=== PATIENT | female | born 1990 | race Caucasian/White ===

== ENCOUNTER → 2021-01-07 10:25 | Outpatient (CLI) | payer SELFPAY ==
[2021-01-07 09:26] VITALS: BMI 34.4
[2021-01-07 10:45] LABS: Absolute Lymphocyte Count 1.04 X10^3/uL (0.83-4.51); Absolute Neutrophil Count 3.6 X10^3/uL (2.0-7.7); Basophil# 0.02 X10^3/uL; Basophil% 0.4 % (0-1); Eosinophil# 0.02 X10^3/uL; Eosinophils% 0.4 % (0-5); Hematocrit 36.5 % (37-47); Hemoglobin 12.3 g/dL (12.0-15.0); Lymphocyte # 1.04 X10^3/ul (0.83-4.51); Lymphocyte % 20.9 % (19-41); Mean Corp Hgb Conc 33.7 g/dL (32-36); Mean Corpuscular Hgb 29.9 pg (27.0-32.0); Mean Corpuscular Volume 88.6 fL (81-99); Mean Platelet Vol. 10.7 fl (6.2-12.0); Monocyte# 0.31 X10^3/uL; Monocyte% 6.2 % (0-10); NRBC Flagged by Analyzer 0 % (0-5); Neutrophil # 3.57 X10^3/uL (2.7-7.7); Neutrophil % 71.9 % (47-70); Platelet Count 154 K/mm3 (150-450); RBC Distribution Width SD 38.6 fl (35.1-43.9); Red Blood Count 4.12 M/mm3 (4.2-5.4)
[2021-01-07 11:03] LABS: Glucose Challenge Gest 1H 50g 129 mg/dL (70-140)
[2021-01-07 11:24] LABS: Rubella IgG Reactive (Nonreactive)
[2021-01-09 09:29] LABS: V-Zoster IgG (Immunity) < 135 index (Immune >165)
== END ==
PROVIDERS: PCP Nurse Practitioner Family; Referring Provider Obstetrics & Gynecology; Visit Provider Obstetrics & Gynecology
DX: O99.210 Obesity complicating pregnancy, unspecified trimester (principal); E66.9 Obesity, unspecified; Z3A.00 Weeks of gestation of pregnancy not specified; Z78.9 Other specified health status
CPT/HCPCS: 36415; 82950; 85025; 86762; 86787; 86850; 86900; 86901; 87086; 87088

== ENCOUNTER → 2021-02-02 | Outpatient (CLI) | payer SELFPAY ==
[2021-02-02 10:41] VITALS: BMI 34.4
[2021-02-04 03:07] LABS: Chlamydia By Nucleic Acid AMP Negative (Negative)
[2021-02-04 12:11] LABS: Gonococcus By Nucleic Acid AMP Negative (Negative)
[2021-02-05 08:28] LABS: HPV Reflexed? NOT INDICATED
== END | disposition home or self-care (01) ==
PROVIDERS: PCP Nurse Practitioner Family; Referring Provider Obstetrics & Gynecology; Visit Provider Obstetrics & Gynecology
DX: Z12.4 Encounter for screening for malignant neoplasm of cervix (principal)
CPT/HCPCS: 87491; 87591; 88175; G0145

== ENCOUNTER → 2021-03-17 12:17 | Outpatient (CLI) | payer SELFPAY ==
[2021-02-02 10:41] VITALS: BMI 34.4
--- NOTE | 2021-03-17 12:18 | US_ITS ---
STUDY: SECOND AND THIRD TRIMESTER OBSTETRICAL ULTRASOUND REASON FOR EXAM: Female, 30 years old anatomy LMP: 11/02/2020. TECHNIQUE: Transabdominal and Transvaginal TECHNICAL QUALITY: Adequate. PRIOR ULTRASOUND: None. FINDINGS: There is a single intrauterine fetus. The fetus is in a cephalic presentation. There is demonstrated cardiac activity with a heart rate of 144 bpm. There is a normal amniotic fluid volume. The largest amniotic fluid pocket measures 4.5 cm x 4.2 cm. The amniotic fluid index (DEANDRE) is within normal limits. The placenta is anterior in location and is not low lying. There are Grade 0 placental changes. The cervix measures 4.4 cm in length. The bilateral adnexal regions are normal. BIOMETRY: BPD: 4.58 cm: 19 weeks, 6 days HC: 16.29 cm: 19 weeks, 0 days AC: 13.67 cm: 19 weeks, 0 days FL: 2.93 cm: 19 weeks, 0 days CI: 85% FL/BPD: 64% FL/HC: FL/AC: 21% HC/AC: 1.19 age by current US: 18 weeks, 6 days. MICHAELA by current US: 08/12/2021. Estimated weight: 270 grams, +/- 42 grams, 38 %. Age by LMP: 19 weeks, 2 days. MICHAELA by LMP: 08/09/2021. ANATOMY: Gender: Female Cranium: Normal lateral ventricles. Normal choroid plexus. Normal cerebellum. Normal cisterna magna. Normal face, nose and lips. Chest: Normal 4-chamber heart. Abdomen/Pelvis: Normal diaphragm. Normal stomach. Normal abdominal wall. Normal cord insertion. Normal 3 vessel cord. Normal kidneys. Normal bladder. Spine: Normal cervical spine. Normal thoracic spine. Normal lumbar spine. Normal sacrum. Extremities: Normal bilateral upper extremities. Normal bilateral lower extremities. IMPRESSION: Single life intrauterine gestation with a mean gestational age of 18 weeks and 6 days. Electronically Signed: Anirudh Amin MD at 9:22 EDT , Service support , STUDY: FIRST TRIMESTER OBSTETRICAL ULTRASOUND REASON FOR EXAM: Female, 30 years old . Cervical length measurement. LMP: 11/02/2020 TECHNIQUE: Transvaginal TECHNICAL QUALITY: Adequate. PRIOR ULTRASOUND: None. FINDINGS: The cervical length measures 4.4 cm. US/OB Anatomy Scan IMPRESSION: Cervical length measures 4.4 cm. Electronically Signed: Anirudh Amin MD at 9:22 EDT , Service support ,
--- NOTE | 2021-03-17 12:18 | US_ITS ---
STUDY: SECOND AND THIRD TRIMESTER OBSTETRICAL ULTRASOUND REASON FOR EXAM: Female, 30 years old anatomy LMP: 11/02/2020. TECHNIQUE: Transabdominal and Transvaginal TECHNICAL QUALITY: Adequate. PRIOR ULTRASOUND: None. FINDINGS: There is a single intrauterine fetus. The fetus is in a cephalic presentation. There is demonstrated cardiac activity with a heart rate of 144 bpm. There is a normal amniotic fluid volume. The largest amniotic fluid pocket measures 4.5 cm x 4.2 cm. The amniotic fluid index (DEANDRE) is within normal limits. The placenta is anterior in location and is not low lying. There are Grade 0 placental changes. The cervix measures 4.4 cm in length. The bilateral adnexal regions are normal. BIOMETRY: BPD: 4.58 cm: 19 weeks, 6 days HC: 16.29 cm: 19 weeks, 0 days AC: 13.67 cm: 19 weeks, 0 days FL: 2.93 cm: 19 weeks, 0 days CI: 85% FL/BPD: 64% FL/HC: FL/AC: 21% HC/AC: 1.19 age by current US: 18 weeks, 6 days. MICHAELA by current US: 08/12/2021. Estimated weight: 270 grams, +/- 42 grams, 38 %. Age by LMP: 19 weeks, 2 days. MICHAELA by LMP: 08/09/2021. ANATOMY: Gender: Female Cranium: Normal lateral ventricles. Normal choroid plexus. Normal cerebellum. Normal cisterna magna. Normal face, nose and lips. Chest: Normal 4-chamber heart. Abdomen/Pelvis: Normal diaphragm. Normal stomach. Normal abdominal wall. Normal cord insertion. Normal 3 vessel cord. Normal kidneys. Normal bladder. Spine: Normal cervical spine. Normal thoracic spine. Normal lumbar spine. Normal sacrum. Extremities: Normal bilateral upper extremities. Normal bilateral lower extremities. IMPRESSION: Single life intrauterine gestation with a mean gestational age of 18 weeks and 6 days. Electronically Signed: Anirudh Amin MD at 9:22 EDT , Service support , STUDY: FIRST TRIMESTER OBSTETRICAL ULTRASOUND REASON FOR EXAM: Female, 30 years old . Cervical length measurement. LMP: 11/02/2020 TECHNIQUE: Transvaginal TECHNICAL QUALITY: Adequate. PRIOR ULTRASOUND: None. FINDINGS: The cervical length measures 4.4 cm. US/Transvaginal w/Preg US IMPRESSION: Cervical length measures 4.4 cm. Electronically Signed: Anirudh Amin MD at 9:22 EDT , Service support ,
== END ==
PROVIDERS: PCP Nurse Practitioner Family; Referring Provider Obstetrics & Gynecology; Visit Provider Obstetrics & Gynecology
DX: Z34.01 Encounter for supervision of normal first pregnancy, first trimester (principal)
CPT/HCPCS: 76805; 76817

== ENCOUNTER → 2021-05-20 10:14 | Outpatient (CLI) | payer SELFPAY ==
[2021-05-20 10:42] LABS: Absolute Lymphocyte Count 1.01 X10^3/uL (0.83-4.51); Absolute Neutrophil Count 4.9 X10^3/uL (2.0-7.7); Basophil# 0.01 X10^3/uL; Basophil% 0.2 % (0-1); Eosinophil# 0.04 X10^3/uL; Eosinophils% 0.6 % (0-5); Hematocrit 34.1 % (37-47); Hemoglobin 11.3 g/dL (12.0-15.0); Lymphocyte # 1.01 X10^3/ul (0.83-4.51); Lymphocyte % 16.3 % (19-41); Mean Corp Hgb Conc 33.1 g/dL (32-36); Mean Corpuscular Hgb 30.1 pg (27.0-32.0); Mean Corpuscular Volume 90.7 fL (81-99); Monocyte# 0.25 X10^3/uL; NRBC Flagged by Analyzer 0 % (0-5); Neutrophil # 4.85 X10^3/uL (2.7-7.7); Neutrophil % 78.4 % (47-70); Platelet Count 136 K/mm3 (150-450); RBC Distribution Width CV 13.2 % (11.6-14.6); RBC Distribution Width SD 42.8 fl (35.1-43.9); Red Blood Count 3.76 M/mm3 (4.2-5.4); White Blood Count 6.2 K/mm3 (4.4-11.0)
[2021-05-20 11:12] LABS: Glucose Challenge Gest 1H 50g 128 mg/dL (70-140)
== END ==
PROVIDERS: PCP Nurse Practitioner Family; Referring Provider Obstetrics & Gynecology; Visit Provider Obstetrics & Gynecology
DX: Z34.92 Encounter for supervision of normal pregnancy, unspecified, second trimester (principal)
CPT/HCPCS: 36415; 82950; 85025

== ENCOUNTER → 2021-06-18 10:18 | Outpatient (CLI) | payer SELFPAY ==
[2021-06-18 10:35] LABS: Hematocrit 34.8 % (37-47); Hemoglobin 11.7 g/dL (12.0-15.0); Mean Corp Hgb Conc 33.6 g/dL (32-36); Mean Corpuscular Hgb 30.6 pg (27.0-32.0); Mean Corpuscular Volume 91.1 fL (81-99); Mean Platelet Vol. 10.6 fl (6.2-12.0); Platelet Count 143 K/mm3 (150-450); RBC Distribution Width SD 42.5 fl (35.1-43.9); Red Blood Count 3.82 M/mm3 (4.2-5.4); White Blood Count 7.2 K/mm3 (4.4-11.0)
== END ==
PROVIDERS: PCP Nurse Practitioner Family; Referring Provider Obstetrics & Gynecology; Visit Provider Obstetrics & Gynecology
DX: O99.119 Other diseases of the blood and blood-forming organs and certain disorders involving the immune mechanism complicating pregnancy, unspecified trimester (principal); D69.6 Thrombocytopenia, unspecified; Z3A.00 Weeks of gestation of pregnancy not specified
CPT/HCPCS: 36415; 85027

== ENCOUNTER 2021-07-17 10:44 | Outpatient (CLI) | payer SELFPAY ==
[2021-07-17 11:08] LABS: Absolute Lymphocyte Count 0.52 X10^3/uL (0.83-4.51); Absolute Neutrophil Count 3.5 X10^3/uL (2.0-7.7); Basophil# 0.02 X10^3/uL; Basophil% 0.5 % (0-1); Eosinophil# 0.01 X10^3/uL; Eosinophils% 0.2 % (0-5); Hematocrit 36.3 % (37-47); Hemoglobin 11.9 g/dL (12.0-15.0); Lymphocyte # 0.52 X10^3/ul (0.83-4.51); Lymphocyte % 11.8 % (19-41); Mean Corp Hgb Conc 32.8 g/dL (32-36); Mean Corpuscular Hgb 29.8 pg (27.0-32.0); Mean Platelet Vol. 11.3 fl (6.2-12.0); Monocyte# 0.33 X10^3/uL; Monocyte% 7.5 % (0-10); NRBC Flagged by Analyzer 0 % (0-5); Neutrophil % 79.8 % (47-70); POSITIVE DIFFERENTIAL YES; Platelet Count 124 K/mm3 (150-450); RBC Distribution Width SD 42.6 fl (35.1-43.9); Red Blood Count 3.99 M/mm3 (4.2-5.4); White Blood Count 4.4 K/mm3 (4.4-11.0)
[2021-07-17 11:12] LABS: Differential Indicated SCAN CRITERIA MET
[2021-07-17 11:46] LABS: Platelet Estimate SLT DEC (ADEQ); Red Cell Morphology NORM C+C NORMAL (NORM C&C)
[2021-07-20 14:00] LABS: Pathologist Review Reviewed
== END 2021-07-17 23:59 | disposition short-term general hospital (02) ==
PROVIDERS: PCP Nurse Practitioner Family; Referring Provider Nurse Practitioner Women's Health; Visit Provider Nurse Practitioner Women's Health
DX: O09.899 Supervision of other high risk pregnancies, unspecified trimester (principal); Z28.3 Underimmunization status; Z3A.00 Weeks of gestation of pregnancy not specified
CPT/HCPCS: 36415; 85025; 87081

== ENCOUNTER 2021-08-16 01:15 | Inpatient (IN) | payer SELFPAY ==
[2021-08-16] VITALS (77 sets, daily range): BP systolic 90–171; BP diastolic 54–132; PULSE 57–187; TEMP 35.8–37.1; O2SAT 88–100; BMI 36.9
[2021-08-16 01:13] LABS: ROM Internal Control Test YES-OK TO RESULT pt. (Internal QC)
[2021-08-16 01:14] LABS: ROM Patient Test POSITIVE (Negative)
[2021-08-16] MEDS: Lactated Ringers 1,000 ML 50 ML IV (01:30)
[2021-08-16 01:49] LABS: Absolute Neutrophil Count 7.3 X10^3/uL (2.0-7.7); Basophil# 0.02 X10^3/uL; Basophil% 0.2 % (0-1); Eosinophil# 0.06 X10^3/uL; Eosinophils% 0.6 % (0-5); Hematocrit 35.1 % (37-47); Hemoglobin 12.3 g/dL (12.0-15.0); Lymphocyte % 16.9 % (19-41); Mean Corpuscular Hgb 31.6 pg (27.0-32.0); Mean Corpuscular Volume 90.2 fL (81-99); Mean Platelet Vol. 12.4 fl (6.2-12.0); Monocyte# 0.47 X10^3/uL; NRBC Flagged by Analyzer 0 % (0-5); Neutrophil % 76.9 % (47-70); Platelet Count 131 K/mm3 (150-450); RBC Distribution Width CV 12.9 % (11.6-14.6); RBC Distribution Width SD 41.5 fl (35.1-43.9); Red Blood Count 3.89 M/mm3 (4.2-5.4); White Blood Count 9.5 K/mm3 (4.4-11.0)
[2021-08-16 02:56] LABS: HIV - WCH Non-Reactive (Nonreactive); Hepatitis C Antibody Non-Reactive (Nonreactive); Syphilis Antibodies Non-reactive
[2021-08-16] MEDS: Oxytocin 30 units/NS 500 ml 30 UNITS/500 ML IV.SOLN IV (06:30)
--- NOTE | 2021-08-16 07:09 | HP.PCM.OB_ITS ---
HPI - General General Date of Admission: 08/16/21 HPI Narrative SWATI SERRATO, is a 30 F who presentswith clear SROM midnight no regular ctx no vb good fm Maternal Data Information [facility] Calculator Estimated Delivery Date Method Current WG Current Estimate 08/09/21 LMP (Certain) 41w 0d PFSH PFSH Medical History Susceptible to varicella (non-immune), currently Home Medications prenat.vits,justino,ivy-[id number]-zarpl 1 tab PO DAILY 12/22/20 [History Last Taken 08/14/21 22:00] Allergy/AdvReac Type Severity Reaction Status Date / Time No Known Allergies Allergy Verified 08/16/21 00:37 Family History Mother Colon cancer, Onset Age: 56 Grandfather Cancer Grandmother CVA (cerebral vascular accident) Grandfather CVA (cerebral vascular accident) Social History adopted: No household members: spouse current occupational status: unemployed Smoking Status: Former smoker alcohol intake: never substance use type: does not use History 2 Elective abortions Hx Para 0 Spontaneous abortions 1 Hx # Term Pregnancies Ectopic pregnancies Hx # Pregnancies Multiple births # of living children 0 Past Pregnancies Del. Date Name GA/Weeks Outcome Route Bth Weight Gen Labor Lgth Anesthesia Del Locatn Provider FOB Unknown SAB 04/2020 spontaneous Visit Details Expected Delivery Route/Plan Labor Preferences- CB/BF classes: encouraged labor support person: Surinder labor intervention prefers: ok with pit intervention as needed pain management options preferred: epidural cut cord/dad catch: FOB terrified of labor process. will not want to cut the cord. : yes PP control planned: discussed discussed possible routes of delivery and associated risks: discussed today want a safe delivery special requests: [] Plans covid status: counseled regarding risk of covid in vs vaccination and declined vaccination flu vaccine: declined tdap vaccine: declines rhogam: na LARC form signed: yes Problem list reviewed and updated with the most current plan of care details and appropriate orders placed. Relevant counseling for the gestational age provided. Continue routine care and follow up unless otherwise noted in visit notes/problem list details OB Flowsheet Initial Weight: Not Recorded Date -?--?-?-?-?-?-?-?-?-?-?-?- EGA Weight BP Urine Prot -?-?-?-?-?-?-?-?-?-?-?-?- Glucose FHR FuHt Pres Dilation -?-?-?-?-?-?-?-?-?-?-?-?- Effaced St Visit Note 01/07/21 -?-?-?-?-?-?-?-?-?-?-?-?- 9w 3d 233 lb 8 oz 100/60 -?-?-?-?-?-?-?-?-?-?-?-?- 168 -?-?-?-?-?-?-?-?-?-?-?-?- GP - CRL 24mm co nsistent with LMP. NOB cut short - will do pap at next visit. 02/02/21 -?-?-?-?-?-?-?-?-?-?-?-?- 13w 1d 230 lb 100/70 Negative -?-?-?-?-?-?-?-?-?-?-?-?- Negative 157 -?-?-?-?-?-?-?-?-?-?-?-?- GP - no cramping or bleeding. Pap done today. Anatomy scan ordered. 03/04/21 -?-?-?-?-?-?-?-?-?-?-?-?- 17w 3d 228 lb 8 oz 118/82 Nega tive -?-?-?-?-?-?-?-?-?-?-?-?- Negative 155 -?-?-?-?-?-?-?-?-?-?-?-?- GP - no cramping or bleeding. Anatomy scheduled. Discussed changing to help with nausea. 04/01/21 -?-?-?-?-?-?-?-?-?-?-?-?- 21w 3d 232 lb 100/82 Negative -?-?-?-?-?-?-?-?-?-?-?-?- Negative 150 -?-?-?-?-?-?-?-?-?-?-?-?- SM- no vb lof go od fm no reuglar ctx 05/08/21 -?-?-?-?-?-?-?-?-?-?-?-?- 26w 5d 240 lb 102/74 Negative -?-?-?-?-?-?-?-?-?-?-?-?- Negative 150 26 -?-?-?-?-?-?-?-?-?-?-?-?- SM- no vb crampi ng doing well 05/20/21 -?-?-?-?-?-?-?-?-?-?-?-?- 28w 3d 241 lb 8 oz 104/62 Nega tive -?-?-?-?-?-?-?-?-?-?-?-?- Negative 146 28 -?-?-?-?-?-?-?-?--?-?-?-?- MH-No VB, LOF. G ood FM. CBC today:low platelets, rpt 4 week. No anemia. Glucose pending. Larc signed. Declines flu and tdap vaccine. 06/03/21 -?-?-?-?-?-?-?-?-?-?-?-?- 30w 3d 243 lb 4 oz 90/70 Nega tive -?-?-?-?-?-?-?-?-?-?-?-?- Negative 156 32 -?-?-?-?-?-?-?-?-?-?-?-?- JV- no lof, vagi nal bleeding or dec fm. rpt plts at 34 weeks. 06/18/21 -?-?-?-?-?-?-?-?-?-?-?-?- 32w 4d 244 lb 8 oz 100/76 Nega tive -?-?-?-?-?-?-?-?-?-?-?-?- Negative 142 32 -?-?-?-?-?-?-?-?-?-?-?-?- JV- no lof, vagi nal bleeding, or dec fm. cbc ordered , 07/02/21 -?-?-?-?-?-?-?-?-?-?-?-?- 34w 4d 246 lb 4 oz 100/62 Nega tive -?-?-?-?-?-?-?-?-?-?-?-?- Negative 154 34 -?-?-?-?-?-?-?-?-?-?-?-?- MH-No VB, LOF. G ood FM. No CTX 07/17/21 -?-?-?-?-?-?-?-?-?-?-?-?- 36w 5d 249 lb 110/86 Negative -?-?-?-?-?-?-?-?-?-?-?-?- Negative 135 37 Cephalic -?-?-?-?-?-?-?-?-?-?-?-?- SM- no vb lof go od fm no reuglar ctx platelets reviewed. 07/24/21 -?-?-?-?-?-?-?-?-?-?-?-?- 37w 5d 248 lb 100/60 Trace -?-?-?-?-?-?-?-?-?-?-?-?- Negative 137 36 Cephalic 0 -?-?-?-?-?-?-?-?-?-?-?-?- JV- consider DEANDRE next visit. fundal height slightly lower than last week. She thinks baby dropped. NO lof, vaginal bleeding, or dec fm. 07/31/21 -?-?-?-?-?-?-?-?-?-?-?-?- 38w 5d 250 lb 2 oz 100/76 Nega tive -?-?-?-?-?-?-?-?-?-?-?-?- Negative 158 37 Cephalic 0 -?-?-?-?-?-?-?-?-?-?-?-?- JV- no lof, vagi nal bleeding, or dec fm. HC 10 cm, deandre 12. 08/07/21 -?-?-?-?-?-?-?-?-?-?-?-?- 39w 5d 251 lb 100/78 Negative -?-?-?-?-?-?-?-?-?-?-?-?- Negative 145 38 Cephalic 0 -?-?-?-?-?-?-?-?-?-?-?-?- SM- no vb lof go od fm no regular ctx 08/14/21 -?-?-?-?-?-?-?-?-?-?-?-?- 40w 5d 248 lb 6 oz 106/78 -?-?-?-?-?-?-?-?-?-?-?-?- 140 37 Cephalic 0 -?-?-?-?-?-?-?-?-?-?-?-?- 50 -2 JV- no lof , vaginal bleeding, or dec fm. deandre was 8 cm today. IOL at 41 wee ks 08/16/21 -?-?-?-?-?-?-?-?-?-?-?-?- 41w 0d 250 lb 0.067 oz 121/ 77 112/82 120/80 102/56 100/58 100/63 -?-?-?-?-?-?-?-?-?-?-?-?- -?-?-?-?-?-?-?-?-?-?-?-?- NST FHR Rate Baby A Baseline: 140 Variability:: Moderate Accelerations:: 15 x 15 Decelerations:: None NST Reactive:: Yes FHR Category:: Category I ROS Constitutional Constitutional: Reports systems reviewed and no addt'l complaints, except as documented ENT HEENT: Reports systems reviewed and no addt'l complaints, except as documented Cardiovascular Cardiovascular: Reports systems reviewed and no addt'l complaints, except as documented Respiratory/Chest Respiratory/Chest: Reports systems reviewed and no addt'l complaints, except as documented Gastrointestinal Gastrointestinal: Reports systems reviewed and no addt'l complaints, except as documented and nausea; Denies abdominal pain Genitourinary Genitourinary: Reports systems reviewed and no addt'l complaints, except as documented, contractions Details: present and frequency (regular ) and movement Details: present Musculoskeletal Musculoskeletal: Reports systems reviewed and no addt'l complaints, except as documented Integumentary Integumentary: Reports as per HPI Neurologic Neurologic: Reports systems reviewed and no addt'l complaints, except as documented Endocrine Endocrinology: Reports systems reviewed and no addt'l complaints, except as documented Vital Signs Vital Signs Vital Signs: 08/16/21 00:43 08/16/21 00:44 08/16/21 00:45 Temperature 97.1 F L Temperature Source Temporal Pulse Rate 86 78 Blood Pressure 121/77 H BP Systolic 121 BP Diastolic 77 Pulse Ox 98 08/16/21 02:05 08/16/21 02:06 08/16/21 02:58 Temperature 97.0 F L 97.0 F L Temperature Source Temporal Temporal Pulse Rate 86 91 Blood Pressure 112/82 H BP Systolic 112 BP Diastolic 82 Pulse Ox 99 98 08/16/21 02:59 08/16/21 04:23 08/16/21 05:20 Temperature 97.9 F 98.0 F Temperature Source Temporal Temporal Pulse Rate 76 77 72 Blood Pressure 120/80 102/56 L 100/58 L BP Systolic 120 102 100 BP Diastolic 80 56 58 Pulse Ox 98 98 97 08/16/21 06:06 Temperature 97.7 F L Temperature Source Temporal Pulse Rate 69 Blood Pressure 100/63 BP Systolic 100 BP Diastolic 63 Pulse Ox 99 Weight Weight: 250 lb 0.067 oz Body Mass Index (BMI) 36.9 Physical Exam Const alert, oriented x3 and healthy appearing Constitutional Narrative: uncomfortable with contractions HEENT normocephalic and moist oral mucous membranes Head and Scalp: atraumatic Neck full ROM, no lymphadenopathy, supple and thyroid normal General: trachea midline Thyroid: thyroid normal Lymph Lymphatic: no lymphadenopathy noted Chest inspection of chest normal Resp normal respiratory effort Cardio regular rate GI normal to inspection, nondistended, normoactive bowel sounds, soft to palpation and non-tender Inspection: gravid external exam normal Bimanual Exam - Vag & Uterus: uterus non-tender Manual OB Exam: estimated gestational size appropriate, presentation cephalic, dilated, effaced and station Extremity normal to inspection General Extremity: Negative for edema Skin no rashes or lesions noted Neuro deep tendon reflexes 2+ bilaterally Motor Exam: strength 5/5 throughout and clonus absent Psych mental status grossly normal Labs Labs Labs: Blood Type A POSITIVE Antibody Screen NEGATIVE Hct 35.1 % (37-47) L Hgb 12.3 g/dL (12.0-15.0) Obstetrics US Syphilis Total Ab Non-reactive VZV IgG Antibody < 135 index (Immune >165) L Rubella IgG Antibody Reactive (Nonreactive) Hep Bs Antigen Pending Neisseria gonorrhoeae DNA (ANGEL) Negative (Negative) HIV 1&2 Antibody Non-Reactive (Nonreactive) Glucose 1 Hr 50 gm 128 mg/dL (70-140) Assessment & Plan (1) Thrombocytopenia affecting : COMMENT: rpt 4 weeks (2) Susceptible to varicella (non-immune), currently : (3) Obesity affecting : QUALIFIERS: Trimester: first trimester Qualified Code(s): O99.211 - Obesity complicating , first trimester COMMENT: BMI 34 at NOB - Early GCT nl (4) : QUALIFIERS: Weeks of gestation: 40 weeks Qualified Code(s): Z3A.40 - 40 weeks gestation of COMMENT: declined afp, genetic and carrier screen; NL anatomy. GBS neg (5) Supervision of normal first in first trimester: COMMENT: PRR MICHAELA 08/09/21 Spouse:Surinder - minimal labs 08/05 self pay (6) PROM (premature rupture of membranes): COMMENT: pit IOL, epi PRN
[2021-08-16] MEDS: Lactated Ringers 500 ML 999 ML IV ×2 (09:34→11:58)
[2021-08-16] MEDS: fentaNYL-bupivacaine (epidural) 100 ML BAG EPIDURAL ×2 (10:50→19:56)
[2021-08-16] MEDS: Lactated Ringers 1,000 ML 200 ML IV ×2 (14:27→19:56)
[2021-08-16 15:12] LABS: Hepatitis B Surface Antigen Non-Reactive (Nonreactive)
[2021-08-16] MEDS: Oxytocin 30 units/NS 500 ml 30 UNITS/500 ML IV.SOLN 334 UNITS IV (22:46)
--- NOTE | 2021-08-16 22:53 | EX.PCM.OBRPT ---
Assessment & Plan (1) PROM (premature rupture of membranes): COMMENT: pit IOL, epi PRN (2) Thrombocytopenia affecting : COMMENT: rpt 4 weeks (3) Susceptible to varicella (non-immune), currently : (4) Obesity affecting : QUALIFIERS: Trimester: first trimester Qualified Code(s): O99.211 - Obesity complicating , first trimester COMMENT: BMI 34 at NOB - Early GCT nl (5) Supervision of normal first in first trimester: COMMENT: PRR MICHAELA 08/09/21 Spouse:Surinder - minimal labs 2/2 self pay (6) : QUALIFIERS: Weeks of gestation: 40 weeks Qualified Code(s): Z3A.40 - 40 weeks gestation of COMMENT: declined afp, genetic and carrier screen; NL anatomy. GBS neg (7) Vaginal delivery: COMMENT: SM 41 PROM girl Carey Maternal Data Information MICHAELA Calculator Estimated Delivery Date Method Current WG Current Estimate 08/09/21 LMP (Certain) 41w 0d Vaginal Delivery Operative Information Pre-Operative Diagnosis: IAL Post-Operative Diagnosis: same Surgery / Procedure Performed: Spontaneous Vaginal Delivery Type of Anesthesia: Epidural Special Medications: none Estimated Blood Loss: 100 Fluids Replaced: crystalloid Findings Description of Procedure: Patient began pushing and delivered the head in the CLAY presentation. The head was delivered atraumatically . The anterior and posterior shoulders delivered without complication followed by the rest of the infant and the infant was placed on the maternal abdomen. Delayed cord clamping was employed for approximately 60 seconds. Cord was clamped and cut and gentle traction was applied to the cord and the placenta delivered spontaneously immediately following it was noted to be intact with three-vessel cord. The perineum and vagina were inspected and noted to have a second degree laceration repaired in the usual fashion with 3-0 vicryl rapide. EBL was 100. Patient and tolerated delivery well. Presentation: CLAY Amniotic Membrane Rupture Type: Artificial Amniotic Fluid Description: Clear Placental Delivery Description: Spontaneous Placenta Disposition: [facility] Cord Vessel Description: 3 Vessels Cord Entanglement: None Delayed Cord Clamping: Yes Post Vaginal Delivery Medications Given After Delivery: IV Pitocin Episiotomy Description: None Laceration: None Complication Complications: None Procedures Urinary/Genital [id number]: [id number] Vaginal Delivery [facility]
--- NOTE | 2021-08-16 22:55 | DCINST_ITS ---
Discharge Instructions Diet Discharge Diet: No restrictions Activity Discharge Activity: Return to Normal Activity, May Not Drive (while taking narcotic pain medications.) and May Shower May resume sexual activity in: 4-6 weeks Dressing / Incision Call your doctor if your incision/area has: Continuous Slow Oozing, Sudden Increased Bleeding, Increased Pain/ Swelling, Increased Redness and Foul Smelling Discharge Follow Up Care Please Follow Up With: Tita Sinclair MD When: Call [phone] to make an appointment with your doctor in 6 weeks. If you had elevated blood pressure or 4th degree laceration, you will need to be seen in 2 weeks. Test Results: Test results from this visit will be discussed in further detail at your follow-up appointment, if applicable. Discharge Plan Admission Admit Date/Time: 08/16/21 01:15 Attending Provider: Tita Sinclair Primary Care Provider: Padmnii Henderson NP Discharge Orders/Prescriptions Prescriptions: No Action prenat.vits,justino,[id number] Tablet 1 tab PO DAILY RF: 0 Referrals / Follow Up: Padmini Henderson NP, CARDIAC EXERCISE PHYSIOLOGIST-C [Primary Care Provider] - Disposition Disposition (needs filled in before D/C Order can be placed): Home, Self Care
[2021-08-17] VITALS (23 sets, daily range): BP systolic 89–117; BP diastolic 48–72; PULSE 78–117; RESP 14–18; TEMP 36.1–37.1; O2SAT 98–99
[2021-08-17] MEDS: 0.9% Saline Lock 10 ML Syringe IV (01:26)
[2021-08-17] MEDS: Naproxen 500 MG Tablet PO ×2 (06:00→19:47)
[2021-08-17] MEDS: Benzocaine/Lanolin/Aloe Vera 1 SPRAY EACH TOPICAL (06:00)
--- NOTE | 2021-08-17 07:23 | PCM.PN.OB ---
Subjective Subjective Patient doing well without complaints. Tolerating PO. Ambulating and voiding without difficulty. feeding well. Denies chest pain, shortness of breath, calf pain/swelling, fevers, chills, lightheadedness. Objective Data Objective Data Vital Signs: Vital Signs Temp Pulse Resp BP Pulse Ox 97.3 F L 83 16 117/72 98 08/17/21 04:13 08/17/21 04:15 08/17/21 04:13 08/17/21 04:15 08/17/21 00:55 Oxygen Delivery Method Room Air Weight: 250 lb 0.067 oz Body Mass Index (BMI) 36.9 Intake & Output: Intake and Output for Last 24 Hours 08/15/21 08/16/21 08/17/21 23:59 23:59 23:59 Intake Total 4339.44 / 4339.44 333 / 333 Output Total 2200 / 2200 1200 / 1200 Balance 2139.44 / 2139.44 -867 / -867 Lab / Micro Data Result Diagrams: 08/16/21 01:30 Labs: Laboratory Results - last 24 hr 08/16/21 01:30: Hep Bs Antigen Non-Reactive Micro: Microbiology 08/16/21 01:37 Nasal Secretion SARS-CoV-2 Antigen (Rapid) - Final ROS Constitutional Constitutional: Reports systems reviewed and no addt'l complaints, except as documented Cardiovascular Cardiovascular: Reports systems reviewed and no addt'l complaints, except as documented Respiratory/Chest Respiratory/Chest: Reports systems reviewed and no addt'l complaints, except as documented Gastrointestinal Gastrointestinal: Reports systems reviewed and no addt'l complaints, except as documented Physical Exam Const alert, oriented x3 and no apparent distress HEENT Head and Scalp: atraumatic Resp normal respiratory effort GI soft to palpation and non-tender Bimanual Exam - Vag & Uterus: uterus non-tender Uterus Palpation: uterus fundus firm (below Umbilicus) Assessment & Plan (1) Vaginal delivery: COMMENT: SM 41 PROM girl Carey (2) Susceptible to varicella (non-immune), currently : PLAN: s/p PPD # 1 1. routine post delivery care 2. breast feeding- support given 3. rh positive 4. rubella immune
[2021-08-18 02:00] VITALS: BP 105/63; PULSE 74; RESP 18; TEMP 36.4
[2021-08-18] MEDS: Naproxen 500 MG Tablet PO (07:38)
--- NOTE | 2021-08-18 07:48 | PCM.PN.OB ---
Subjective Subjective Patient doing well without complaints. Tolerating PO. Ambulating and voiding without difficulty. Feeding well. Denies chest pain, shortness of breath, calf pain/swelling, fevers, chills, lightheadedness. Objective Data Objective Data Vital Signs: Vital Signs Temp Pulse Resp BP Pulse Ox 97.5 F L 74 18 105/63 98 08/18/21 02:00 08/18/21 02:00 08/18/21 02:00 08/18/21 02:00 08/17/21 00:55 Oxygen Delivery Method Room Air Weight: 250 lb 0.067 oz Body Mass Index (BMI) 36.9 Intake & Output: Intake and Output for Last 24 Hours 08/16/21 08/17/21 08/18/21 23:59 23:59 23:59 Intake Total 4339.44 / 4339.44 333 / 333 Output Total 2200 / 2200 1200 / 1200 Balance 2139.44 / 2139.44 -867 / -867 Lab / Micro Data Result Diagrams: 08/16/21 01:30 Micro: Microbiology 08/16/21 01:37 Nasal Secretion SARS-CoV-2 Antigen (Rapid) - Final Physical Exam Const alert and oriented x3 HEENT normocephalic Eyes PERRL Neck full ROM Resp normal respiratory effort GI soft to palpation GI Narrative: FF below U Assessment & Plan (1) Vaginal delivery: COMMENT: MARIELLA 41 PROM girl Carey PLAN: s/p PPD # 2 1. routine post delivery care 2. breast feeding- support given 3. rh positive 4. rubella non immune 5. home today
[2021-08-18 08:00] VITALS: BP 106/65; PULSE 69; RESP 16; TEMP 36.4
[2021-08-18 12:15] VITALS: BP 102/60; PULSE 100; RESP 16; TEMP 36.7
--- NOTE | 2021-08-18 15:33 | NURSING ---
LE: 08/18/21 @ 0800: Offered pt MMR vac. Pt declines. Reviewed with pt reasons for MMR, denies questions or concerns.
== END 2021-08-18 12:02 | disposition home or self-care (01) | DRG 806 ==
LOC: WPOUT 01:17 → WP 01:17
PROVIDERS: Admitting Provider Obstetrics & Gynecology; PCP Nurse Practitioner Family; Visit Provider Obstetrics & Gynecology
DX: O42.92 Full-term premature rupture of membranes, unspecified as to length of time between rupture and onset of labor (principal); Z37.0 Single live birth; O99.12 Other diseases of the blood and blood-forming organs and certain disorders involving the immune mechanism complicating childbirth; D69.6 Thrombocytopenia, unspecified; E66.9 Obesity, unspecified; O70.1 Second degree perineal laceration during delivery; Z87.891 Personal history of nicotine dependence; Z3A.41 41 weeks gestation of pregnancy; O99.214 Obesity complicating childbirth
CPT/HCPCS: 59025; 59050; 84112; 85025; 86703; 86780; 86803; 86850; 86900; 86901; 87340; 87426; 99218; J7120; A4216; G0378

== ENCOUNTER → 2024-07-09 | Outpatient (CLI) | payer SELFPAY ==
[2024-07-11 00:07] LABS: Chlamydia By Nucleic Acid AMP Negative (Negative); Gonococcus By Nucleic Acid AMP Negative (Negative)
[2024-07-11 17:07] LABS: HPV APTIMA, High Risk Negative (Negative)
== END | disposition home or self-care (01) ==
LOC: LABSPEC 12:05
PROVIDERS: PCP Nurse Practitioner Family; Referring Provider Obstetrics & Gynecology; Visit Provider Obstetrics & Gynecology
DX: Z34.90 Encounter for supervision of normal pregnancy, unspecified, unspecified trimester (principal)
CPT/HCPCS: 87086; 87491; 87591; 87624; 88175; G0145

== ENCOUNTER → 2024-08-07 | Outpatient (CLI) | payer SELFPAY ==
[2024-08-07 11:10] LABS: Absolute Lymphocyte Count 1.15 X10^3/uL (0.83-4.51); Absolute Neutrophil Count 3.5 X10^3/uL (2.0-7.7); Basophil# 0.01 X10^3/uL; Basophil% 0.2 % (0-1); Eosinophil# 0.04 X10^3/uL; Eosinophils% 0.8 % (0-5); Hematocrit 36.8 % (37-47); Hemoglobin 12.1 g/dL (12.0-15.0); Lymphocyte # 1.15 X10^3/ul (0.83-4.51); Lymphocyte % 23.2 % (19-41); Mean Corp Hgb Conc 32.9 g/dL (32-36); Mean Corpuscular Hgb 29.2 pg (27.0-32.0); Mean Corpuscular Volume 88.7 fL (81-99); Mean Platelet Vol. 11.9 fl (6.2-12.0); Monocyte# 0.26 X10^3/uL; Monocyte% 5.3 % (0-10); NRBC Flagged by Analyzer 0 % (0-5); Neutrophil # 3.47 X10^3/uL (2.7-7.7); Neutrophil % 70.1 % (47-70); Platelet Count 140 K/mm3 (150-450); RBC Distribution Width CV 12.9 % (11.6-14.6); RBC Distribution Width SD 42.1 fl (35.1-43.9); Red Blood Count 4.15 M/mm3 (4.2-5.4)
[2024-08-07 12:05] LABS: Hemoglobin A1c 4.7 % (3.8-5.6)
[2024-08-07 12:12] LABS: HIV - WCH Non-Reactive (Nonreactive); Hepatitis B Surface Antigen Non-Reactive (Nonreactive); Hepatitis C Antibody Non-Reactive (Nonreactive); Rubella IgG Reactive (Nonreactive); Syphilis Antibodies Non-reactive
== END | disposition home or self-care (01) ==
LOC: BWCLAB 10:26
PROVIDERS: PCP Nurse Practitioner Family; Referring Provider Obstetrics & Gynecology; Visit Provider Obstetrics & Gynecology
DX: Z34.90 Encounter for supervision of normal pregnancy, unspecified, unspecified trimester (principal)
CPT/HCPCS: 36415; 83036; 85025; 86703; 86762; 86780; 86803; 86850; 86900; 86901; 87340

== ENCOUNTER → 2024-09-19 | Outpatient (CLI) | payer SELFPAY ==
--- NOTE | 2024-09-19 15:30 | US_ITS ---
PROCEDURE: ultrasound transabdominal and transvaginal. 09/19/2024 REASON FOR EXAM: Anatomy, cervical length. TECHNIQUE: Transabdominal and transvaginal ultrasound images were obtained. COMPARISON: None available FINDINGS Single live intrauterine gestation in cephalic presentation. heart rate 155 beats per minute. Maximum vertical pocket 3.7 cm. The placenta is posterior, without retroplacental fluid collection. No evidence of placenta previa. No gross anomalies are demonstrated. Visualized intracranial/intra-abdominal structures, spine, and extremities show no specific abnormality. cord insertion unremarkable. There appears to be a three-vessel cord and a four-chamber heart. The maternal ovaries are not demonstrated. Biparietal diameter 4.7 cm, at the 61st percentile. Head circumference 18.7 cm, at the 85th percentile. Abdominal circumference 14.7 cm, at the 45th percentile. Femur length 3.3 cm, at the 60th percentile. Estimated weight 340 g +/-51 g. Estimated weight at the 58th percentile. Facial features appear intact. Cervical length 4.6 cm, closed. US/OB Anatomy w/ Transvaginal IMPRESSION: Single live intrauterine gestation with estimated gestational age 20 weeks, 3 d ays. Estimated date of confinement 02/03/2025. No gross anomalies are demonstrated. Amniotic fluid level subjectively normal. Posterior placenta. No gross evidence of placenta previa. Cervical length 4.6 cm, closed. Reading Location: [facility]
== END | disposition home or self-care (01) ==
PROVIDERS: PCP Nurse Practitioner Family; Referring Provider Obstetrics & Gynecology; Visit Provider Obstetrics & Gynecology
DX: O09.90 Supervision of high risk pregnancy, unspecified, unspecified trimester (principal); Z3A.00 Weeks of gestation of pregnancy not specified
CPT/HCPCS: 76805; 76817

== ENCOUNTER → 2024-11-06 | Outpatient (CLI) | payer SELFPAY ==
[2024-11-06 15:34] LABS: Absolute Lymphocyte Count 1.25 X10^3/uL (0.83-4.51); Absolute Neutrophil Count 5.7 X10^3/uL (2.0-7.7); Basophil# 0.03 X10^3/uL; Basophil% 0.4 % (0-1); Eosinophil# 0.06 X10^3/uL; Eosinophils% 0.8 % (0-5); Hematocrit 33.1 % (37-47); Lymphocyte # 1.25 X10^3/ul (0.83-4.51); Lymphocyte % 16.8 % (19-41); Mean Corp Hgb Conc 33.2 g/dL (32-36); Mean Corpuscular Hgb 30.3 pg (27.0-32.0); Mean Corpuscular Volume 91.2 fL (81-99); Mean Platelet Vol. 11.4 fl (6.2-12.0); Monocyte# 0.38 X10^3/uL; Monocyte% 5.1 % (0-10); NRBC Flagged by Analyzer 0 % (0-5); Neutrophil % 76.6 % (47-70); Platelet Count 157 K/mm3 (150-450); RBC Distribution Width CV 13.4 % (11.6-14.6); RBC Distribution Width SD 44.6 fl (35.1-43.9); Red Blood Count 3.63 M/mm3 (4.2-5.4); White Blood Count 7.4 K/mm3 (4.4-11.0)
[2024-11-06 16:23] LABS: Glucose Challenge Gest 1H 50g 101 mg/dL (70-140); HIV Nonreactive (Nonreactive); Syphilis Antibodies Nonreactive (Nonreactive)
== END | disposition home or self-care (01) ==
LOC: BWCLAB 13:27
PROVIDERS: Obstetrics & Gynecology; PCP Nurse Practitioner Family; Referring Provider Nurse Practitioner Women's Health; Visit Provider Nurse Practitioner Women's Health
DX: O09.90 Supervision of high risk pregnancy, unspecified, unspecified trimester (principal); Z3A.00 Weeks of gestation of pregnancy not specified; Z13.1 Encounter for screening for diabetes mellitus
CPT/HCPCS: 36415; 82950; 85025; 86703; 86780

== ENCOUNTER → 2025-01-10 | Outpatient (CLI) | payer SELFPAY | END | disposition home or self-care (01) | LOC: LABSPEC 15:52 | PROVIDERS: PCP Nurse Practitioner Family; Visit Provider Advanced Practice Midwife | DX: O09.93 Supervision of high risk pregnancy, unspecified, third trimester (principal); Z3A.35 35 weeks gestation of pregnancy | CPT/HCPCS: 87081 ==

== ENCOUNTER 2025-02-12 16:48 | Inpatient (IN) | payer SELFPAY ==
[2025-02-12] VITALS (27 sets, daily range): BP systolic 99–141; BP diastolic 54–81; PULSE 56–84; RESP 15–20; TEMP 36.2–36.6; O2SAT 91–100; BMI 37.0
--- NOTE | 2025-02-12 15:49 | US_ITS ---
PROCEDURE: OB LIMITED WITH BIOMETRICS 02/12/2025 REASON FOR EXAM: 41 WEEK GROWTH US TECHNIQUE: OB LIMITED WITH BIOMETRICS COMPARISON: Prior study dated September 20, 2024. FINDINGS Number: 1 Position: Vertex Placental Position: Posterior and not low-lying. Placental Abnormalities: No evidence of previa. DIMENSIONS: Biparietal Diameter: 9.4 cm: 38 weeks and 2 days:/ Head Circumference: 34 cm: 39 weeks and 1 day:/ Abdominal Circumference: 34.5 cm: 38 weeks and 3 days/ Femur Length: 7.7 cm: 39 weeks and 3 days/ ESTIMATED WEIGHT: 3600 g plus/-540 g ESTIMATED WEIGHT PERCENTILE (24+ weeks): Not available ESTIMATED GESTATIONAL AGE: Baseline: 40 weeks and 6 days By Ultrasound: 38 weeks and 6 days ESTIMATED DATE OF DELIVERY: Baseline: February 06, 2025 By Ultrasound: February 20, 2025 BIOPHYSICAL ASSESSMENT: Amniotic Fluid Volume: 1.9 cm Amniotic Fluid Index: 5.5 cm (8-24 cm normal range) Cardiac Motion: 144 beats per minute (average) Trunk and Limb Motion: Present. MATERNAL ANATOMY: Adnexa: Neither maternal ovary is successfully identified. US/OB Limited With Biometrics IMPRESSION: Intrauterine gestation with a mean gestational age of 38 weeks and 6 days. Decreased amniotic fluid. The referring physician was notified. Reading Location: [id number]
--- NOTE | 2025-02-12 16:53 | HP.PCM.OB_ITS ---
HPI - General General Date of Admission: 02/12/25 Date of Service: 02/12/25 HPI Narrative SWATI SERRATO, is a 34 F at 40.6 weeks who presents to unit after growth US. Nina is 5.5. cervical exam in the office was 60/-[address] Sinclair. Maternal Data Information MICHAELA Calculator Estimated Delivery Date Method Current WG Current Estimate 02/06/25 LMP (Certain) 40w 6d Final MICHAELA: 02/06/25 Final MICHAELA Source: US >20 weeks Gestational age: 40.6 weeks PFSH PFS Medical History Vaginal delivery Susceptible to varicella (non-immune), currently Home Medications ?Medication ?Instructions ?Recorded ?Last Taken ?Type prenat.vits,justino,jhv-ipex-hvddx 1 tab PO DAILY pregnanc y 12/22/20 08/14/21 22:00 History Allergy/AdvReac Type Severity Reaction Status Date / Time No Known Allergies Allergy Verified 02/12/25 14:39 Family History Mother Colon cancer, Onset Age: 56 Grandfather Cancer Grandmother CVA (cerebral vascular accident) Grandfather CVA (cerebral vascular accident) Social History adopted: No household members: spouse and children number of children: 1 current occupational status: employed 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 current occupational 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: No pets and animals: Yes pets and animals: dog(s) history of recent travel: Yes ([place] - Mar 2024) out of state: Yes out of country: No sexually active: Yes Smoking Status: Former smoker alcohol intake: current alcohol intake frequency: holidays/special occasions only details: Not while substance use type: does not use well-balanced diet: daily or most days caffeine: No eating out: 1-3 times/week during the past year weight has: increased > 10 lbs what type of physical activity do you participate in: walking frequency: 1-2 times per week duration: < 15 minutes/day vipin/christianity: Rastafarian seatbelt use: always do you feel safe at home: Yes 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 Date Name GA/Weeks Outcome Route Bth Weight Gen Labor Lgth Anesthesia Del Locatn Provider FOB Unknown SAB 04/2020 spontaneous 08/16/21 Carey 41 live - full term 6lbs 10oz Female 18 epidural [facility] Yahir Cadena Delivery Date: 08/16/21 Last Updated by: Linette Rodriguez 41 SROM Visit Details Expected Delivery Route/Plan Labor Preferences- CB/BF classes: no labor support person: Surinder labor intervention preferences: [] pain management options preferred: epidural if requested cut cord/dad catch: no : yes PP control planned: discussed discussed possible routes of delivery and associated risks: [] special requests: [] Plans Covid status: [] Patient chooses not to vaccinate. Flu vaccine: [] Tdap vaccine: declines Rhogam: na LARC form signed: yes Problem list reviewed and updated with the most current plan of care details and appropriate orders placed. Relevant counseling for the gestational age provided. Continue routine care and follow up unless otherwise noted in visit notes/problem list details OB Flowsheet Initial Weight: 235 lb Date -?-?-?-?-?-?-?-?-?-?-?-?- EGA Weight BP Urine Prot -?-?-?-?-?-?-?-?-?-?-?-?- Glucose FHR FuHt Pres Dilation -?-?-?-?-?-?-?-?-?-?-?-?- Effaced St Visit Note 07/09/24 -?-?-?-?-?-?-?-?-?-?-?-?- 9w 5d 235 lb 6 oz (+6 oz) 108/68 -?-?-?-?-?-?-?-?-?-?-?-?- 168 -?-?-?-?-?-?-?-?-?-?-?-?- JV- CRL consiste nt with LMP. desires nipt and will return next week for this. 08/07/24 -?-?-?-?-?-?-?-?-?-?-?-?- 13w 6d 231 lb 6 oz (-3 lb 10 oz) 103/49 Negative -?-?-?-?-?-?-?-?-?-?-?-?- Negative 160 -?-?-?-?-?-?-?-?-?-?-?-?- JV- no complaint s today. CFL consistent with established michaela. did blood work today. declined nipt. 09/10/24 -?-?-?-?-?-?-?-?-?-?-?-?- 18w 5d 239 lb 8 oz (+4 lb 8 oz) 103/66 Negative -?-?-?-?-?-?-?-?-?-?-?-?- Negative 150 -?-?-?-?-?-?-?-?-?-?-?-?- KW- no vb/cratona ng. no flutters yet. US scheduled for next week. 10/10/24 -?-?-?-?-?-?-?-?-?-?-?-?- 23w 0d 240 lb 8 oz (+5 lb 8 oz) 104/61 Negative -?-?-?-?-?-?-?-?-?-?-?-?- Negative 150 -?-?-?-?-?-?-?-?-?-?-?-?- SM_ no vb lof go od fm no regular ctx 11/06/24 -?-?-?-?-?-?-?-?-?-?-?-?- 26w 6d 246 lb (+11 lb) 104/60 Negative -?-?-?-?-?-?-?-?-?-?-?-?- Negative 143 27 -?-?-?-?-?-?-?-?-?-?-?-?- MH-No Vb, LOF. G ood FM. 28 wk labs pending. Larc 11/21/24 -?-?-?-?-?-?-?-?-?-?-?-?- 29w 0d 247 lb 2 oz (+12 lb 2 oz) Trace -?-?-?-?-?-?-?-?-?-?-?-?- Negative 140 30 -?-?-?-?-?-?-?-?-?-?-?-?- JV- no lof, vagi nal bleeding, or dec fm. declines tdap. normal 28 week labs. 12/05/24 -?-?-?-?-?-?-?-?-?-?-?-?- 31w 0d 252 lb 2 oz (+17 lb 2 oz) 106/72 Negative -?-?-?-?-?-?-?-?-?-?-?-?- Negative 144 32 -?-?-?-?-?-?-?-?-?-?-?-?- MH-No VB, LOF. G ood FM. Denies concerns 12/19/24 -?-?-?-?-?-?-?-?-?-?-?-?- 33w 0d 248 lb 4 oz (+13 lb 4 oz) 98/66 Negative -?-?-?-?-?--?-?-?-?-?-?-?- Negative 140 34 -?-?-?-?-?-?-?-?-?-?-?-?- SM- no vb lof go od fm no regular ctx 01/02/25 -?-?-?-?-?-?-?-?-?-?-?-?- 35w 0d 254 lb (+19 lb) 115/77 Negative -?-?-?-?-?-?-?-?-?-?-?-?- Negative 145 36 -?-?-?-?-?-?-?-?-?-?-?-?- JV- no lof, vagi nal bleeding, or dec fm. 01/10/25 -?-?-?-?-?-?-?-?-?-?-?-?- 36w 1d 259 lb 8 oz (+24 lb 8 oz) 112/75 Negative -?-?-?-?-?-?-?-?-?-?-?-?- Negative 135 37 -?-?-?-?-?-?-?-?-?-?-?-?- kw- no vb/lof/ct x. good fm GBS today declines vaginal exam today. 01/17/25 -?-?-?-?-?-?-?-?-?-?-?-?- 37w 1d 255 lb 4 oz (+20 lb 4 oz) 113/79 Negative -?-?-?-?-?-?-?-?-?-?-?-?- Negative 140 37 Cephalic -?-?-?-?-?-?-?-?-?-?-?-?- JV- no lof, vagi nal bleeding, or dec fm. gbs neg. 01/24/25 -?-?-?-?-?-?-?-?-?-?-?-?- 38w 1d 258 lb (+23 lb) 101/69 Negative -?-?-?-?-?-?-?-?-?-?-?--?- Negative 140 38 Cephalic 0 .5 -?-?-?-?-?-?-?-?-?-?-?-?- SM- no vb lof go od fm no regular ctx 01/30/25 -?-?-?-?-?-?-?-?-?-?-?-?- 39w 0d 255 lb 8 oz (+20 lb 8 oz) 113/81 Negative -?-?-?-?-?-?-?-?-?-?-?-?- Negative 144 39 Cephalic 1 -?-?-?-?-?-?-?-?-?-?-?-?- 50 -3 JV- no lof , vaginal bleeding, or dec fm. 02/06/25 -?-?-?-?-?-?-?-?-?-?-?-?- 40w 0d 256 lb 7 oz (+21 lb 7 oz) 113/75 Negative -?-?-?-?-?-?-?-?-?-?-?-?- Negative 135 39 Cephalic 3 -?-?-?-?-?-?-?-?-?-?-?-?- 60 -2 KW- no vb/ lof/regular ctx. good fm. Discussed IOL at 41 weeks and would like to wait to set up IOL. will order growth us for 41 weeks 02/12/25 -?-?-?-?-?-?-?-?-?-?-?-?- 40w 6d 257 lb 5 oz (+22 lb 5 oz) 120/78 Negative -?-?-?-?-?-?-?-?-?-?-?-?- Negative 135 40 Cephalic 3 -?-?-?-?-?-?-?-?-?-?-?-?- SM- no vb of goo d fm no reuglar ctx discussed IOL by 41-42 weeks ROS Constitutional Constitutional: Denies change in weight, fatigue, fever(s), headache(s), poor appetite or weakness Eyes Eyes: Denies blurry vision, change in vision, floaters, seeing flashes or spots in vision ENT HEENT: Denies dizziness, headache(s), loss taste/smell or sore throat Cardiovascular Cardiovascular: Denies chest pain, dizziness, dyspnea, irregular heart rhythm, lightheadedness, palpitations or rapid heart rate Respiratory/Chest Respiratory/Chest: Denies change in mental status, chest tightness, cough, dysp mary anne or breast pain Gastrointestinal Gastrointestinal: Denies anorexia, chewing difficulty, constipation, diarrhea or weight changes Genitourinary Genitourinary: Denies difficulty urinating, dysuria, flank pain, genital pain, urinary frequency or urinary urgency Musculoskeletal Musculoskeletal: Denies back pain, difficulty walking, extremity pain, joint pain, muscle cramps or muscle weakness Integumentary Integumentary: Denies lesions or unusual bruising Neurologic Neurologic: Denies abnormal movements, abnormal speech, dizziness, numbness, seizure-like activity, syncope or weakness Psychiatric Psychiatric: Denies behavioral changes, change in appetite, confusion, depression, homicidal ideation, suicidal ideation or suicidal thoughts Endocrine Endocrinology: Denies excessive sweating, polydipsia or polyuria Hematologic/Lymphatic Hematologic/Lymphatic: Denies anemia Allergic/Immunologic Allergic/Immunologic: Denies itchy eyes, lip swelling, throat swelling, tongue swelling or wheezing Vital Signs Vital Signs Vital Signs: Weight Weight: 257 lb 15.053 oz Body Mass Index (BMI) 37.0 Physical Exam Const alert, oriented x3 and no apparent distress General Appearance: cooperative Orientation / Consciousness: awake HEENT normocephalic Neck full ROM Lymph Lymphatic: no lymphadenopathy noted Chest inspection of chest normal Resp normal respiratory effort and normal air movement Effort and Inspection: able to speak in complete sentences and symmetric chest movement GI soft to palpation and non-tender Inspection: gravid Palpation: soft; Negative for tender external exam normal Back/Spine normal to inspection Extremity normal to inspection and full ROM Skin no rashes or lesions noted Psych mental status grossly normal Appearance: grossly normal Speech: normal speech Labs Labs Labs: Blood Type A POSITIVE Antibody Screen NEGATIVE Hct 33.1 % (37-47) L Hgb 11.0 g/dL (12.0-15.0) L Obstetrics Ultrasound Syphilis Total Ab Nonreactive (Nonreactive) VZV IgG Antibody < 135 index (Immune >165) L Rubella IgG Antibody Reactive (Nonreactive) Hep Bs Antigen Non-Reactive (Nonreactive) Hepatitis C Antibody Non-Reactive (Nonreactive) Chlamydia DNA (ANGEL) Negative (Negative) N.gonorrhoeae DNA (ANGEL) Negative (Negative) HIV 1&2 Antibody Nonreactive (Nonreactive) Glucose 1 Hr 50 gm 101 mg/dL (70-140) Rhogam given: No Assessment & Plan (1) Oligohydramnios: COMMENT: nina 5.5 at 40.6. IOL-pitocin (2) Obesity affecting : QUALIFIERS: Trimester: second trimester Obesity type affecting : unspecified obesity Qualified Code(s): O99.212 - Obesity complicating , second trimester COMMENT: BMI 33.4 - HgBA1C ordered (3) Supervision of high-risk : QUALIFIERS: Trimester: third trimester Qualified Code(s): O09.93 - Supervision of high risk , unspecified, third trimester COMMENT: PRR, , MICHAELA 02/06/25, boy PC: Carey, : Surinder (4) : QUALIFIERS: Weeks of gestation: 40 weeks Qualified Code(s): Z3A.40 - 40 weeks gestation of COMMENT: Neg GBS. Discussed genetic/carrier testing - undecided (did not do either with last ), nl anatomy (5) Susceptible to varicella (non-immune), currently : COMMENT: enc vaccination (6) Encounter for induction of labor: PLAN: Patient presents IOL, plan management for with pitocin/AROM. Pain management: plans epidural. GBS negative. Management of any complications: none I have reviewed the [facility] and made any clinically relevant updates. Dr Sinclair aware of assessment, plan and admission. agrees with above Charges/Coding Multi Select Codes Urinary/Genital Urinary/Genital CPT Codes: No Charge
[2025-02-12] MEDS: Lactated Ringers 1,000 ML 50 ML IV (18:00)
[2025-02-12 18:23] LABS: Hematocrit 34.0 % (37-47); Hemoglobin 11.5 g/dL (12.0-15.0); Immature Granulocytes Count 0.030 X10^3/uL (0.0-0.0); Mean Corp Hgb Conc 33.8 g/dL (32-36); Mean Corpuscular Volume 89.7 fL (81-99); Mean Platelet Vol. 12.2 fl (6.2-12.0); NRBC Flagged by Analyzer 0 % (0-5); Platelet Count 142 K/mm3 (150-450); RBC Distribution Width CV 13.3 % (11.6-14.6); RBC Distribution Width SD 43.5 fl (35.1-43.9); Red Blood Count 3.79 M/mm3 (4.2-5.4); White Blood Count 7.8 K/mm3 (4.4-11.0)
[2025-02-12] MEDS: Oxytocin 15 Units/NS 250ml 15 UNITS/250 ML IV.SOLN 2 UNITS IV (18:45)
[2025-02-12 19:17] LABS: Syphilis Antibodies Nonreactive (Nonreactive)
--- OUTSIDE RECORDS SUMMARY | 2025-02-12 21:19 | XMS RPT_ITS | CCD ---
Author Organization [facility] Care Team Providers Care Regional Controller Name Role Phone PADMINI CASTELLON Unavailable Unavailable Santiago EMBROIDERY FINISHER-C, Padmini Primary Care Provider [phone] Santiago EMBROIDERY FINISHER-CPadmini Referring Provider [phone] Hayes Baer Attending Provider Amrit WALTER, Dr. Hall Attending Provider [phone] Pita Lizama RN Attending Provider [facility] Joanna Bhat DO Attending Provider Dr. Joanna Bhat DO Referring Provider Kelly Ruffin CNM Attending Provider [phone] Santiago EMBROIDERY FINISHER-CPadmini Primary Care Provider [phone] Padmini Serrano Referring Provider [phone] Dr. Joanna Bhat DO Attending Provider Dr. Joanna Bhat DO Referring Provider Yahir WALTER, Dr. Rivers Attending Provider Crystal EMBROIDERY FINISHER-CLizbeth Attending Provider [phone] Crystal EMBROIDERY FINISHER-CLizbeth Referring Provider [phone] Santiago EMBROIDERY FINISHER-CPadmini Primary Care Provider [phone] Santiago VERGARA-CPadmini Referring Provider [phone] Dr. Joanna Bhat DO Attending Provider Dr. Joanna Bhat DO Referring Provider Santiago EMBROIDERY FINISHER-CPadmini Primary Care Provider [phone] [place] EMBROIDERY FINISHER-C, Padmini Referring Provider [phone] Kelly Ruffin CNM Attending Provider Lorchelsi VERGARA-C, [place] Primary Care Provider Dr. Joanna Bhat DO Attending Provider Joanna Bhat Attending Unavailabl e [place], [place] Primary Care Unavailable [place], [place] Referring Unavailable Joanna Bhat Attending Unavailabl e [place], [place] Primary Care Unavailable [place], [place] Referring Un[facility] Unavailable Kelly Ruffin Attending Unavailable Kelly Ruffin Referring Unavailable Pita Lizama Attending Unavailable [facility] Unavailable Hayes Baer Attending Unavailable [facility] Unavailable [place], [place] Referring Unavailable [place], [place] Primary Care Unavailable [place], [place] Referring Unavailable Rafael Marcus Attending Unavailable Joanna Bhat Attending Unavailabl e [place], [place] Referring Unavailable [facility] Unavailable Joanna Bhat Referring Unavailabl e Vande VelJoanna lópez Attending Unavailabl e [place], [place] Primary Care Unavailable Joanna Bhat Attending Unavailabl e [place], [place] Primary Care Unavailable [place], [place] Referring Unavailable Joanna Bhat Attending Unavailabl e Vande VeldeJoanna Referring Unavailabl e [place], [place] Primary Care Unavailable Joanna Bhat Attending Unavailabl e Vande VeldeJoanna Referring Unavailabl e [place], [place] Primary Care [facility] Unavailable Crystal EMBROIDERY FINISHERLizbeth Referring Unavailable Crystal EMBROIDERY FINISHERLizbeth Attending Unavailable [place], [place] Primary Care Unavailable Kelly Ruffin Attending Unavailable [place], [place] Primary Care Unavailable [place], Padmini Referring Unavailable Kelly Ruffin Attending Unavailable [place], [place] Primary Care Unavailable [place], Padmini Referring Unavailable Tita Sinclair Attending Unavailable Joanna Bhat Attending Unavailabl e [place], [place] Referring Unavailable [place], [place] Primary Care Unavailable [place], [place] Primary Care Unavailable [place], Padmini Referring Unavailable Tita Sinclair Attending Unavailable Crystal EMBROIDERY FINISHERLizbeth Attending Unavailable [facility] Unavailable [place], Padmini Referring Unavailable Padmini Castellon Referring Unavailable Kelly Ruffin Attending Unavailable Santiago Padmini Primary Care Unavailable Joanna Bhat Attending Unavailabl e Santiago Padmini Referring Unavailable [place] Padmini Primary Care Unavailable [place], Padmini Referring Unavailable Tita Sinclair Attending Unavailable Padmini Castellon Primary Care Unavailable LorsonXochitlPadmini Referring Unavailable [place] Padmini Primary Care Unavailable Lizbeth Rojas NP Attending Unavailable [place] Padmini Referring Unavailable [place] Padmini Primary Care Unavailable Kelly Ruffin Attending Unavailable Santiago EMBROIDERY FINISHER-C, Padmini Primary Care Provider [phone] Santiago EMBROIDERY FINISHER-CPadmini Referring Provider [phone] Yahir WALTER, Dr. Rivers Attending Provider Medications Current Medications Medication Drug Class(es) Dates Sig (Normalized) Sig (Original) Prenat.Vits,Justino,Min- Iron-Folic tablet (13 sources) Start: 12-22-2020 Prenat.Vits,Justino,Min -Iron-Folic tablet Active 1 {tbl} PO DAILY December 22, 2020 12:00am Start: 12-22-2020 Prenat.Vits,Ca l,Cut-Qywf-Bzpjj tablet Active 1 {tbl} PO DAILY December 22, 2020 12:00am Completed/Discontinued Medications Medication Drug Class(es) Dates Sig (Normalized) Sig (Original) azithromycin 250 mg oral tablet (13 sources) Macrolide Antimicrobial Start: 06-18-2024 End: 07-09-2024 take 2-5 tablets by mouth once daily Azithromycin (Zithromax Z-Sacha) 250 mg tablet Discontinued 0 PO .COMPLEX 6 0 June 18, 2024 1:00am July 09, 2024 11:44am take 500 mg today (day 1), then 250 mg for 4 days (days 2-5) PO cefdinir 300 mg oral capsule (13 sources) Cephalosporin Antibacterial Start: 06-18-2024 End: 07-09-2024 take 1 capsule by mouth twice daily Cefdinir 300 mg capsule Discontinued 300 mg PO TWICE A DAY 10 0 June 18, 2024 1:00am July 09, 2024 11:44am norethindrone 0.35 mg oral tablet (20 sources) Start: 10-08-2021 End: 06-18-2024 take 1 tablet by mouth once daily Norethindrone (Contraceptive) (Ortho Micronor) 0.35 mg tablet Discontinued 0.35 mg PO DAILY 84 October 26, 2021 11:11am June 18, 2024 1:22pm Problems Active Problems Problem Classification Problem Date Documented Date Episodic/Chronic Other complications of (20 sources) Maternal obesity complicating , childbirth and the puerperium, antepartum; Translations: [Obesity complicating , unspecified trimester] 07-03-2024 Chronic Comment on above: BMI 33.4 - HgBA1C or dered BMI 34 at NOB - Jah y GCT nl Other complications of (1 source) Obesity complicating , second trimester; Translations: [Obesity complicating , second trimester] Onset: 02-06-2025 Chronic Other complications of (1 source) Obesity complicating , unspecified trimester; Translations: [Obesity complicating , unspecified trimester] Onset: 10-10-2024 Chronic Other complications of (20 sources) H/O: miscarriage; Translations: [Supervision of with other poor reproductive or obstetric history, unspecified trimester] 07-03-2024 Episodic Comment on above: 2019 Other complications of (20 sources) High risk ; Translations: [Supervision of high risk , unspecified, unspecified trimester] 08-07-2024 Episodic Comment on above: PRR, , NELIA 02/06, PC: Carey, : Surinder PRR, , NELIA 02/06, boy PC: Carey, : Surinder Other complications of (20 sources) Varicella non-immune; Translations: [Supervision of other high risk pregnancies, unspecified trimester] 02-28-2023 Episodic Comment on above: enc vaccination Other complications of (13 sources) Thrombocytopenic disorder; Translations: [Other diseases of the blood and blood-forming organs and certain disorders involving the immune mechanism complicating , unspecified trimester] 08-16-2021 Episodic Comment on above: rpt 4 weeks Other complications of (2 sources) Supervision of high risk , unspecified, third trimester; Translations: [Supervision of high risk , unspecified, third trimester] Onset: 02-06-2025 Episodic Other complications of (1 source) Supervision of other high risk pregnancies, unspecified trimester; Translations: [Supervision of other high risk pregnancies, unspecified trimester] Onset: 02-06-2025 Episodic Other complications of (1 source) Supervision of high risk , unspecified, unspecified trimester; Translations: [Supervision of high risk , unspecified, unspecified trimester] Onset: 01-03-2025 Episodic Other female genital disorders (20 sources) Premenstrual tension syndrome; Translations: [Premenstrual tension syndrome] 02-28-2023 Chronic Comment on above: try chaste tree or 5 HTP. Declines OCP, SSRI Other female genital disorders (1 source) Premenstrual tension syndrome; Translations: [Premenstrual tension syndrome] Onset: 07-09-2024 Chronic Other lower respiratory disease (20 sources) Cough; Translations: [Cough] 06-18-2024 Episodic Other and delivery including normal (20 sources) Vaginal delivery; Translations: [Encounter for full-term uncomplicated delivery] Onset: 09-24-2024 02-28-2023 Episodic Comment on above: SM 43 PROM girl Carey shirt PRR NELIA 08/09/21 Spouse:Surinder - minimal labs 08/05 self pay Discussed genetic/ca rrier testing - undecided (did not do either with last ), nl anatomy declined afp, geneti c and carrier screen; NL anatomy. GBS neg Neg GBS. Discussed g enetic/carrier testing - undecided (did not do either with last ), nl anatomy Pneumonia (except that caused by tuberculosis or sexually transmitted disease) (20 sources) Community acquired pneumonia; Translations: [Pneumonia, unspecified organism] Onset: 07-09-2024 06-18-2024 Episodic Polyhydramnios and other problems of amniotic cavity (13 sources) Premature rupture of membranes; Translations: [Premature rupture of membranes, unspecified as to length of time between rupture and onset of labor, unspecified weeks of gestation] 08-16-2021 Episodic Comment on above: pit IOL, epi PRN Residual codes; unclassified (1 source) Underimmunization status; Translations: [Underimmunization status] Onset: 02-06-2025 Episodic Residual codes; unclassified (1 source) 40 weeks gestation of ; Translations: [40 weeks gestation of ] Onset: 02-06-2025 Episodic Residual codes; unclassified (1 source) 39 weeks gestation of ; Translations: [39 weeks gestation of ] Onset: 01-30-2025 Episodic Residual codes; unclassified (1 source) 38 weeks gestation of ; Translations: [38 weeks gestation of ] Onset: 01-24-2025 Episodic Residual codes; unclassified (1 source) 35 weeks gestation of ; Translations: [35 weeks gestation of ] Onset: 01-10-2025 Episodic Residual codes; unclassified (1 source) 36 weeks gestation of ; Translations: [36 weeks gestation of ] Onset: 01-10-2025 Episodic Residual codes; unclassified (1 source) 33 weeks gestation of ; Translations: [33 weeks gestation of ] Onset: 12-19-2024 Episodic Unclassified (1 source) Cough, unspecified; Translations: [Cough, unspecified] Onset: 07-09-2024 Past or Other Problems Problem Classification Problem Date Documented Da te Episodic/Chronic Other complications of (1 source) Supervision of with other poor reproductive or obstetric history, unspecified trimester; Translations: [Supervision of with other poor reproductive or obstetric history, unspecified trimester] Onset: 10-10-2024 Episodic Residual codes; unclassified (1 source) 23 weeks gestation of ; Translations: [23 weeks gestation of ] Onset: 10-10-2024 Episodic Unclassified (2 sources) Encounter for screening for malignant neoplasm of cervix; Translations: [Encounter for screening for malignant neoplasm of cervix] Onset: 07-19-2017 Episodic Results Test Name Value Interpretation Reference Range Facility Laboratory - Chemistry and C hemistry - challengeOrdered By: Kelly Ruffin on 02-06-2025 Glucose Ql (U) Negative [facility] - UrinalysisOrder ed By: Kelly Ruffin on 02-06-2025 Protein Ql (U) Negative [facility] Senior Software Development Engineer Office Visit Reporton 02-06-2025 Senior Software Development Engineer Office Visit Report [facility] [address], [address] [place] [address] OFFICE VISIT Date of Service: 02/06/25 MR#: [id number] Acct: [id number] Name: SWATI SERRATO Rep #: [id number] : 1990 Provider: TERESE Gomez ams Age/Sex: 34/F Location: [facility] [place] Status: Signed Intake Vital Signs 12/05/24 12:56 01/30/25 10:23 02/06/25 10:00 Height 5 ft 10 in 5 ft 10 in 5 ft 10 in Weight: 256 lb 7 oz BMI 36.8 BP 113/75 Intake Visit Reasons: 40 wk ob *happy due date* Sales Consulting Director Required: No Is patient in pain?: No Allergies No Known Allergies Allergy (Verified 02/06/25 10:04) Medications ???Medication ???Instructions ???Recorded ???Confirmed ???Type prenat.vits,justino,min-iron- folic 1 tab PO DAILY 12/22/20 02/06/25 History Last Menstrual Period: 05/02/24 Zika: Zika virus screening: Negative : No PFSH PFSH Medical History Vaginal delivery Susceptible to varicella (non-immune), currently Family History Mother Colon cancer, Onset Age: 56 Grandfather Cancer Grandmother CVA (cerebral vascular accident) Grandfather CVA (cerebral vascular accident) Social History adopted: No household members: spouse and children number of children: 1 current occupational status: employed 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 current occupational 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: No pets and animals: Yes pets and animals: dog(s) history of recent travel: Yes ([place] - Mar 2024) out of state: Yes out of country: No sexually active: Yes Smoking Status: Former smoker alcohol intake: current alcohol intake frequency: holidays/special occasions only details: Not while substance use type: does not use well-balanced diet: daily or most days caffeine: No eating out: 1-3 times/week during the past year weight has: increased > 10 lbs what type of physical activity do you participate in: walking frequency: 1-2 times per week duration: < 15 minutes/day ivpin/adventist: Spiritism seatbelt use: always do you feel safe at home: Yes 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 Date Name GA/Weeks Outcome Route Bth Weight [facility] Unknown SAB 04/2020 spontaneous 08/16/21 Carey 41 live - full term 6lbs 10oz Female 16 epidural [facility] Yahir Cadena Delivery Date: 08/16/21 Last Updated by: Linette Rodriguez 41 SROM HPI 40 wk ob *happy due date* Details: SWATI SERRATO is a 34 year old who presents for routine OB visit. OB Visit NELIA Calculator Estimated Delivery Date Method Current WG Current Estimate 02/06/25 LMP (Certain) 40w 0d Expected Delivery Route/Plan Labor Preferences- CB/BF classes: no labor support person: Surinder labor intervention preferences: [] pain management options preferred: epidural if requested cut cord/dad catch: no : yes PP control planned: discussed discussed possible routes of delivery and associated risks: [] special requests: [] Specific Issue/Plans Covid status: [] Patient chooses not to vaccinate. Flu vaccine: [] Tdap vaccine: declines Rhogam: na LARC form signed: yes Problem list reviewed and updated with the most current plan of care details and appropriate orders placed. Relevant counseling for the gestational age provided. Continue routine care and follow up unless otherwise noted in visit notes/problem list details Initial Weight: 235 lb Date -???-???-???-???-???-???- ???-???-???-???-???-???- EGA Weight BP Urine Prot -???-???-???-???-???-???- ???-???-???-???-???-???- Glucose FHR FuHt Pres Dilation -???-???-???-???-???-???- ???-???-???-???-???-???- Effaced St Visit Note 07/09/24 -???-???-???-???-???-???- ???-???-???-???-???-???- 9w 5d 235 lb 6 oz (+6 oz) 108/68 -???-???-???-???-???-???- ???-???-???-???-???-???- 168 -???-???-???-???-???-???- ???-???-???-???-???-???- JV- CRL cons istent with LMP. desires nipt and will return next week for this. 08/07/24 -???-???-???-???-???-???- ???-???-???-???-???-???- 13w 6d 231 lb 6 oz (-3 lb 10 oz) 103/49 Negative -???-???-???-???-???-???- ???-???-???-???-???-???- Negative 160 -???-???-???-???-???-???- ???-???-???-???-???-???- JV- no compl aints today. CFL consistent with established nelia. did blood work today. (more content not included)... Normal [facility] - Chemistry and C hemistry - challengeOrdered By: Joanna Antonio on 01-30-2025 Glucose Ql (U) Negative [facility] - UrinalysisOrder ed By: Joanna Antonio on 01-30-2025 Protein Ql (U) Negative [facility] Senior Software Development Engineer Office Visit Reporton 01-30-2025 Senior Software Development Engineer Office Visit Report [facility] [address], [address] [place] [address] OFFICE VISIT Date of Service: 01/30/25 MR#: [id number] Acct: [id number] Name: SWATI SERRATO Rep #: [id number] : 1990 Provider: Dr. Joanna Anaya DO Age/Sex: 34/F Location: [facility] [place] Status: Signed Intake Vital Signs 12/05/24 12:56 01/24/25 09:53 01/30/25 10:22 01/30/25 10:23 Height 5 ft 10 in 5 ft 10 in 5 ft 10 in 5 ft 10 in Weight: 255 lb 8 oz BMI 36.6 BP 113/81 H Intake Visit Reasons: 39 wk ob Sales Consulting Director Required: No Is patient in pain?: No Allergies No Known Allergies Allergy (Verified 01/30/25 10:22) Medications ???Medication ???Instructions ???Recorded ???Confirmed ???Type prenat.vits,justino,min-iron- folic 1 tab PO DAILY 12/22/20 01/30/25 History Last Menstrual Period: 05/02/24 Zika: Zika virus screening: Negative : No PFSH PFSH Medical History Vaginal delivery Susceptible to varicella (non-immune), currently Family History Mother Colon cancer, Onset Age: 56 Grandfather Cancer Grandmother CVA (cerebral vascular accident) Grandfather CVA (cerebral vascular accident) Social History adopted: No household members: spouse and children number of children: 1 current occupational status: employed 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 occupational 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: No pets and animals: Yes pets and animals: dog(s) history of recent travel: Yes ([place] - Mar 2024) out of state: Yes out of country: No sexually active: Yes Smoking Status: Former smoker alcohol intake: current alcohol intake frequency: holidays/special occasions only details: Not while substance use type: does not use well-balanced diet: daily or most days caffeine: No eating out: 1-3 times/week during the past year weight has: increased > 10 lbs what type of physical activity do you participate in: walking frequency: 1-2 times per week duration: < 15 minutes/day vipin/adventist: Spiritism seatbelt use: always do you feel safe at home: Yes 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 Date Name GA/Weeks Outcome Route Bth Weight Gen Labor Lgth Anesthesia Del Locatn Provider FOB Unknown SAB 04/2020 spontaneous 08/16/21 Carey 41 live - full term 6lbs 10oz Female 16 epidural [facility] Yahir Cadena Delivery Date: 08/16/21 Last Updated by: Linette Rodriguez 41 SROM HPI 39 wk ob Details: SWATI SERRATO is a 34 year old who presents for routine OB visit. OB Visit NELIA Calculator Estimated Delivery Date Method Current WG Current Estimate 02/06/25 LMP (Certain) 39w 0d Expected Delivery Route/Plan Labor Preferences- CB/BF classes: no labor support person: Surinder labor intervention preferences: [] pain management options preferred: epidural if requested cut cord/dad catch: no : yes PP control planned: discussed discussed possible routes of delivery and associated risks: [] special requests: [] Specific Issue/Plans Covid status: [] Patient chooses not to vaccinate. Flu vaccine: [] Tdap vaccine: declines Rhogam: na LARC form signed: yes Problem list reviewed and updated with the most current plan of care details and appropriate orders placed. Relevant counseling for the gestational age provided. Continue routine care and follow up unless otherwise noted in visit notes/problem list details Initial Weight: 235 lb Date -???-???-???-???-???-???- ???-???-???-???-???-???- EGA Weight BP Urine Prot -???-???-???-???-???-???- ???-???-???-???-???-???- Glucose FHR FuHt Pres Dilation -???-???-???-???-???-???- ???-???-???-???-???-???- Effaced St Visit Note 07/09/24 -???-???-???-???-???-???- ???-???-???-???-???-???- 9w 5d 235 lb 6 oz (+6 oz) 108/68 -???-???-???-???-???-???- ???-???-???-???-???-???- 168 -???-???-???-???-???-???- ???-???-???-???-???-???- JV- CRL cons istent with LMP. desires nipt and will return next week for this. 08/07/24 -???-???-???-???-???-???- ???-???-???-???-???-???- 13w 6d 231 lb 6 oz (-3 lb 10 oz) 103/49 Negative -???-???-???-???-???-???- ???-???-???-???-???-???- Negative 160 -???-???-???-???-???-???- ???-???-???-???-???-???- JV- no compl aints today. CFL consistent with established nelia. did blood (more content not included)... Normal [facility] - Chemistry and C hemistry - challengeOrdered By: Tita Sinclair on 01-24-2025 Glucose Ql (U) Negative [facility] - UrinalysisOrder ed By: Tita Sinclair on 01-24-2025 Protein Ql (U) Negative [facility] Senior Software Development Engineer Office Visit Reporton 01-24-2025 Senior Software Development Engineer Office Visit Report [facility] [address], [address] [place] [address] OFFICE VISIT Date of Service: 01/24/25 MR#: [id number] Acct: [id number] Name: SWATI SERRATO Rep #: [id number] : 1990 Provider: Dr. Tita blackman MD Age/Sex: 34/F Location: [facility] [place] Status: Signed Intake Vital Signs 12/05/24 12:56 01/17/25 13:30 01/24/25 09:53 Height 5 ft 10 in 5 ft 10 in 5 ft 10 in Weight: 258 lb BMI 37.0 BP 101/69 Intake Visit Reasons: 38 wk ob Sales Consulting Director Required: No Is patient in pain?: No Allergies No Known Allergies Allergy (Verified 01/24/25 09:55) Medications ???Medication ???Instructions ???Recorded ???Confirmed ???Type prenat.vits,justino,min-iron- folic 1 tab PO DAILY 12/22/20 01/24/25 History Last Menstrual Period: 05/02/24 Zika: Zika virus screening: Negative : No PFSH PFSH Medical History Vaginal delivery Susceptible to varicella (non-immune), currently Family History Mother Colon cancer, Onset Age: 56 Grandfather Cancer Grandmother CVA (cerebral vascular accident) Grandfather CVA (cerebral vascular accident) Social History adopted: No household members: spouse and children number of children: 1 current occupational status: employed 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 occupational 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: No pets and animals: Yes pets and animals: dog(s) history of recent travel: Yes ([place] - Mar 2024) out of state: Yes out of country: No sexually active: Yes Smoking Status: Former smoker alcohol intake: current alcohol intake frequency: holidays/special occasions only details: Not while substance use type: does not use well-balanced diet: daily or most days caffeine: No eating out: 1-3 times/week during the past year weight has: increased > 10 lbs what type of physical activity do you participate in: walking frequency: 1-2 times per week duration: < 15 minutes/day vipin/adventist: Spiritism seatbelt use: always do you feel safe at home: Yes 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 Date Name GA/Weeks Outcome Route Bth Weight Gen Labor Lgth Anesthesia Del Locatn Provider FOB Unknown SAB 04/2020 spontaneous 08/16/21 Carey 41 live - full term 6lbs 10oz Female 16 epidural [facility] Yahir Surinder Delivery Date: 08/16/21 Last Updated by: Linette Rodriguez 41 SROM HPI 38 wk ob Details: SWATI SERRATO is a 34 year old who presents for routine OB visit. OB Visit NELIA Calculator Estimated Delivery Date Method Current WG Current Estimate 02/06/25 LMP (Certain) 38w 1d Expected Delivery Route/Plan Labor Preferences- CB/BF classes: no labor support person: Surinder labor intervention preferences: [] pain management options preferred: epidural if requested cut cord/dad catch: no : yes PP control planned: discussed discussed possible routes of delivery and associated risks: [] special requests: [] Specific Issue/Plans Covid status: [] Patient chooses not to vaccinate. Flu vaccine: [] Tdap vaccine: declines Rhogam: na LARC form signed: yes Problem list reviewed and updated with the most current plan of care details and appropriate orders placed. Relevant counseling for the gestational age provided. Continue routine care and follow up unless otherwise noted in visit notes/problem list details Initial Weight: 235 lb Date -???-???-???-???-???-???- ???-???-???-???-???-???- EGA Weight BP Urine Prot -???-???-???-???-???-???- ???-???-???-???-???-???- Glucose FHR FuHt Pres Dilation -???-???-???-???-???-???- ???-???-???-???-???-???- Effaced St Visit Note 07/09/24 -???-???-???-???-???-???- ???-???-???-???-???-???- 9w 5d 235 lb 6 oz (+6 oz) 108/68 -???-???-???-???-???-???- ???-???-???-???-???-???- 168 -???-???-???-???-???-???- ???-???-???-???-???-???- JV- CRL cons istent with LMP. desires nipt and will return next week for this. 08/07/24 -???-???-???-???-???-???- ???-???-???-???-???-???- 13w 6d 231 lb 6 oz (-3 lb 10 oz) 103/49 Negative -???-???-???-???-???-???- ???-???-???-???-???-???- Negative 160 -???-???-???-???-???-???- ???-???-???-???-???-???- JV- no compl aints today. CFL consistent with established nelia. did blood work today. declined nipt. 09/10/24 (more content not included)... Normal [facility] Laboratory - Chemistry and C hemistry - challengeOrdered By: Joanna Antonio on 01-17-2025 Glucose Ql (U) Negative [facility] Laboratory - UrinalysisOrder ed By: Joanna Antonio on 01-17-2025 Protein Ql (U) Negative [facility] Senior Software Development Engineer Office Visit Reporton 01-17-2025 Senior Software Development Engineer Office Visit Report [facility] [address], [address] [place] [address] OFFICE VISIT Date of Service: 01/17/25 MR#: [id number] Acct: [id number] Name: SWATI SERRATO Rep #: [id number] : 1990 Provider: Dr. Joanna Anaya DO Age/Sex: 34/F Location: [facility] [place] Status: Signed Intake Vital Signs 12/05/24 12:56 01/10/25 14:05 01/17/25 13:30 Height 5 ft 10 in 5 ft 10 in 5 ft 10 in Weight: 255 lb 4 oz BMI 36.6 BP 113/79 Intake Visit Reasons: 37 wk ob Chief Complaint: 37wk OB Sales Consulting Director Required: No Is patient in pain?: No Allergies No Known Allergies Allergy (Verified 01/17/25 13:28) Medications ???Medication ???Instructions ???Recorded ???Confirmed ???Type prenat.vits,justino,min-iron- folic 1 tab PO DAILY 12/22/20 01/17/25 History Last Menstrual Period: 05/02/24 : No PFSH PFSH Medical History Vaginal delivery Susceptible to varicella (non-immune), currently Family History Mother Colon cancer, Onset Age: 56 Grandfather Cancer Grandmother CVA (cerebral vascular accident) Grandfather CVA (cerebral vascular accident) Social History adopted: No household members: spouse and children number of children: 1 current occupational status: employed 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 occupational 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: No pets and animals: Yes pets and animals: dog(s) history of recent travel: Yes ([place] - Mar 2024) out of state: Yes out of country: No sexually active: Yes Smoking Status: Former smoker alcohol intake: current alcohol intake frequency: holidays/special occasions only details: Not while substance use type: does not use well-balanced diet: daily or most days caffeine: No eating out: 1-3 times/week during the past year weight has: increased > 10 lbs what type of physical activity do you participate in: walking frequency: 1-2 times per week duration: < 15 minutes/day vipin/adventist: Spiritism seatbelt use: always do you feel safe at home: Yes 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 Date Name GA/Weeks Outcome Route Bth Weight Infant Gen Labor Lgth Anesthesia Del Locatn Provider FOB Unknown SAB 04/2020 spontaneous 08/16/21 Carey 41 live - full term 6lbs 10oz Female 16 epidural [facility] Yahir Cadena Delivery Date: 08/16/21 Last Updated by: Linette Rodriguez 41 SROM HPI 37 wk ob Details: SWATI SERRATO is a 34 year old who presents for routine OB visit. OB Visit NELIA Calculator Estimated Delivery Date Method Current Current Estimate 02/06/25 LMP (Certain) 37w 1d Expected Delivery Route/Plan Labor Preferences- CB/BF classes: no labor support person: Surinder labor intervention preferences: [] pain management options preferred: epidural if requested cut cord/dad catch: no : yes PP control planned: discussed discussed possible routes of delivery and associated risks: [] special requests: [] Specific Issue/Plans Covid status: [] Patient chooses not to vaccinate. Flu vaccine: [] Tdap vaccine: declines Rhogam: na LARC form signed: yes Problem list reviewed and updated with the most current plan of care details and appropriate orders placed. Relevant counseling for the gestational age provided. Continue routine care and follow up unless otherwise noted in visit notes/problem list details Initial Weight: 235 lb Date -???-???-???-???-???-???- ???-???-???-???-???-???- EGA Weight BP Urine Prot -???-???-???-???-???-???- ???-???-???-???-???-???- Glucose FHR FuHt Pres Dilation -???-???-???-???-???-???- ???-???-???-???-???-???- Effaced St Visit Note 07/09/24 -???-???-???-???-???-???- ???-???-???-???-???-???- 9w 5d 235 lb 6 oz (+6 oz) 108/68 -???-???-???-???-???-???- ???-???-???-???-???-???- 168 -???-???-???-???-???-???- ???-???-???-???-???-???- JV- CRL cons istent with LMP. desires nipt and will return next week for this. 08/07/24 -???-???-???-???-???-???- ???-???-???-???-???-???- 13w 6d 231 lb 6 oz (-3 lb 10 oz) 103/49 Negative -???-???-???-???-???-???- ???-???-???-???-???-???- Negative 160 -???-???-???-???-???-???- ???-???-???-???-???-???- JV- no compl aints today. CFL consistent with established nelia. did blood work today. declined nipt. 09/10/24 -???-???-??? (more content not included)... Normal [facility] Rule out Beta Strep (Grp. B) on 01-14-2025 SHELDON Group B Beta Streptococcus is not isolated. Normal [facility] Comment on above: Performed By: #### M [id number] ####[facility] [id number] [place], [address] Laboratory - Chemistry and C hemistry - challengeOrdered By: Kelly Ruffin on 01-10-2025 Glucose Ql (U) Negative [facility] Laboratory - UrinalysisOrder ed By: Kelly Ruffin on 01-10-2025 Protein Ql (U) Negative [facility] Senior Software Development Engineer Office Visit Reporton 01-10-2025 Senior Software Development Engineer Office Visit Report [facility] [address], [address] [place] [address] OFFICE VISIT Date of Service: 01/10/25 MR#: [id number] Acct: [id number] Name: SWATI SERRATO Rep #: [id number] : 1990 Provider: TERESE Gomez ams Age/Sex: 34/F Location: [facility] [place] Status: Signed Intake Vital Signs 12/05/24 12:56 01/02/25 11:31 01/10/25 14:05 Height 5 ft 10 in 5 ft 10 in 5 ft 10 in Weight: 259 lb 8 oz BMI 37.2 BP 112/75 Intake Visit Reasons: 36 wk wk ob Chief Complaint: 36wk OB Sales Consulting Director Required: No Is patient in pain?: No Allergies No Known Allergies Allergy (Verified 01/10/25 14:04) Medications ???Medication ???Instructions ???Recorded ???Confirmed ???Type prenat.vits,justino,min-iron- folic 1 tab PO DAILY 12/22/20 01/10/25 History Last Menstrual Period: 05/02/24 : No PFSH PFSH Medical History Vaginal delivery Susceptible to varicella (non-immune), currently Family History Mother Colon cancer, Onset Age: 56 Grandfather Cancer Grandmother CVA (cerebral vascular accident) Grandfather CVA (cerebral vascular accident) Social History adopted: No household members: spouse and children number of children: 1 current occupational status: employed 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 occupational 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: No pets and animals: Yes pets and animals: dog(s) history of recent travel: Yes ([place] - Mar 2024) out of state: Yes out of country: No sexually active: Yes Smoking Status: Former smoker alcohol intake: current alcohol intake frequency: holidays/special occasions only details: Not while substance use type: does not use well-balanced diet: daily or most days caffeine: No eating out: 1-3 times/week during the past year weight has: increased > 10 lbs what type of physical activity do you participate in: walking frequency: 1-2 times per week duration: < 15 minutes/day vipin/adventist: Spiritism seatbelt use: always do you feel safe at home: Yes 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 Date Name GA/Weeks Outcome Route Bth Weight Gen Labor Lgth Anesthesia Del Locatn Provider FOB Unknown SAB 04/2020 spontaneous 08/16/21 Carey 41 live - full term 6lbs 10oz Female 16 epidural [facility] Yahir Cadena Delivery Date: 08/16/21 Last Updated by: Linette Rodriguez 41 SROM HPI 36 wk wk ob Details: SWATI SERRATO is a 34 year old who presents for routine OB visit. OB Visit NELIA Calculator Estimated Delivery Date Method Current WG Current Estimate 02/06/25 LMP (Certain) 36w 1d Expected Delivery Route/Plan Labor Preferences- CB/BF classes: no labor support person: Surinder labor intervention preferences: [] pain management options preferred: epidural if requested cut cord/dad catch: no : yes PP control planned: discussed discussed possible routes of delivery and associated risks: [] special requests: [] Specific Issue/Plans Covid status: [] Patient chooses not to vaccinate. Flu vaccine: [] Tdap vaccine: declines Rhogam: na LARC form signed: yes Problem list reviewed and updated with the most current plan of care details and appropriate orders placed. Relevant counseling for the gestational age provided. Continue routine care and follow up unless otherwise noted in visit notes/problem list details Initial Weight: 235 lb Date -???-???-???-???-???-???- ???-???-???-???-???-???- EGA Weight BP Urine Prot -???-???-???-???-???-???- ???-???-???-???-???-???- Glucose FHR FuHt Pres Dilation -???-???-???-???-???-???- ???-???-???-???-???-???- Effaced St Visit Note 07/09/24 -???-???-???-???-???-???- ???-???-???-???-???-???- 9w 5d 235 lb 6 oz (+6 oz) 108/68 -???-???-???-???-???-???- ???-???-???-???-???-???- 168 -???-???-???-???-???-???- ???-???-???-???-???-???- JV- CRL cons istent with LMP. desires nipt and will return next week for this. 08/07/24 -???-???-???-???-???-???- ???-???-???-???-???-???- 13w 6d 231 lb 6 oz (-3 lb 10 oz) 103/49 Negative -???-???-???-???-???-???- ???-???-???-???-???-???- Negative 160 -???-???-???-???-???-???- ???-???-???-???-???-???- JV- no compl aints today. CFL consistent with established nelia. did blood work today. declined nipt. 09/10/24 -???-???-???-??? (more content not included)... Normal [facility] Screening beta-hemolytic Str eptococcus cultureOrdered By: Kelly Ruffin on 01-10-2025 Beta-hemolytic Streptococcus culture Group B Beta Streptococcus is not isolated. [facility] Laboratory - Chemistry and C hemistry - challengeOrdered By: Joanna Antonio on 01-02-2025 Glucose Ql (U) Negative [facility] Laboratory - UrinalysisOrder ed By: Joanna Antonio on 01-02-2025 Protein Ql (U) Negative [facility] Senior Software Development Engineer Office Visit Reporton 01-02-2025 Senior Software Development Engineer Office Visit Report [facility] [address], [address] [place] [address] OFFICE VISIT Date of Service: 01/02/25 MR#: [id number] Acct: [id number] Name: SERRATOSWATI D Rep #: [id number] : 1990 Provider: Dr. Joanna Anaya DO Age/Sex: 34/F Location: [facility] [place] Status: Signed Intake Vital Signs 07/09/24 10:17 10/10/24 11:12 12/19/24 10:56 01/02/25 11:31 Height 5 ft 10 in 5 ft 10 in 5 ft 10 in 5 ft 10 in Weight: 254 lb BMI 36.4 BP 115/77 Intake Visit Reasons: 35 wk ob Sales Consulting Director Required: No Is patient in pain?: No Allergies No Known Allergies Allergy (Verified 01/02/25 11:36) Medications ???Medication ???Instructions ???Recorded ???Confirmed ???Type prenat.vits,justino,min-iron- folic 1 tab PO DAILY 12/22/20 01/02/25 History Last Menstrual Period: 05/02/24 Zika: Zika virus screening: Negative : No PFSH PFSH Medical History Vaginal delivery Susceptible to varicella (non-immune), currently Family History Mother Colon cancer, Onset Age: 56 Grandfather Cancer Grandmother CVA (cerebral vascular accident) Grandfather CVA (cerebral vascular accident) Social History adopted: No household members: spouse and children number of children: 1 current occupational status: employed 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 occupational 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: No pets and animals: Yes pets and animals: dog(s) history of recent travel: Yes ([place] - Mar 2024) out of state: Yes out of country: No sexually active: Yes Smoking Status: Former smoker alcohol intake: current alcohol intake frequency: holidays/special occasions only details: Not while substance use type: does not use well-balanced diet: daily or most days caffeine: No eating out: 1-3 times/week during the past year weight has: increased > 10 lbs what type of physical activity do you participate in: walking frequency: 1-2 times per week duration: < 15 minutes/day vipin/adventist: Spiritism seatbelt use: always do you feel safe at home: Yes 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 Date Name GA/Weeks Outcome Route Bth Weight Gen Labor Lgth Anesthesia Del Locatn Provider FOB Unknown SAB 04/2020 spontaneous 08/16/21 Carey 41 live - full term 6lbs 10oz Female 16 epidural [facility] Yahir Cadena Delivery Date: 08/16/21 Last Updated by: Linette Rodriguez 41 SROM HPI 35 wk ob Details: SWATI SERRATO is a 34 year old who presents for routine OB visit. OB Visit NELIA Calculator Estimated Delivery Date Method Current WG Current Estimate 02/06/25 LMP (Certain) 35w 0d Expected Delivery Route/Plan Labor Preferences- CB/BF classes: no labor support person: Surinder labor intervention preferences: [] pain management options preferred: epidural if requested cut cord/dad catch: no : yes PP control planned: discussed discussed possible routes of delivery and associated risks: [] special requests: [] Specific Issue/Plans Covid status: [] Patient chooses not to vaccinate. Flu vaccine: [] Tdap vaccine: declines Rhogam: na LARC form signed: yes Problem list reviewed and updated with the most current plan of care details and appropriate orders placed. Relevant counseling for the gestational age provided. Continue routine care and follow up unless otherwise noted in visit notes/problem list details Initial Weight: 235 lb Date -???-???-???-???-???-???- ???-???-???-???-???-???- EGA Weight BP Urine Prot -???-???-???-???-???-???- ???-???-???-???-???-???- Glucose FHR FuHt Pres Dilation -???-???-???-???-???-???- ???-???-???-???-???-???- Effaced St Visit Note 07/09/24 -???-???-???-???-???-???- ???-???-???-???-???-???- 9w 5d 235 lb 6 oz (+6 oz) 108/68 -???-???-???-???-???-???- ???-???-???-???-???-???- 168 -???-???-???-???-???-???- ???-???-???-???-???-???- JV- CRL cons istent with LMP. desires nipt and will return next week for this. 08/07/24 -???-???-???-???-???-???- ???-???-???-???-???-???- 13w 6d 231 lb 6 oz (-3 lb 10 oz) 103/49 Negative -???-???-???-???-???-???- ???-???-???-???-???-???- Negative 160 -???-???-???-???-???-???- ???-???-???-???-???-???- JV- no compl aints today. CFL consistent with established nelia. did blood work t (more content not included)... Normal [facility] Laboratory - Chemistry and C hemistry - challengeOrdered By: Tita Sinclair on 12-19-2024 Glucose Ql (U) Negative [facility] Laboratory - UrinalysisOrder ed By: Tita Sinclair on 12-19-2024 Protein Ql (U) Negative [facility] Senior Software Development Engineer Office Visit Reporton 12-19-2024 Senior Software Development Engineer Office Visit Report [facility] [address], [address] [place] [address] OFFICE VISIT Date of Service: 12/19/24 MR#: [id number] Acct: [id number] Name: SWATI SERRATO Rep #: [id number] : 1990 Provider: Dr. Tita blackman MD Age/Sex: 34/F Location: [facility] [place] Status: Signed Intake Vital Signs 07/09/24 10:17 10/10/24 11:12 12/05/24 12:56 12/19/24 10:56 Height 5 ft 10 in 5 ft 10 in 5 ft 10 in 5 ft 10 in Weight: 248 lb 4 oz BMI 35.6 BP 98/66 Intake Visit Reasons: 33 wk ob Sales Consulting Director Required: No Is patient in pain?: No Allergies No Known Allergies Allergy (Verified 12/19/24 10:56) Medications ???Medication ???Instructions ???Recorded ???Confirmed ???Type prenat.vits,justino,min-iron- folic 1 tab PO DAILY 12/22/20 12/19/24 History Last Menstrual Period: 05/02/24 Zika: Zika virus screening: Negative : No PFSH PFSH Medical History Vaginal delivery Susceptible to varicella (non-immune), currently Family History Mother Colon cancer, Onset Age: 56 Grandfather Cancer Grandmother CVA (cerebral vascular accident) Grandfather CVA (cerebral vascular accident) Social History adopted: No household members: spouse and children number of children: 1 current occupational status: employed 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 occupational 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: No pets and animals: Yes pets and animals: dog(s) history of recent travel: Yes ([place] - Mar 2024) out of state: Yes out of country: No sexually active: Yes Smoking Status: Former smoker alcohol intake: current alcohol intake frequency: holidays/special occasions only details: Not while substance use type: does not use well-balanced diet: daily or most days caffeine: No eating out: 1-3 times/week during the past year weight has: increased > 10 lbs what type of physical activity do you participate in: walking frequency: 1-2 times per week duration: < 15 minutes/day vipin/adventist: Spiritism seatbelt use: always do you feel safe at home: Yes 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 Date Name GA/Weeks Outcome Route Bth Weight Infant Gen Labor Lgth Anesthesia Del Locatn Provider FOB Unknown SAB 04/2020 spontaneous 08/16/21 Carey 41 live - full term 6lbs 10oz Female 16 epidural [facility] Yahir Cadena Delivery Date: 08/16/21 Last Updated by: Linette Rodriguez 41 SROM HPI 33 wk ob Details: SWATI SERRATO is a 34 year old who presents for routine OB visit. OB Visit NELIA Calculator Estimated Delivery Date Method Current WG Current Estimate 02/06/25 LMP (Certain) 33w 0d Expected Delivery Route/Plan Labor Preferences- CB/BF classes: no labor support person: Surinder labor intervention preferences: [] pain management options preferred: epidural if requested cut cord/dad catch: no : yes PP control planned: discussed discussed possible routes of delivery and associated risks: [] special requests: [] Specific Issue/Plans Covid status: [] Patient chooses not to vaccinate. Flu vaccine: [] Tdap vaccine: declines Rhogam: na LARC form signed: yes Problem list reviewed and updated with the most current plan of care details and appropriate orders placed. Relevant counseling for the gestational age provided. Continue routine care and follow up unless otherwise noted in visit notes/problem list details Initial Weight: 235 lb Date -???-???-???-???-???-???- ???-???-???-???-???-???- EGA Weight BP Urine Prot -???-???-???-???-???-???- ???-???-???-???-???-???- Glucose FHR FuHt Pres Dilation -???-???-???-???-???-???- ???-???-???-???-???-???- Effaced St Visit Note 07/09/24 -???-???-???-???-???-???- ???-???-???-???-???-???- 9w 5d 235 lb 6 oz (+6 oz) 108/68 -???-???-???-???-???-???- ???-???-???-???-???-???- 168 -???-???-???-???-???-???- ???-???-???-???-???-???- JV- CRL cons istent with LMP. desires nipt and will return next week for this. 08/07/24 -???-???-???-???-???-???- ???-???-???-???-???-???- 13w 6d 231 lb 6 oz (-3 lb 10 oz) 103/49 Negative -???-???-???-???-???-???- ???-???-???-???-???-???- Negative 160 -???-???-???-???-???-???- ???-???-???-???-???-???- JV- no compl aints today. CFL consistent with established nelia. did blood work today (more content not included)... Normal [facility] Laboratory - Chemistry and C hemistry - challengeOrdered By: Lizbeth Rojas on 12-05-2024 Glucose Ql (U) Negative [facility] Laboratory - UrinalysisOrder ed By: Lizbeth Rojas on 12-05-2024 Protein Ql (U) Negative [facility] Senior Software Development Engineer Office Visit Reporton 12-05-2024 Senior Software Development Engineer Office Visit Report [facility] [address] [place] [address], [address] [place] [address] OFFICE VISIT Date of Service: 12/05/24 MR#: [id number] Acct: [id number] Name: SWATI SERRATO Rep #: [id number] : 1990 Provider: KAY lambert Age/Sex: 33/F Location: [facility] [place] Status: Signed Intake Vital Signs 07/09/24 10:17 10/10/24 11:12 11/21/24 11:33 12/05/24 12:56 Height 5 ft 10 in 5 ft 10 in 5 ft 10 in 5 ft 10 in Weight: 252 lb 2 oz BMI 36.1 BP 106/72 Intake Visit Reasons: 31 wk ob Chief Complaint: 31 Week OB Sales Consulting Director Required: No Is patient in pain?: No Allergies No Known Allergies Allergy (Verified 12/05/24 12:58) Medications ???Medication ???Instructions ???Recorded ???Confirmed ???Type prenat.vits,justino,min-iron- folic 1 tab PO DAILY 12/22/20 12/05/24 History Last Menstrual Period: 05/02/24 Zika: Zika virus screening: Negative : No PFSH PFSH Medical History Vaginal delivery Susceptible to varicella (non-immune), currently Family History Mother Colon cancer, Onset Age: 56 Grandfather Cancer Grandmother CVA (cerebral vascular accident) Grandfather CVA (cerebral vascular accident) Social History adopted: No household members: spouse and children number of children: 1 current occupational status: employed 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 occupational 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: No pets and animals: Yes pets and animals: dog(s) history of recent travel: Yes ([place] - Mar 2024) out of state: Yes out of country: No sexually active: Yes Smoking Status: Former smoker alcohol intake: current alcohol intake frequency: holidays/special occasions only details: Not while substance use type: does not use well-balanced diet: daily or most days caffeine: No eating out: 1-3 times/week during the past year weight has: increased > 10 lbs what type of physical activity do you participate in: walking frequency: 1-2 times per week duration: < 15 minutes/day vipin/adventist: Spiritism seatbelt use: always do you feel safe at home: Yes 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 Date Name GA/Weeks Outcome Route Bth Weight Infant Gen Labor Lgth Anesthesia Del Locatn Provider FOB Unknown SAB 04/2020 spontaneous 08/16/21 Carey 41 live - full term 6lbs 10oz Female 16 epidural [facility] Yahir Cadena Delivery Date: 08/16/21 Last Updated by: Linette Rodriguez 41 SROM HPI 31 wk ob Details: SWATI SERRATO is a 33 year old who presents for routine OB visit. OB Visit NELIA Calculator Estimated Delivery Date Method Current WG Current Estimate 02/06/25 LMP (Certain) 31w 0d Expected Delivery Route/Plan Labor Preferences- CB/BF classes: no labor support person: Surinder labor intervention preferences: [] pain management options preferred: epidural if requested cut cord/dad catch: no : yes PP control planned: discussed discussed possible routes of delivery and associated risks: [] special requests: [] Specific Issue/Plans Covid status: [] Patient chooses not to vaccinate. Flu vaccine: [] Tdap vaccine: declines Rhogam: na LARC form signed: yes Problem list reviewed and updated with the most current plan of care details and appropriate orders placed. Relevant counseling for the gestational age provided. Continue routine care and follow up unless otherwise noted in visit notes/problem list details Initial Weight: 235 lb Date -???-???-???-???-???-???- ???-???-???-???-???-???- EGA Weight BP Urine Prot -???-???-???-???-???-???- ???-???-???-???-???-???- Glucose FHR FuHt Pres Dilation -???-???-???-???-???-???- ???-???-???-???-???-???- Effaced St Visit Note 07/09/24 -???-???-???-???-???-???- ???-???-???-???-???-???- 9w 5d 235 lb 6 oz (+6 oz) 108/68 -???-???-???-???-???-???- ???-???-???-???-???-???- 168 -???-???-???-???-???-???- ???-???-???-???-???-???- JV- CRL cons istent with LMP. desires nipt and will return next week for this. 08/07/24 -???-???-???-???-???-???- ???-???-???-???-???-???- 13w 6d 231 lb 6 oz (-3 lb 10 oz) 103/49 Negative -???-???-???-???-???-???- ???-???-???-???-???-???- Negative 160 -???-???-???-???-???-???- ???-???-???-???-???-???- JV- no compl aints today. CFL consistent with establishe (more content not included)... Normal [facility] - Chemistry and C hemistry - challengeOrdered By: Joanna Antonio on 11-21-2024 Glucose Ql (U) Negative [facility] - UrinalysisOrder ed By: Joanan Antonio on 11-21-2024 Protein Ql (U) Trace [facility] Senior Software Development Engineer Office Visit Reporton 11-21-2024 Senior Software Development Engineer Office Visit Report [facility] [address] [place] [address], [address] [place] [address] OFFICE VISIT Date of Service: 11/21/24 MR#: [id number] Acct: [id number] Name: SWATI SERRATO Rep #: [id number] : 1990 Provider: Dr. Joanna Anaya, Age/Sex: 33/F Location: [facility] [place] Status: Signed Intake Vital Signs 07/09/24 10:17 09/10/24 13:44 10/10/24 11:12 11/06/24 13:27 11/21/24 11:33 11/21/24 11:33 Height 5 ft 10 in 5 ft 10 in 5 ft 10 in 5 ft 10 in 5 ft 10 in 5 ft 10 in Weight: 247 lb 2 oz BMI 35.4 Intake Visit Reasons: 29 wk ob Sales Consulting Director Required: No Is patient in pain?: No Allergies No Known Allergies Allergy (Verified 11/21/24 11:33) Medications ???Medication ???Instructions ???Recorded ???Confirmed ???Type prenat.vits,justino,min-iron- folic 1 tab PO DAILY 12/22/20 11/21/24 History Last Menstrual Period: 05/02/24 Zika: Zika virus screening: Negative : No PFSH PFSH Medical History Vaginal delivery Susceptible to varicella (non-immune), currently Family History Mother Colon cancer, Onset Age: 56 Grandfather Cancer Grandmother CVA (cerebral vascular accident) Grandfather CVA (cerebral vascular accident) Social History adopted: No household members: spouse and children number of children: 1 current occupational status: employed 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 occupational 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: No pets and animals: Yes pets and animals: dog(s) history of recent travel: Yes ([place] - Mar 2024) out of state: Yes out of country: No sexually active: Yes Smoking Status: Former smoker alcohol intake: current alcohol intake frequency: holidays/special occasions only details: Not while substance use type: does not use well-balanced diet: daily or most days caffeine: No eating out: 1-3 times/week during the past year weight has: increased > 10 lbs what type of physical activity do you participate in: walking frequency: 1-2 times per week duration: < 15 minutes/day vipin/adventist: Spiritism seatbelt use: always do you feel safe at home: Yes 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 Date Name GA/Weeks Outcome Route Bth Weight Gen Labor Lgth Anesthesia Del Locatn Provider FOB Unknown SAB 04/2020 spontaneous 08/16/21 Carey 41 live - full term 6lbs 10oz Female 16 epidural [facility] Yahir [place] Delivery Date: 08/16/21 Last Updated by: Linette Rodriguez 43 SROM HPI 29 wk ob Details: SWATI SERRATO is a 33 year old who presents for routine OB visit. OB Visit NELIA Calculator Estimated Delivery Date Method Current WG Current Estimate 02/06/25 LMP (Certain) 29w 0d Expected Delivery Route/Plan Labor Preferences- CB/BF classes: no labor support person: Surinder labor intervention preferences: [] pain management options preferred: epidural if requested cut cord/dad catch: no : yes PP control planned: discussed discussed possible routes of delivery and associated risks: [] special requests: [] Specific Issue/Plans Covid status: [] Patient chooses not to vaccinate. Flu vaccine: [] Tdap vaccine: [] Rhogam: na LARC form signed: yes Problem list reviewed and updated with the most current plan of care details and appropriate orders placed. Relevant counseling for the gestational age provided. Continue routine care and follow up unless otherwise noted in visit notes/problem list details Initial Weight: 235 lb Date -???-???-???-???-???-???- ???-???-???-???-???-???- EGA Weight BP Urine Prot -???-???-???-???-???-???- ???-???-???-???-???-???- Glucose FHR FuHt Pres Dilation -???-???-???-???-???-???- ???-???-???-???-???-???- Effaced St Visit Note 07/09/24 -???-???-???-???-???-???- ???-???-???-???-???-???- 9w 5d 235 lb 6 oz (+6 oz) 108/68 -???-???-???-???-???-???- ???-???-???-???-???-???- 168 -???-???-???-???-???-???- ???-???-???-???-???-???- JV- CRL cons istent with LMP. desires nipt and will return next week for this. 08/07/24 -???-???-???-???-???-???- ???-???-???-???-???-???- 13w 6d 231 lb 6 oz (-3 lb 10 oz) 103/49 Negative -???-???-???-???-???-???- ???-???-???-???-???-???- Negative 160 -???-???-???-???-???-???- ???-???-???-???-???-???- JV- no compl aints today. CFL consistent wit (more content not included)... Normal [facility] Absolute lymphocyte countOrd ered By: Tita Sinclair on 11-06-2024 Lymphocytes Auto (Unsp spec) [#/Vol] 1.25 10*3/uL 0.83-4.51 [facility] Absolute neutrophil countOrd ered By: Tita Sinclair on 11-06-2024 Neutrophils (Bld) [#/Vol] 5.7 10*3/uL 2.0-7.7 [facility] Automated lymphocyte count a s percentage of total leukocytesOrdered By: Tita Sinclair on 11-06-2024 Lymphocytes/100 WBC Auto (Unsp spec) 16.8 % Low 19-41 [facility] Basophil percentageOrdered B y: Tita Sinclair on 11-06-2024 Basophils/100 WBC (Bld) 0.4 % 0-1 [facility] CBC W/Diff, Automatedon Absolute Lymph 1.25 X10 3/uL Normal 0.83-4.51 [facility] Comment on above: Performed By: #### L 501.0250, L3890.6006, L509.8002, L100.0100 ####[facility] [address] [place], [address] Absolute Neut 5.7 X10 3/uL Normal 2.0-7.7 [facility] Comment on above: Performed By: #### L 501.0250, L3890.6006, L509.8002, L100.0100 ####[facility] [address] [place], [address] Basophils/100 WBC (Bld) 0.4 % Normal 0-1 [facility] Comment on above: Performed By: #### L 501.0250, L3890.6006, L509.8002, L100.0100 ####[facility] [address] [place], [address] Eosinophils/100 WBC (Bld) 0.8 % Normal 0-5 [facility] Comment on above: Performed By: #### L 501.0250, L3890.6006, L509.8002, L100.0100 ####[facility] [address] [place], [address] Erythrocyte distribution width (RBC) [Ratio] 13.4 % Normal 11.6-14.6 [facility] Comment on above: Performed By: #### L 501.0250, L3890.6006, L509.8002, L100.0100 ####[facility] [address] [place], [address] Hematocrit (Bld) [Volume fraction] 33.1 % Low 37-47 [facility] Comment on above: Performed By: #### L 501.0250, L3890.6006, L509.8002, L100.0100 ####[facility] [address] [place], [address] Hemoglobin (Bld) [Mass/Vol] 11.0 g/dL Low 12.0-15.0 [facility] Comment on above: Performed By: #### L 501.0250, L3890.6006, L509.8002, L100.0100 ####[facility] [address] [place], [address] IG% 0.300 Normal 0.0-0.9 [facility] Comment on above: Result Comment: IG% - Immature Granulocytes (promyelocytes, myelocytes and metamyelocytes) > 1% indicates that a LEFT SHIFT is Present. Performed By: #### L 501.0250, L3890.6006, L509.8002, L100.0100 ####[facility] [address] [place], [address] Lymphocytes/100 WBC (Bld) 16.8 % Low 19-41 [facility] Comment on above: Performed By: #### L 501.0250, L3890.6006, L509.8002, L100.0100 ####[facility] [address] [place], [address] MCH (RBC) [Entitic mass] 30.3 pg Normal 27.0-32.0 [facility] Comment on above: Performed By: #### L 501.0250, L3890.6006, L509.8002, L100.0100 ####[facility] [address] [place], [address] MCHC (RBC) [Mass/Vol] 33.2 g/dL Normal 32-36 [facility] Comment on above: Performed By: #### L 501.0250, L3890.6006, L509.8002, L100.0100 ####[facility] [address] [place], [address] MCV (RBC) [Entitic vol] 91.2 fL Normal 81-99 [facility] Comment on above: Performed By: #### L 501.0250, L3890.6006, L509.8002, L100.0100 ####[facility] [address] [place], [address] Monocytes/100 WBC (Bld) 5.1 % Normal 0-10 [facility] Comment on above: Performed By: #### L 501.0250, L3890.6006, L509.8002, L100.0100 ####[facility] [address] [place], [address] Neutrophils/100 WBC (Bld) 76.6 % High 47-70 [facility] Comment on above: Performed By: #### L 501.0250, L3890.6006, L509.8002, L100.0100 ####[facility] [address] [place], [address] Nucleated RBC (Bld) [#/Vol] 0 10*3/uL Normal 0-5 [facility] Comment on above: Performed By: #### L 501.0250, L3890.6006, L509.8002, L100.0100 ####[facility] [address] [place], [address] Platelet mean volume (Bld) [Entitic vol] 11.4 fL Normal 6.2-12.0 [facility] Comment on above: Performed By: #### L 501.0250, L3890.6006, L509.8002, L100.0100 ####[facility] [address] [place], [address] Platelets (Bld) [#/Vol] 157 10*3/uL Normal 150-450 [facility] Comment on above: Performed By: #### L 501.0250, L3890.6006, L509.8002, L100.0100 ####[facility] [address] [place], [address] RBC (Bld) [#/Vol] 3.63 10*6/uL Low 4.2-5.4 [facility] Comment on above: Performed By: #### L 501.0250, L3890.6006, L509.8002, L100.0100 ####[facility] [address] [place], [address] RDW SD 44.6 fl High 35.1-43.9 [facility] Comment on above: Performed By: #### L 501.0250, L3890.6006, L509.8002, L100.0100 ####[facility] [address] [place], [address] WBC (Bld) [#/Vol] 7.4 10*3/uL Normal 4.4-11.0 [facility] Comment on above: Performed By: #### L 501.0250, L3890.6006, L509.8002, L100.0100 ####[facility] [address] [place], [place], [address] Eosinophil percentageOrdered By: Tita Sinclair on 11-06-2024 Eosinophils/100 WBC (Bld) 0.8 % 0-5 [facility] Erythrocyte distribution wid th ratioOrdered By: Tita Sinclair on 11-06-2024 Erythrocyte distribution width (RBC) [Ratio] 13.4 % 11.6-14.6 [facility] Erythrocyte distribution wid th standard deviationOrdered By: Tita Sinclair on 11-06-2024 Erythrocyte distribution width (RBC) [Ratio] 44.6 fl High 35.1-43.9 [facility] Glucose Challenge Gest 1H 50 joseph 11-06-2024 GLU GEST 50g 1H 101 mg/dL Normal 70-140 [facility] Comment on above: Performed By: #### L 501.0250, L3890.6006, L509.8002, L100.0100 ####[facility] [address] [place], [place], [id number] Glucose measurement at 2 sultana rs post-dose gestational glucose tolerance testOrdered By: Tita Sinclair on 11-06-2024 Glucose [Mass/Vol] 101 mg/dL 70-140 [facility] HIVon 11-06-2024 HIV Non-Reactive Normal Nonreactive [facility] Comment on above: Result Comment: Non- Reactive Reactive Repeatedly reactive samples must be confirmed according to CDC recommended confirmatory algorithms. The subresults for either HIVAG or AHIV can be used as an aid in the selection of the confirmation algorithm for reactive samples. Send out specimens with Reactive results to [facility] for confirmation. Order the HIV antibody detection and differentiation: lc#[id number] Performed By: #### L 501.0250, L3890.6006, L509.8002, L100.0100 ####[facility] [address] [place], [address] Hematocrit Auto (Bld) [Volum e fraction]Ordered By: Tita Sinclair on 11-06-2024 Hematocrit (Bld) [Volume fraction] 33.1 % Low 37-47 [facility] Hemoglobin measurementOrdere d By: Tita Sinclair on 11-06-2024 Hemoglobin (Bld) [Mass/Vol] 11.0 g/dL Low 12.0-15.0 [facility] Immature granulocytes/100 WB C Auto (Bld)Ordered By: Tita Sinclair on 11-06-2024 Immature granulocytes/100 WBC (Bld) 0.300 % 0.0-0.9 [facility] Comment on above: IG% - Immature Granu locytes (promyelocytes, myelocytes and metamyelocytes) > 1% indicates that a LEFT SHIFT is Present. Laboratory - Chemistry and C hemistry - challengeOrdered By: Lizbeth Rojas on 11-06-2024 Glucose Ql (U) Negative [facility] - UrinalysisOrder ed By: Lizbeth Rojas on 11-06-2024 Protein Ql (U) Negative [facility] MCV (mean corpuscular volume ) determinationOrdered By: Tita Sinclair on 11-06-2024 MCV (RBC) [Entitic vol] 91.2 fL 81-99 [facility] Mean corpuscular hemoglobin (MCH) determinationOrdered By: Tita Sinclair on 11-06-2024 MCH (RBC) [Entitic mass] 30.3 pg 27.0-32.0 [facility] Mean corpuscular hemoglobin concentration (MCHC) determinationOrdered By: Tita Sinclair on 11-06-2024 MCHC (RBC) [Mass/Vol] 33.2 g/dL 32-36 [facility] Mean platelet volume determi nationOrdered By: Tita Sinclair on 11-06-2024 Platelet mean volume (Bld) [Entitic vol] 11.4 fL 6.2-12.0 [facility] Monocyte percentageOrdered B y: Tita Sinclair on 11-06-2024 Monocytes/100 WBC (Bld) 5.1 % 0-10 [facility] Neutrophil percentageOrdered By: Tita Sinclair on 11-06-2024 Neutrophils/100 WBC (Bld) 76.6 % High 47-70 [facility] No Panel InformationOrdered By: Tita Sinclair on 11-06-2024 HIV (1&2) Antibody Non-Reactive Nonreactive [facility] Comment on above: Non-ReactiveReactive Repeatedly reactive samples must be confirmed according to CDC recommended confirmatory algorithms. The subresults for either HIVAG or AHIV can be used as an aid in the selection of the confirmation algorithm for reactive samples.Send out specimens with Reactive results to [facility] for confirmation.Order the HIV antibody detection and differentiation: #[id number] Nucleated red blood cell per centageOrdered By: Tita Sinclair on 11-06-2024 Nucleated RBC/100 WBC (Bld) [Ratio] 0 % 0-5 [facility] Senior Software Development Engineer Office Visit Reporton 11-06-2024 Senior Software Development Engineer Office Visit Report [facility] [address], [address] [place] [address] OFFICE VISIT Date of Service: 11/06/24 MR#: [id number] Acct: [id number] Name: SWATI SERRATO Agustín Rep #: [id number] : 1990 Provider: KAY lambert Age/Sex: 33/F Location[place] [facility] [place] Status: Signed Intake Vital Signs 07/09/24 10:17 08/07/24 10:15 09/10/24 13:44 10/10/24 11:12 11/06/24 13:27 Height 5 ft 10 in 5 ft 10 in 5 ft 10 in 5 ft 10 in 5 ft 10 in Weight: 246 lb BMI 35.3 BP 104/60 Intake Visit Reasons: 27 wk ob/glucose Chief Complaint: 27 Week OB Sales Consulting Director Required: No Is patient in pain?: No Allergies No Known Allergies Allergy (Verified 11/06/24 13:30) Medications ???Medication ???Instructions ???Recorded ???Confirmed ???Type prenat.vits,justino,min-iron- folic 1 tab PO DAILY 12/22/20 11/06/24 History Last Menstrual Period: 05/02/24 Zika: Zika virus screening: Negative : Yes PFSH PFSH Medical History Vaginal delivery Susceptible to varicella (non-immune), currently Family History Mother Colon cancer, Onset Age: 56 Grandfather Cancer Grandmother CVA (cerebral vascular accident) Grandfather CVA (cerebral vascular accident) Social History adopted: No household members: spouse and children number of children: 1 current occupational status: employed 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 occupational 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: No pets and animals: Yes pets and animals: dog(s) history of recent travel: Yes ([place] - Mar 2024) out of state: Yes out of country: No sexually active: Yes Smoking Status: Former smoker alcohol intake: current alcohol intake frequency: holidays/special occasions only details: Not while substance use type: does not use well-balanced diet: daily or most days caffeine: No eating out: 1-3 times/week during the past year weight has: increased > 10 lbs what type of physical activity do you participate in: walking frequency: 1-2 times per week duration: < 15 minutes/day vipin/adventist: Spiritism seatbelt use: always do you feel safe at home: Yes 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 Date Name GA/Weeks Outcome Route Bth Weight Infant Gen Labor Lgth Anesthesia Del Locatn Provider FOB Unknown 04/2020 spontaneous 08/16/21 Carey 41 live - full term 6lbs 10oz Female 16 epidural [facility] Yahir [place] Delivery Date: 08/16/21 Last Updated by: Linette Rodriguez 41 SROM HPI 27 wk ob/glucose Details: SWATI SRERATO is a 33 year old who presents for routine OB visit. OB Visit NELIA Calculator Estimated Delivery Date Method Current WG Current Estimate 02/06/25 LMP (Certain) 26w 6d Expected Delivery Route/Plan Labor Preferences- CB/BF classes: no labor support person: Surinder labor intervention preferences: [] pain management options preferred: epidural if requested cut cord/dad catch: no : yes PP control planned: discussed discussed possible routes of delivery and associated risks: [] special requests: [] Specific Issue/Plans Covid status: [] Patient chooses not to vaccinate. Flu vaccine: [] Tdap vaccine: [] Rhogam: na LARC form signed: yes Problem list reviewed and updated with the most current plan of care details and appropriate orders placed. Relevant counseling for the gestational age provided. Continue routine care and follow up unless otherwise noted in visit notes/problem list details Initial Weight: Not Recorded Date -???-???-???-???-???-???- ???-???-???-???-???-???- EGA Weight BP Urine Prot -???-???-???-???-???-???- ???-???-???-???-???-???- Glucose FHR FuHt Pres Dilation -???-???-???-???-???-???- ???-???-???-???-???-???- Effaced St Visit Note 07/09/24 -???-???-???-???-???-???- ???-???-???-???-???-???- 9w 5d 235 lb 6 oz 108/68 -???-???-???-???-???-???- ???-???-???-???-???-???- 168 -???-???-???-???-???-???- ???-???-???-???-???-???- JV- CRL cons istent with LMP. desires nipt and will return next week for this. 08/07/24 -???-???-???-???-???-???- ???-???-???-???-???-???- 13w 6d 231 lb 6 oz 103/49 Negative -???-???-???-???-???-???- ???-???-???-???-???-???- Negative 160 -???-???-???-???-???-???- ???-???-???-???-???-???- JV- no compl aints today. CFL consistent (more content not included)... Normal [facility] Platelet countOrdered By: Stephany Sinclair on 11-06-2024 Platelets (Bld) [#/Vol] 157 10*3/uL 150-450 [facility] RBC Auto (Bld) [#/Vol]Ordere d By: Tita Sinclair on 11-06-2024 RBC (Bld) [#/Vol] 3.63 10*6/uL Low 4.2-5.4 [facility] Syphilis Antibodieson 2024 Syphilis Abs Non-Reactive Normal Nonreactive [facility] Comment on above: Performed By: #### L 501.0250, L3890.6006, L509.8002, L100.0100 ####[facility] [address] [place], [address] White blood cell (WBC) count Ordered By: Tita Sinclair on 11-06-2024 WBC (Bld) [#/Vol] 7.4 10*3/uL 4.4-11.0 [facility] Laboratory - Chemistry and C hemistry - challengeOrdered By: Tita Sinclair on 10-10-2024 Glucose Ql (U) Negative [facility] Laboratory - UrinalysisOrder ed By: Tita Sinclair on 10-10-2024 Protein Ql (U) Negative [facility] Senior Software Development Engineer Office Visit Reporton 10-10-2024 Senior Software Development Engineer Office Visit Report [address], [address] [place] [address] OFFICE VISIT Date of Service: 10/10/24 MR#: [id number] Acct: [id number] Name: SWATI SERRATO Rep #: [id number] : 1990 Provider: Dr. Tita blackman MD Age/Sex: 33/F Location: [facility] [place] Status: Signed Intake Vital Signs 07/09/24 10:17 08/07/24 10:15 09/10/24 13:44 10/10/24 11:12 Height 5 ft 10 in 5 ft 10 in 5 ft 10 in 5 ft 10 in Weight: 240 lb 8 oz BMI 34.4 BP 104/61 Intake Visit Reasons: 23 wk ob Sales Consulting Director Required: No Is patient in pain?: No Allergies No Known Allergies Allergy (Verified 10/10/24 11:13) Medications ???Medication ???Instructions ???Recorded ???Confirmed ???Type prenat.vits,justino,min-iron- folic 1 tab PO DAILY 12/22/20 10/10/24 History Last Menstrual Period: 05/02/24 Zika: Zika virus screening: Negative : No PFSH PFSH Medical History Vaginal delivery Susceptible to varicella (non-immune), currently Family History Mother Colon cancer, Onset Age: 56 Grandfather Cancer Grandmother CVA (cerebral vascular accident) Grandfather CVA (cerebral vascular accident) Social History adopted: No household members: spouse and children number of children: 1 current occupational status: employed 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 occupational 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: No pets and animals: Yes pets and animals: dog(s) history of recent travel: Yes ([place] - Mar 2024) out of state: Yes out of country: No sexually active: Yes Smoking Status: Former smoker alcohol intake: current alcohol intake frequency: holidays/special occasions only details: Not while substance use type: does not use well-balanced diet: daily or most days caffeine: No eating out: 1-3 times/week during the past year weight has: increased > 10 lbs what type of physical activity do you participate in: walking frequency: 1-2 times per week duration: < 15 minutes/day vipin/adventist: Spiritism seatbelt use: always do you feel safe at home: Yes 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 Date Name GA/Weeks Outcome Route Bth Weight Gen Labor Lgth Anesthesia Del Locatn Provider FOB Unknown SAB 04/2020 spontaneous 08/16/21 Carey 41 live - full term 6lbs 10oz Female 16 epidural [facility] Yahir [place] Delivery Date: 08/16/21 Last Updated by: Linette Rodriguez 41 SROM HPI 23 wk ob Details: SWATI SERRATO is a 33 year old who presents for routine OB visit. OB Visit NELIA Calculator Estimated Delivery Date Method Current WG Current Estimate 02/06/25 LMP (Certain) 23w 0d Expected Delivery Route/Plan Labor Preferences- CB/BF classes: [] labor support person: [] labor intervention preferences: [] pain management options preferred: [] cut cord/dad catch: [] : [] PP control planned: [] discussed possible routes of delivery and associated risks: [] special requests: [] Specific Issue/Plans Covid status: [] Patient chooses not to vaccinate. Flu vaccine: [] Tdap vaccine: [] Rhogam: [] LARC form signed: [] Problem list reviewed and updated with the most current plan of care details and appropriate orders placed. Relevant counseling for the gestational age provided. Continue routine care and follow up unless otherwise noted in visit notes/problem list details Initial Weight: Not Recorded Date -???-???-???-???-???-???- ???-???-???-???-???-???- EGA Weight BP Urine Prot -???-???-???-???-???-???- ???-???-???-???-???-???- Glucose FHR FuHt Pres Dilation -???-???-???-???-???-???- ???-???-???-???-???-???- Effaced St Visit Note 07/09/24 -???-???-???-???-???-???- ???-???-???-???-???-???- 9w 5d 235 lb 6 oz 108/68 -???-???-???-???-???-???- ???-???-???-???-???-???- 168 -???-???-???-???-???-???- ???-???-???-???-???-???- JV- CRL cons istent with LMP. desires nipt and will return next week for this. 08/07/24 -???-???-???-???-???-???- ???-???-???-???-???-???- 13w 6d 231 lb 6 oz 103/49 Negative -???-???-???-???-???-???- ???-???-???-???-???-???- Negative 160 -???-???-???-???-???-???- ???-???-???-???-???-???- JV- no compl aints today. CFL consistent with established nelia. did blood work today. declined nipt. 09/10/24 -???-???-???-???-???-???- ? (more content not included)... Normal [facility] OB Anatomy w/ Transvaginalon 09-19-2024 OB Anatomy w/ Transvaginal [facility] [address] [place] [address] OB Anatomy w/ Transvaginal MR#: [id number] Acct: [id number] Name: SWATI SERRATO Rep #: [id number] : 1990 F 33 From: Darnell Frank i, DO PCP: KAY Raman Status: REG CLI Study: OB Anatomy w/ Transvaginal Date of Exam: 09/19 Exam# [id number] Ordering Dr: Joanna Bhat DO PROCEDURE: ultrasound transabdominal and transvaginal. 09/19/2024 REASON FOR EXAM: Anatomy, cervical length. TECHNIQUE: Transabdominal and transvaginal ultrasound images were obtained. COMPARISON: None available FINDINGS Single live intrauterine gestation in cephalic presentation. heart rate 155 beats per minute. Maximum vertical pocket 3.7 cm. The placenta is posterior, without retroplacental fluid collection. No evidence of placenta previa. No gross anomalies are demonstrated. Visualized intracranial/intra-abdomi nal structures, spine, and extremities show no specific abnormality. cord insertion unremarkable. There appears to be a three-vessel cord and a four-chamber heart. The maternal ovaries are not demonstrated. Biparietal diameter 4.7 cm, at the 61st percentile. Head circumference 18.7 cm, at the 85th percentile. Abdominal circumference 14.7 cm, at the 45th percentile. Femur length 3.3 cm, at the 60th percentile. Estimated weight 340 g +/-51 g. Estimated weight at the 58th percentile. Facial features appear intact. Cervical length 4.6 cm, closed. US/OB Anatomy w/ Transvaginal IMPRESSION: Single live intrauterine gestation with estimated gestational age 20 weeks, 3 days. Estimated date of confinement 02/03/2025. No gross anomalies are demonstrated. Amniotic fluid level subjectively normal. Posterior placenta. No gross evidence of placenta previa. Cervical length 4.6 cm, closed. Reading Location: [facility] CC: KAY Castellon; Dr. Joanna Bhat DO Parts Processor: Signed Normal [facility] Laboratory - Chemistry and C hemistry - challengeOrdered By: Kelly Ruffin on 09-10-2024 Glucose Ql (U) Negative [facility] Laboratory - UrinalysisOrder ed By: Kelly Ruffin on 09-10-2024 Protein Ql (U) Negative [facility] Senior Software Development Engineer Office Visit Reporton 09-10-2024 Senior Software Development Engineer Office Visit Report [facility] [address], [address] [place] [address] OFFICE VISIT Date of Service: 09/10/24 MR#: [id number] Acct: [id number] Name: SWATI SERRATO Rep #: [id number] : 1990 Provider: TERESE Gomez ams Age/Sex: 33/F Location: [facility] [place] Status: Signed Intake Vital Signs 07/09/24 10:17 08/07/24 10:15 09/10/24 13:44 Height 5 ft 10 in 5 ft 10 in 5 ft 10 in Weight: 239 lb 8 oz BMI 34.3 BP 103/66 Intake Visit Reasons: 19 wk ob Chief Complaint: 19wk ob Is patient in pain?: No Allergies No Known Allergies Allergy (Verified 09/10/24 13:42) Medications ???Medication ???Instructions ???Recorded ???Confirmed ???Type prenat.vits,justino,min-iron- folic 1 tab PO DAILY 12/22/20 09/10/24 History Last Menstrual Period: 05/02/24 : No PFSH PFSH Medical History Vaginal delivery Susceptible to varicella (non-immune), currently Family History Mother Colon cancer, Onset Age: 56 Grandfather Cancer Grandmother CVA (cerebral vascular accident) Grandfather CVA (cerebral vascular accident) Social History adopted: No household members: spouse and children number of children: 1 current occupational status: employed 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 occupational 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: No pets and animals: Yes pets and animals: dog(s) history of recent travel: Yes ([place] - Mar 2024) out of state: Yes out of country: No sexually active: Yes Smoking Status: Former smoker alcohol intake: current alcohol intake frequency: holidays/special occasions only details: Not while substance use type: does not use well-balanced diet: daily or most days caffeine: No eating out: 1-3 times/week during the past year weight has: increased > 10 lbs what type of physical activity do you participate in: walking frequency: 1-2 times per week duration: < 15 minutes/day vipin/adventist: Spiritism seatbelt use: always do you feel safe at home: Yes 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 Date Name GA/Weeks Outcome Route Bth Weight Infant Gen Labor Lgth Anesthesia Del Locatn Provider FOB Unknown SAB 04/2020 spontaneous 08/16/21 Carey 41 live - full term 6lbs 10oz Female 16 epidural [facility] Yahir Cadena Delivery Date: 08/16/21 Last Updated by: Linette Rodriguez 43 SROM HPI 19 wk ob Details: SWATI SERRATO is a 33 year old who presents for routine OB visit. OB Visit NELIA Calculator Estimated Delivery Date Method Current WG Current Estimate 02/06/25 LMP (Certain) 18w 5d Expected Delivery Route/Plan Labor Preferences- CB/BF classes: [] labor support person: [] labor intervention preferences: [] pain management options preferred: [] cut cord/dad catch: [] : [] PP control planned: [] discussed possible routes of delivery and associated risks: [] special requests: [] Specific Issue/Plans Covid status: [] Patient chooses not to vaccinate. Flu vaccine: [] Tdap vaccine: [] Rhogam: [] LARC form signed: [] Problem list reviewed and updated with the most current plan of care details and appropriate orders placed. Relevant counseling for the gestational age provided. Continue routine care and follow up unless otherwise noted in visit notes/problem list details Initial Weight: Not Recorded Date -???-???-???-???-???-???- ???-???-???-???-???-???- EGA Weight BP Urine Prot -???-???-???-???-???-???- ???-???-???-???-???-???- Glucose FHR FuHt Pres Dilation -???-???-???-???-???-???- ???-???-???-???-???-???- Effaced St Visit Note 07/09/24 -???-???-???-???-???-???- ???-???-???-???-???-???- 9w 5d 235 lb 6 oz 108/68 -???-???-???-???-???-???- ???-???-???-???-???-???- 168 -???-???-???-???-???-???- ???-???-???-???-???-???- JV- CRL cons istent with LMP. desires nipt and will return next week for this. 08/07/24 -???-???-???-???-???-???- ???-???-???-???-???-???- 13w 6d 231 lb 6 oz 103/49 Negative -???-???-???-???-???-???- ???-???-???-???-???-???- Negative 160 -???-???-???-???-???-???- ???-???-???-???-???-???- JV- no compl aints today. CFL consistent with established nelia. did blood work today. declined nipt. 09/10/24 -???-???-???-???-???-???- ???-???-???-???-???-???- 18w 5d 239 lb 8 oz 103/66 Negative -???-???-???-???-?? (more content not included)... Normal [facility] Absolute lymphocyte countOrd ered By: Joanna Marisela on 08-07-2024 Lymphocytes Auto (Unsp spec) [#/Vol] 1.15 10*3/uL 0.83-4.51 [facility] Absolute neutrophil countOrd ered By: Joanna Antonio on 08-07-2024 Neutrophils (Bld) [#/Vol] 3.5 10*3/uL 2.0-7.7 [facility] Automated lymphocyte count a s percentage of total leukocytesOrdered By: Joanna Antonio on 08-07-2024 Lymphocytes/100 WBC Auto (Unsp spec) 23.2 % 19-41 [facility] Basophil percentageOrdered B y: Joanna Marisela on 08-07-2024 Basophils/100 WBC (Bld) 0.2 % 0-1 [facility] CBC W/Diff, Automatedon 02- Absolute Lymph 1.15 X10 3/uL Normal 0.83-4.51 [facility] Comment on above: Performed By: #### L 501.9985, L100.0100, L3890.6005, L509.8000, L509.4005, L3890.6300, BTS, L3890.6100 ####[facility] [address] [place], [place], [id number] Absolute Neut 3.5 X10 3/uL Normal 2.0-7.7 [facility] Comment on above: Performed By: #### L 501.9985, L100.0100, L3890.6005, L509.8000, L509.4005, L3890.6300, BTS, L3890.6100 ####[facility] [address] [place], [address] Basophils/100 WBC (Bld) 0.2 % Normal 0-1 [facility] Comment on above: Performed By: #### L 501.9985, L100.0100, L3890.6005, L509.8000, L509.4005, L3890.6300, BTS, L3890.6100 ####[facility] [address] [place], [address] Eosinophils/100 WBC (Bld) 0.8 % Normal 0-5 [facility] Comment on above: Performed By: #### L 501.9985, L100.0100, L3890.6005, L509.8000, L509.4005, L3890.6300, BTS, L3890.6100 ####[facility] [address] [place], [address] Erythrocyte distribution width (RBC) [Ratio] 12.9 % Normal 11.6-14.6 [facility] Comment on above: Performed By: #### L 501.9985, L100.0100, L3890.6005, L509.8000, L509.4005, L3890.6300, BTS, L3890.6100 ####[facility] [address] [place], [address] Hematocrit (Bld) [Volume fraction] 36.8 % Low 37-47 [facility] Comment on above: Performed By: #### L 501.9985, L100.0100, L3890.6005, L509.8000, L509.4005, L3890.6300, BTS, L3890.6100 ####[facility] [address] [place], [address] Hemoglobin (Bld) [Mass/Vol] 12.1 g/dL Normal 12.0-15.0 [facility] Comment on above: Performed By: #### L 501.9985, L100.0100, L3890.6005, L509.8000, L509.4005, L3890.6300, BTS, L3890.6100 ####[facility] [address] [place], [address] IG% 0.400 Normal 0.0-0.9 [facility] Comment on above: Result Comment: IG% - Immature Granulocytes (promyelocytes, myelocytes and metamyelocytes) > 1% indicates that a LEFT SHIFT is Present. Performed By: #### L 501.9985, L100.0100, L3890.6005, L509.8000, L509.4005, L3890.6300, BTS, L3890.6100 ####[facility] [address] [place], [address] Lymphocytes/100 WBC (Bld) 23.2 % Normal 19-41 [facility] Comment on above: Performed By: #### L 501.9985, L100.0100, L3890.6005, L509.8000, L509.4005, L3890.6300, BTS, L3890.6100 ####[facility] [address] [place], [address] MCH (RBC) [Entitic mass] 29.2 pg Normal 27.0-32.0 [facility] Comment on above: Performed By: #### L 501.9985, L100.0100, L3890.6005, L509.8000, L509.4005, L3890.6300, BTS, L3890.6100 ####[facility] [address] [place], [address] MCHC (RBC) [Mass/Vol] 32.9 g/dL Normal 32-36 [facility] Comment on above: Performed By: #### L 501.9985, L100.0100, L3890.6005, L509.8000, L509.4005, L3890.6300, BTS, L3890.6100 ####[facility] [address] [place], [address] MCV (RBC) [Entitic vol] 88.7 fL Normal 81-99 [facility] Comment on above: Performed By: #### L 501.9985, L100.0100, L3890.6005, L509.8000, L509.4005, L3890.6300, BTS, L3890.6100 ####[facility] [address] [place], [address] Monocytes/100 WBC (Bld) 5.3 % Normal 0-10 [facility] Comment on above: Performed By: #### L 501.9985, L100.0100, L3890.6005, L509.8000, L509.4005, L3890.6300, BTS, L3890.6100 ####[facility] [address] [place], [address] Neutrophils/100 WBC (Bld) 70.1 % High 47-70 [facility] Comment on above: Performed By: #### L 501.9985, L100.0100, L3890.6005, L509.8000, L509.4005, L3890.6300, BTS, L3890.6100 ####[facility] [address] [place], [address] Nucleated RBC (Bld) [#/Vol] 0 10*3/uL Normal 0-5 [facility] Comment on above: Performed By: #### L 501.9985, L100.0100, L3890.6005, L509.8000, L509.4005, L3890.6300, BTS, L3890.6100 ####[facility] [address] [place], [address] Platelet mean volume (Bld) [Entitic vol] 11.9 fL Normal 6.2-12.0 [facility] Comment on above: Performed By: #### L 501.9985, L100.0100, L3890.6005, L509.8000, L509.4005, L3890.6300, BTS, L3890.6100 ####[facility] [address] [place], [address] Platelets (Bld) [#/Vol] 140 10*3/uL Low 150-450 [facility] Comment on above: Performed By: #### L 501.9985, L100.0100, L3890.6005, L509.8000, L509.4005, L3890.6300, BTS, L3890.6100 ####[facility] [address] [place], [address] RBC (Bld) [#/Vol] 4.15 10*6/uL Low 4.2-5.4 [facility] Comment on above: Performed By: #### L 501.9985, L100.0100, L3890.6005, L509.8000, L509.4005, L3890.6300, BTS, L3890.6100 ####[facility] [address] [place], [address] RDW SD 42.1 fl Normal 35.1-43.9 [facility] Comment on above: Performed By: #### L 501.9985, L100.0100, L3890.6005, L509.8000, L509.4005, L3890.6300, BTS, L3890.6100 ####[facility] [address] [place], [address] WBC (Bld) [#/Vol] 5.0 10*3/uL Normal 4.4-11.0 [facility] Comment on above: Performed By: #### L 501.9985, L100.0100, L3890.6005, L509.8000, L509.4005, L3890.6300, BTS, L3890.6100 ####[facility] [address] [place], [place], [id number] Eosinophil percentageOrdered By: Joanna Antonio on 08-07-2024 Eosinophils/100 WBC (Bld) 0.8 % 0-5 [facility] Erythrocyte distribution wid th ratioOrdered By: Joanna Antonio on 08-07-2024 Erythrocyte distribution width (RBC) [Ratio] 12.9 % 11.6-14.6 [facility] Erythrocyte distribution wid th standard deviationOrdered By: Joanna Antonio on 08-07-2024 Erythrocyte distribution width (RBC) [Entitic vol] 42.1 fL 35.1-43.9 [facility] Erythrocyte distribution width (RBC) [Ratio] 42.1 fl 35.1-43.9 [facility] HIV - WCHon 08-07-2024 HIV Non-Reactive Normal Nonreactive [facility] Comment on above: Order Comment: Reaso n for Exam: Performed By: #### L 501.9985, L100.0100, L3890.6005, L509.8000, L509.4005, L3890.6300, BTS, L3890.6100 ####[facility] [address] [place], [place], [id number] HIV 1 and HIV-2 antibody ass ay with HIV-1 p24 antigen detectionOrdered By: Joanna Antonio on 08-07-2024 HIV 1+2 Ab+HIV1 p24 Ag IA Ql Non-Reactive Nonreactive [facility] HIV 1+2 Ab+HIV1 p24 Ag IA Ql Ordered By: Joanna Antonio on 08-07-2024 HIV (1&2) Antibody Non-Reactive Nonreactive [facility] Hematocrit Auto (Bld) [Volum e fraction]Ordered By: Joanna Antonio on 08-07-2024 Hematocrit (Bld) [Volume fraction] 36.8 % Low 37-47 [facility] Hemoglobin A1con 08-07-2024 HbA1c (Bld) [Mass fraction] 4.7 % Normal 3.8-5.6 [facility] Comment on above: Result Comment: Norm al < 5.7 % Prediabetic 5.7 - 6.4 % Diabetic >or= 6.5 % Please note range changes. Performed By: #### L 501.9985, L100.0100, L3890.6005, L509.8000, L509.4005, L3890.6300, BTS, L3890.6100 ####[facility] [address] [place], [place], [id number] Hemoglobin A1c percentageOrd ered By: Joanna Antonio on 08-07-2024 HbA1c (Bld) [Mass fraction] 4.7 % 3.8-5.6 [facility] Comment on above: Normal < 5.7 % Predi abetic 5.7 - 6.4 % Diabetic >or= 6.5 % Please note range changes. Hemoglobin measurementOrdere d By: Joanna Antonio on 08-07-2024 Hemoglobin (Bld) [Mass/Vol] 12.1 g/dL 12.0-15.0 [facility] Hepatitis B Surface Antigeno n 08-07-2024 HEP B Surf Ag Non-Reactive Normal Nonreactive [facility] Comment on above: Order Comment: Reaso n for Exam: Performed By: #### L 501.9985, L100.0100, L3890.6005, L509.8000, L509.4005, L3890.6300, BTS, L3890.6100 ####[facility] [address] [place], [place], [id number] Hepatitis B surface antigen detectionOrdered By: Joanna Antonio on 08-07-2024 Hepatitis B Surface Antigen Non-Reactive Nonreactive [facility] Hepatitis C Antibodyon 08-07 Hepatitis C AB Non-Reactive Normal Nonreactive [facility] Comment on above: Order Comment: Reaso n for Exam: Result Comment: Non Reactive: < 0.8 Equivocal: >/= 0.8 to < 1.0 Reactive: >/= 1.0 The CDC requires that a reactive/equivocal HCV antibody result be sent out for confirmation. HCV Quant by PCR testing. Performed By: #### L 501.9985, L100.0100, L3890.6005, L509.8000, L509.4005, L3890.6300, BTS, L3890.6100 ####[facility] [address] [place], [place], [id number] Hepatitis C virus antibody a ssayOrdered By: Joanna Antonio on 08-07-2024 Hepatitis C Antibody Non-Reactive Nonreactive [facility] Comment on above: Non Reactive: < 0.8 Equivocal: >/= 0.8 to < 1.0 Reactive: >/= 1.0The CDC requires that a reactive/equivocal HCV antibody result be sent out for confirmation. HCV Quant by PCR testing. Immature granulocytes/100 WB C Auto (Bld)Ordered By: Joanna Antonio on 08-07-2024 Immature granulocytes/100 WBC (Bld) 0.400 % 0.0-0.9 [facility] Comment on above: IG% - Immature Granu locytes (promyelocytes, myelocytes and metamyelocytes) > 1% indicates that a LEFT SHIFT is Present. L509.8000on 08-07-2024 Syphilis Abs Non-Reactive Normal [facility] Comment on above: Order Comment: Reaso n for Exam: Performed By: #### L 501.9985, L100.0100, L3890.6005, L509.8000, L509.4005, L3890.6300, BTS, L3890.6100 ####[facility] [address] [place], [place], [id number] Laboratory - Chemistry and C hemistry - challengeOrdered By: Joanna Antonio on 08-07-2024 Glucose Ql (U) Negative [facility] Laboratory - UrinalysisOrder ed By: Joanna Antonio on 08-07-2024 Protein Ql (U) Negative [facility] Lymphocytes Auto (Unsp spec) [#/Vol]Ordered By: Joanna Antonio on 08-07-2024 Lymphocytes (Bld) [#/Vol] 1.15 10*3/uL 0.83-4.51 [facility] Lymphocytes/100 WBC Auto (Un sp spec)Ordered By: Joanna Antonio on 08-07-2024 Lymphocytes/100 WBC (Bld) 23.2 % 19-41 [facility] MCV (mean corpuscular volume ) determinationOrdered By: Joanna Antonio on 08-07-2024 MCV (RBC) [Entitic vol] 88.7 fL 81-99 [facility] Mean corpuscular hemoglobin (MCH) determinationOrdered By: Joanna Antonio on 08-07-2024 MCH (RBC) [Entitic mass] 29.2 pg 27.0-32.0 [facility] Mean corpuscular hemoglobin concentration (MCHC) determinationOrdered By: Joanna Antonio on 08-07-2024 MCHC (RBC) [Mass/Vol] 32.9 g/dL 32-36 [facility] Mean platelet volume determi nationOrdered By: Joanna Antonio on 08-07-2024 Platelet mean volume (Bld) [Entitic vol] 11.9 fL 6.2-12.0 [facility] Monocyte percentageOrdered B y: Joanna Antonio on 08-07-2024 Monocytes/100 WBC (Bld) 5.3 % 0-10 [facility] Neutrophil percentageOrdered By: Joanna Antonio on 08-07-2024 Neutrophils/100 WBC (Bld) 70.1 % High 47-70 [facility] Nucleated red blood cell per centageOrdered By: Joanna Antonio on 08-07-2024 Nucleated RBC/100 WBC (Bld) [Ratio] 0 % 0-5 [facility] Senior Software Development Engineer Office Visit Reporton 08-07-2024 Senior Software Development Engineer Office Visit Report [facility] [address], [address] [place] [address] OFFICE VISIT Date of Service: 08/07/24 MR#: [id number] Acct: [id number] Name: SERRATOBILL IRENEBETTY Randolph Rep #: [id number] : 1990 Provider: Dr. Joanna Anaya DO Age/Sex: 33/F Location[place] [facility] [place] Status: Signed Intake Vital Signs 06/18/24 12:21 07/09/24 10:17 08/07/24 10:13 08/07/24 10:15 Height 5 ft 10 in 5 ft 10 in 5 ft 10 in 5 ft 10 in Weight: 231 lb 6 oz BMI 33.2 BP 103/49 L Intake Visit Reasons: 14 wk ob Sales Consulting Director Required: No Is patient in pain?: No Allergies No Known Allergies Allergy (Verified 08/07/24 10:13) Medications ???Medication ???Instructions ???Recorded ???Confirmed ???Type prenat.vits,justino,min-iron- folic 1 tab PO DAILY 12/22/20 08/07/24 History Last Menstrual Period: 05/02/24 Zika: Zika virus screening: Negative : No PFSH PFSH Medical History Vaginal delivery Susceptible to varicella (non-immune), currently Family History Mother Colon cancer, Onset Age: 56 Grandfather Cancer Grandmother CVA (cerebral vascular accident) Grandfather CVA (cerebral vascular accident) Social History adopted: No household members: spouse and children number of children: 1 current occupational status: employed 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 occupational 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: No pets and animals: Yes pets and animals: dog(s) history of recent travel: Yes ([place] - Mar 2024) out of state: Yes out of country: No sexually active: Yes Smoking Status: Former smoker alcohol intake: current alcohol intake frequency: holidays/special occasions only details: Not while substance use type: does not use well-balanced diet: daily or most days caffeine: No eating out: 1-3 times/week during the past year weight has: increased > 10 lbs what type of physical activity do you participate in: walking frequency: 1-2 times per week duration: < 15 minutes/day vipin/adventist: Spiritism seatbelt use: always do you feel safe at home: Yes 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 Date Name GA/Weeks Outcome Route Bth Weight Gen Labor Lgth Anesthesia Del Anthonyatn Provider FOB Unknown SAB 04/2020 spontaneous 08/16/21 Carye 41 live - full term 6lbs 10oz Female 16 epidural [facility] Yahir Cadena Delivery Date: 08/16/21 Last Updated by: Linette Rodriguez 41 SROM HPI 14 wk ob Details: SWATI SERRATO is a 33 year old who presents for routine OB visit. OB Visit NELIA Calculator Estimated Delivery Date Method Current WG Current Estimate 02/06/25 LMP (Certain) 13w 6d Expected Delivery Route/Plan Labor Preferences- CB/BF classes: [] labor support person: [] labor intervention preferences: [] pain management options preferred: [] cut cord/dad catch: [] : [] PP control planned: [] discussed possible routes of delivery and associated risks: [] special requests: [] Specific Issue/Plans Covid status: [] Patient chooses not to vaccinate. Flu vaccine: [] Tdap vaccine: [] Rhogam: [] LARC form signed: [] Problem list reviewed and updated with the most current plan of care details and appropriate orders placed. Relevant counseling for the gestational age provided. Continue routine care and follow up unless otherwise noted in visit notes/problem list details Initial Weight: Not Recorded Date -???-???-???-???-???-???- ???-???-???-???-???-???- EGA Weight BP Urine Prot -???-???-???-???-???-???- ???-???-???-???-???-???- Glucose FHR FuHt Pres Dilation -???-???-???-???-???-???- ???-???-???-???-???-???- Effaced St Visit Note 07/09/24 -???-???-???-???-???-???- ???-???-???-???-???-???- 9w 5d 235 lb 6 oz 108/68 -???-???-???-???-???-???- ???-???-???-???-???-???- 168 -???-???-???-???-???-???- ???-???-???-???-???-???- JV- CRL cons istent with LMP. desires nipt and will return next week for this. 08/07/24 -???-???-???-???-???-???- ???-???-???-???-???-???- 13w 6d 231 lb 6 oz 103/49 Negative -???-???-???-???-???-???- ???-???-???-???-???-???- Negative 160 -???-???-???-???-???-???- ???-???-???-???-???-???- JV- no compl aints today. CFL consistent with established nelia. did blood work today. declined nipt. ACOG First Trimester (more content not included)... Normal [facility] Platelet countOrdered By: Sabino Antonio on 08-07-2024 Platelets (Bld) [#/Vol] 140 10*3/uL Low 150-450 [facility] RBC Auto (Bld) [#/Vol]Ordere d By: Joanna Antonio on 08-07-2024 RBC (Bld) [#/Vol] 4.15 10*6/uL Low 4.2-5.4 [facility] Rubella IgGon 08-07-2024 Rubella IgG Reactive Normal Nonreactive [facility] Comment on above: Order Comment: Reaso n for Exam: Result Comment: Anti body Results Interpretation of Immune Status Non Reactive Presumed Non-Immune Equivocal Equivocal Reactive Presumed Immune Performed By: #### L 501.9985, L100.0100, L3890.6005, L509.8000, L509.4005, L3890.6300, BTS, L3890.6100 ####[facility] [address] [place], [place], [id number] Rubella immune status IgGOrd ered By: Joanna Antonio on 08-07-2024 Rubella IgG Antibody Reactive Nonreactive [facility] Comment on above: Antibody Results Int erpretation of Immune Status Non Reactive Presumed Non-Immune Equivocal Equivocal Reactive Presumed Immune Serum Treponema species anti body detectionOrdered By: Joanna Antonio on 08-07-2024 Treponema sp Ab Ql (S) Non-Reactive [facility] Treponema sp Ab Ql (S)Ordere d By: Joanna Antonio on 08-07-2024 Syphilis Total Antibody Non-Reactive [facility] Type AND Screenon 08-07-2024 ABO and Rh group Nom (Bld) Blood group A Rh(D) positive Normal [facility] Comment on above: Order Comment: PN Performed By: #### L 501.9985, L100.0100, L3890.6005, L509.8000, L509.4005, L3890.6300, BTS, L3890.6100 ####[facility] [address] [place], [place], [id number] White blood cell (WBC) count Ordered By: Joanna Antonio on 08-07-2024 WBC (Bld) [#/Vol] 5.0 10*3/uL 4.4-11.0 [facility] Chlamydia/GC ANGEL aptimaon CHLAMY,NUC ACID Negative Normal Negative [facility] Comment on above: Performed By: #### L 7400.0280, M100.2200, L7000.1800 #### [facility] [address] [place], [place], [address] GC BY NUC ACID Negative Normal Negative [facility] Comment on above: Result Comment: Perf ormed at: =G - [facility] [address] [place] [id number] Welder Plastic: Indiana Porras MD, Phone: [phone] Performed By: #### L 7400.0280, M100.2200, L7000.1800 #### [facility] [address] [place], [address] PAP IG HPV APTIMA 16/18,45on 07-11-2024 ADEQ Comment Normal . [facility] Comment on above: Order Comment: Speci men Comment: [id number] Comment: Source.............CervixSpecimen Comment: LMP / Prev Treat...[id number] Comment: Other..............Specimen Comment: No. of containers..01 ThinPrep Vial Result Comment: Sati sfactory for evaluation. No endocervical component is identified. Performed By: #### L 7400.0280, M100.2200, L7000.1800 ####[facility] [address] [place], [address] COMM . Normal . [facility] Comment on above: Order Comment: Speci men Comment: [id number] Comment: Source.............CervixSpecimen Comment: LMP / Prev Treat...[id number] Comment: Other..............Specimen Comment: No. of containers..01 ThinPrep Vial Performed By: #### L 7400.0280, M100.2200, L7000.1800 ####[facility] [address] [place], [address] COMMENT Comment Normal . [facility] Comment on above: Order Comment: Speci men Comment: [id number] Comment: Source.............CervixSpecimen Comment: LMP / Prev Treat...[id number] Comment: Other..............Specimen Comment: No. of containers..01 ThinPrep Vial Result Comment: This liquid based ThinPrep(R) pap test was screened with the use of an image guided system. Performed By: #### L 7400.0280, M100.2200, L7000.1800 ####[facility] [address] [place], [place], [id number] DIAG Comment Normal . [facility] Comment on above: Order Comment: Speci men Comment: [id number] Comment: Source.............CervixSpecimen Comment: LMP / Prev Treat...[id number] Comment: Other..............Specimen Comment: No. of containers..01 ThinPrep Vial Result Comment: NEGA TIVE FOR INTRAEPITHELIAL LESION OR MALIGNANCY. Performed By: #### L 7400.0280, M100.2200, L7000.1800 ####[facility] [address] [place], [place], [address] HPV APTIMA, HR Negative Normal Negative [facility] Comment on above: Order Comment: Speci men Comment: [id number] Comment: Source.............CervixSpecimen Comment: LMP / Prev Treat...[id number] Comment: Other..............Specimen Comment: No. of containers..01 ThinPrep Vial Result Comment: This nucleic acid amplification test detects fourteen high- risk HPV types (16,18,31,33,35,39,45,51,52,56,58,59,66,68) without differentiation. Performed By: #### L 7400.0280, M100.2200, L7000.1800 ####[facility] [address] [place], [place], [address] HPV Angelica Rfx Comment Normal . [facility] Comment on above: Order Comment: Speci men Comment: [id number] Comment: Source.............CervixSpecimen Comment: LMP / Prev Treat...[id number] Comment: Other..............Specimen Comment: No. of containers..01 ThinPrep Vial Result Comment: Crit eria not met, HPV Genotype not performed. Performed at: [facility] - [facility] [address] [address] [place], [place] [id number] Welder Plastic: Jose L Camargo MD, Phone: [phone] Performed at: - [address] [id number] Wel[employer] Plastic: Indiana Porras MD, Phone: [phone] Performed at: = - [address] [id number] Wel[employer] Plastic: Indiana Porras MD, Phone: [phone] Performed By: #### L 7400.0280, M100.2200, L7000.1800 ####[facility] [address] [place], [place], [address] PAPSMR Comment Normal . [facility] Comment on above: Order Comment: Speci men Comment: [id number] Comment: Source.............CervixSpecimen Comment: LMP / Prev Treat...[id number] Comment: Other..............Specimen Comment: No. of containers..01 ThinPrep Vial Result Comment: The Pap smear is a screening test designed to aid in the detection of premalignant and malignant conditions of the uterine cervix. It is not a diagnostic procedure and should not be used as the sole means of detecting cervical cancer. Both false-positive and false-negative reports do occur. Performed By: #### L 7400.0280, M100.2200, L7000.1800 ####[facility] [address] [place], [address] PERFORM Comment Normal . [facility] Comment on above: Order Comment: Speci men Comment: [id number] Comment: Source.............CervixSpecimen Comment: LMP / Prev Treat...[id number] Comment: Other..............Specimen Comment: No. of containers..01 ThinPrep Vial Result Comment: Fausto Ruffin Special Warfare Boat Operator (ASCP) Performed By: #### L 7400.0280, M100.2200, L7000.1800 ####[facility] [address] [place], [address] Urine Cultureon 07-10-2024 URC Culture exhibits no growth. Normal [facility] Comment on above: Performed By: #### L 7400.0280, M100.2200, L7000.1800 #### [facility] [address] [place], [address] C. trachomatis rRNA ANGEL+prob e Ql (Unsp spec)Ordered By: Joanna Antonio on 07-09-2024 Chlamydia DNA (ANGEL) Negative Negative [facility] Kick Plate Installer Cyto stain Nom (C vx/Vag) [ID]Ordered By: Joanna Antonio on 07-09-2024 Pap Smear Performed By Comment . [facility] Comment on above: Masood Olson totechnologist (ASCP) Cytology report Cyto stain D oc (Cvx/Vag)Ordered By: Joanna Antonio on 07-09-2024 Thin Prep Pap Smear Comment . [facility] Comment on above: The Pap smear is a s creening test designed to aid in thedetection of premalignant and malignant conditions of theuterine cervix. It is not a diagnostic procedure andshould not be used as the sole means of detecting cervicalcancer. Both false-positive and false-negative reports dooccur. Cytology report Cyto stain.t hin prep Doc (Cvx/Vag)Ordered By: Joanna Antonio on 07-09-2024 HPV Genotype Special Info Comment . [facility] Comment on above: Criteria not met, HP V Genotype not performed.Performed at: [facility] - [facility] [address] [place], [place] [id number] Director: Jose L Camargo MD, Phone: [phone] at: [address] [id number] Director: Indiana Porras MD, Phone: [phone] at: [facility] [address] [id number] Director: Indiana Porras MD, Phone: [phone] HPV 16+18+31+33+35+39+45+51+ 52+56+58+59+66+68 DNA Probe+sig amp Ql (Cvx)Ordered By: Joanna Antonio on 07-09-2024 Human Papillomavirus High Risk Negative Negative [facility] Comment on above: This nucleic acid am plification test detects fourteen high- risk HPV types (16,18,31,33,35,39,45,51,52,56,58,59,66,68)without differentiation. Image-guided ThinPrep PapOrd ered By: Joanna Antonio on 07-09-2024 Pap Smear Note Comment . [facility] Comment on above: This liquid based Th inPrep(R) pap test was screened withthe use of an image guided system. Image-guided liquid-based Pa pOrdered By: Joanna Antonio on 07-09-2024 Pap Smear Diagnosis Comment . [facility] Comment on above: NEGATIVE FOR INTRAEP ITHELIAL LESION OR MALIGNANCY. Neisseria gonorrhoeae nuclei c acid detection by amplified probe techniqueOrdered By: Joanna Antonio on 07-09-2024 N. gonorrhoeae DNA ANGEL+probe Ql (Unsp spec) Negative Negative [facility] Comment on above: Performed at: =[facility] [address] [place] [id number] Director: Indiana Porras MD, Phone: [phone] Senior Software Development Engineer Office Visit Reporton 07-09-2024 Senior Software Development Engineer Office Visit Report [facility] [address] [place] [address], [address] [place] [address] OFFICE VISIT Date of Service: 07/09/24 MR#: [id number] Acct: [id number] Name: SWATI SERRATO Rep #: [id number] : 1990 Provider: Dr. Joanna Anaya DO Age/Sex: 33/F Location: [facility] [place] Status: Signed Intake Vital Signs 02/28/23 09:43 06/18/24 12:21 07/09/24 10:17 07/09/24 10:17 Height 5 ft 10 in 5 ft 10 in 5 ft 10 in 5 ft 10 in Weight: 235 lb 6 oz BMI 33.7 BP 108/68 Intake Visit Reasons: New OB, LMP 05/02, NELIA 02/06 Sales Consulting Director Required: No Is patient in pain?: No Allergies No Known Allergies Allergy (Verified 07/09/24 10:15) Medications ???Medication ???Instructions ???Recorded ???Confirmed ???Type prenat.vits,justino,min-iron- folic 1 tab PO DAILY 12/22/20 07/09/24 History Last Menstrual Period: 05/02/24 Zika: Zika virus screening: Negative : No PFSH PFSH Medical History Vaginal delivery Susceptible to varicella (non-immune), currently Family History Mother Colon cancer, Onset Age: 56 Grandfather Cancer Grandmother CVA (cerebral vascular accident) Grandfather CVA (cerebral vascular accident) Social History adopted: No household members: spouse and children number of children: 1 current occupational status: employed 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 occupational 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: No pets and animals: Yes pets and animals: dog(s) history of recent travel: Yes ([place] - Mar 2024) out of state: Yes out of country: No sexually active: Yes Smoking Status: Former smoker alcohol intake: current alcohol intake frequency: holidays/special occasions only details: Not while substance use type: does not use well-balanced diet: daily or most days caffeine: No eating out: 1-3 times/week during the past year weight has: increased > 10 lbs what type of physical activity do you participate in: walking frequency: 1-2 times per week duration: < 15 minutes/day vipin/adventist: Spiritism seatbelt use: always do you feel safe at home: Yes 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 Date Name GA/Weeks Outcome Route Bth Weight Infant Gen Labor Lgth Anesthesia Del Locatn Provider FOB Unknown SAB 04/2020 spontaneous 08/16/21 Carey 41 live - full term 6lbs 10oz Female 16 epidural [facility] Yahir Cdaena Delivery Date: 08/16/21 Last Updated by: Linette Rodriguez 41 SROM HPI New OB, LMP 05/02, NELIA 02/06 Details: SWATI SERRATO is a 33 year old who presents for New OB visit. OB Visit NELIA Calculator Estimated Delivery Date Method Current WG Current Estimate 02/06/25 LMP (Certain) 9w 5d Comments: HIV: Urine Culture: Sequential Screen: NIPT Screen: Estimated Due Date: 02/06/25 Expected Delivery Route/Plan Labor Preferences- CB/BF classes: [] labor support person: [] labor intervention preferences: [] pain management options preferred: [] cut cord/dad catch: [] : [] PP control planned: [] discussed possible routes of delivery and associated risks: [] special requests: [] Specific Issue/Plans Covid status: [] Patient chooses not to vaccinate. Flu vaccine: [] Tdap vaccine: [] Rhogam: [] LARC form signed: [] Problem list reviewed and updated with the most current plan of care details and appropriate orders placed. Relevant counseling for the gestational age provided. Continue routine care and follow up unless otherwise noted in visit notes/problem list details Initial Weight: Not Recorded Date -???-???-???-???-???-???- ???-???-???-???-???-???- EGA Weight BP Urine Prot -???-???-???-???-???-???- ???-???-???-???-???-???- Glucose FHR FuHt Pres Dilation -???-???-???-???-???-???- ???-???-???-???-???-???- Effaced St Visit Note 07/09/24 -???-???-???-???-???-???- ???-???-???-???-???-???- 9w 5d 235 lb 6 oz 108/68 -???-???-???-???-???-???- ???-???-???-???-???-???- 168 -???-???-???-???-???-???- ???-???-???-???-???-???- JV- CRL cons istent with LMP. desires nipt and will return next week for this. Menstrual History Last Menstrual Period: 05/02/24 Reported LMP: definite Normal amount/duration: Yes Frequency in days: 28 On hormonal BC at conception: No hCG+: 05/30/24 Antepartum Record Genetic Screening (more content not included)... Normal [facility] Service comment (Unsp spec) [Interp]Ordered By: Joanna Antonio on 07-09-2024 Pap Smear Comment (3) . . [facility] Urine cultureOrdered By: Jennifer Antonio on 01-06-2025 Bacteria identified Cx Nom (U) Culture exhibits no growth. [facility] Chest 1 Viewon 06-18-2024 Chest 1 View [facility] [address] [place] [address] Chest 1 View MR#: [id number] Acct: [id number] Name: SWATI SERRATO Rep #: [id number] : 1990 F 33 From: Anirudh joshi MD PCP: KAY Raman Status: REG AMB Study: Chest 1 View Date of Exam: 06/18/24 Exam# [id number] Ordering Dr: Hayes Salazar [id number] STUDY: X-RAY CHEST REASON FOR EXAM: Female, 33 years old. cough. LLL rales TECHNIQUE: Single AP portable view of the chest. COMPARISON: None. FINDINGS: Left upper lobe infiltrate. There is no demonstrated pleural abnormality. Normal size heart. Normal mediastinum and toyr. Normal visualized pulmonary arteries. Normal visualized aortic arch and descending thoracic aorta. Normal visualized thoracic spine. Normal visualized ribs, clavicles, and shoulders. There is no demonstrated abnormality of the visualized soft tissue structures of the upper abdomen. RAD/Chest 1 View IMPRESSION: Left upper lobe infiltrate. Electronically Signed: Anirudh Amin MD at 12:32 EST , CC: KAY Castellon; CODY Luevano Parts Processor: Signed Normal [facility] - Microbiology an d Antimicrobial susceptibilityon 06-18-2024 SARS-CoV-2 (COVID-19) RNA ANGEL+probe Ql (Unsp spec) Not detected [facility] No Panel Informationon 06-18 Influenza Types A,B Rapid (Clinic) Negative [facility] Office Visit Reporton 2023 Office Visit Report [facility] [address] [place] [address] OFFICE VISIT Date of Service: 06/18/24 MR#: [id number] Acct: [id number] Patient: SWATI SERRATO Rep #: [id number] : 1990 Provider: CODY Luevano Age/Sex: 33/F Location: [facility] Status: Signed Intake Vital Signs 02/28/23 09:43 06/18/24 12:21 Height 1.78 m 1.78 m Weight: 107.048 kg BMI 33.8 BP 113/78 Blood Pressure Location Lt brachial Position Sitting Pulse 95 Pulse Source Monitor Temp 98.5 F Temp Source Temporal Pulse Oximetry (%) 96 Intake Visit Reasons: Cough Chief Complaint: cough Allergies No Known Allergies Allergy (Verified 06/18/24 12:22) Medications ???Medication ???Instructions ???Recorded ???Confirmed ???Type prenat.vits,justino,min-iron- folic 1 tab PO DAILY 12/22/20 02/28/23 History azithromycin 250 mg tablet See Rx Instructions PO .COMPLEX #6 06/18/24 06/18/24 Rx (Zithromax Z-Sacha) tabs cefdinir 300 mg capsule 300 mg PO BID #10 caps 06/18/24 06/18/24 Rx PFSH Medical History Susceptible to varicella (non-immune), currently Vaginal delivery Family History Mother Colon cancer, Onset Age: 56 Grandfather Cancer Grandmother CVA (cerebral vascular accident) Grandfather CVA (cerebral vascular accident) Social History adopted: No household members: spouse current occupational status: unemployed Smoking Status: Former smoker alcohol intake: never substance use type: does not use Female Reproductive History Menstrual Ab induced: 0 Ab spontaneous: 1 Ectopics: 0 HPI HPI Chief Complaint: cough Details: SWATI SERRATO, is a 33 F, 6 weeks , who presents to the office today for cough. Patient has been sick for 6 days. She has non productive cough, sob with exertion. Some hot and cold flashes. She also has a headache. No sore throat, sinus congestion, or earache. Some nausea but she is not sure if that is due to . ROS Const Constitutional: Positive for other (hot/cold flashes) ENT ENT: No ear or mastoid pain, nasal congestion or sore throat Resp Respiratory: Positive for cough, chest congestion and shortness of breath; No wheezing Gastro GI: Positive for nausea/dyspepsia; No diarrhea or vomiting Aller/Imm Allergy/Immunologic: No wheezing Exam Const General: cooperative, healthy appearing, comfortable, no acute distress, well developed and well groomed Nutritional Appearance: average body habitus and well nourished Orientation: alert, awake and oriented x3 HENMT Head: normocephalic and atraumatic Ears: hearing grossly normal bilaterally, external ears normal and TM's normal bilaterally Throat: posterior oropharynx normal, tonsils normal and uvula midline Resp Effort Inspection: normal respiratory effort, able to speak in complete sentences, symmetric chest movement and cough Auscultation: Bilateral: Rales (L middle and lower love) Cardio Rate: regular rate Rhythm: regular rhythm Heart Sounds: no murmurs Results POC GISELLA CoV-2 PCR POC GISELLA CoV-2 PCR Not Detected Last Edit by Татьяна Downs on 06/18/24 12:30 POC FLU A B Office Flu A B Negative FLU A B Last Edit by Татьяна Downs on 06/18/24 12:30 Coding Level of Care Code Off vis,new,level 3 Diagnoses Community acquired pneumonia J18.9 Assessment and Plan Assessment and Plan (1) Community acquired pneumonia: Status: Acute Plan: CXR obtained - interpreted by radiology - CINDA infiltrate infiltrate. Complicated by 6 week . Start Cefdinir and Azithromycin. If worsening go to the ER. If no improvement follow up with PCP. Follow up with OBGYN for any related concerns. Orders: Orders Chest 1 View Today R05.9 - Cough, unspecified POC FLU A B Today R05.9 - Cough, unspecified POC Rapid GISELLA Cov-2 PCR Today R05.9 - Cough, unspecified Medications: New cefdinir 300 mg PO BID 10 caps 0RF azithromycin (Zithromax Z-Sacha) take 500 mg today (day 1), then 250 mg for 4 days (days 2-5) PO 6 tabs 0RF 06/18/24 1243 Date Hayes Marie ROSS Cosigner Signature: Date (if applicable) CC: Normal [facility] Cloth Shearing Supervisor Cytology Reporton 2017 Cloth Shearing Supervisor Cytology Report . Pathology ReportsAccession: Collected Date/Time: Received Date/Time: Pathologist:[id number] 07/19/2017 11:56 EST 07/20/2017 18:00 EST Cloth Shearing Supervisor Cytology ReportSPECIMEN:Specimen Description: Liquid Prep Reflex ASCUSSpecimen: CervicalScreening or Diagnostic: ScreeningRELEVANT HISTORY:LMP: Not [id number] ADEQUACY:SATISFACTORY FOR EVALUATIONENDOCERVICAL/TR ANSFORMATIONAL ZONE COMPONENT PRESENTINTERPRETATION/RES ULTS:NEGATIVE FOR INTRAEPITHELIAL LESION OR MALIGNANCYElectronically Signed byPathology report verified by [facility] Hospitalcreened by: EVEElectronically signed by Yvonne GAY ([facility])Sign-Out Date: 07/27/2017 12:54Performing Lab: [address]DisclaimerThe Pap test is a screening test for cervical cancer. As evidenced by published data, it is subject to both inherent false negative and false positive results. Your patient's results should be interpreted in context with pertinent clinical history including gynecological examination. Normal [facility] ([place]) Comment on above: Performed By: #### G YCR ####[place] [address] Vital Signs Date Time Vital Sign Value Performing Clinician Gordon glass 02-12-2025 14:42-0400 Body height 177.8 cm Padmini VILLANUEVA Work Phone: [facility] 02-12-2025 14:42-0400 Body mass index (BMI) [Ratio] 36.9 kg/m2 Padmini Castellon EMBROIDERY FINISHER-C Work Phone: [facility] 02-12-2025 14:42-0400 Body weight 116.71 kg Padmini Castellon EMBROIDERY FINISHER-C Work Phone: [facility] 02-12-2025 14:42-0400 Diastolic blood pressure 78 mm[Hg] Padmini Castellon EMBROIDERY FINISHER-C Work Phone: [facility] 02-12-2025 14:42-0400 Systolic blood pressure 120 mm[Hg] Padmini Castellon EMBROIDERY FINISHER-C Work Phone: [facility] 02-06-2025 10:00-0400 Body height 177.8 cm Padmini Castellon EMBROIDERY FINISHER-C Work Phone: [facility] 02-06-2025 10:00-0400 Body mass index (BMI) [Ratio] 36.8 kg/m2 Padmini Castellon EMBROIDERY FINISHER-C Work Phone: [facility] 02-06-2025 10:00-0400 Body weight 116.31 kg Padmini Castellon EMBROIDERY FINISHER-C Work Phone: [facility] 02-06-2025 10:00-0400 Diastolic blood pressure 75 mm[Hg] Padmini Castellon EMBROIDERY FINISHER-C Work Phone: [facility] 02-06-2025 10:00-0400 Systolic blood pressure 113 mm[Hg] Padmini Castellon EMBROIDERY FINISHER-C Work Phone: [facility] 01-30-2025 10:23-0400 Body height 177.8 cm Padmini Castellon EMBROIDERY FINISHER-C Work Phone: [facility] 01-30-2025 10:22-0400 Body mass index (BMI) [Ratio] 36.6 kg/m2 Padmini Castellon EMBROIDERY FINISHER-C Work Phone: [facility] 01-30-2025 10:22-0400 Body weight 115.89 kg Padmini Castellon EMBROIDERY FINISHER-C Work Phone: [facility] 01-30-2025 10:22-0400 Diastolic blood pressure 81 mm[Hg] Padmini Castellon EMBROIDERY FINISHER-C Work Phone: [facility] 01-30-2025 10:22-0400 Systolic blood pressure 113 mm[Hg] Padmini Castellon EMBROIDERY FINISHER-C Work Phone: [facility] 01-24-2025 09:53-0400 Body height 177.8 cm Padmini Castellon EMBROIDERY FINISHER-C Work Phone: [facility] 01-24-2025 09:53-0400 Body mass index (BMI) [Ratio] 37 kg/m2 Padmini Castellon EMBROIDERY FINISHER-C Work Phone: [facility] 01-24-2025 09:53-0400 Body weight 117.02 kg Padmini Castellon EMBROIDERY FINISHER-C Work Phone: [facility] 01-24-2025 09:53-0400 Diastolic blood pressure 69 mm[Hg] Padmini Castellon EMBROIDERY FINISHER-C Work Phone: [facility] 01-24-2025 09:53-0400 Systolic blood pressure 101 mm[Hg] Padmini Castellon EMBROIDERY FINISHER-C Work Phone: [facility] 01-17-2025 13:30-0400 Body height 177.8 cm Padmini Castellon EMBROIDERY FINISHER-C Work Phone: [facility] 01-17-2025 13:30-0400 Body mass index (BMI) [Ratio] 36.6 kg/m2 Padmini Castellon EMBROIDERY FINISHER-C Work Phone: [facility] 01-17-2025 13:30-0400 Body weight 115.77 kg Padmini Castellon EMBROIDERY FINISHER-C Work Phone: [facility] 01-17-2025 13:30-0400 Diastolic blood pressure 79 mm[Hg] Padmini Castellon EMBROIDERY FINISHER-C Work Phone: [facility] 01-17-2025 13:30-0400 Systolic blood pressure 113 mm[Hg] Padmini Castellon EMBROIDERY FINISHER-C Work Phone: [facility] 01-10-2025 14:05-0400 Body height 177.8 cm Padmini Castellon EMBROIDERY FINISHER-C Work Phone: [facility] 01-10-2025 14:05-0400 Body mass index (BMI) [Ratio] 37.2 kg/m2 Padmini Castellon EMBROIDERY FINISHER-C Work Phone: [facility] 01-10-2025 14:05-0400 Body weight 117.7 kg Padmini Castellon EMBROIDERY FINISHER-C Work Phone: [facility] 01-10-2025 14:05-0400 Diastolic blood pressure 75 mm[Hg] Padmini Castellon EMBROIDERY FINISHER-C Work Phone: [facility] 01-10-2025 14:05-0400 Systolic blood pressure 112 mm[Hg] Padmini Alfordson EMBROIDERY FINISHER-C Work Phone: [facility] 01-02-2025 11:31-0400 Body height 177.8 cm Padminimary Castellon EMBROIDERY FINISHER-C Work Phone: [facility] 01-02-2025 11:31-0400 Body mass index (BMI) [Ratio] 36.4 kg/m2 Padmini Castellon EMBROIDERY FINISHER-C Work Phone: [facility] 01-02-2025 11:31-0400 Body weight 115.21 kg Padmini Castellon EMBROIDERY FINISHER-C Work Phone: [facility] 01-02-2025 11:31-0400 Diastolic blood pressure 77 mm[Hg] Padmini Lorchelsi EMBROIDERY FINISHER-C Work Phone: [facility] 01-02-2025 11:31-0400 Systolic blood pressure 115 mm[Hg] Padmini Lorson EMBROIDERY FINISHER-C Work Phone: [facility] 12-19-2024 10:56-0400 Body height 177.8 cm Padminimary Castellon EMBROIDERY FINISHER-C Work Phone: [facility] 12-19-2024 10:56-0400 Body mass index (BMI) [Ratio] 35.6 kg/m2 Padmini Castellon EMBROIDERY FINISHER-C Work Phone: [facility] 12-19-2024 10:56-0400 Body weight 112.6 kg Padmini Castellon EMBROIDERY FINISHER-C Work Phone: [facility] 12-19-2024 10:56-0400 Diastolic blood pressure 66 mm[Hg] Padmini Castellon EMBROIDERY FINISHER-C Work Phone: [facility] 12-19-2024 10:56-0400 Systolic blood pressure 98 mm[Hg] Padmini Castellon EMBROIDERY FINISHER-C Work Phone: [facility] 12-05-2024 12:56-0400 Body height 177.8 cm Padmini Castellon EMBROIDERY FINISHER-C Work Phone: [facility] 12-05-2024 12:56-0400 Body mass index (BMI) [Ratio] 36.1 kg/m2 Padmini Castellon EMBROIDERY FINISHER-C Work Phone: [facility] 12-05-2024 12:56-0400 Body weight 114.36 kg Padmini Castellon EMBROIDERY FINISHER-C Work Phone: [facility] 12-05-2024 12:56-0400 Diastolic blood pressure 72 mm[Hg] Padmini Castellon EMBROIDERY FINISHER-C Work Phone: [facility] 12-05-2024 12:56-0400 Systolic blood pressure 106 mm[Hg] Padmini Castellon EMBROIDERY FINISHER-C Work Phone: [facility] 11-21-2024 11:33-0400 Body height 177.8 cm Padmini Castellon EMBROIDERY FINISHER-C Work Phone: [facility] 11-21-2024 11:33-0400 Body mass index (BMI) [Ratio] 35.4 kg/m2 Padmini Castellon EMBROIDERY FINISHER-C Work Phone: [facility] 11-21-2024 11:33-0400 Body weight 112.09 kg Padmini Castellon EMBROIDERY FINISHER-C Work Phone: [facility] 11-06-2024 13:27-0400 Body height 177.8 cm Padminimary Castellon EMBROIDERY FINISHER-C Work Phone: [facility] 11-06-2024 13:27-0400 Body mass index (BMI) [Ratio] 35.3 kg/m2 Padminimary Castellon EMBROIDERY FINISHER-C Work Phone: [facility] 11-06-2024 13:27-0400 Body weight 111.58 kg Padminimary Castellon EMBROIDERY FINISHER-C Work Phone: [facility] 11-06-2024 13:27-0400 Diastolic blood pressure 60 mm[Hg] Padmini Lorson EMBROIDERY FINISHER-C Work Phone: [facility] 11-06-2024 13:27-0400 Systolic blood pressure 104 mm[Hg] Padmini Lorson EMBROIDERY FINISHER-C Work Phone: [facility] 10-10-2024 11:12-0400 Body mass index (BMI) [Ratio] 34.4 kg/m2 Padminimary Castellon EMBROIDERY FINISHER-C Work Phone: [facility] 10-10-2024 11:12-0400 Body weight 109.08 kg Padminimary Castellon EMBROIDERY FINISHER-C Work Phone: [facility] 10-10-2024 11:12-0400 Diastolic blood pressure 61 mm[Hg] Padminimary Castellon EMBROIDERY FINISHER-C Work Phone: [facility] 10-10-2024 11:12-0400 Systolic blood pressure 104 mm[Hg] Padmini Castellon EMBROIDERY FINISHER-C Work Phone: [facility] 09-10-2024 13:44-0400 Body height 177.8 cm Padmini Castellon EMBROIDERY FINISHER-C Work Phone: [facility] 09-10-2024 13:44-0400 Body mass index (BMI) [Ratio] 34.3 kg/m2 Padmini Castellon EMBROIDERY FINISHER-C Work Phone: [facility] 09-10-2024 13:44-0400 Body weight 108.63 kg Padmini Castellon EMBROIDERY FINISHER-C Work Phone: [facility] 09-10-2024 13:44-0400 Diastolic blood pressure 66 mm[Hg] Padmini Castellon EMBROIDERY FINISHER-C Work Phone: [facility] 09-10-2024 13:44-0400 Systolic blood pressure 103 mm[Hg] Padminimary Castellon EMBROIDERY FINISHER-C Work Phone: [facility] 08-07-2024 10:13-0500 Body mass index (BMI) [Ratio] 33.2 kg/m2 Padmini Castellon EMBROIDERY FINISHER-C Work Phone: [facility] 08-07-2024 10:13-0500 Body weight 104.94 kg Padmini Castellon EMBROIDERY FINISHER-C Work Phone: [facility] 08-07-2024 10:13-0500 Diastolic blood pressure 49 mm[Hg] Padmini Castellon EMBROIDERY FINISHER-C Work Phone: [facility] 08-07-2024 10:13-0500 Systolic blood pressure 103 mm[Hg] Padmini Castellon EMBROIDERY FINISHER-C Work Phone: [facility] 07-09-2024 10:17-0500 Body mass index (BMI) [Ratio] 33.7 kg/m2 Padmini Castellon EMBROIDERY FINISHER-C Work Phone: [facility] 07-09-2024 10:17-0500 Body weight 106.76 kg Padmini Castellon EMBROIDERY FINISHER-C Work Phone: [facility] 07-09-2024 10:17-0500 Diastolic blood pressure 68 mm[Hg] Padmini Castellon EMBROIDERY FINISHER-C Work Phone: [facility] 07-09-2024 10:17-0500 Systolic blood pressure 108 mm[Hg] Padmini Castellon EMBROIDERY FINISHER-C Work Phone: [facility] 06-18-2024 12:21-0500 Body mass index (BMI) [Ratio] 33.8 kg/m2 Padmini Castellon EMBROIDERY FINISHER-C Work Phone: [facility] 06-18-2024 12:21-0500 Body temperature 98.5 [degF] Padmini Santiago EMBROIDERY FINISHER-C Work Phone: [facility] 06-18-2024 12:21-0500 Body weight 107.04 kg Padmini Castellon EMBROIDERY FINISHER-C Work Phone: [facility] 06-18-2024 12:21-0500 Diastolic blood pressure 78 mm[Hg] Padmini Castellon EMBROIDERY FINISHER-C Work Phone: [facility] 06-18-2024 12:21-0500 Heart rate 95 /min Padmini Santiago EMBROIDERY FINISHER-C Work Phone: [facility] 06-18-2024 12:21-0500 SaO2% (BldA) [Mass fraction] 96 % Padmini Santiago EMBROIDERY FINISHER-C Work Phone: [facility] 06-18-2024 12:21-0500 Systolic blood pressure 113 mm[Hg] Padmini Santiago EMBROIDERY FINISHER-C Work Phone: [facility] Encounters Encounter Date Encounter Type Care Provider Facility Start: 02-12-2025 ambulatory Padmini Castellon Facility :[facility] Start: 02-12-2025 End: 02-12-2025 ambulatory Padmini Castellon EMBROIDERY FINISHER-C Work Phone: -[facility] Start: 02-12-2025 End: 02-12-[address] Tita Sinclair MD -[facility] Work Phone: Start: 02-06-2025 End: 02-06-2025 Patient encounter procedure Kelly Ruffin CNM -[facility] Work Phone: Start: 02-06-2025 End: 02-06-2025 ambulatory Padmini Castellon EMBROIDERY FINISHER-C Work Phone: -[facility] Start: 01-30-2025 End: 01-30-[address] Joanna Bhat DO -[facility] Work Phone: Start: 01-30-2025 End: 01-30-2025 ambulatory Padmini Castellon EMBROIDERY FINISHER-C Work Phone: -[facility] Start: 01-24-2025 End: 01-24-[address] Tita Sinclair MD -[facility] Work Phone: Start: 01-24-2025 End: 01-24-2025 ambulatory Padmini Castellon EMBROIDERY FINISHER-C Work Phone: -[facility] Start: 01-17-2025 End: 01-17-[address] Joanna Bhat DO -[facility] Work Phone: Start: 01-17-2025 End: 01-17-2025 ambulatory Padmini Castellon EMBROIDERY FINISHER-C Work Phone: [facility] Start: 01-10-2025 End: 01-10-2025 ambulatory Padmini Castellon EMBROIDERY FINISHER-C Work Phone: -[facility] Start: 01-10-2025 End: 01-10-2025 Patient encounter procedure Kelly POSADA -[facility] Work Phone: Start: 01-10-2025 End: 01-10-2025 Patient encounter procedure Kelly POSADA -[facility] Work Phone: Start: 01-10-2025 End: 01-10-2025 ambulatory Padmini Castellon EMBROIDERY FINISHER-C Work Phone: -[facility] Start: 01-10-2025 End: 01-10-2025 ambulatory Padmini Castellon Facility:[facility] Start: 01-02-2025 End: 01-02-[address] Joanna Bhat DO -[facility] Work Phone: Start: 01-02-2025 End: 01-02-2025 ambulatory Padmini Castellon EMBROIDERY FINISHER-C Work Phone: -[facility] Start: 12-19-2024 End: 12-19-[address] Tita Sinclair MD -[facility] Work Phone: Start: 12-19-2024 End: 12-19-2024 ambulatory Padmini Castellon EMBROIDERY FINISHER-C Work Phone: [facility] Work Phone: Start: 12-05-2024 End: 12-05-2024 Patient encounter procedure Lizbeth Crystal EMBROIDERY FINISHER-C -[facility] Work Phone: Start: 12-05-2024 End: 12-05-2024 ambulatory Padmini Castellon EMBROIDERY FINISHER-C Work Phone: [facility] Work Phone: Start: 11-21-2024 End: 11-21-[address] Joanna Bhat DO -[facility] Work Phone: Start: 11-21-2024 End: 11-21-2024 ambulatory Padmini Castellon EMBROIDERY FINISHER-C Work Phone: [facility] Work Phone: Start: 11-06-2024 End: 11-06-2024 Patient encounter procedure Lizbeth Crystal EMBROIDERY FINISHER-C -[facility] Work Phone: Start: 11-06-2024 End: 11-06-2024 ambulatory Padmini Castellon EMBROIDERY FINISHER-C Work Phone: [facility] Work Phone: Start: 11-06-2024 End: 11-06-2024 ambulatory Padmini Castellon Facility:[facility] Start: 10-10-2024 End: 10-10-[address] Tita Sinclair MD -[facility] Work Phone: Start: 10-10-2024 End: 10-10-2024 ambulatory Padmini Castellon Facility:[facility] Start: 09-19-2024 End: 09-19-2024 ambulatory Padmini Castellon EMBROIDERY FINISHER-C Work Phone: [facility] Work Phone: Start: 09-19-2024 End: 09-19-[address] Joanna Bhat DO -[facility] Work Phone: Start: 09-19-2024 End: 09-19-2024 ambulatory Joanna Bhat Facility:[facility] Start: 09-10-2024 End: 09-10-2024 Patient encounter procedure Kelly Ruffin CNM -[facility] Work Phone: Start: 09-10-2024 End: 09-10-2024 ambulatory Padmini Castellon Facility:[facility] Start: 08-07-2024 End: 08-07-[address] Joanna Bhat DO -[facility] Work Phone: Start: 08-07-2024 End: 08-07-2024 ambulatory Joanna Bhat Facility:[facility] Start: 08-07-2024 End: 08-07-2024 ambulatory Joanna Bhat Facility:[facility] Start: 07-09-2024 End: 07-09-[address] Joanna Bhat DO -Laboratory, Specimen Work Phone: Start: 07-09-2024 End: 07-09-[address] Joanna Bhat DO -[facility] Work Phone: Start: 07-09-2024 End: 07-09-2024 ambulatory Joanna Bhat Facility:[facility] Start: 07-09-2024 End: 07-09-2024 ambulatory Joanna Bhat Facility:[facility] Start: 07-03-2024 Non-patient / Non-visit Pita Lizama RN -[facility] Work Phone: Start: 07-03-2024 ambulatory Pita Lizama Facility :[facility] Start: 06-18-2024 End: 06-18-[address] Rafael Marcus MD -[facility] Work Phone: Start: 06-18-2024 End: 06-18-2024 ambulatory Padmini Castellon Facility:[facility] Start: 07-19-2017 End: 07-24-2017 Ambulatory PADMINI CASTELLON Facility:[facility] Procedures Date Procedure Procedure Detail Performing Clinician Start: 01-10-2025 Beta-hemolytic Strep tococcus culture Padmini Castellon EMBROIDERY FINISHER-C Work Phone: Start: 11-06-2024 Serologic test for syphilis Padmini Castellon EMBROIDERY FINISHER-C Work Phone: Start: 09-19-2024 Ultrasonography in f irst trimester Pdamini Castellon EMBROIDERY FINISHER-C Work Phone: Start: 08-07-2024 Hepatitis B surface antigen measurement Padmini Castellon EMBROIDERY FINISHER-C Work Phone: Start: 08-07-2024 Hepatitis C antibody measurement Padmini Castellon EMBROIDERY FINISHER-C Work Phone: Comment on above: Non Reactive: < 0.8 Equivocal: >/= 0.8 to < 1.0 Reactive: >/= 1.0The CDC requires that a reactive/equivocal HCV antibody result be sent out for confirmation. HCV Quant by PCR testing. Start: 08-07-2024 Rubella IgG measurement Padmini Castellon EMBROIDERY FINISHER-C Work Phone: Comment on above: Antibody Results Int erpretation of Immune Status Non Reactive Presumed Non-Immune Equivocal Equivocal Reactive Presumed Immune Start: 07-09-2024 Urine culture Padmini Nathaniel reddy EMBROIDERY FINISHER-C Work Phone: Start: 06-18-2024 Plain chest X-ray Lisette Castellon EMBROIDERY FINISHER-C Work Phone: Plan of Treatment Date Care Activity Detail Author Streptococcus agalac tiae [Presence] in Unspecified specimen by Organism specific culture [facility] Ultrasound scan for [place] [facility] Payers Date Payer Category Payer Self-pay [id number] [id number] Self-pay 2017 Unknown [id number] Unknown [id number] Unknown [id number] 2.16.8 [id number] Unknown [id number] 2.16.8 [id number] Unknown [id number] 2.16.8 [id number] Unknown [id number] 2.16.8 40.1.171649.3.579.2.462 Unknown [id number] 2.16.8 40.1.576148.3.579.2.462 Unknown [id number] 2.16.8 40.1.986186.3.579.2.462 Unknown [id number] 2.16.8 40.1.756929.3.579.2.462 Unknown [id number] 2.16.8 40.1.709398.3.579.2.462 Unknown [id number] 2.16.8 40.1.874513.3.579.2.462 Unknown [id number] 2.16.8 40.1.083819.3.579.2.462 Unknown [id number] 2.16.8 40.1.592775.3.579.2.462 Unknown [id number] 2.16.8 40.1.291339.3.579.2.462 Unknown [id number] 2.16.8 40.1.911191.3.579.2.462 Unknown [id number] 2.16.8 40.1.016182.3.579.2.462 Unknown [id number] 2.16.8 40.1.315237.3.579.2.462 Unknown [id number] 2.16.8 40.1.669775.3.579.2.462 Unknown [id number] 2.16.8 40.1.816988.3.579.2.462 Unknown [id number] 2.16.8 40.1.051325.3.579.2.462 Unknown [id number] 2.16.8 40.1.102792.3.579.2.462 Unknown [id number] 2.16.8 40.1.073998.3.579.2.462 Unknown [id number] 2.16.8 40.1.958314.3.579.2.462 Unknown [id number] 2.16.8 40.1.017380.3.579.2.462 Unknown [id number] 2.16.8 40.1.308836.3.579.2.462 Social History Date Type Detail Facility Start: 07-03-2024 Tobacco smoking stat [facility] Ex-smoker (finding) [facility] Start: 09-28-2024 Sex Female (finding) [facility] Start: 1990 Sex Assigned At Female [facility] Clinical Notes 06-18-2024 to 02-06-2025 Note Date & Type Note Facility 02-06-2025 Progress note [facility] 01-30-2025 Progress note [facility] 01-24-2025 Progress note [facility] 01-17-2025 Progress note [facility] 01-10-2025 Progress note [facility] 01-10-2025 Progress note Note Date/Time January 10, 2025 2:22pm [facility] [address], [address] [place] [address] OFFICE VISIT Date of Service: 01/10/25 MR#: [id number] Acct: [id number] Name: SWATI SERRATO Rep #: [id number] : 1990 Provider: TERESE Ruffin Age/Sex: 34/F Location: [facility] [place] Status: Signed Intake Vital Signs 12/05/24 12:56 01/02/25 11:31 01/10/25 14:05 Height 5 ft 10 in 5 ft 10 in 5 ft 10 in Weight: 259 lb 8 oz BMI 37.2 BP 112/75 Intake Visit Reasons: 36 wk wk ob Chief Complaint: 36wk OB Sales Consulting Director Required: No Is patient in pain?: No Allergies No Known Allergies Allergy (Verified 01/10/25 14:04) Medications ?Medication ?Instructions ?Recorded ?Confirmed ?Type prenat.vits,justino,[id number] 1 tab PO DAILY pregnanc y 12/22/20 01/10/25 History Last Menstrual Period: 05/02/24 : No PFSH PFSH Medical History Vaginal delivery Susceptible to varicella (non-immune), currently Family History Mother Colon cancer, Onset Age: 56 Grandfather Cancer Grandmother CVA (cerebral vascular accident) Grandfather CVA (cerebral vascular accident) Social History adopted: No household members: spouse and children number of children: 1 current occupational status: employed 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 occupational 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: No pets and animals: Yes pets and animals: dog(s) history of recent travel: Yes ([place] - Mar 2024) out of state: Yes out of country: No sexually active: Yes Smoking Status: Former smoker alcohol intake: current alcohol intake frequency: holidays/special occasions only details: Not while substance use type: does not use well-balanced diet: daily or most days caffeine: No eating out: 1-3 times/week during the past year weight has: increased > 10 lbs what type of physical activity do you participate in: walking frequency: 1-2 times per week duration: < 15 minutes/day vipin/adventist: Spiritism seatbelt use: always do you feel safe at home: Yes 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 Date Name GA/Weeks Outcome Route Bth Weight Gen Labor Lgth Anesthesia Del Locatn Provider FOB Unknown SAB 04/2020 spontaneous 08/16/21 Carey 41 live - full term 6lbs 10oz Female 16 epidural [facility] Yahir Cadena Delivery Date: 08/16/21 Last Updated by: Linette Rodriguez 41 SROM HPI 36 wk wk ob Details: SWATI SERRATO is a 34 year old who presents for routine OB visit. OB Visit NELIA Calculator Estimated Delivery Date Method Current WG Current Estimate 02/06/25 LMP (Certain) 36w 1d Expected Delivery Route/Plan Labor Preferences- CB/BF classes: no labor support person: Surinder labor intervention preferences: [] pain management options preferred: epidural if requested cut cord/dad catch: no : yes PP control planned: discussed discussed possible routes of delivery and associated risks: [] special requests: [] Specific Issue/Plans Covid status: [] Patient chooses not to vaccinate. Flu vaccine: [] Tdap vaccine: declines Rhogam: na LARC form signed: yes Problem list reviewed and updated with the most current plan of care details and appropriate orders placed. Relevant counseling for the gestational age provided. Continue routine care and follow up unless otherwise noted in visit notes/problem list details Initial Weight: 235 lb Date -?-?-?-?-?-?-?-?-?-?-?-?- EGA Weight BP Urine Prot -?-?-?-?-?-?-?-?-?-?-?-?- Glucose FHR FuHt Pres Dilation -?-?-?-?-?-?-?-?-?-?-?-?- Effaced St Visit Note 07/09/24 -?-?-?-?-?-?-?-?-?-?-?-?- 9w 5d 235 lb 6 oz (+6 oz) 108/68 -?-?-?-?-?-?-?-?-?-?-?-?- 168 -?-?-?-?-?-?-?-?-?-?-?-?- JV- CRL consiste nt with LMP. desires nipt and will return next week for this. 08/07/24 -?-?-?-?-?-?-?-?-?-?-?-?- 13w 6d 231 lb 6 oz (-3 lb 10 oz) 103/49 Negative -?-?-?-?-?-?-?-?-?-?-?-?- Negative 160 -?-?-?-?-?-?-?-?-?-?-?-?- JV- no complaint s today. CFL consistent with established nelia. did blood work today. declined nipt. 09/10/24 -?-?-?-?-?-?-?-?-?-?-?-?- 18w 5d 239 lb 8 oz (+4 lb 8 oz) 103/66 Negative -?-?-?-?-?-?-?-?-?-?-?-?- Negative 150 -?-?-?-?-?-?-?-?-?-?-?-?- KW- no vb/crampi ng. no flutters yet. US scheduled for next week. 10/10/24 -?-?-?-?-?-?-?-?-?-?-?-?- 23w 0d 240 lb 8 oz (+5 lb 8 oz) 104/61 Negative -?-?-?-?-?-?-?-?-?-?-?-?- Negative 150 -?-?-?-?-?-?-?-?-?-?-?-?- SM_ no vb lof go od fm no regular ctx 11/06/24 -?-?-?-?-?-?-?-?-?-?-?-?- 26w 6d 246 lb (+11 lb) 104/60 Negative -?-?-?-?-?-?-?-?-?-?-?-?- Negative 143 27 -?-?-?-?-?-?-?-?-?-?-?-?- MH-No Vb, LOF. G ood FM. 28 wk labs pending. Larc 11/21/24 -?-?-?-?-?-?-?-?-?-?-?-?- 29w 0d 247 lb 2 oz (+12 lb 2 oz) Trace -?-?-?-?-?-?-?-?-?-?-?-?- Negative 140 30 -?-?-?-?-?-?-?-?-?-?-?-?- JV- no lof, vagi nal bleeding, or dec fm. declines tdap. normal 28 week labs. 12/05/24 -?-?-?-?-?-?-?-?-?-?-?-?- 31w 0d 252 lb 2 oz (+17 lb 2 oz) 106/72 Negative -?-?-?-?-?-?-?-?-?-?-?-?- Negative 144 32 -?-?-?-?-?-?-?-?-?-?-?-?- MH-No VB, LOF. G ood FM. Denies concerns 12/19/24 -?-?-?-?-?-?-?-?-?-?-?-?- 33w 0d 248 lb 4 oz (+13 lb 4 oz) 98/66 Negative -?-?-?-?-?-?-?-?-?-?-?-?- Negative 140 34 -?-?-?-?-?-?-?-?-?-?-?-?- SM- no vb lof go od fm no regular ctx 01/02/25 -?-?-?-?-?-?-?-?-?-?-?-?- 35w 0d 254 lb (+19 lb) 115/77 Negative -?-?-?-?-?-?-?-?-?-?-?-?- Negative 145 36 -?-?--?-?-?-?-?-?-?-?-?-?- JV- no lof, vagi nal bleeding, or dec fm. 01/10/25 -?-?-?-?-?-?-?-?-?-?-?-?- 36w 1d 259 lb 8 oz (+24 lb 8 oz) 112/75 Negative -?-?-?-?-?-?-?-?-?-?-?-?- Negative 135 37 -?-?-?-?-?-?-?-?-?-?-?-?- kw- no vb/lof/ct x. good fm GBS today declines vaginal exam today. ACOG First Trimester First Trimester: Desire for , Alcohol, Tobacco Cessation, Illicit/Recreational Drug/Substance Use, Intimate Partner Violence, Barriers to care, Unstable Housing, Communication Barriers, Environmental/Work Hazards, Anticipated Course of Care, Toxoplasmosis Precations, Use of Any medications, Sexual activity, Exercise, Dental Care, Sauna/Hot tub use, Seat Belt use, Childbirth classes/Hospital facilities, Travel, Indications for Ultrasound and Screening for Aneuploidy; Discussed Second Trimester Second Trimester: Signs and Symptoms of Labor, Selecting a care provider, Reproductive Life Planning & Contreception and Care Planning; Discussed Tobacco Cessation, Discussed Depression/Anxiety and Discussed Intimate Partner Violence Third Trimester Third Trimester: Pain Management Plans, Labor support person(s), Immediate Larc, Circumcision preference, Signs and Symptoms of Preeclampsia, Infant Feeding No , [place] Education and Family Medical Leave or Disability Forms ROS Const Reports system reviewed and no additional complaints, except as documented Eyes Reports system reviewed and no additional complaints, except as documented ENT Reports system reviewed and no additional complaints, except as documented Card Reports system reviewed and no additional complaints, except as documented Resp Reports system reviewed and no additional complaints, except as documented GI Reports system reviewed and no additional complaints, except as documented, Denies nausea and Denies vomiting Reports system reviewed and no additional complaints, except as documented Musc Reports system reviewed and no additional complaints, except as documented Skin/Breast Reports system reviewed and no additional complaints, except as documented Neuro Yes system reviewed and no additional complaints, except as documented Psych Reports system reviewed and no additional complaints, except as documented Endo Reports system reviewed and no additional complaints, except as documented Cameron/Lymph Reports system reviewed and no additional complaints, except as documented Aller/Immun Reports system reviewed and no additional complaints, except as documented Exam Const General: cooperative, healthy appearing and no acute distress Orientation: alert, awake and oriented x3 Neck Neck: normal visual inspection and full ROM Resp Effort & Inspection: normal respiratory effort, able to speak in complete sentences and symmetric chest movement GI Inspection: normal to inspection Palpation: soft and other Other: gravid Skin General: no rashes or lesions noted Neuro General: patient alert, patient awake and patient oriented x3 Cognition: normal cognition Speech: speech normal Gait: normal gait Motor: muscle tone normal throughout Extrem General: normal to inspection and full ROM Psych Appearance: grossly normal Mental Status: mental status grossly normal Mood: congruent mood Affect: normal affect Speech and Movement: speech and movement normal Attitude: cooperative Thought Process: normal Thought Content: normal Judgment: judgment good Results POC Urinalysis 2 Dip (Clinic) 2 Office Urine Glucose Negative Last Edit by Marcy Goodwin on 01/10/25 14:10 Office Urine Protein Negative Last Edit by Marcy Goodwin on 01/10/25 14:10 Coding Level of Care Code OB Routine Diagnoses Obesity affecting in second trimester, unspecified obesity type O99.212 Obesity type affecting : unspecified obesity Trimester: second trimester Supervision of high risk in third trimester O93 Trimester: third trimester 36 weeks gestation of Z3A.36 Weeks of gestation: 36 weeks Susceptible to varicella (non-immune), currently O09.899; Z28.3 Assessment and Plan Assessment and Plan (1) Obesity affecting : Status: Acute Qualifiers: Obesity type affecting : unspecified obesity Trimester: second trimester Qualified Code(s): O99.212 - Obesity complicating , second trimester Comment: BMI 33.4 - HgBA1C ordered (2) Supervision of high-risk : Status: Acute Qualifiers: Trimester: third trimester Qualified Code(s): O09.93 - Supervision of high risk , unspecified, third trimester Comment: PRR, , NELIA 02/06/25, boy PC: Carey, : Surinder (3) : Status: Acute Qualifiers: Weeks of gestation: 36 weeks Qualified Code(s): Z3A.36 - 36 weeks gestation of Comment: Discussed genetic/carrier testing - undecided (did not do either with last ), nl anatomy (4) Susceptible to varicella (non-immune), currently : Status: Acute Comment: enc vaccination Orders: Orders Culture, Group B Streptococcus Today O09.93 - Supervision of high risk , unspecified, third trimester, Z3A.35 - 35 weeks gestation of POC Urinalysis 2 Dip (Clinic) Today Plan Details Additional Comments: ACOG trimester education reviewed and updated. see problem list details for updated plan management information and see below for orders placed at this visit. GA appropriate handout given. 01/10/25 1422 <Electronically signed by Kelly noel CNM> Date _ Kelly Ruffin CNM Cosigner Signature: Date (if applicable) CC: ~ [facility] Work Phone: 1(120) 494-610607-02-2025 [facility] [address] [place] [address], [address] [place] [address] OFFICE VISIT Date of Service: 01/02/25 MR#: [id number] Acct: [id number] Name: SWATI SERRATO Rep #: [id number] : 1990 Provider: Dr. Jody Bhat DO Age/Sex: 34/F Location: [facility] [place] Status: Signed Intake Vital Signs 07/09/24 10:17 10/10/24 11:12 12/19/24 10:56 01/02/25 11:31 Height 5 ft 10 in 5 ft 10 in 5 ft 10 in 5 ft 10 in Weight: 254 lb BMI 36.4 BP 115/77 Intake Visit Reasons: 35 wk ob Sales Consulting Director Required: No Is patient in pain?: No Allergies No Known Allergies Allergy (Verified 01/02/25 11:36) Medications ?Medication ?Instructions ?Recorded ?Confirmed ?Type prenat.vits,justino,wbb-vqnq-ucpur 1 tab PO DAILY pregnanc y 12/22/20 01/02/25 History Last Menstrual Period: 05/02/24 Zika: Zika virus screening: Negative : No PFSH PFSH Medical History Vaginal delivery Susceptible to varicella (non-immune), currently Family History Mother Colon cancer, Onset Age: 56 Grandfather Cancer Grandmother CVA (cerebral vascular accident) Grandfather CVA (cerebral vascular accident) Social History adopted: No household members: spouse and children number of children: 1 current occupational status: employed 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 occupational 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: No pets and animals: Yes pets and animals: dog(s) history of recent travel: Yes ([place] - Mar 2024) out of state: Yes out of country: No sexually active: Yes Smoking Status: Former smoker alcohol intake: current alcohol intake frequency: holidays/special occasions only details: Not while substance use type: does not use well-balanced diet: daily or most days caffeine: No eating out: 1-3 times/week during the past year weight has: increased > 10 lbs what type of physical activity do you participate in: walking frequency: 1-2 times per week duration: < 15 minutes/day vipin/adventist: Spiritism seatbelt use: always do you feel safe at home: Yes 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 Date Name GA/Weeks Outcome Route Bth Weight Gen Labor Lgth Anesthesia Del Locatn Provider FOB Unknown SAB 04/2020 spontaneous 08/16/21 Carey 41 live - full term 6lbs 10oz Female 16 epidural [facility] Yahir Cadena Delivery Date: 08/16/21 Last Updated by: Linette Rodriguez 43 SROM HPI 35 wk ob Details: SWATI SERRATO is a 34 year old who presents for routine OB visit. OB Visit NELIA Calculator Estimated Delivery Date Method Current WG Current Estimate 02/06/25 LMP (Certain) 35w 0d Expected Delivery Route/Plan Labor Preferences- CB/BF classes: no labor support person: Surinder labor intervention preferences: [] pain management options preferred: epidural if requested cut cord/dad catch: no : yes PP control planned: discussed discussed possible routes of delivery and associated risks: [] special requests: [] Specific Issue/Plans Covid status: [] Patient chooses not to vaccinate. Flu vaccine: [] Tdap vaccine: declines Rhogam: na LARC form signed: yes Problem list reviewed and updated with the most current plan of care details and appropriate ordersplaced. Relevant counseling for the gestational age provided. Continue routine care and follow up unless otherwise noted in visit notes/problem list details Initial Weight: 235 lb Date -?-?-?-?-?-?-?-?-?-?-?-?- EGA Weight BP Urine Prot -?-?-?-?-?-?-?-?-?-?-?-?- Glucose FHR FuHt Pres Dilation -?-?-?-?-?-?-?-?-?-?-?-?- Effaced St Visit Note 07/09/24 -?-?-?-?-?-?-?-?-?-?-?-?- 9w 5d 235 lb 6 oz (+6 oz) 108/68 -?-?-?-?-?-?-?-?-?-?-?-?- 168 -?-?-?-?-?-?-?-?-?-?-?-?- JV- CRL consiste nt with LMP. desires nipt and will return next week for this. 08/07/24 -?-?-?-?-?-?-?-?-?-?-?-?- 13w 6d 231 lb 6 oz (-3 lb 10 oz) 103/49 Negative -?-?-?-?-?-?-?-?-?-?-?-?- Negative 160 -?-?-?-?-?-?-?-?-?-?-?-?- JV- no complaint s today. CFL consistent with established nelia. did blood work today. declined nipt. 09/10/24 -?-?-?-?-?-?-?-?-?-?-?-?- 18w 5d 239 lb 8 oz (+4 lb 8 oz) 103/66 Negative -?-?-?-?-?-?-?-?-?-?-?-?- Negative 150 -?-?-?-?-?-?-?-?-?-?-?-?- KW- no vb/crampi ng. no flutters yet. US scheduled for next week. 10/10/24 -?-?-?-?-?-?-?-?-?-?-?-?- 23w 0d 240 lb 8 oz (+5 lb 8 oz) 104/61 Negative -?-?-?-?-?-?-?-?-?-?-?-?- Negative 150 -?-?--?-?-?-?-?-?-?-?-?-?- SM_ no vb lof go od fm no regular ctx 11/06/24 -?-?-?-?-?-?-?-?-?-?-?-?- 26w 6d 246 lb (+11 lb) 104/60 Negative -?-?-?-?-?-?-?-?-?-?-?-?- Negative 143 27 -?-?-?-?-?-?-?-?-?-?-?-?- -No Vb, LOF. G ood FM. 28 wk labs pending. [facility] 11/21/24 -?-?-?-?-?-?-?-?-?-?-?-?- 29w 0d 247 lb 2 oz (+12 lb 2 oz) Trace -?-?-?-?-?-?-?-?-?-?-?-?- Negative 140 30 -?-?-?-?-?-?-?-?-?-?-?-?- JV- no lof, vagi nal bleeding, or dec fm. declines tdap. normal 28 week labs. 12/05/24 -?-?-?-?-?-?-?-?-?-?-?-?- 31w 0d 252 lb 2 oz (+17 lb 2 oz) 106/72 Negative -?-?-?-?-?-?-?-?-?-?-?-?- Negative 144 32 -?-?-?-?-?-?-?-?-?-?-?-?- MH-No VB, LOF. G ood FM. Denies concerns 12/19/24 -?--?-?-?-?-?-?-?-?-?-?-?- 33w 0d 248 lb 4 oz (+13 lb 4 oz) 98/66 Negative -?-?-?-?-?-?-?-?-?-?-?-?- Negative 140 34 -?-?-?-?-?-?-?-?-?-?-?--?- SM- no vb lof go od fm no regular ctx 01/02/25 -?-?-?-?-?-?-?-?-?-?-?-?- 35w 0d 254 lb (+19 lb) 115/77 Negative -?--?-?-?-?-?-?-?-?-?-?-?- Negative 145 36 -?-?-?-?-?-?-?-?-?-?-?-?- JV- no lof, vagi nal bleeding, or dec fm. ACOG First Trimester First Trimester: Desire for , Alcohol, Tobacco Cessation, Illicit/Recreational Drug/Substance Use, Intimate Partner Violence, Barriers to care, Unstable Housing, Communication Barriers, Environmental/Work Hazards, Anticipated Course of Care, Toxoplasmosis Precations, Use of Any med ications, Sexual activity, Exercise, Dental Care, Sauna/Hot tub use, Seat Belt use, Childbirth classes/Hospital facilities, Travel, Indications for Ultrasound and Screening for Aneuploidy; Discussed Second Trimester Second Trimester: Signs and Symptoms of Labor, Selecting a care provider, Reproductive Life Planning & Contreception and Care Planning; Discussed Tobacco Cessation, Discussed Depression/Anxiety and Discussed Intimate Partner Violence Third Trimester Third Trimester: Pain Management Plans, Labor support person(s), Immediate Larc, Circumcision preference, Signs and Symptoms of Preeclampsia, Feeding No , [place] Education and Family Medical Leave or Disability Forms Results POC Urinalysis 2 Dip (Clinic) Office Urine Glucose Negative Last Edit by Alexia Gotti on 01/02/25 11: 42 Office Urine Protein Negative Last Edit by Alexia Gotti on 01/02/25 11: 42 Coding Level of Care Code OB Routine Diagnoses Obesity affecting in second trimester, unspecified obesity type O99.212 Obesity type affecting : unspecified obesity Trimester: second trimester Supervision of high risk in third trimester O09.93 Trimester: third trimester 35 weeks gestation of Z3A.35 Weeks of gestation: 35 weeks Susceptible to varicella (non-immune), currently O09.899; Z28.3 Assessment and Plan Assessment and Plan (1) Obesity affecting : Status: Acute Qualifiers: Obesity type affecting : unspecified obesity Trimester: second trimester Qualified Code(s): O99.212 - Obesity complicating , second trimester Comment: BMI 33.4 - HgBA1C ordered (2) Supervision of high-risk : Status: Acute Qualifiers: Trimester: third trimester Qualified Code(s): O09.93 - Supervision of high risk , unspecified, third trimester Comment: PRR, , NELIA 02/06/25, boy PC: Carey, : Surinder (3) : Status: Acute Qualifiers: Weeks of gestation: 35 weeks Qualified Code(s): Z3A.35 - 35 weeks gestation of Comment: Discussed genetic/carrier testing - undecided (did not do either with last ), nl anatomy (4) Susceptible to varicella (non-immune), currently : Status: Acute Comment: enc vaccination Orders: Orders POC Urinalysis 2 Dip (Clinic) Today 01/02/25 1205 e Marisela DO> Date _ Joanna Bhat DO [facility] Signature: Date (if applicable) CC: ~ [facility]06-18-2025 [facility] [address] [place] [address], [address] [place] [address] OFFICE VISIT Date of Service: 12/19/24 MR#: [id number] Acct: [id number] Name: SERRATOSWATI IRENE Agustín Rep #: [id number] : 1990 Provider: Dr. César Sinclair MD Age/Sex: 34/F Location: [facility] [place] Status: Signed Intake Vital Signs 07/09/24 10:17 10/10/24 11:12 12/05/24 12:56 12/19/24 10:56 Height 5 ft 10 in 5 ft 10 in 5 ft 10 in 5 ft 10 in Weight: 248 lb 4 oz BMI 35.6 BP 98/66 Intake Visit Reasons: 33 wk ob Sales Consulting Director Required: No Is patient in pain?: No Allergies No Known Allergies Allergy (Verified 12/19/24 10:56) Medications ?Medication ?Instructions ?Recorded ?Confirmed ?Type prenat.vits,justino,nre-fbzf-jvvev 1 tab PO DAILY pregnanc y 12/22/20 12/19/24 History Last Menstrual Period: 05/02/24 Zika: Zika virus screening: Negative : No PFSH PFSH Medical History Vaginal delivery Susceptible to varicella (non-immune), currently Family History Mother Colon cancer, Onset Age: 56 Grandfather Cancer Grandmother CVA (cerebral vascular accident) Grandfather CVA (cerebral vascular accident) Social History adopted: No household members: spouse and children number of children: 1 current occupational status: employed 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 occupational 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: No pets and animals: Yes pets and animals: dog(s) history of recent travel: Yes ([place] - Mar 2024) out of state: Yes out of country: No sexually active: Yes Smoking Status: Former smoker alcohol intake: current alcohol intake frequency: holidays/special occasions only details: Not while substance use type: does not use well-balanced diet: daily or most days caffeine: No eating out: 1-3 times/week during the past year weight has: increased > 10 lbs what type of physical activity do you participate in: walking frequency: 1-2 times per week duration: < 15 minutes/day vipin/adventist: Spiritism seatbelt use: always do you feel safe at home: Yes 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 Date Name GA/Weeks Outcome Route Bth Weight Infant Gen Labor Lgth Anesthesia Del Locatn Provider FOB Unknown SAB 04/2020 spontaneous 08/16/21 Carey 41 live - full term 6lbs 10oz Female 16 epidural [facility] Yahir Cadena Delivery Date: 08/16/21 Last Updated by: Linette Rodriguez 41 SROM HPI 33 wk ob Details: SWATI SERRATO is a 34 year old who presents for routine OB visit. OB Visit NELIA Calculator Estimated Delivery Date Method Current WG Current Estimate 02/06/25 LMP (Certain) 33w 0d Expected Delivery Route/Plan Labor Preferences- CB/BF classes: no labor support person: Surinder labor intervention preferences: [] pain management options preferred: epidural if requested cut cord/dad catch: no : yes PP control planned: discussed discussed possible routes of delivery and associated risks: [] special requests: [] Specific Issue/Plans Covid status: [] Patient chooses not to vaccinate. Flu vaccine: [] Tdap vaccine: declines Rhogam: na LARC form signed: yes Problem list reviewed and updated with the most current plan of care details and appropriate ordersplaced. Relevant counseling for the gestational age provided. Continue routine care and follow up unless otherwise noted in visit notes/problem list details Initial Weight: 235 lb Date -?-?-?-?-?-?-?-?-?-?-?-?- EGA Weight BP Urine Prot -?-?-?-?-?-?-?-?-?-?-?-?- Glucose FHR FuHt Pres Dilation -?-?-?-?-?-?-?-?-?-?-?-?- Effaced St Visit Note 07/09/24 -?-?-?-?-?-?-?-?-?-?-?-?- 9w 5d 235 lb 6 oz (+6 oz) 108/68 -?-?-?-?-?-?-?-?-?-?-?-?- 168 -?-?-?-?-?-?-?-?-?-?-?-?- JV- CRL consiste nt with LMP. desires nipt and will return next week for this. 08/07/24 -?-?-?-?-?-?-?-?-?-?-?-?- 13w 6d 231 lb 6 oz (-3 lb 10 oz) 103/49 Negative -?-?-?-?-?-?-?-?-?-?-?-?- Negative 160 -?-?-?-?-?-?-?-?-?-?-?-?- JV- no complaint s today. CFL consistent with established nelia. did blood work today. declined nipt. 09/10/24 -?-?-?-?-?-?-?-?-?-?-?-?- 18w 5d 239 lb 8 oz (+4 lb 8 oz) 103/66 Negative -?-?-?-?-?-?-?-?-?-?-?-?- Negative 150 -?-?-?-?-?-?-?-?-?-?-?-?- KW- no vb/ashvin ng. no flutters yet. US scheduled for next week. 10/10/24 -?-?-?-?-?-?-?-?-?-?-?-?- 23w 0d 240 lb 8 oz (+5 lb 8 oz) 104/61 Negative -?-?-?-?-?-?-?-?-?-?-?-?- Negative 150 -?-?-?-?-?-?--?-?-?-?-?-?- SM_ no vb lof go od fm no regular ctx 11/06/24 -?-?-?-?-?-?-?-?-?-?-?-?- 26w 6d 246 lb (+11 lb) 104/60 Negative -?-?-?-?-?-?-?-?-?-?-?-?- Negative 143 27 -?-?-?-?-?-?-?-?-?-?-?-?- MH-No Vb, LOF. G ood FM. 28 wk [facility]?-?-?-?-?-?-?-?-?-?-?-?- 29w 0d 247 lb 2 oz (+12 lb 2 oz) Trace -?-?-?-?-?-?-?-?-?-?-?-?- Negative 140 30 -?-?-?-?-?-?-?-?-?-?-?-?- JV- no lof, vagi nal bleeding, or dec fm. declines tdap. normal 28 week labs. 12/05/24 -?-?-?-?-?-?-?-?-?-?-?-?- 31w 0d 252 lb 2 oz (+17 lb 2 oz) 106/72 Negative -?-?-?-?-?-?-?-?-?-?-?-?- Negative 144 32 -?-?-?-?-?-?-?-?-?-?-?-?- MH-No VB, LOF. G ood FM. Denies concerns 12/19/24 -?-?-?-?-?--?-?-?-?-?-?-?- 33w 0d 248 lb 4 oz (+13 lb 4 oz) 98/66 Negative -?-?-?-?-?-?-?-?-?-?-?-?- Negative 140 34 -?-?-?-?-?-?-?-?-?-?-?-?- SM- no vb lof go od fm no regular ctx ACOG First Trimester First Trimester: Desire for , Alcohol, Tobacco Cessation, Illicit/Recreational Drug/Substance Use, Intimate Partner Violence, Barriers to care, Unstable Housing, Communication Barriers, Environmental/Work Hazards, Anticipated Course of Care, Toxoplasmosis Precations, Use of Any med ications, Sexual activity, Exercise, Dental Care, Sauna/Hot tub use, Seat Belt use, Childbirth classes/Hospital facilities, Travel, Indications for Ultrasound and Screening for Aneuploidy; Discussed Second Trimester Second Trimester: Signs and Symptoms of Labor, Selecting a care provider, Reproductive Life Planning & Contreception and Care Planning; Discussed Tobacco Cessation, Discussed Depression/Anxiety and Discussed Intimate Partner Violence Third Trimester Third Trimester: Pain Management Plans, Labor support person(s), Immediate Larc, Circumcision preference, Signs and Symptoms of Preeclampsia, Infant Feeding No , Education and Family Medical Leave or Disability Forms Results POC Urinalysis 2 Dip (Clinic) Office Urine Glucose Negative Last Edit by Lizbeth Moreira on 12/19/24 11:01 Office Urine Protein Negative Last Edit by Lizbeth Moreira on 12/19/24 11:01 Coding Level of Care Code OB Routine Diagnoses Obesity affecting in second trimester, unspecified obesity type O99.212 Obesity type affecting : unspecified obesity Trimester: second trimester Supervision of high risk in third trimester O09.93 Trimester: third trimester 33 weeks gestation of Z3A.33 Weeks of gestation: 33 weeks Susceptible to varicella (non-immune), currently O09.899; Z28.3 Assessment and Plan Assessment and Plan (1) Obesity affecting : Status: Acute Qualifiers: Obesity type affecting : unspecified obesity Trimester: second trimester Qualified Code(s): O99.212 - Obesity complicating , second trimester Comment: BMI 33.4 - HgBA1C ordered (2) Supervision of high-risk : Status: Acute Qualifiers: Trimester: third trimester Qualified Code(s): O09.93 - Supervision of high risk , unspecified, third trimester Comment: PRR, , NELIA 02/06/25, boy PC: Carey, : Surinder (3) : Status: Acute Qualifiers: Weeks of gestation: 33 weeks Qualified Code(s): Z3A.33 - 33 weeks gestation of Comment: Discussed genetic/carrier testing - undecided (did not do either with last ), nl anatomy (4) Susceptible to varicella (non-immune), currently : Status: Acute Comment: enc vaccination 12/19/24 1105 william WALTER> Date _ [facility] Sinclair [facility] Signature: Date (if applicable) CC: ~ [facility]05-21-2025 [facility] [address] [place] [address], [address] [place] [address] OFFICE VISIT Date of Service: 11/21/24 MR#: [id number] Acct: [id number] Name: SWATI SERRATO Rep #: [id number] : 1990 Provider: Dr. 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 Is patient in pain?: No Allergies No Known Allergies Allergy (Verified 11/21/24 11:33) Medications ?Medication ?Instructions ?Recorded ?Confirmed ?Type prenat.vits,justino,dfo-qvku-[id number] 1 tab PO DAILY pregnanc y 12/22/20 11/21/24 History Last Menstrual Period: 05/02/24 Zika: Zika virus screening: Negative : No PFSH PFSH Medical History Vaginal delivery Susceptible to varicella (non-immune), currently Family History Mother Colon cancer, Onset Age: 56 Grandfather Cancer Grandmother CVA (cerebral vascular accident) Grandfather CVA (cerebral vascular accident) Social History adopted: No household members: spouse and children number of children: 1 current occupational status: employed 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 occupational 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: No pets and animals: Yes pets and animals: dog(s) history of recent travel: Yes ([place] - Mar 2024) out of state: Yes out of country: No sexually active: Yes Smoking Status: Former smoker alcohol intake: current alcohol intake frequency: holidays/special occasions only details: Not while substance use type: does not use well-balanced diet: daily or most days caffeine: No eating out: 1-3 times/week during the past year weight has: increased > 10 lbs what type of physical activity do you participate in: walking frequency: 1-2 times per week duration: < 15 minutes/day vipin/adventist: Spiritism seatbelt use: always do you feel safe at home: Yes 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 Date Name GA/Weeks Outcome Route Bth Weight Infant Gen Labor Lgth Anesthesia Del Locatn Provider FOB Unknown SAB 04/2020 spontaneous 08/16/21 Carey 41 live - full term 6lbs 10oz Female 16 epidural [facility] Yahir Cadena Delivery Date: 08/16/21 Last Updated by: Linette Rodriguez 41 SROM HPI 29 wk ob Details: SWATI SERRATO is a 33 year old who presents for routine OB visit. OB Visit NELIA Calculator Estimated Delivery Date Method Current WG Current Estimate 02/06/25 LMP (Certain) 29w 0d Expected Delivery Route/Plan Labor Preferences- CB/BF classes: no labor support person: Surinder labor intervention preferences: [] pain management options preferred: epidural if requested cut cord/dad catch: no : yes PP control planned: discussed discussed possible routes of delivery and associated risks: [] special requests: [] Specific Issue/Plans Covid status: [] Patient chooses not to vaccinate. Flu vaccine: [] Tdap vaccine: [] Rhogam: na LARC form signed: yes Problem list reviewed and updated with the most current plan of care details and appropriate ordersplaced. Relevant counseling for the gestational age provided. Continue routine care and follow up unless otherwise noted in visit notes/problem list details Initial Weight: 235 lb Date -?-?-?-?-?-?-?-?-?-?-?-?- EGA Weight BP Urine Prot -?-?-?-?-?-?-?-?-?-?-?-?- Glucose FHR FuHt Pres Dilation -?-?-?-?-?-?-?-?-?-?-?-?- Effaced St Visit Note 07/09/24 -?-?-?-?-?-?-?-?-?-?-?-?- 9w 5d 235 lb 6 oz (+6 oz) 108/68 -?-?-?-?-?-?-?--?-?-?-?-?- 168 -?-?-?-?-?-?-?-?-?-?-?-?- JV- CRL consiste nt with LMP. desires nipt and will return next week for this. 08/07/24 -?-?-?-?-?-?-?-?-?-?--?-?- 13w 6d 231 lb 6 oz (-3 lb 10 oz) 103/49 Negative -?-?-?-?-?-?-?-?-?-?-?-?- Negative 160 -?-?-?-?-?-?-?-?-?-?-?-?- JV- no complaint s today. CFL consistent with established nelia. did blood work today. declined nipt. 09/10/24 -?-?-?-?-?-?-?-?-?-?-?-?- 18w 5d 239 lb 8 oz (+4 lb 8 oz) 103/66 Negative -?-?-?-?-?-?-?-?-?-?-?-?- Negative 150 -?-?-?-?-?-?-?-?-?-?-?-?- KW- no vb/crampi ng. no flutters yet. US scheduled for next week. 10/10/24 -?-?-?-?-?-?-?-?-?-?-?-?- 23w 0d 240 lb 8 oz (+5 lb 8 oz) 104/61 Negative -?-?-?-?-?-?-?-?-?-?-?-?- Negative 150 -?-?-?-?-?-?-?-?-?-?-?-?- SM_ no vb lof go od fm no regular ctx 11/06/24 -?-?-?-?-?-?-?-?-?-?-?-?- 26w 6d 246 lb (+11 lb) 104/60 Negative -?-?-?-?-?-?-?-?-?-?-?-?- Negative 143 27 -?-?-?-?-?-?-?-?-?-?-?-?- MH-No Vb, LOF. G ood FM. 28 wk labs pending. Larc 11/21/24 -?-?-?-?-?-?-?-?-?-?-?-?- 29w 0d 247 lb 2 oz (+12 lb 2 oz) -?-?-?-?-?-?-?-?-?-?-?-?- 140 30 -?-?-?-?-?--?-?-?-?-?-?-?- JV- no lof, vagi nal bleeding, or dec fm. declines tdap. normal 28 week labs. ACOG First Trimester First Trimester: Desire for , Alcohol, Tobacco Cessation, Illicit/Recreational Drug/Substance Use, Intimate Partner Violence, Barriers to care, Unstable Housing, Communication Barriers, Environmental/Work Hazards, Anticipated Course of Care, Toxoplasmosis Precations, Use of Any med ications, Sexual activity, Exercise, Dental Care, Sauna/Hot tub use, Seat Belt use, Childbirth classes/Hospital facilities, Travel, Indications for Ultrasound and Screening for Aneuploidy; Discussed Second Trimester Second Trimester: Signs and Symptoms of Labor, Selecting a care provider, Reproductive Life Planning & Contreception and Care Planning; Discussed Tobacco Cessation, Discussed Depression/Anxiety and Discussed Intimate Partner Violence Third Trimester Third Trimester: Pain Management Plans, Labor support person(s), Immediate Larc, Circumcision preference, Signs and Symptoms of Preeclampsia, Feeding No , [place] Education and Family Medical Leave or Disability Forms Coding Level of Care Code OB Routine Diagnoses Obesity affecting in second trimester, unspecified obesity type O99.212 Obesity type affecting : unspecified obesity Trimester: second trimester Supervision of high risk in second trimester O09.92 Trimester: second trimester 29 weeks gestation of Z3A.29 Weeks of gestation: 29 weeks Susceptible to varicella (non-immune), currently O09.899; Z28.3 Assessment and Plan Assessment and Plan (1) Obesity affecting : Status: Acute Qualifiers: Obesity type affecting : unspecified obesity Trimester: second trimester Qualified Code(s): O99.212 - Obesity complicating , second trimester Comment: BMI 33.4 - HgBA1C ordered (2) Supervision of high-risk : Status: Acute Qualifiers: Trimester: second trimester Qualified Code(s): O09.92 - Supervision of high risk , unspecified, second trimester Comment: PRR, , NELIA 02/06/25, boy PC: Carey, : Surinder (3) : Status: Acute Qualifiers: Weeks of gestation: 29 weeks Qualified Code(s): Z3A.29 - 29 weeks gestation of Comment: Discussed genetic/carrier testing - undecided (did not do either with last ), nl anatomy (4) Susceptible to varicella (non-immune), currently : Status: Acute Comment: enc vaccination Orders: Orders POC Urinalysis 2 Dip (Clinic) Today 11/21/24 1149 e Velde DO> Date _ Joanna Bhat DO [facility] Signature: Date (if applicable) CC: ~ [facility]05-06-2025 Evaluation note* Diagnosis Onset Date Resolution Status Admit Date Obesity affecting acute November 06, 2024 1:22pm acute November 06, 2024 1:22pm Supervision of high-risk acute November 06, 2024 1: 22pm Susceptible to varicella (non-immune), currently acute November 06, 2024 1: 22pm Obesity affecting acute November 21, 2024 11:31am acute November 21, 2024 11:31am Supervision of high-risk acute November 21, 2024 1 1:31am Susceptible to varicella (non-immune), currently acute November 21, 2024 1 1:31am Obesity affecting acute December 05, 2024 12:40pm acute December 05, 2024 12:40pm Supervision of high-risk acute December 05, 2024 1 2:40pm Susceptible to varicella (non-immune), currently acute December 05, 2024 1 2:40pm Obesity affecting acute December 19, 2024 10:54am acute December 19 10:54am Supervision of high-risk acute December 19, 2024 10:54am Susceptible to varicella (non-immune), currently acute December 19, 2024 10:54am Obesity affecting acute January 02, 2025 11:17am acute January 02, 2025 11:17am Supervision of high-risk acute January 02, 2025 1 1:17am Susceptible to varicella (non-immune), currently acute January 02, 2025 1 1:17am Obesity affecting acute January 10, 2025 1:51pm acute January 10 1:51pm Supervision of high-risk acute January 10, 2025 1:51pm Susceptible to varicella (non-immune), currently acute January 10, 2025 1:51pm Obesity affecting acute January 17, 2025 1:27pm acute January 17 1:27pm Supervision of high-risk acute January 17, 2025 1:27pm Susceptible to varicella (non-immune), currently acute January 17, 2025 1:27pm Obesity affecting acute January 24, 2025 9:50am acute January 24 9:50am Supervision of high-risk acute January 24, 2025 9:50am Susceptible to varicella (non-immune), currently acute January 24, 2025 9:50am Obesity affecting acute January 30, 2025 10:15am acute January 30 10:15am Supervision of high-risk acute January 30, 2025 10:15am Susceptible to varicella (non-immune), currently acute January 30, 2025 10:15am Obesity affecting acute February 06, 2025 9:56am acute February 06 9:56am Supervision of high-risk acute February 06, 2025 9:56am Susceptible to varicella (non-immune), currently acute February 06, 2025 9:56am Obesity affecting acute February 12, 2025 3:09pm acute February 12, 2 025 3:09pm Supervision of high-risk acute February 12 3:09pm Susceptible to varicella (non-immune), currently acute February 12 3:09pm [facility] Work Phone: 1(543) 809-689304-09-2025 Evaluation note* Diagnosis Onset Date Resolution Status Admit Date Obesity affecting acute October 10, 2024 11:03am acute October 10 11:03am Supervision of high-risk acute October 10, 2024 11:03am Susceptible to varicella (non-immune), currently acute October 10, 2024 11:03am History of miscarriage, currently resolved October 10 11:03am Obesity affecting acute November 06, 2024 1:22pm acute November 06, 2024 1:22pm Supervision of high-risk acute November 06, 2024 1: 22pm Susceptible to varicella (non-immune), currently acute November 06, 2024 1: 22pm Obesity affecting acute November 21, 2024 11:31am acute November 21, 2024 11:31am Supervision of high-risk acute November 21, 2024 1 1:31am Susceptible to varicella (non-immune), currently acute November 21, 2024 1 1:31am Obesity affecting acute December 05, 2024 12:40pm acute December 05, 2024 12:40pm Supervision of high-risk acute December 05, 2024 1 2:40pm Susceptible to varicella (non-immune), currently acute December 05, 2024 1 2:40pm Obesity affecting acute December 19, 2024 10:54am acute December 19 10:54am Supervision of high-risk acute December 19, 2024 10:54am Susceptible to varicella (non-immune), currently acute December 19, 2024 10:54am Obesity affecting acute January 02, 2025 11:17am acute January 02, 2025 11:17am Supervision of high-risk acute January 02, 2025 1 1:17am Susceptible to varicella (non-immune), currently acute January 02, 2025 1 1:17am Obesity affecting acute January 10, 2025 1:51pm acute January 10 1:51pm Supervision of high-risk acute January 10, 2025 1:51pm Susceptible to varicella (non-immune), currently acute January 10, 2025 1:51pm [facility] Work Phone: 1(354) 593-648004-09-2025 Evaluation note* Diagnosis Onset Date Resolution Status Admit Date Obesity affecting acute October 10, 2024 11:03am acute October 10 11:03am Supervision of high-risk acute October 10, 2024 11:03am Susceptible to varicella (non-immune), currently acute October 10, 2024 11:03am History of miscarriage, currently resolved October 10 11:03am Obesity affecting acute November 06, 2024 1:22pm acute November 06, 2024 1:22pm Supervision of high-risk acute November 06, 2024 1: 22pm Susceptible to varicella (non-immune), currently acute November 06, 2024 1: 22pm Obesity affecting acute November 21, 2024 11:31am acute November 21, 2024 11:31am Supervision of high-risk acute November 21, 2024 1 1:31am Susceptible to varicella (non-immune), currently acute November 21, 2024 1 1:31am Obesity affecting acute December 05, 2024 12:40pm acute December 05, 2024 12:40pm Supervision of high-risk acute December 05, 2024 1 2:40pm Susceptible to varicella (non-immune), currently acute December 05, 2024 1 2:40pm Obesity affecting acute December 19, 2024 10:54am acute December 19 10:54am Supervision of high-risk acute December 19, 2024 10:54am Susceptible to varicella (non-immune), currently acute December 19, 2024 10:54am Obesity affecting acute January 02, 2025 11:17am acute January 02, 2025 11:17am Supervision of high-risk acute January 02, 2025 1 1:17am Susceptible to varicella (non-immune), currently acute January 02, 2025 1 1:17am Obesity affecting acute January 10, 2025 1:51pm acute January 10 1:51pm Supervision of high-risk acute January 10, 2025 1:51pm Susceptible to varicella (non-immune), currently acute January 10, 2025 1:51pm Obesity affecting acute January 17, 2025 1:27pm acute January 17 1:27pm Supervision of high-risk acute January 17, 2025 1:27pm Susceptible to varicella (non-immune), currently acute January 17, 2025 1:27pm [facility] Work Phone: 1(316) 927-923904-09-2025 Evaluation note* Diagnosis Onset Date Resolution Status Admit Date Obesity affecting acute October 10, 2024 11:03am acute October 10 11:03am Supervision of high-risk acute October 10, 2024 11:03am Susceptible to varicella (non-immune), currently acute October 10, 2024 11:03am History of miscarriage, currently resolved October 10 11:03am Obesity affecting acute November 06, 2024 1:22pm acute November 06, 2024 1:22pm Supervision of high-risk acute November 06, 2024 1: 22pm Susceptible to varicella (non-immune), currently acute November 06, 2024 1: 22pm Obesity affecting acute November 21, 2024 11:31am acute November 21, 2024 11:31am Supervision of high-risk acute November 21, 2024 1 1:31am Susceptible to varicella (non-immune), currently acute November 21, 2024 1 1:31am Obesity affecting acute December 05, 2024 12:40pm acute December 05, 2024 12:40pm Supervision of high-risk acute December 05, 2024 1 2:40pm Susceptible to varicella (non-immune), currently acute December 05, 2024 1 2:40pm Obesity affecting acute December 19, 2024 10:54am acute December 19 10:54am Supervision of high-risk acute December 19, 2024 10:54am Susceptible to varicella (non-immune), currently acute December 19, 2024 10:54am Obesity affecting acute January 02, 2025 11:17am acute January 02, 2025 11:17am Supervision of high-risk acute January 02, 2025 1 1:17am Susceptible to varicella (non-immune), currently acute January 02, 2025 1 1:17am Obesity affecting acute January 10, 2025 1:51pm acute January 10 1:51pm Supervision of high-risk acute January 10, 2025 1:51pm Susceptible to varicella (non-immune), currently acute January 10, 2025 1:51pm Obesity affecting acute January 17, 2025 1:27pm acute January 17 1:27pm Supervision of high-risk acute January 17, 2025 1:27pm Susceptible to varicella (non-immune), currently acute January 17, 2025 1:27pm Obesity affecting acute January 24, 2025 9:50am acute January 24 9:50am Supervision of high-risk acute January 24, 2025 9:50am Susceptible to varicella (non-immune), currently acute January 24, 2025 9:50am [facility] Work Phone: 1(972) 711-410404-09-2025 Evaluation note* Diagnosis Onset Date Resolution Status Admit Date Obesity affecting acute October 10, 2024 11:03am acute October 10 11:03am Supervision of high-risk acute October 10, 2024 11:03am Susceptible to varicella (non-immune), currently acute October 10, 2024 11:03am History of miscarriage, currently resolved October 10 11:03am Obesity affecting acute November 06, 2024 1:22pm acute November 06, 2024 1:22pm Supervision of high-risk acute November 06, 2024 1: 22pm Susceptible to varicella (non-immune), currently acute November 06, 2024 1: 22pm Obesity affecting acute November 21, 2024 11:31am acute November 21, 2024 11:31am Supervision of high-risk acute November 21, 2024 1 1:31am Susceptible to varicella (non-immune), currently acute November 21, 2024 1 1:31am Obesity affecting acute December 05, 2024 12:40pm acute December 05, 2024 12:40pm Supervision of high-risk acute December 05, 2024 1 2:40pm Susceptible to varicella (non-immune), currently acute December 05, 2024 1 2:40pm Obesity affecting acute December 19, 2024 10:54am acute December 19 10:54am Supervision of high-risk acute December 19, 2024 10:54am Susceptible to varicella (non-immune), currently acute December 19, 2024 10:54am Obesity affecting acute January 02, 2025 11:17am acute January 02, 2025 11:17am Supervision of high-risk acute January 02, 2025 1 1:17am Susceptible to varicella (non-immune), currently acute January 02, 2025 1 1:17am Obesity affecting acute January 10, 2025 1:51pm acute January 10 1:51pm Supervision of high-risk acute January 10, 2025 1:51pm Susceptible to varicella (non-immune), currently acute January 10, 2025 1:51pm Obesity affecting acute January 17, 2025 1:27pm acute January 17 1:27pm Supervision of high-risk acute January 17, 2025 1:27pm Susceptible to varicella (non-immune), currently acute January 17, 2025 1:27pm Obesity affecting acute January 24, 2025 9:50am acute January 24 9:50am Supervision of high-risk acute January 24, 2025 9:50am Susceptible to varicella (non-immune), currently acute January 24, 2025 9:50am Obesity affecting acute January 30, 2025 10:15am acute January 30 10:15am Supervision of high-risk acute January 30, 2025 10:15am Susceptible to varicella (non-immune), currently acute January 30, 2025 10:15am [facility] Work Phone: 1(838) 477-700304-09-2025 Evaluation note* Diagnosis Onset Date Resolution Status Admit Date Obesity affecting acute October 10, 2024 11:03am acute October 10 11:03am Supervision of high-risk acute October 10, 2024 11:03am Susceptible to varicella (non-immune), currently acute October 10, 2024 11:03am History of miscarriage, currently resolved October 10 11:03am Obesity affecting acute November 06, 2024 1:22pm acute November 06, 2024 1:22pm Supervision of high-risk acute November 06, 2024 1: 22pm Susceptible to varicella (non-immune), currently acute November 06, 2024 1: 22pm Obesity affecting acute November 21, 2024 11:31am acute November 21, 2024 11:31am Supervision of high-risk acute November 21, 2024 1 1:31am Susceptible to varicella (non-immune), currently acute November 21, 2024 1 1:31am Obesity affecting acute December 05, 2024 12:40pm acute December 05, 2024 12:40pm Supervision of high-risk acute December 05, 2024 1 2:40pm Susceptible to varicella (non-immune), currently acute December 05, 2024 1 2:40pm Obesity affecting acute December 19, 2024 10:54am acute December 19 10:54am Supervision of high-risk acute December 19, 2024 10:54am Susceptible to varicella (non-immune), currently acute December 19, 2024 10:54am Obesity affecting acute January 02, 2025 11:17am acute January 02, 2025 11:17am Supervision of high-risk acute January 02, 2025 1 1:17am Susceptible to varicella (non-immune), currently acute January 02, 2025 1 1:17am Obesity affecting acute January 10, 2025 1:51pm acute January 10 1:51pm Supervision of high-risk acute January 10, 2025 1:51pm Susceptible to varicella (non-immune), currently acute January 10, 2025 1:51pm Obesity affecting acute January 17, 2025 1:27pm acute January 17 1:27pm Supervision of high-risk acute January 17, 2025 1:27pm Susceptible to varicella (non-immune), currently acute January 17, 2025 1:27pm Obesity affecting acute January 24, 2025 9:50am acute January 24 9:50am Supervision of high-risk acute January 24, 2025 9:50am Susceptible to varicella (non-immune), currently acute January 24, 2025 9:50am Obesity affecting acute January 30, 2025 10:15am acute January 30 10:15am Supervision of high-risk acute January 30, 2025 10:15am Susceptible to varicella (non-immune), currently acute January 30, 2025 10:15am Obesity affecting acute February 06, 2025 9:56am acute February 06 9:56am Supervision of high-risk acute February 06, 2025 9:56am Susceptible to varicella (non-immune), currently acute February 06, 2025 9:56am [facility] Work Phone: 1(824) 405-981003-20-2025 Radiology Diagnostic study note [facility] Imaging Services [address] [place], [place] [id number] OB Anatomy w/ Transvaginal MR#: [id number] Acct: [id number] Name: SWATI SERRATO Rep #: [id number] : 1990 F 33 From: Tsering Bray DO PCP: KAY Raman Status: REG C PUMA Study:OB Anatomy w/ Transvaginal Date of Exam : 09/19/24 Exam# [id number] Ordering Dr: Joanna Marocs DO PROCEDURE: ultrasound transabdominal and transvaginal. 09/19/2024 REASON FOR EXAM: Anatomy, cervical length. TECHNIQUE: Transabdominal and transvaginal ultrasound images were obtained. COMPARISON: None available FINDINGS Single live intrauterine gestation in cephalic presentation. heart rate 155 beats per minute.Maximum vertical pocket 3.7 cm. The placenta is posterior, without retroplacental fluid collection. No evidence of placenta previa. No gross anomalies are demonstrated. Visualized intracranial/intra-abdominal structures,spine, and extremities show no specific abnormality. cord insertion unremarkable. There appears to be a three-vessel cord and a four-chamber heart. The maternal ovaries are not demonstrated. Biparietal diameter 4.7 cm, at the 61st percentile. Head circumference 18.7 cm,at the 85th percentile. Abdominal circumference 14.7 cm, at the 45th percentile. Femur length 3.3 cm, at the 60th percentile. Estimated weight 340 g +/-51 g. Estimated weight at the 58th percentile. Facial features appear intact. Cervical length 4.6 cm, closed. US/OB Anatomy w/ Transvaginal IMPRESSION: Single live intrauterine gestation with estimated gestational age 20 weeks, 3 days. Estimated date of confinement 02/03/2025. No gross anomalies are demonstrated. Amniotic fluid level subjectively normal. Posterior placenta. No gross evidence of placenta previa. Cervical length 4.6 cm, closed. Reading Location: [facility] CC: KAY Castellon; Dr. Joanna Bhat, DO ~ Parts Processor: Signed [facility]03-10-2025 Evaluation note* Diagnosis Onset Date Resolution Status Admit Date Obesity affecting acute September 10, 2024 1:41pm acute September 10 1:41pm Supervision of high-risk acute September 10, 2024 1:41pm Susceptible to varicella (non-immune), currently acute September 10, 2024 1:41pm Community acquired pneumonia resolve d September 10, 2024 1:41pm Cough resolved September 10 1:41pm History of miscarriage, currently resolved September 10 1:41pm PMS (premenstrual syndrome) resolved September 10, 2024 1:41pm Obesity affecting acute October 10, 2024 11:03am acute October 10 11:03am Supervision of high-risk acute October 10, 2024 11:03am Susceptible to varicella (non-immune), currently acute October 10, 2024 11:03am History of miscarriage, currently resolved October 10 11:03am Obesity affecting acute November 06, 2024 1:22pm acute November 06, 2024 1:22pm Supervision of high-risk acute November 06, 2024 1: 22pm Susceptible to varicella (non-immune), currently acute November 06, 2024 1: 22pm Obesity affecting acute November 21, 2024 11:31am acute November 21, 2024 11:31am Supervision of high-risk acute November 21, 2024 1 1:31am Susceptible to varicella (non-immune), currently acute November 21, 2024 1 1:31am Obesity affecting acute December 05, 2024 12:40pm acute December 05, 2024 12:40pm Supervision of high-risk acute December 05, 2024 1 2:40pm Susceptible to varicella (non-immune), currently acute December 05, 2024 1 2:40pm Obesity affecting acute December 19, 2024 10:54am acute December 19 10:54am Supervision of high-risk acute December 19, 2024 10:54am Susceptible to varicella (non-immune), currently acute December 19, 2024 10:54am [facility] Work Phone: 1(673) 426-497403-10-2025 Evaluation note* Diagnosis Onset Date Resolution Status Admit Date Obesity affecting acute September 10, 2024 1:41pm acute September 10 1:41pm Supervision of high-risk acute September 10, 2024 1:41pm Susceptible to varicella (non-immune), currently acute September 10, 2024 1:41pm Community acquired pneumonia resolve d September 10, 2024 1:41pm Cough resolved September 10 1:41pm History of miscarriage, currently resolved September 10, 2 025 1:41pm PMS (premenstrual syndrome) resolved September 10, 2024 1:41pm Obesity affecting acute October 10, 2024 11:03am acute October 10 11:03am Supervision of high-risk acute October 10, 2024 11:03am Susceptible to varicella (non-immune), currently acute October 10, 2024 11:03am History of miscarriage, currently resolved October 10 11:03am Obesity affecting acute November 06, 2024 1:22pm acute November 06, 2024 1:22pm Supervision of high-risk acute November 06, 2024 1: 22pm Susceptible to varicella (non-immune), currently acute November 06, 2024 1: 22pm Obesity affecting acute November 21, 2024 11:31am acute November 21, 2024 11:31am Supervision of high-risk acute November 21, 2024 1 1:31am Susceptible to varicella (non-immune), currently acute November 21, 2024 1 1:31am Obesity affecting acute December 05, 2024 12:40pm acute December 05, 2024 12:40pm Supervision of high-risk acute December 05, 2024 1 2:40pm Susceptible to varicella (non-immune), currently acute December 05, 2024 1 2:40pm Obesity affecting acute December 19, 2024 10:54am acute December 19 10:54am Supervision of high-risk acute December 19, 2024 10:54am Susceptible to varicella (non-immune), currently acute December 19, 2024 10:54am Obesity affecting acute January 02, 2025 11:17am acute January 02, 2025 11:17am Supervision of high-risk acute January 02, 2025 1 1:17am Susceptible to varicella (non-immune), currently acute January 02, 2025 1 1:17am [facility] Work Phone: 1([phone]) 401-727302-04-2025 Evaluation note* Diagnosis Onset Date Resolution Status Admit Date Obesity affecting acute August 07, 2024 9:57am acute August 07, 2024 9:57am Supervision of high-risk acute August 07 9:57am Susceptible to varicella (non-immune), currently acute August 07 9:57am Community acquired pneumonia resolve d August 07, 2024 9:57am Cough resolved August 07, 2024 9:57am History of miscarriage, currently resolved August 07, 2024 9:57am PMS (premenstrual syndrome) resolved August 07, 2024 9:57am Obesity affecting acute September 10, 2024 1:41pm acute September 10 1:41pm Supervision of high-risk acute September 10, 2024 1:41pm Susceptible to varicella (non-immune), currently acute September 10, 2024 1:41pm Community acquired pneumonia resolve d September 10, 2024 1:41pm Cough resolved September 10 1:41pm History of miscarriage, currently resolved September 10, 025 1:41pm PMS (premenstrual syndrome) resolved September 10, 2024 1:41pm Obesity affecting acute October 10, 2024 11:03am acute October 10 11:03am Supervision of high-risk acute October 10, 2024 11:03am Susceptible to varicella (non-immune), currently acute October 10, 2024 11:03am History of miscarriage, currently resolved October 10 11:03am Obesity affecting acute November 06, 2024 1:22pm acute November 06, 2024 1:22pm Supervision of high-risk acute November 06, 2024 1: 22pm Susceptible to varicella (non-immune), currently acute November 06, 2024 1: 22pm [facility] Work Phone: 1(251) 208-873202-04-2025 Evaluation note* Diagnosis Onset Date Resolution Status Admit Date Obesity affecting acute August 07, 2024 9:57am acute August 07, 2024 9:57am Supervision of high-risk acute August 07 9:57am Susceptible to varicella (non-immune), currently acute August 07 9:57am Community acquired pneumonia resolve d August 07, 2024 9:57am Cough resolved August 07, 2024 9:57am History of miscarriage, currently resolved August 07, 2024 9:57am PMS (premenstrual syndrome) resolved August 07, 2024 9:57am Obesity affecting acute September 10, 2024 1:41pm acute September 10 1:41pm Supervision of high-risk acute September 10, 2024 1:41pm Susceptible to varicella (non-immune), currently acute September 10, 2024 1:41pm Community acquired pneumonia resolve d September 10, 2024 1:41pm Cough resolved September 10 1:41pm History of miscarriage, currently resolved September 10, 2 025 1:41pm PMS (premenstrual syndrome) resolved September 10, 2024 1:41pm Obesity affecting acute October 10, 2024 11:03am acute October 10 11:03am Supervision of high-risk acute October 10, 2024 11:03am Susceptible to varicella (non-immune), currently acute October 10, 2024 11:03am History of miscarriage, currently resolved October 10 11:03am Obesity affecting acute November 06, 2024 1:22pm acute November 06, 2024 1:22pm Supervision of high-risk acute November 06, 2024 1: 22pm Susceptible to varicella (non-immune), currently acute November 06, 2024 1: 22pm Obesity affecting acute November 21, 2024 11:31am acute November 21, 2024 11:31am Supervision of high-risk acute November 21, 2024 1 1:31am Susceptible to varicella (non-immune), currently acute November 21, 2024 1 1:31am [facility] Work Phone: 1(377) 475-145002-04-2025 Evaluation note* Diagnosis Onset Date Resolution Status Admit Date Obesity affecting acute August 07, 2024 9:57am acute August 07, 2024 9:57am Supervision of high-risk acute August 07 9:57am Susceptible to varicella (non-immune), currently acute August 07 9:57am Community acquired pneumonia resolve d August 07, 2024 9:57am Cough resolved August 07, 2024 9:57am History of miscarriage, currently resolved August 07, 2024 9:57am PMS (premenstrual syndrome) resolved August 07, 2024 9:57am Obesity affecting acute September 10, 2024 1:41pm acute September 10 1:41pm Supervision of high-risk acute September 10, 2024 1:41pm Susceptible to varicella (non-immune), currently acute September 10, 2024 1:41pm Community acquired pneumonia resolve d September 10, 2024 1:41pm Cough resolved September 10 1:41pm History of miscarriage, currently resolved September 10, 2 025 1:41pm PMS (premenstrual syndrome) resolved September 10, 2024 1:41pm Obesity affecting acute October 10, 2024 11:03am acute October 10 11:03am Supervision of high-risk acute October 10, 2024 11:03am Susceptible to varicella (non-immune), currently acute October 10, 2024 11:03am History of miscarriage, currently resolved October 10 11:03am Obesity affecting acute November 06, 2024 1:22pm acute November 06, 2024 1:22pm Supervision of high-risk acute November 06, 2024 1: 22pm Susceptible to varicella (non-immune), currently acute November 06, 2024 1: 22pm Obesity affecting acute November 21, 2024 11:31am acute November 21, 2024 11:31am Supervision of high-risk acute November 21, 2024 1 1:31am Susceptible to varicella (non-immune), currently acute November 21, 2024 1 1:31am Obesity affecting acute December 05, 2024 12:40pm acute December 05, 2024 12:40pm Supervision of high-risk acute December 05, 2024 1 2:40pm Susceptible to varicella (non-immune), currently acute December 05, 2024 1 2:40pm [facility] Work Phone: 1(789) 921-809601-06-2025 NotePap Smear Specimen AdequacyJan2024 12:59amComment.Satisfactory for evaluation. No endocervical component is identified.[facility] A#[id number] Health SystemComment on above:Satisfactory for evaluation. No endocervical component is identified. 06-18-2024 Evaluation note* Diagnosis Onset Date Resolution Status Admit Date Community acquired pneumonia acute June 18, 2024 11:57am Community acquired pneumonia acute July 09, 2024 10:13am Cough acute July 09, 2 025 10:13am History of miscarriage, currently acute July 09, 2024 10:13am Obesity affecting acute July 09, 2024 10:13am PMS (premenstrual syndrome) acute July 09, 2024 10:13am acute July 09, 2 025 10:13am Supervision of high-risk acute July 09 10:13am Susceptible to varicella (non-immune), currently acute July 09 10:13am Community acquired pneumonia acute August 07, 2024 9:57am Cough acute August 07, 2024 9:57am History of miscarriage, currently acute August 07, 2024 9:57am Obesity affecting acute August 07, 2024 9:57am PMS (premenstrual syndrome) acute August 07, 2024 9:57am acute August 07, 2024 9:57am Supervision of high-risk acute August 07 9:57am Susceptible to varicella (non-immune), currently acute August 07 9:57am Community acquired pneumonia acute September 10, 2024 1:41pm Cough acute September 10 1:41pm History of miscarriage, currently acute September 10 2 025 1:41pm Obesity affecting acute September 10, 2024 1:41pm PMS (premenstrual syndrome) acute September 10, 2024 1:41pm acute September 10 1:41pm Supervision of high-risk acute September 10, 2024 1:41pm Susceptible to varicella (non-immune), currently acute September 10, 2024 1:41pm [facility] Work Phone: Progress note Author Joanna Antonio [facility] Note Date/Time November 21, 2024 11:49 am [facility] [address] [place] [address], [address] [place] [address] OFFICE VISIT Date of Service: 11/21/24 MR#: [id number] Acct: [id number] Name: SWATI SERRATO Rep #: [id number] : 1990 Provider: Dr. 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 Is patient in pain?: No Allergies No Known Allergies Allergy (Verified 11/21/24 11:33) Medications ?Medication ?Instructions ?Recorded ?Confirmed ?Type prenat.vits,justino,wqk-bbfw-[id number] 1 tab PO DAILY pregnanc y 12/22/20 11/21/24 History Last Menstrual Period: 05/02/24 Zika: Zika virus screening: Negative : No PFSH PFSH Medical History Vaginal delivery Susceptible to varicella (non-immune), currently Family History Mother Colon cancer, Onset Age: 56 Grandfather Cancer Grandmother CVA (cerebral vascular accident) Grandfather CVA (cerebral vascular accident) Social History adopted: No household members: spouse and children number of children: 1 current occupational status: employed 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: No pets and animals: Yes pets and animals: dog(s) history of recent travel: Yes ([place] - Mar 2024) out of state: Yes out of country: No sexually active: Yes Smoking Status: Former smoker alcohol intake: current alcohol intake frequency: holidays/special occasions only details: Not while substance use type: does not use well-balanced diet: daily or most days caffeine: No eating out: 1-3 times/week during the past year weight has: increased > 10 lbs what type of physical activity do you participate in: walking frequency: 1-2 times per week duration: < 15 minutes/day vipin/adventist: Spiritism seatbelt use: always do you feel safe at home: Yes 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 Date Name GA/Weeks Outcome Route Bth Weight Gen Labor Lgth Anesthesia Del Locatn Provider FOB Unknown SAB 04/2020 spontaneous 08/16/21 Carey 41 live - full term 6lbs 10oz Female 16 epidural [facility] Delivery Date: 08/16/21 Last Updated by: Linette Rodriguez 41 SROM HPI 29 wk ob Details: SWATI SERRATO is a 33 year old who presents for routine OB visit. OB Visit NELIA Calculator Estimated Delivery Date Method Current WG Current Estimate 02/06/25 LMP (Certain) 29w 0d Expected Delivery Route/Plan Labor Preferences- CB/BF classes: no labor support person: Surinder labor intervention preferences: [] pain management options preferred: epidural if requested cut cord/dad catch: no : yes PP control planned: discussed discussed possible routes of delivery and associated risks: [] special requests: [] Specific Issue/Plans Covid status: [] Patient chooses not to vaccinate. Flu vaccine: [] Tdap vaccine: [] Rhogam: na LARC form signed: yes Problem list reviewed and updated with the most current plan of care details and appropriate orders placed. Relevant counseling for the gestational age provided. Continue routine care and follow up unless otherwise noted in visit notes/problem list details Initial Weight: 235 lb Date -?-?-?-?-?-?-?-?-?-?-?-?- EGA Weight BP Urine Prot -?-?-?-?-?-?-?-?-?-?-?-?- Glucose FHR FuHt Pres Dilation -?-?-?-?-?-?-?-?-?-?-?-?- Effaced St Visit Note 07/09/24 -?-?-?-?-?-?-?-?-?-?-?-?- 9w 5d 235 lb 6 oz (+6 oz) 108/68 -?-?-?-?-?-?-?--?-?-?-?-?- 168 -?-?-?-?-?-?-?-?-?-?-?-?- JV- CRL consiste nt with LMP. desires nipt and will return next week for this. 08/07/24 -?-?-?-?-?-?-?-?-?-?--?-?- 13w 6d 231 lb 6 oz (-3 lb 10 oz) 103/49 Negative -?-?-?-?-?-?-?-?-?-?-?-?- Negative 160 -?-?-?-?-?-?-?-?-?-?-?-?- JV- no complaint s today. CFL consistent with established nelia. did blood work today. declined nipt. 09/10/24 -?-?-?-?-?-?-?-?-?-?-?-?- 18w 5d 239 lb 8 oz (+4 lb 8 oz) 103/66 Negative -?-?-?-?-?-?-?-?-?-?-?-?- Negative 150 -?-?-?-?-?-?-?-?-?-?-?-?- KW- no vb/crampi ng. no flutters yet. US scheduled for next week. 10/10/24 -?-?-?-?-?-?-?-?-?-?-?-?- 23w 0d 240 lb 8 oz (+5 lb 8 oz) 104/61 Negative -?-?-?-?-?-?-?-?-?-?-?-?- Negative 150 -?-?-?-?-?-?-?-?-?-?-?-?- SM_ no vb lof go od fm no regular ctx 11/06/24 -?-?-?-?-?-?-?-?-?-?-?-?- 26w 6d 246 lb (+11 lb) 104/60 Negative -?-?-?-?-?-?-?-?-?-?-?-?- Negative 143 27 -?-?-?-?-?-?-?-?-?-?-?-?- MH-No Vb, LOF. G ood FM. 28 wk labs pending. Larc 11/21/24 -?-?-?-?-?-?-?-?-?-?-?-?- 29w 0d 247 lb 2 oz (+12 lb 2 oz) -?-?-?-?-?-?-?-?-?-?-?-?- 140 30 -?-?-?-?-?--?-?-?-?-?-?-?- JV- no lof, vagi nal bleeding, or dec fm. declines tdap. normal 28 week labs. ACOG First Trimester First Trimester: Desire for , Alcohol, Tobacco Cessation, Illicit/Recreational Drug/Substance Use, Intimate Partner Violence, Barriers to care, Unstable Housing, Communication Barriers, Environmental/Work Hazards, Anticipated Course of Care, Toxoplasmosis Precations, Use of Any medications, Sexual activity, Exercise, Dental Care, Sauna/Hot tub use, Seat Belt use, Childbirth classes/Hospital facilities, Travel, Indications for Ultrasound and Screening for Aneuploidy; Discussed Second Trimester Second Trimester: Signs and Symptoms of Labor, Selecting a care provider, Reproductive Life Planning & Contreception and Care Planning; Discussed Tobacco Cessation, Discussed Depression/Anxiety and Discussed Intimate Partner Violence Third Trimester Third Trimester: Pain Management Plans, Labor support person(s), Immediate Larc, Circumcision preference, Signs and Symptoms of Preeclampsia, Infant Feeding No , [place] Education and Family Medical Leave or Disability Forms Coding Level of Care Code OB Routine Diagnoses Obesity affecting in second trimester, unspecified obesity type O99.212 Obesity type affecting : unspecified obesity Trimester: second trimester Supervision of high risk in second trimester O09.92 Trimester: second trimester 29 weeks gestation of Z3A.29 Weeks of gestation: 29 weeks Susceptible to varicella (non-immune), currently O09.899; Z28.3 Assessment and Plan Assessment and Plan (1) Obesity affecting : Status: Acute Qualifiers: Obesity type affecting : unspecified obesity Trimester: second trimester Qualified Code(s): O99.212 - Obesity complicating , second trimester Comment: BMI 33.4 - HgBA1C ordered (2) Supervision of high-risk : Status: Acute Qualifiers: Trimester: second trimester Qualified Code(s): O09.92 - Supervision of high risk , unspecified, second trimester Comment: PRR, , NELIA 02/06/25, boy PC: Carey, : Surinder (3) : Status: Acute Qualifiers: Weeks of gestation: 29 weeks Qualified Code(s): Z3A.29 - 29 weeks gestation of Comment: Discussed genetic/carrier testing - undecided (did not do either with last ), nl anatomy (4) Susceptible to varicella (non-immune), currently : Status: Acute Comment: enc vaccination Orders: Orders POC Urinalysis 2 Dip (Clinic) Today 11/21/24 1149 <Electronically signed by Joanna Kellogg DO> Date _ Joanna Bhat DO Cosigner Signature: Date (if applicable) CC: ~ [facility] Work Phone: Progress note Author Tita Sinclair [facility] Note Date/Time December 19, 2024 11:0 5am [facility] [address], [address] [place] [address] OFFICE VISIT Date of Service: 12/19/24 MR#: [id number] Acct: [id number] Name: SWATI SERRATO Rep #: [id number] : 1990 Provider: Dr. César Sinclair MD Age/Sex: 34/F Location[place] [facility] [place] Status: Signed Intake Vital Signs 07/09/24 10:17 10/10/24 11:12 12/05/24 12:56 12/19/24 10:56 Height 5 ft 10 in 5 ft 10 in 5 ft 10 in 5 ft 10 in Weight: 248 lb 4 oz BMI 35.6 BP 98/66 Intake Visit Reasons: 33 wk ob Sales Consulting Director Required: No Is patient in pain?: No Allergies No Known Allergies Allergy (Verified 12/19/24 10:56) Medications ?Medication ?Instructions ?Recorded ?Confirmed ?Type prenat.vits,justino,[id number] 1 tab PO DAILY pregnanc y 12/22/20 12/19/24 History Last Menstrual Period: 05/02/24 Zika: Zika virus screening: Negative : No PFSH PFSH Medical History Vaginal delivery Susceptible to varicella (non-immune), currently Family History Mother Colon cancer, Onset Age: 56 Grandfather Cancer Grandmother CVA (cerebral vascular accident) Grandfather CVA (cerebral vascular accident) Social History adopted: No household members: spouse and children number of children: 1 current occupational status: employed 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: No pets and animals: Yes pets and animals: dog(s) history of recent travel: Yes ([place] - Mar 2024) out of state: Yes out of country: No sexually active: Yes Smoking Status: Former smoker alcohol intake: current alcohol intake frequency: holidays/special occasions only details: Not while substance use type: does not use well-balanced diet: daily or most days caffeine: No eating out: 1-3 times/week during the past year weight has: increased > 10 lbs what type of physical activity do you participate in: walking frequency: 1-2 times per week duration: < 15 minutes/day vipin/adventist: Spiritism seatbelt use: always do you feel safe at home: Yes 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 Date Name GA/Weeks Outcome Route Bth Weight Infant Gen Labor Lgth Anesthesia Del Locatn Provider FOB Unknown SAB 04/2020 spontaneous 08/16/21 Carey 41 live - full term 6lbs 10oz Female 16 epidural [facility] Yahir Surinder Delivery Date: 08/16/21 Last Updated by: Linette Rodriguez 41 SROM HPI 33 wk ob Details: SWATI SERRATO is a 34 year old who presents for routine OB visit. OB Visit NELIA Calculator Estimated Delivery Date Method Current WG Current Estimate 02/06/25 LMP (Certain) 33w 0d Expected Delivery Route/Plan Labor Preferences- CB/BF classes: no labor support person: Surinder labor intervention preferences: [] pain management options preferred: epidural if requested cut cord/dad catch: no : yes PP control planned: discussed discussed possible routes of delivery and associated risks: [] special requests: [] Specific Issue/Plans Covid status: [] Patient chooses not to vaccinate. Flu vaccine: [] Tdap vaccine: declines Rhogam: na LARC form signed: yes Problem list reviewed and updated with the most current plan of care details and appropriate orders placed. Relevant counseling for the gestational age provided. Continue routine care and follow up unless otherwise noted in visit notes/problem list details Initial Weight: 235 lb Date -?-?-?-?-?-?-?-?-?-?-?-?- EGA Weight BP Urine Prot -?-?-?-?-?-?-?-?-?-?-?-?- Glucose FHR FuHt Pres Dilation -?-?-?-?-?-?-?-?-?-?-?-?- Effaced St Visit Note 07/09/24 -?-?-?-?-?-?-?-?-?-?-?-?- 9w 5d 235 lb 6 oz (+6 oz) 108/68 -?-?-?-?-?-?-?-?-?-?-?-?- 168 -?-?-?-?-?-?-?-?-?-?-?-?- JV- CRL consiste nt with LMP. desires nipt and will return next week for this. 08/07/24 -?-?-?-?-?-?-?-?-?-?-?-?- 13w 6d 231 lb 6 oz (-3 lb 10 oz) 103/49 Negative -?-?-?-?-?-?-?-?-?-?-?-?- Negative 160 -?-?-?-?-?-?-?-?-?-?-?-?- JV- no complaint s today. CFL consistent with established nelia. did blood work today. declined nipt. 09/10/24 -?-?-?-?-?-?-?-?-?-?-?-?- 18w 5d 239 lb 8 oz (+4 lb 8 oz) 103/66 Negative -?-?-?-?-?-?-?-?-?-?-?-?- Negative 150 -?-?-?-?-?-?-?-?-?-?-?-?- KW- no vb/crampi ng. no flutters yet. US scheduled for next week. 10/10/24 -?-?-?-?-?-?-?-?-?-?-?-?- 23w 0d 240 lb 8 oz (+5 lb 8 oz) 104/61 Negative -?-?-?-?-?-?-?-?-?-?-?-?- Negative 150 -?-?-?-?-?-?--?-?-?-?-?-?- SM_ no vb lof go od fm no regular ctx 11/06/24 -?-?-?-?-?-?-?-?-?-?-?-?- 26w 6d 246 lb (+11 lb) 104/60 Negative -?-?-?-?-?-?-?-?-?-?-?-?- Negative 143 27 -?-?-?-?-?-?-?-?-?-?-?-?- -No Vb, LOF. G ood FM. 28 wk labs pending. Larc 11/21/24 -?-?-?-?-?-?-?-?-?-?-?-?- 29w 0d 247 lb 2 oz (+12 lb 2 oz) Trace -?-?-?-?-?-?-?-?-?-?-?-?- Negative 140 30 -?-?-?-?-?-?-?-?-?-?-?-?- JV- no lof, vagi nal bleeding, or dec fm. declines tdap. normal 28 week labs. 12/05/24 -?-?-?-?-?-?-?-?-?-?-?-?- 31w 0d 252 lb 2 oz (+17 lb 2 oz) 106/72 Negative -?-?-?-?-?-?-?-?-?-?-?-?- Negative 144 32 -?-?-?-?-?-?-?-?-?-?-?-?- -No VB, LOF. G ood FM. Denies concerns 12/19/24 -?-?-?-?-?--?-?-?-?-?-?-?- 33w 0d 248 lb 4 oz (+13 lb 4 oz) 98/66 Negative -?-?-?-?-?-?-?-?-?-?-?-?- Negative 140 34 -?-?-?-?-?-?-?-?-?-?-?-?- SM- no vb lof go od fm no regular ctx ACOG First Trimester First Trimester: Desire for , Alcohol, Tobacco Cessation, Illicit/Recreational Drug/Substance Use, Intimate Partner Violence, Barriers to care, Unstable Housing, Communication Barriers, Environmental/Work Hazards, Anticipated Course of Care, Toxoplasmosis Precations, Use of Any medications, Sexual activity, Exercise, Dental Care, Sauna/Hot tub use, Seat Belt use, Childbirth classes/Hospital facilities, Travel, Indications for Ultrasound and Screening for Aneuploidy; Discussed Second Trimester Second Trimester: Signs and Symptoms of Labor, Selecting a care provider, Reproductive Life Planning & Contreception and Care Planning; Discussed Tobacco Cessation, Discussed Depression/Anxiety and Discussed Intimate Partner Violence Third Trimester Third Trimester: Pain Management Plans, Labor support person(s), Immediate Larc, Circumcision preference, Signs and Symptoms of Preeclampsia, Infant Feeding No , [place] Education and Family Medical Leave or Disability Forms Results POC Urinalysis 2 Dip (Clinic) Office Urine Glucose Negative Last Edit by Lizbeth Moreira on 12/19/24 11:01 Office Urine Protein Negative Last Edit by Lizbeth Moreira on 12/19/24 11:01 Coding Level of Care Code OB Routine Diagnoses Obesity affecting in second trimester, unspecified obesity type O99.212 Obesity type affecting : unspecified obesity Trimester: second trimester Supervision of high risk in third trimester O09.93 Trimester: third trimester 33 weeks gestation of Z3A.33 Weeks of gestation: 33 weeks Susceptible to varicella (non-immune), currently O09.899; Z28.3 Assessment and Plan Assessment and Plan (1) Obesity affecting : Status: Acute Qualifiers: Obesity type affecting : unspecified obesity Trimester: second trimester Qualified Code(s): O99.212 - Obesity complicating , second trimester Comment: BMI 33.4 - HgBA1C ordered (2) Supervision of high-risk : Status: Acute Qualifiers: Trimester: third trimester Qualified Code(s): O09.93 - Supervision of high risk , unspecified, third trimester Comment: PRR, , NELIA 02/06/25, boy PC: Carey, : Surinder (3) : Status: Acute Qualifiers: Weeks of gestation: 33 weeks Qualified Code(s): Z3A.33 - 33 weeks gestation of Comment: Discussed genetic/carrier testing - undecided (did not do either with last ), nl anatomy (4) Susceptible to varicella (non-immune), currently : Status: Acute Comment: enc vaccination 12/19/24 1105 <Electronically signed by Tita thomas MD> Date _ Tita Sinclair MD Cosigner Signature: Date (if applicable) CC: ~ [facility] Work Phone: Progress note Author Joanna Antonio [facility] Note Date/Time January 02, 2025 12:05 pm [facility] [address], [address] [place] [address] OFFICE VISIT Date of Service: 01/02/25 MR#: [id number] Acct: [id number] Name: SWATI SERRATO Rep #: [id number] : 1990 Provider: Dr. Jody Bhat DO Age/Sex: 34/F Location: [facility] [place] Status: Signed Intake Vital Signs 07/09/24 10:17 10/10/24 11:12 12/19/24 10:56 01/02/25 11:31 Height 5 ft 10 in 5 ft 10 in 5 ft 10 in 5 ft 10 in Weight: 254 lb BMI 36.4 BP 115/77 Intake Visit Reasons: 35 wk ob Sales Consulting Director Required: No Is patient in pain?: No Allergies No Known Allergies Allergy (Verified 01/02/25 11:36) Medications ?Medication ?Instructions ?Recorded ?Confirmed ?Type prenat.vits,justino,uhx-eswk-wvgck 1 tab PO DAILY pregnanc y 12/22/20 01/02/25 History Last Menstrual Period: 05/02/24 Zika: Zika virus screening: Negative : No PFSH PFSH Medical History Vaginal delivery Susceptible to varicella (non-immune), currently Family History Mother Colon cancer, Onset Age: 56 Grandfather Cancer Grandmother CVA (cerebral vascular accident) Grandfather CVA (cerebral vascular accident) Social History adopted: No household members: spouse and children number of children: 1 current occupational status: employed 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 occupational 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: No pets and animals: Yes pets and animals: dog(s) history of recent travel: Yes ([place] - Mar 2024) out of state: Yes out of country: No sexually active: Yes Smoking Status: Former smoker alcohol intake: current alcohol intake frequency: holidays/special occasions only details: Not while substance use type: does not use well-balanced diet: daily or most days caffeine: No eating out: 1-3 times/week during the past year weight has: increased > 10 lbs what type of physical activity do you participate in: walking frequency: 1-2 times per week duration: < 15 minutes/day vipin/adventist: Spiritism seatbelt use: always do you feel safe at home: Yes 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 Date Name GA/Weeks Outcome Route Bth Weight Gen Labor Lgth Anesthesia Del Locatn Provider FOB Unknown SAB 04/2020 spontaneous 08/16/21 Carey 41 live - full term 6lbs 10oz Female 16 epidural [facility] Yahir Cadena Delivery Date: 08/16/21 Last Updated by: Linette Rodriguez 41 SROM HPI 35 wk ob Details: SWATI SERRATO is a 34 year old who presents for routine OB visit. OB Visit NELIA Calculator Estimated Delivery Date Method Current WG Current Estimate 02/06/25 LMP (Certain) 35w 0d Expected Delivery Route/Plan Labor Preferences- CB/BF classes: no labor support person: Surinder labor intervention preferences: [] pain management options preferred: epidural if requested cut cord/dad catch: no : yes PP control planned: discussed discussed possible routes of delivery and associated risks: [] special requests: [] Specific Issue/Plans Covid status: [] Patient chooses not to vaccinate. Flu vaccine: [] Tdap vaccine: declines Rhogam: na LARC form signed: yes Problem list reviewed and updated with the most current plan of care details and appropriate orders placed. Relevant counseling for the gestational age provided. Continue routine care and follow up unless otherwise noted in visit notes/problem list details Initial Weight: 235 lb Date -?-?-?-?-?-?-?-?-?-?-?-?- EGA Weight BP Urine Prot -?-?-?-?-?-?-?-?-?-?-?-?- Glucose FHR FuHt Pres Dilation -?-?-?-?-?-?-?-?-?-?-?-?- Effaced St Visit Note 07/09/24 -?-?-?-?-?-?-?-?-?-?-?-?- 9w 5d 235 lb 6 oz (+6 oz) 108/68 -?-?-?-?-?-?-?-?-?-?-?-?- 168 -?-?-?-?-?-?-?-?-?-?-?-?- JV- CRL consiste nt with LMP. desires nipt and will return next week for this. 08/07/24 -?-?-?-?-?-?-?-?-?-?-?-?- 13w 6d 231 lb 6 oz (-3 lb 10 oz) 103/49 Negative -?-?-?-?-?-?-?-?-?-?-?-?- Negative 160 -?-?-?-?-?-?-?-?-?-?-?-?- JV- no complaint s today. CFL consistent with established nelia. did blood work today. declined nipt. 09/10/24 -?-?-?-?-?-?-?-?-?-?-?-?- 18w 5d 239 lb 8 oz (+4 lb 8 oz) 103/66 Negative -?-?-?-?-?-?-?-?-?-?-?-?- Negative 150 -?-?-?-?-?-?-?-?-?-?-?-?- KW- no vb/crampi ng. no flutters yet. US scheduled for next week. 10/10/24 -?-?-?-?-?-?-?-?-?-?-?-?- 23w 0d 240 lb 8 oz (+5 lb 8 oz) 104/61 Negative -?-?-?-?-?-?-?-?-?-?-?-?- Negative 150 -?-?--?-?-?-?-?-?-?-?-?-?- SM_ no vb lof go od fm no regular ctx 11/06/24 -?-?-?-?-?-?-?-?-?-?-?-?- 26w 6d 246 lb (+11 lb) 104/60 Negative -?-?-?-?-?-?-?-?-?-?-?-?- Negative 143 27 -?-?-?-?-?-?-?-?-?-?-?-?- MH-No Vb, LOF. G ood FM. 28 wk labs pending. [facility] 11/21/24 -?-?-?-?-?-?-?-?-?-?-?-?- 29w 0d 247 lb 2 oz (+12 lb 2 oz) Trace -?-?-?-?-?-?-?-?-?-?-?-?- Negative 140 30 -?-?-?-?-?-?-?-?-?-?-?-?- JV- no lof, vagi nal bleeding, or dec fm. declines tdap. normal 28 week labs. 12/05/24 -?-?-?-?-?-?-?-?-?-?-?-?- 31w 0d 252 lb 2 oz (+17 lb 2 oz) 106/72 Negative -?-?-?-?-?-?-?-?-?-?-?-?- Negative 144 32 -?-?-?-?-?-?-?-?-?-?-?-?- MH-No VB, LOF. G ood FM. Denies concerns 12/19/24 -?--?-?-?-?-?-?-?-?-?-?-?- 33w 0d 248 lb 4 oz (+13 lb 4 oz) 98/66 Negative -?-?-?-?-?-?-?-?-?-?-?-?- Negative 140 34 -?-?-?-?-?-?-?-?-?-?-?--?- SM- no vb lof go od fm no regular ctx 01/02/25 -?-?-?-?-?-?-?-?-?-?-?-?- 35w 0d 254 lb (+19 lb) 115/77 Negative -?--?-?-?-?-?-?-?-?-?-?-?- Negative 145 36 -?-?-?-?-?-?-?-?-?-?-?-?- JV- no lof, vagi nal bleeding, or dec fm. ACOG First Trimester First Trimester: Desire for , Alcohol, Tobacco Cessation, Illicit/Recreational Drug/Substance Use, Intimate Partner Violence, Barriers to care, Unstable Housing, Communication Barriers, Environmental/Work Hazards, Anticipated Course of Care, Toxoplasmosis Precations, Use of Any medications, Sexual activity, Exercise, Dental Care, Sauna/Hot tub use, Seat Belt use, Childbirth classes/Hospital facilities, Travel, Indications for Ultrasound and Screening for Aneuploidy; Discussed Second Trimester Second Trimester: Signs and Symptoms of Labor, Selecting a care provider, Reproductive Life Planning & Contreception and Care Planning; Discussed Tobacco Cessation, Discussed Depression/Anxiety and Discussed Intimate Partner Violence Third Trimester Third Trimester: Pain Management Plans, Labor support person(s), Immediate Larc, Circumcision preference, Signs and Symptoms of Preeclampsia, Feeding No , Education and Family Medical Leave or Disability Forms Results POC Urinalysis 2 Dip (Clinic) Office Urine Glucose Negative Last Edit by Alexia Gotti on 01/02/25 11: 42 Office Urine Protein Negative Last Edit by Alexia Gotti on 01/02/25 11: 42 Coding Level of Care Code OB Routine Diagnoses Obesity affecting in second trimester, unspecified obesity type O99.212 Obesity type affecting : unspecified obesity Trimester: second trimester Supervision of high risk in third trimester O09.93 Trimester: third trimester 35 weeks gestation of Z3A.35 Weeks of gestation: 35 weeks Susceptible to varicella (non-immune), currently O09.899; Z28.3 Assessment and Plan Assessment and Plan (1) Obesity affecting : Status: Acute Qualifiers: Obesity type affecting : unspecified obesity Trimester: second trimester Qualified Code(s): O99.212 - Obesity complicating , second trimester Comment: BMI 33.4 - HgBA1C ordered (2) Supervision of high-risk : Status: Acute Qualifiers: Trimester: third trimester Qualified Code(s): O09.93 - Supervision of high risk , unspecified, third trimester Comment: PRR, , NELIA 02/06/25, boy PC: Carey, : Surinder (3) : Status: Acute Qualifiers: Weeks of gestation: 35 weeks Qualified Code(s): Z3A.35 - 35 weeks gestation of Comment: Discussed genetic/carrier testing - undecided (did not do either with last ), nl anatomy (4) Susceptible to varicella (non-immune), currently : Status: Acute Comment: enc vaccination Orders: Orders POC Urinalysis 2 Dip (Clinic) Today 01/02/25 1205 <Electronically signed by Joanna Kellogg DO> Date _ Joanna Bhat DO Cosigner Signature: Date (if applicable) CC: ~ [facility] Work Phone: Progress note Author [facility] Note Date/Time January 17, 2025 1:46 pm [facility] [address], [address] [place] [address] OFFICE VISIT Date of Service: 01/17/25 MR#: [id number] Acct: [id number] Name: SWATI SERRATO Rep #: [id number] : 1990 Provider: Dr. Jody Bhat DO Age/Sex: 34/F Location: [facility] [place] Status: Signed Intake Vital Signs 12/05/24 12:56 01/10/25 14:05 01/17/25 13:30 Height 5 ft 10 in 5 ft 10 in 5 ft 10 in Weight: 255 lb 4 oz BMI 36.6 BP 113/79 Intake Visit Reasons: 37 wk ob Chief Complaint: 37wk OB Sales Consulting Director Required: No Is patient in pain?: No Allergies No Known Allergies Allergy (Verified 01/17/25 13:28) Medications ?Medication ?Instructions ?Recorded ?Confirmed ?Type prenat.vits,justino,[id number] 1 tab PO DAILY pregnanc y 12/22/20 01/17/25 History Last Menstrual Period: 05/02/24 : No PFSH PFS Medical History Vaginal delivery Susceptible to varicella (non-immune), currently Family History Mother Colon cancer, Onset Age: 56 Grandfather Cancer Grandmother CVA (cerebral vascular accident) Grandfather CVA (cerebral vascular accident) Social History adopted: No household members: spouse and children number of children: 1 current occupational status: employed 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: No pets and animals: Yes pets and animals: dog(s) history of recent travel: Yes ([place] - Mar 2024) out of state: Yes out of country: No sexually active: Yes Smoking Status: Former smoker alcohol intake: current alcohol intake frequency: holidays/special occasions only details: Not while substance use type: does not use well-balanced diet: daily or most days caffeine: No eating out: 1-3 times/week during the past year weight has: increased > 10 lbs what type of physical activity do you participate in: walking frequency: 1-2 times per week duration: < 15 minutes/day vipin/adventist: Spiritism seatbelt use: always do you feel safe at home: Yes 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 Date Name GA/Weeks Outcome Route Bth Weight Infant Gen Labor Lgth Anesthesia Del Locatn Provider FOB Unknown SAB 04/2020 spontaneous 08/16/21 Carey 41 live - full term 6lbs 10oz Female 16 epidural [facility] Yahir Cadena Delivery Date: 08/16/21 Last Updated by: Linette Rodriguez 41 SROM HPI 37 wk ob Details: SWATI SERRATO is a 34 year old who presents for routine OB visit. OB Visit NELIA Calculator Estimated Delivery Date Method Current WG Current Estimate 02/06/25 LMP (Certain) 37w 1d Expected Delivery Route/Plan Labor Preferences- CB/BF classes: no labor support person: Surinder labor intervention preferences: [] pain management options preferred: epidural if requested cut cord/dad catch: no : yes PP control planned: discussed discussed possible routes of delivery and associated risks: [] special requests: [] Specific Issue/Plans Covid status: [] Patient chooses not to vaccinate. Flu vaccine: [] Tdap vaccine: declines Rhogam: na LARC form signed: yes Problem list reviewed and updated with the most current plan of care details and appropriate orders placed. Relevant counseling for the gestational age provided. Continue routine care and follow up unless otherwise noted in visit notes/problem list details Initial Weight: 235 lb Date -?-?-?-?-?-?-?-?-?-?-?-?- EGA Weight BP Urine Prot -?-?-?-?-?-?-?-?-?-?-?-?- Glucose FHR FuHt Pres Dilation -?-?-?-?-?-?-?-?-?-?-?-?- Effaced St Visit Note 07/09/24 -?-?-?-?-?-?-?-?-?-?-?-?- 9w 5d 235 lb 6 oz (+6 oz) 108/68 -?-?-?-?-?-?-?-?-?-?-?-?- 168 -?-?-?-?-?-?-?-?-?-?-?-?- JV- CRL consiste nt with LMP. desires nipt and will return next week for this. 08/07/24 -?-?-?-?-?-?-?-?-?-?-?-?- 13w 6d 231 lb 6 oz (-3 lb 10 oz) 103/49 Negative -?-?-?-?-?-?-?-?-?-?-?-?- Negative 160 -?-?-?-?-?-?-?-?-?-?-?-?- JV- no complaint s today. CFL consistent with established nelia. did blood work today. declined nipt. 09/10/24 -?-?-?-?-?-?-?-?-?-?-?-?- 18w 5d 239 lb 8 oz (+4 lb 8 oz) 103/66 Negative -?-?-?-?-?-?-?-?-?-?-?-?- Negative 150 -?-?-?-?-?-?-?-?-?-?-?-?- KW- no vb/crampi ng. no flutters yet. US scheduled for next week. 10/10/24 -?-?-?-?-?-?-?-?-?-?-?-?- 23w 0d 240 lb 8 oz (+5 lb 8 oz) 104/61 Negative -?-?-?-?-?-?-?-?-?-?-?-?- Negative 150 -?-?-?-?-?-?-?-?-?-?-?-?- SM_ no vb lof go od fm no regular ctx 11/06/24 -?-?-?-?-?-?-?-?-?-?-?-?- 26w 6d 246 lb (+11 lb) 104/60 Negative -?-?-?-?-?-?-?-?-?-?-?-?- Negative 143 27 -?-?-?-?-?-?-?-?-?-?-?-?- MH-No Vb, LOF. G ood FM. 28 wk labs pending. Larc 11/21/24 -?-?-?-?-?-?-?-?-?-?-?-?- 29w 0d 247 lb 2 oz (+12 lb 2 oz) Trace -?-?-?-?-?-?-?-?-?-?-?-?- Negative 140 30 -?-?-?-?-?-?-?-?-?-?-?-?- JV- no lof, vagi nal bleeding, or dec fm. declines tdap. normal 28 week labs. 12/05/24 -?-?-?-?-?-?-?-?-?-?-?-?- 31w 0d 252 lb 2 oz (+17 lb 2 oz) 106/72 Negative -?-?-?-?-?-?-?-?-?-?-?-?- Negative 144 32 -?-?-?-?-?-?-?-?-?-?-?-?- MH-No VB, LOF. G ood FM. Denies concerns 12/19/24 -?-?-?-?-?-?-?-?-?-?-?-?- 33w 0d 248 lb 4 oz (+13 lb 4 oz) 98/66 Negative -?-?-?-?-?-?-?-?-?-?-?-?- Negative 140 34 -?-?-?-?-?-?-?-?-?-?-?-?- SM- no vb lof go od fm no regular ctx 01/02/25 -?-?-?-?-?-?-?-?-?-?-?-?- 35w 0d 254 lb (+19 lb) 115/77 Negative -?-?-?-?-?-?-?-?-?-?-?-?- Negative 145 36 -?-?-?-?-?-?-?-?-?-?-?-?- JV- no lof, vagi nal bleeding, or dec fm. 01/10/25 -?-?-?-?-?-?-?-?-?-?-?-?- 36w 1d 259 lb 8 oz (+24 lb 8 oz) 112/75 Negative -?-?-?-?-?-?-?-?-?-?-?-?- Negative 135 37 -?-?-?-?-?-?-?-?-?-?-?-?- kw- no vb/lof/ct x. good fm GBS today declines vaginal exam today. 01/17/25 -?-?-?-?-?-?-?-?-?-?-?-?- 37w 1d 255 lb 4 oz (+20 lb 4 oz) 113/79 Negative -?-?-?-?-?-?-?-?-?-?-?-?- Negative 140 37 Cephalic -?-?-?-?-?-?-?-?-?-?-?-?- JV- no lof, vagi nal bleeding, or dec fm. gbs neg. ACOG First Trimester First Trimester: Desire for , Alcohol, Tobacco Cessation, Illicit/Recreational Drug/Substance Use, Intimate Partner Violence, Barriers to care, Unstable Housing, Communication Barriers, Environmental/Work Hazards, Anticipated Course of Care, Toxoplasmosis Precations, Use of Any medications, Sexual activity, Exercise, Dental Care, Sauna/Hot tub use, Seat Belt use, Childbirth classes/Hospital facilities, Travel, Indications for Ultrasound and Screening for Aneuploidy; Discussed Second Trimester Second Trimester: Signs and Symptoms of Labor, Selecting a care provider, Reproductive Life Planning & Contreception and Care Planning; Discussed Tobacco Cessation, Discussed Depression/Anxiety and Discussed Intimate Partner Violence Third Trimester Third Trimester: Pain Management Plans, Labor support person(s), Immediate Larc, Circumcision preference, Signs and Symptoms of Preeclampsia, Infant Feeding No , Education and Family Medical Leave or Disability Forms Results POC Urinalysis 2 Dip (Clinic) Office Urine Glucose Negative Last Edit by Marcy Goodwin on 01/17/25 13:36 Office Urine Protein Negative Last Edit by Marcy Goodwin on 01/17/25 13:36 Coding Level of Care Code OB Routine Diagnoses Obesity affecting in second trimester, unspecified obesity type O99.212 Obesity type affecting : unspecified obesity Trimester: second trimester Supervision of high risk in third trimester O09.93 Trimester: third trimester 37 weeks gestation of Z3A.37 Weeks of gestation: 37 weeks Susceptible to varicella (non-immune), currently O09.899; Z28.3 Assessment and Plan Assessment and Plan (1) Obesity affecting : Status: Acute Qualifiers: Obesity type affecting : unspecified obesity Trimester: second trimester Qualified Code(s): O99.212 - Obesity complicating , second trimester Comment: BMI 33.4 - HgBA1C ordered (2) Supervision of high-risk : Status: Acute Qualifiers: Trimester: third trimester Qualified Code(s): O09.93 - Supervision of high risk , unspecified, third trimester Comment: PRR, , NELIA 02/06/25, boy PC: Carey, : Surinder (3) : Status: Acute Qualifiers: Weeks of gestation: 37 weeks Qualified Code(s): Z3A.37 - 37 weeks gestation of Comment: Neg GBS. Discussed genetic/carrier testing - undecided (did not do either with last ), nl anatomy (4) Susceptible to varicella (non-immune), currently : Status: Acute Comment: enc vaccination Orders: Orders POC Urinalysis 2 Dip (Clinic) Today 01/17/25 1346 <Electronically signed by Joanna Kellogg DO> Date _ Joanna Mainignedna Signature: Date (if applicable) CC: ~ [facility] Work Phone: Progress note Author Tita Sinclair [facility] Note Date/Time January 24, 2025 10:2 8am [facility] [address], [address] [place] [address] OFFICE VISIT Date of Service: 01/24/25 MR#: [id number] Acct: [id number] Name: SWATI SERRATO Rep #: [id number] : 1990 Provider: Dr. César Sinclair MD Age/Sex: 34/F Location: [facility] [place] Status: Signed Intake Vital Signs 12/05/24 12:56 01/17/25 13:30 01/24/25 09:53 Height 5 ft 10 in 5 ft 10 in 5 ft 10 in Weight: 258 lb BMI 37.0 BP 101/69 Intake Visit Reasons: 38 wk ob Sales Consulting Director Required: No Is patient in pain?: No Allergies No Known Allergies Allergy (Verified 01/24/25 09:55) Medications ?Medication ?Instructions ?Recorded ?Confirmed ?Type prenat.vits,justino,[id number] 1 tab PO DAILY pregnanc y 12/22/20 01/24/25 History Last Menstrual Period: 05/02/24 Zika: Zika virus screening: Negative : No PFSH PFSH Medical History Vaginal delivery Susceptible to varicella (non-immune), currently Family History Mother Colon cancer, Onset Age: 56 Grandfather Cancer Grandmother CVA (cerebral vascular accident) Grandfather CVA (cerebral vascular accident) Social History adopted: No household members: spouse and children number of children: 1 current occupational status: employed 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 occupational 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: No pets and animals: Yes pets and animals: dog(s) history of recent travel: Yes ([place] - Mar 2024) out of state: Yes out of country: No sexually active: Yes Smoking Status: Former smoker alcohol intake: current alcohol intake frequency: holidays/special occasions only details: Not while substance use type: does not use well-balanced diet: daily or most days caffeine: No eating out: 1-3 times/week during the past year weight has: increased > 10 lbs what type of physical activity do you participate in: walking frequency: 1-2 times per week duration: < 15 minutes/day vipin/adventist: Spiritism seatbelt use: always do you feel safe at home: Yes 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 Date Name GA/Weeks Outcome Route Bth Weight Infant Gen Labor Lgth Anesthesia Del Locatn Provider FOB Unknown SAB 04/2020 spontaneous 08/16/21 Carey 41 live - full term 6lbs 10oz Female 16 epidural [facility] Yahir Cadena Delivery Date: 08/16/21 Last Updated by: Linette Rodriguez 41 SROM HPI 38 wk ob Details: SWATI SERRATO is a 34 year old who presents for routine OB visit. OB Visit NELIA Calculator Estimated Delivery Date Method Current WG Current Estimate 02/06/25 LMP (Certain) 38w 1d Expected Delivery Route/Plan Labor Preferences- CB/BF classes: no labor support person: Surinder labor intervention preferences: [] pain management options preferred: epidural if requested cut cord/dad catch: no : yes PP control planned: discussed discussed possible routes of delivery and associated risks: [] special requests: [] Specific Issue/Plans Covid status: [] Patient chooses not to vaccinate. Flu vaccine: [] Tdap vaccine: declines Rhogam: na LARC form signed: yes Problem list reviewed and updated with the most current plan of care details and appropriate orders placed. Relevant counseling for the gestational age provided. Continue routine care and follow up unless otherwise noted in visit notes/problem list details Initial Weight: 235 lb Date -?-?-?-?-?-?-?-?-?-?-?-?- EGA Weight BP Urine Prot -?-?-?-?-?-?-?-?-?-?-?-?- Glucose FHR FuHt Pres Dilation -?-?-?-?-?-?-?-?-?-?-?-?- Effaced St Visit Note 07/09/24 -?-?-?-?-?-?-?-?--?-?-?-?- 9w 5d 235 lb 6 oz (+6 oz) 108/68 -?-?-?-?-?-?-?-?-?-?-?-?- 168 -?-?-?-?-?-?-?-?-?-?-?-?- JV- CRL consiste nt with LMP. desires nipt and will return next week for this. 08/07/24 -?-?-?-?-?-?-?-?-?-?-?-?- 13w 6d 231 lb 6 oz (-3 lb 10 oz) 103/49 Negative -?-?-?-?-?-?-?-?-?-?-?-?- Negative 160 -?-?-?-?-?-?-?-?-?-?-?-?- JV- no complaint s today. CFL consistent with established nelia. did blood work today. declined nipt. 09/10/24 -?-?-?-?-?-?-?-?-?-?-?-?- 18w 5d 239 lb 8 oz (+4 lb 8 oz) 103/66 Negative -?-?-?-?-?-?-?-?-?-?-?-?- Negative 150 -?-?-?-?-?-?-?-?-?-?-?-?- KW- no vb/crampi ng. no flutters yet. US scheduled for next week. 10/10/24 -?-?-?-?-?-?-?-?-?-?-?-?- 23w 0d 240 lb 8 oz (+5 lb 8 oz) 104/61 Negative -?-?-?-?-?-?-?-?-?-?-?-?- Negative 150 -?-?-?-?-?-?-?-?-?-?-?-?- SM_ no vb lof go od fm no regular ctx 11/06/24 -?-?-?-?-?-?-?-?-?-?-?-?- 26w 6d 246 lb (+11 lb) 104/60 Negative -?-?-?-?-?-?-?-?-?-?-?-?- Negative 143 27 -?-?-?-?-?-?-?-?-?-?-?-?- -No Vb, LOF. G ood FM. 28 wk labs pending. Larc 11/21/24 -?-?-?-?-?-?-?-?-?-?-?-?- 29w 0d 247 lb 2 oz (+12 lb 2 oz) Trace -?-?-?-?-?-?-?-?-?-?-?-?- Negative 140 30 -?-?-?-?-?-?-?-?-?-?-?-?- JV- no lof, vagi nal bleeding, or dec fm. declines tdap. normal 28 week labs. 12/05/24 -?-?-?-?-?-?-?-?-?-?-?-?- 31w 0d 252 lb 2 oz (+17 lb 2 oz) 106/72 Negative -?-?-?-?-?-?-?-?-?-?-?-?- Negative 144 32 -?-?-?-?-?-?-?-?-?-?-?-?- -No VB, LOF. G ood FM. Denies concerns 12/19/24 -?-?-?-?-?-?-?-?-?-?-?-?- 33w 0d 248 lb 4 oz (+13 lb 4 oz) 98/66 Negative -?-?-?-?-?-?-?-?-?-?-?-?- Negative 140 34 -?-?-?-?-?-?-?-?-?-?-?-?- SM- no vb lof go od fm no regular ctx 01/02/25 -?-?-?-?-?-?-?-?-?-?-?-?- 35w 0d 254 lb (+19 lb) 115/77 Negative -?-?-?-?-?-?-?-?-?-?-?-?- Negative 145 36 -?-?-?-?-?-?-?-?-?-?-?-?- JV- no lof, vagi nal bleeding, or dec fm. 01/10/25 -?-?-?-?-?-?-?-?-?-?-?-?- 36w 1d 259 lb 8 oz (+24 lb 8 oz) 112/75 Negative -?-?-?-?-?-?-?-?-?-?-?-?- Negative 135 37 -?-?-?-?-?-?-?-?-?-?-?-?- kw- no vb/lof/ct x. good fm GBS today declines vaginal exam today. 01/17/25 -?-?-?-?-?-?-?-?-?-?-?-?- 37w 1d 255 lb 4 oz (+20 lb 4 oz) 113/79 Negative -?-?-?-?-?-?-?-?-?-?-?-?- Negative 140 37 Cephalic -?-?-?-?-?-?-?-?-?-?-?-?- JV- no lof, vagi nal bleeding, or dec fm. gbs neg. 01/24/25 -?-?-?-?-?-?-?-?-?-?-?-?- 38w 1d 258 lb (+23 lb) 101/69 Negative -?-?-?-?-?-?-?-?-?-?-?-?- Negative 140 38 Cephalic 0 .5 -?-?-?-?-?-?-?-?-?-?-?-?- SM- no vb lof go od fm no regular ctx ACOG First Trimester First Trimester: Desire for , Alcohol, Tobacco Cessation, Illicit/Recreational Drug/Substance Use, Intimate Partner Violence, Barriers to care, Unstable Housing, Communication Barriers, Environmental/Work Hazards, Anticipated Course of Care, Toxoplasmosis Precations, Use of Any medications, Sexual activity, Exercise, Dental Care, Sauna/Hot tub use, Seat Belt use, Childbirth classes/Hospital facilities, Travel, Indications for Ultrasound and Screening for Aneuploidy; Discussed Second Trimester Second Trimester: Signs and Symptoms of Labor, Selecting a care provider, Reproductive Life Planning & Contreception and Care Planning; Discussed Tobacco Cessation, Discussed Depression/Anxiety and Discussed Intimate Partner Violence Third Trimester Third Trimester: Pain Management Plans, Labor support person(s), Immediate Larc, Circumcision preference, Signs and Symptoms of Preeclampsia, Feeding No , Education and Family Medical Leave or Disability Forms ROS Const Denies fever(s) GI Reports as per HPI and Denies abdominal pain Reports as per HPI, Denies abnormal vaginal bleeding, Denies dysuria and Denies vaginal discharge Exam Const General: healthy appearing, comfortable and no acute distress GI Inspection: normal to inspection Palpation: soft and nontender Results POC Urinalysis 2 Dip (Clinic) Office Urine Glucose Negative Last Edit by Lizbeth Moreira on 01/24/25 10:00 Office Urine Protein Negative Last Edit by Lizbeth Moreira on 01/24/25 10:00 Coding Level of Care Code OB Routine Diagnoses Obesity affecting in second trimester, unspecified obesity type O99.212 Obesity type affecting : unspecified obesity Trimester: second trimester Supervision of high risk in third trimester O09.93 Trimester: third trimester 38 weeks gestation of Z3A.38 Weeks of gestation: 38 weeks Susceptible to varicella (non-immune), currently O09.899; Z28.3 Assessment and Plan Assessment and Plan (1) Obesity affecting : Status: Acute Qualifiers: Obesity type affecting : unspecified obesity Trimester: second trimester Qualified Code(s): O99.212 - Obesity complicating , second trimester Comment: BMI 33.4 - HgBA1C ordered (2) Supervision of high-risk : Status: Acute Qualifiers: Trimester: third trimester Qualified Code(s): O09.93 - Supervision of high risk , unspecified, third trimester Comment: PRR, , NELIA 02/06/25, boy PC: Carey, : Surinder (3) : Status: Acute Qualifiers: Weeks of gestation: 38 weeks Qualified Code(s): Z3A.38 - 38 weeks gestation of Comment: Neg GBS. Discussed genetic/carrier testing - undecided (did not do either with last ), nl anatomy (4) Susceptible to varicella (non-immune), currently : Status: Acute Comment: enc vaccination Orders: Orders POC Urinalysis 2 Dip (Clinic) Today 01/24/25 1028 <Electronically signed by Tita thomas MD> Date _ Tita Sinclair MD Cosigner Signature: Date (if applicable) CC: ~ [facility] Work Phone: Progress note Author [facility] Note Date/Time January 30, 2025 10:5 1am [facility] [address], [address] [place] [address] OFFICE VISIT Date of Service: 01/30/25 MR#: [id number] Acct: [id number] Name: SWATI SERRATO Rep #: [id number] : 1990 Provider: Dr. Jody Bhat DO Age/Sex: 34/F Location: [facility] [place] Status: Signed Intake Vital Signs 12/05/24 12:56 01/24/25 09:53 01/30/25 10:22 01/30/25 10:23 Height 5 ft 10 in 5 ft 10 in 5 ft 10 in 5 ft 10 in Weight: 255 lb 8 oz BMI 36.6 BP 113/81 H Intake Visit Reasons: 39 wk ob Sales Consulting Director Required: No Is patient in pain?: No Allergies No Known Allergies Allergy (Verified 01/30/25 10:22) Medications ?Medication ?Instructions ?Recorded ?Confirmed ?Type prenat.vits,justino,ord-epnd-vfedx 1 tab PO DAILY pregnanc y 12/22/20 01/30/25 History Last Menstrual Period: 05/02/24 Zika: Zika virus screening: Negative : No PFSH PFSH Medical History Vaginal delivery Susceptible to varicella (non-immune), currently Family History Mother Colon cancer, Onset Age: 56 Grandfather Cancer Grandmother CVA (cerebral vascular accident) Grandfather CVA (cerebral vascular accident) Social History adopted: No household members: spouse and children number of children: 1 current occupational status: employed 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 occupational 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: No pets and animals: Yes pets and animals: dog(s) history of recent travel: Yes ([place] - Mar 2024) out of state: Yes out of country: No sexually active: Yes Smoking Status: Former smoker alcohol intake: current alcohol intake frequency: holidays/special occasions only details: Not while substance use type: does not use well-balanced diet: daily or most days caffeine: No eating out: 1-3 times/week during the past year weight has: increased > 10 lbs what type of physical activity do you participate in: walking frequency: 1-2 times per week duration: < 15 minutes/day vipin/adventist: Spiritism seatbelt use: always do you feel safe at home: Yes 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 Date Name GA/Weeks Outcome Route Bth Weight Infant Gen Labor Lgth Anesthesia Del Locatn Provider FOB Unknown SAB 04/2020 spontaneous 08/16/21 Carey 41 live - full term 6lbs 10oz Female 16 epidural [facility] Yah[facility] [place] Delivery Date: 08/16/21 Last Updated by: Linette Rodriguez 41 SROM HPI 39 wk ob Details: SWATI SERRATO is a 34 year old who presents for routine OB visit. OB Visit NELIA Calculator Estimated Delivery Date Method Current WG Current Estimate 02/06/25 LMP (Certain) 39w 0d Expected Delivery Route/Plan Labor Preferences- CB/BF classes: no labor support person: Surinder labor intervention preferences: [] pain management options preferred: epidural if requested cut cord/dad catch: no : yes PP control planned: discussed discussed possible routes of delivery and associated risks: [] special requests: [] Specific Issue/Plans Covid status: [] Patient chooses not to vaccinate. Flu vaccine: [] Tdap vaccine: declines Rhogam: na LARC form signed: yes Problem list reviewed and updated with the most current plan of care details and appropriate orders placed. Relevant counseling for the gestational age provided. Continue routine care and follow up unless otherwise noted in visit notes/problem list details Initial Weight: 235 lb Date -?-?-?-?-?-?-?-?-?-?-?-?- EGA Weight BP Urine Prot -?-?-?-?-?-?-?-?-?-?-?-?- Glucose FHR FuHt Pres Dilation -?-?-?-?-?-?-?-?-?-?-?-?- Effaced St Visit Note 07/09/24 -?-?-?-?-?-?-?-?-?-?-?-?- 9w 5d 235 lb 6 oz (+6 oz) 108/68 -?-?-?-?-?-?-?-?-?-?-?-?- 168 -?-?-?-?-?-?-?-?-?-?-?-?- JV- CRL consiste nt with LMP. desires nipt and will return next week for this. 08/07/24 -?-?-?-?-?-?-?-?-?-?-?-?- 13w 6d 231 lb 6 oz (-3 lb 10 oz) 103/49 Negative -?-?-?-?-?-?-?-?-?-?-?-?- Negative 160 -?-?-?-?-?-?-?-?-?-?-?-?- JV- no complaint s today. CFL consistent with established nelia. did blood work today. declined nipt. 09/10/24 -?-?-?-?-?-?-?-?-?-?-?-?- 18w 5d 239 lb 8 oz (+4 lb 8 oz) 103/66 Negative -?-?-?-?-?-?-?-?-?-?-?-?- Negative 150 -?-?-?-?-?-?-?-?-?-?-?-?- KW- no vb/crampi ng. no flutters yet. US scheduled for next week. 10/10/24 -?-?-?-?-?-?-?-?-?-?-?-?- 23w 0d 240 lb 8 oz (+5 lb 8 oz) 104/61 Negative -?-?-?-?-?-?-?-?-?-?-?-?- Negative 150 -?-?-?-?-?-?-?-?-?-?-?-?- SM_ no vb lof go od fm no regular ctx 11/06/24 -?-?-?-?-?-?-?-?-?-?-?-?- 26w 6d 246 lb (+11 lb) 104/60 Negative -?-?-?-?-?-?-?-?-?-?-?-?- Negative 143 27 -?-?-?-?-?-?-?-?-?-?-?-?- MH-No Vb, LOF. G ood FM. 28 wk labs pending. [facility] 11/21/24 -?-?-?-?-?-?--?-?-?-?-?-?- 29w 0d 247 lb 2 oz (+12 lb 2 oz) Trace -?-?-?-?-?-?-?-?-?-?-?-?- Negative 140 30 -?-?-?-?-?-?-?-?-?-?-?-?- JV- no lof, vagi nal bleeding, or dec fm. declines tdap. normal 28 week labs. 12/05/24 -?-?-?-?-?-?-?-?-?-?-?-?- 31w 0d 252 lb 2 oz (+17 lb 2 oz) 106/72 Negative -?-?-?-?-?-?-?-?-?-?-?-?- Negative 144 32 -?-?-?-?-?-?-?-?-?-?-?-?- MH-No VB, LOF. G ood FM. Denies concerns 12/19/24 -?-?-?-?-?-?-?-?-?-?-?-?- 33w 0d 248 lb 4 oz (+13 lb 4 oz) 98/66 Negative -?-?-?-?-?-?-?-?-?-?-?-?- Negative 140 34 -?-?-?-?--?-?-?-?-?-?-?-?- SM- no vb lof go od fm no regular ctx 01/02/25 -?-?-?-?-?-?-?-?-?-?-?-?- 35w 0d 254 lb (+19 lb) 115/77 Negative -?-?-?-?-?-?-?-?-?-?-?-?- Negative 145 36 -?-?-?-?-?-?-?-?-?-?-?-?- JV- no lof, vagi nal bleeding, or dec fm. 01/10/25 -?-?-?-?-?-?-?-?-?-?-?-?- 36w 1d 259 lb 8 oz (+24 lb 8 oz) 112/75 Negative -?-?-?-?-?-?-?-?-?-?-?-?- Negative 135 37 -?-?-?-?-?-?-?-?-?-?-?-?- kw- no vb/lof/ct x. good fm GBS today declines vaginal exam today. 01/17/25 -?-?-?-?-?-?-?-?-?-?-?-?- 37w 1d 255 lb 4 oz (+20 lb 4 oz) 113/79 Negative -?-?-?-?-?-?-?-?-?-?-?-?- Negative 140 37 Cephalic -?-?-?-?-?-?-?-?-?-?-?-?- JV- no lof, vagi nal bleeding, or dec fm. gbs neg. 01/24/25 -?-?-?-?-?-?-?-?-?-?-?-?- 38w 1d 258 lb (+23 lb) 101/69 Negative -?-?-?-?-?-?-?-?-?-?-?-?- Negative 140 38 Cephalic 0 .5 -?-?-?-?-?-?-?-?-?-?-?-?- SM- no vb lof go od fm no regular ctx 01/30/25 -?-?-?-?-?-?-?-?-?-?-?-?- 39w 0d 255 lb 8 oz (+20 lb 8 oz) 113/81 -?-?-?-?-?-?-?-?-?-?-?-?- 144 39 Cephalic 1 -?-?-?-?-?-?-?-?-?-?-?-?- 50 -3 JV- no lof , vaginal bleeding, or dec fm. ACOG First Trimester First Trimester: Desire for , Alcohol, Tobacco Cessation, Illicit/Recreational Drug/Substance Use, Intimate Partner Violence, Barriers to care, Unstable Housing, Communication Barriers, Environmental/Work Hazards, Anticipated Course of Care, Toxoplasmosis Precations, Use of Any medications, Sexual activity, Exercise, Dental Care, Sauna/Hot tub use, Seat Belt use, Childbirth classes/Hospital facilities, Travel, Indications for Ultrasound and Screening for Aneuploidy; Discussed Second Trimester Second Trimester: Signs and Symptoms of Labor, Selecting a care provider, Reproductive Life Planning & Contreception and Care Planning; Discussed Tobacco Cessation, Discussed Depression/Anxiety and Discussed Intimate Partner Violence Third Trimester Third Trimester: Pain Management Plans, Labor support person(s), Immediate Larc, Circumcision preference, Signs and Symptoms of Preeclampsia, Infant Feeding No , Education and Family Medical Leave or Disability Forms Coding Level of Care Code OB Routine Diagnoses Obesity affecting in second trimester, unspecified obesity type O99.212 Obesity type affecting : unspecified obesity Trimester: second trimester Supervision of high risk in third trimester O09.93 Trimester: third trimester 39 weeks gestation of Z3A.39 Weeks of gestation: 39 weeks Susceptible to varicella (non-immune), currently O09.899; Z28.3 Assessment and Plan Assessment and Plan (1) Obesity affecting : Status: Acute Qualifiers: Obesity type affecting : unspecified obesity Trimester: second trimester Qualified Code(s): O99.212 - Obesity complicating , second trimester Comment: BMI 33.4 - HgBA1C ordered (2) Supervision of high-risk : Status: Acute Qualifiers: Trimester: third trimester Qualified Code(s): O09.93 - Supervision of high risk , unspecified, third trimester Comment: PRR, , NELIA 02/06/25, boy PC: Carey, : Surinder (3) : Status: Acute Qualifiers: Weeks of gestation: 39 weeks Qualified Code(s): Z3A.39 - 39 weeks gestation of Comment: Neg GBS. Discussed genetic/carrier testing - undecided (did not do either with last ), nl anatomy (4) Susceptible to varicella (non-immune), currently : Status: Acute Comment: enc vaccination Orders: Orders POC Urinalysis 2 Dip (Clinic) Today 01/30/25 1051 <Electronically signed by Joanna Kellogg DO> Date _ Joanna Bhat DO Cosigner Signature: Date (if applicable) CC: ~ [facility] Work Phone: Progress note Author Kelly Ruffin [facility] Note Date/Time February 06, 2025 10: 18am [facility] [address], [address] [place] [address] OFFICE VISIT Date of Service: 02/06/25 MR#: [id number] Acct: [id number] Name: SWATI SERRATO Rep #: [id number] : 1990 Provider: TERESE Ruffin Age/Sex: 34/F Location: [facility] [place] Status: Signed Intake Vital Signs 12/05/24 12:56 01/30/25 10:23 02/06/25 10:00 Height 5 ft 10 in 5 ft 10 in 5 ft 10 in Weight: 256 lb 7 oz BMI 36.8 BP 113/75 Intake Visit Reasons: 40 wk ob *happy due date* Sales Consulting Director Required: No Is patient in pain?: No Allergies No Known Allergies Allergy (Verified 02/06/25 10:04) Medications ?Medication ?Instructions ?Recorded ?Confirmed ?Type prenat.vits,justino,[id number] 1 tab PO DAILY pregnanc y 12/22/20 02/06/25 History Last Menstrual Period: 05/02/24 Zika: Zika virus screening: Negative : No PFSH PFSH Medical History Vaginal delivery Susceptible to varicella (non-immune), currently Family History Mother Colon cancer, Onset Age: 56 Grandfather Cancer Grandmother CVA (cerebral vascular accident) Grandfather CVA (cerebral vascular accident) Social History adopted: No household members: spouse and children number of children: 1 current occupational status: employed 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: No pets and animals: Yes pets and animals: dog(s) history of recent travel: Yes ([place] - Mar 2024) out of state: Yes out of country: No sexually active: Yes Smoking Status: Former smoker alcohol intake: current alcohol intake frequency: holidays/special occasions only details: Not while substance use type: does not use well-balanced diet: daily or most days caffeine: No eating out: 1-3 times/week during the past year weight has: increased > 10 lbs what type of physical activity do you participate in: walking frequency: 1-2 times per week duration: < 15 minutes/day vipin/adventist: Spiritism seatbelt use: always do you feel safe at home: Yes 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 Date Name GA/Weeks Outcome Route Bth Weight Gen Labor Lgth Anesthesia Del Locatn Provider FOB Unknown SAB 04/2020 spontaneous 08/16/21 Carey 41 live - full term 6lbs 10oz Female 16 epidural [facility] Yahir [place] Delivery Date: 08/16/21 Last Updated by: Linette Rodriguez 41 SROM HPI 40 wk ob *happy due date* Details: SWATI SERRATO is a 34 year old who presents for routine OB visit. OB Visit NELIA Calculator Estimated Delivery Date Method Current WG Current Estimate 02/06/25 LMP (Certain) 40w 0d Expected Delivery Route/Plan Labor Preferences- CB/BF classes: no labor support person: Surinder labor intervention preferences: [] pain management options preferred: epidural if requested cut cord/dad catch: no : yes PP control planned: discussed discussed possible routes of delivery and associated risks: [] special requests: [] Specific Issue/Plans Covid status: [] Patient chooses not to vaccinate. Flu vaccine: [] Tdap vaccine: declines Rhogam: na LARC form signed: yes Problem list reviewed and updated with the most current plan of care details and appropriate orders placed. Relevant counseling for the gestational age provided. Continue routine care and follow up unless otherwise noted in visit notes/problem list details Initial Weight: 235 lb Date -?-?-?-?-?-?-?-?-?-?-?-?- EGA Weight BP Urine Prot -?-?-?-?-?-?-?-?-?-?-?-?- Glucose FHR FuHt Pres Dilation -?-?-?-?-?-?-?-?-?-?-?-?- Effaced St Visit Note 07/09/24 -?-?-?-?-?-?-?-?-?-?-?-?- 9w 5d 235 lb 6 oz (+6 oz) 108/68 -?-?-?-?-?-?-?-?-?-?-?-?- 168 -?-?-?-?-?-?-?-?-?-?-?-?- JV- CRL consiste nt with LMP. desires nipt and will return next week for this. 08/07/24 -?-?-?-?-?-?-?-?-?-?-?-?- 13w 6d 231 lb 6 oz (-3 lb 10 oz) 103/49 Negative -?-?-?-?-?-?-?-?-?-?-?-?- Negative 160 -?-?-?-?-?-?-?-?-?-?-?-?- JV- no complaint s today. CFL consistent with established nelia. did blood work today. declined nipt. 09/10/24 -?-?-?-?-?-?-?-?-?-?-?-?- 18w 5d 239 lb 8 oz (+4 lb 8 oz) 103/66 Negative -?-?-?--?-?-?-?-?-?-?-?-?- Negative 150 -?-?-?-?-?-?-?-?-?-?-?-?- KW- no vb/crampi ng. no flutters yet. US scheduled for next week. 10/10/24 -?-?-?-?-?-?-?-?-?-?--?-?- 23w 0d 240 lb 8 oz (+5 lb 8 oz) 104/61 Negative -?-?-?-?-?-?-?-?-?-?-?-?- Negative 150 -?-?-?-?-?-?-?-?-?-?-?-?- SM_ no vb lof go od fm no regular ctx 11/06/24 -?-?-?-?-?-?-?-?-?-?-?-?- 26w 6d 246 lb (+11 lb) 104/60 Negative -?-?-?-?-?-?-?-?-?-?-?-?- Negative 143 27 -?-?-?-?-?-?-?-?-?-?-?-?- MH-No Vb, LOF. G ood FM. 28 wk labs pending. Larc 11/21/24 -?-?-?-?-?-?-?-?-?-?-?-?- 29w 0d 247 lb 2 oz (+12 lb 2 oz) Trace -?-?-?-?-?-?-?-?-?-?-?-?- Negative 140 30 -?-?-?-?-?-?-?-?-?-?-?-?- JV- no lof, vagi nal bleeding, or dec fm. declines tdap. normal 28 week labs. 12/05/24 -?-?-?-?-?-?-?-?-?-?-?-?- 31w 0d 252 lb 2 oz (+17 lb 2 oz) 106/72 Negative -?-?-?-?-?-?-?-?-?-?-?-?- Negative 144 32 -?-?-?-?-?-?-?-?-?-?-?-?- -No VB, LOF. G ood FM. Denies concerns 12/19/24 -?-?-?-?-?-?-?-?-?-?-?-?- 33w 0d 248 lb 4 oz (+13 lb 4 oz) 98/66 Negative -?-?-?-?-?-?-?-?-?-?-?-?- Negative 140 34 -?-?-?-?-?-?-?-?-?-?-?-?- - no vb lof go od fm no regular ctx 01/02/25 -?-?-?-?-?-?-?-?-?-?-?-?- 35w 0d 254 lb (+19 lb) 115/77 Negative -?-?-?-?-?-?-?-?-?-?-?-?- Negative 145 36 -?-?-?-?-?-?-?-?-?-?-?-?- JV- no lof, vagi nal bleeding, or dec fm. 01/10/25 -?-?-?-?-?-?-?-?-?-?-?-?- 36w 1d 259 lb 8 oz (+24 lb 8 oz) 112/75 Negative -?-?-?-?-?-?-?-?-?-?-?-?- Negative 135 37 -?-?-?-?-?-?-?-?-?-?-?-?- kw- no vb/lof/ct x. good fm GBS today declines vaginal exam today. 01/17/25 -?-?-?-?-?-?-?-?-?-?-?-?- 37w 1d 255 lb 4 oz (+20 lb 4 oz) 113/79 Negative -?-?-?-?-?-?-?-?-?--?-?-?- Negative 140 37 Cephalic -?-?-?-?-?-?-?-?-?-?-?-?- JV- no lof, vagi nal bleeding, or dec fm. gbs neg. 01/24/25 -?-?-?-?-?-?-?-?-?-?-?-?- 38w 1d 258 lb (+23 lb) 101/69 Negative -?-?-?-?-?-?-?-?-?-?-?-?- Negative 140 38 Cephalic 0 .5 -?-?-?-?-?-?-?-?-?-?-?-?- SM- no vb lof go od fm no regular ctx 01/30/25 -?-?-?-?-?-?-?-?-?-?-?-?- 39w 0d 255 lb 8 oz (+20 lb 8 oz) 113/81 Negative -?-?-?-?--?-?-?-?-?-?-?-?- Negative 144 39 Cephalic 1 -?-?-?-?-?-?-?-?-?-?-?-?- 50 -3 JV- no lof , vaginal bleeding, or dec fm. 02/06/25 -?-?-?-?-?-?-?-?-?-?-?-?- 40w 0d 256 lb 7 oz (+21 lb 7 oz) 113/75 Negative -?-?-?-?-?-?-?-?-?-?-?-?- Negative 135 39 Cephalic 3 -?-?-?-?-?-?-?-?-?-?-?-?- 60 -2 KW- no vb/ lof/regular ctx. good fm. Discussed IOL at 41 weeks and would like to wait to set up IOL. will order growth us for 41 weeks ACOG First Trimester First Trimester: Desire for , Alcohol, Tobacco Cessation, Illicit/Recreational Drug/Substance Use, Intimate Partner Violence, Barriers to care, Unstable Housing, Communication Barriers, Environmental/Work Hazards, Anticipated Course of Care, Toxoplasmosis Precations, Use of Any medications, Sexual activity, Exercise, Dental Care, Sauna/Hot tub use, Seat Belt use, Childbirth classes/Hospital facilities, Travel, Indications for Ultrasound and Screening for Aneuploidy; Discussed Second Trimester Second Trimester: Signs and Symptoms of Labor, Selecting a care provider, Reproductive Life Planning & Contreception and Care Planning; Discussed Tobacco Cessation, Discussed Depression/Anxiety and Discussed Intimate Partner Violence Third Trimester Third Trimester: Pain Management Plans, Labor support person(s), Immediate Larc, Circumcision preference, Signs and Symptoms of Preeclampsia, Infant Feeding No , [place] Education and Family Medical Leave or Disability Forms ROS Const Reports system reviewed and no additional complaints, except as documented Eyes Reports system reviewed and no additional complaints, except as documented ENT Reports system reviewed and no additional complaints, except as documented Card Reports system reviewed and no additional complaints, except as documented Resp Reports system reviewed and no additional complaints, except as documented GI Reports system reviewed and no additional complaints, except as documented, Denies nausea and Denies vomiting Reports system reviewed and no additional complaints, except as documented Musc Reports system reviewed and no additional complaints, except as documented Skin/Breast Reports system reviewed and no additional complaints, except as documented Neuro Yes system reviewed and no additional complaints, except as documented Psych Reports system reviewed and no additional complaints, except as documented Endo Reports system reviewed and no additional complaints, except as documented Cameron/Lymph Reports system reviewed and no additional complaints, except as documented Aller/Immun Reports system reviewed and no additional complaints, except as documented Exam Const General: cooperative, healthy appearing and no acute distress Orientation: alert, awake and oriented x3 Neck Neck: normal visual inspection and full ROM Resp Effort & Inspection: normal respiratory effort, able to speak in complete sentences and symmetric chest movement GI Inspection: normal to inspection Palpation: soft and other Other: gravid Skin General: no rashes or lesions noted Neuro General: patient alert, patient awake and patient oriented x3 Cognition: normal cognition Speech: speech normal Gait: normal gait Motor: muscle tone normal throughout Extrem General: normal to inspection and full ROM Psych Appearance: grossly normal Mental Status: mental status grossly normal Mood: congruent mood Affect: normal affect Speech and Movement: speech and movement normal Attitude: cooperative Thought Process: normal Thought Content: normal Judgment: judgment good Results POC Urinalysis 2 Dip (Clinic) Office Urine Glucose Negative Last Edit by Lizbeth Moreira on 02/06/25 10:06 Office Urine Protein Negative Last Edit by Lizbeth Moreira on 02/06/25 10:06 Coding Level of Care Code OB Routine Diagnoses Obesity affecting in second trimester, unspecified obesity type O99.212 Obesity type affecting : unspecified obesity Trimester: second trimester Supervision of high risk in third trimester O09.93 Trimester: third trimester 40 weeks gestation of Z3A.40 Weeks of gestation: 40 weeks Susceptible to varicella (non-immune), currently O09.899; Z28.3 Assessment and Plan Assessment and Plan (1) Obesity affecting : Status: Acute Qualifiers: Obesity type affecting : unspecified obesity Trimester: second trimester Qualified Code(s): O99.212 - Obesity complicating , second trimester Comment: BMI 33.4 - HgBA1C ordered (2) Supervision of high-risk : Status: Acute Qualifiers: Trimester: third trimester Qualified Code(s): O09.93 - Supervision of high risk , unspecified, third trimester Comment: PRR, , NELIA 02/06/25, boy PC: Carey, : Surinder (3) : Status: Acute Qualifiers: Weeks of gestation: 40 weeks Qualified Code(s): Z3A.40 - 40 weeks gestation of Comment: Neg GBS. Discussed genetic/carrier testing - undecided (did not do either with last ), nl anatomy (4) Susceptible to varicella (non-immune), currently : Status: Acute Comment: enc vaccination Orders: Orders POC Urinalysis 2 Dip (Clinic) Today Plan Details Additional Comments: ACOG trimester education reviewed and updated. see problem list details for updated plan management information and see below for orders placed at this visit. GA appropriate handout given. 02/06/25 1018 <Electronically signed by Kelly noel CNM> Date _ Kelly Ruffin CNM Cosigner Signature: Date (if applicable) CC: ~ [facility] Work Phone: Reason for referral (narrative)No reason for referral information available[facility] Work Phone: Summary Purpose Family History Relationship Condition Age at Onset Recorded Date/T syeda mother Malignant neoplasm of colon 56 grandfather Malignant neoplasm Unknown grandmother Cerebrovascular accident (CVA) Unknown grandfather Cerebrovascular accident (CVA) Unknown Advance Directives No Advanced Directives Records FoundNo Advanced Directives Records Found Chief Complaint and Reason for Visit Chief Complaint Admit Date Cough June 18, 2024 11:57am CXR June 18, 2024 12:18pm Amb Documentation July 03, 2024 8:25am New OB, LMP 05/02, NELIA 8/6 July 09, 2024 10:13am 14 wk ob August 07, 2024 9 :57am 19 wk ob September 10, 2024 1:4 1pm ANATOMY/CERVICAL LENGTH September 19, 2024 3:20pm Reason for Visit Admit Date Community acquired pneumonia June 182023 11:57am Community acquired pneumonia July 10:13am Cough July 09, 2024 10 :13am History of miscarriage, currently pregna nt July 09, 2024 10:13am Obesity affecting July 09, 2024 10:13am PMS (premenstrual syndrome) July 09, 2024 10:13am July 09, 2024 10 :13am Supervision of high-risk Janua 2024 10:13am Susceptible to varicella (non-immune), colleen webby July 09, 2024 10:13am Community acquired pneumonia August 9:57am Cough August 07, 2024 9 :57am History of miscarriage, currently pregna nt August 07, 2024 9:57am Obesity affecting August 9:57am PMS (premenstrual syndrome) August 9:57am August 07, 2024 9 :57am Supervision of high-risk u 2024 9:57am Susceptible to varicella (non-immune), c urrently August 07, 2024 9:57am Community acquired pneumonia September 10, 2024 1:41pm Cough September 10, 2024 1:4 1pm History of miscarriage, currently pregna nt September 10, 2024 1:41pm Obesity affecting September 10, 2024 1:41pm PMS (premenstrual syndrome) September 10, 2024 1:41pm September 10, 2024 1:4 1pm Supervision of high-risk September 10, 2024 1:41pm Susceptible to varicella (non-immune), c urrently September 10, 2024 1:41pm Chief Complaint Admit Date 14 wk ob August 07, 2024 9 :57am 19 wk ob September 10, 2024 1:4 1pm ANATOMY/CERVICAL LENGTH September 19, 2024 3:20pm 23 wk ob October 10, 2024 11:0 3am 27 wk ob/glucose November 06, 2024 1:22pm Reason for Visit Admit Date Obesity affecting August 9:57am August 07, 2024 9 :57am Supervision of high-risk u 2024 9:57am Susceptible to varicella (non-immune), c urrently August 07, 2024 9:57am Community acquired pneumonia August 9:57am Cough August 07, 2024 9 :57am History of miscarriage, currently pregna nt August 07, 2024 9:57am PMS (premenstrual syndrome) August 9:57am Obesity affecting September 10, 2024 1:41pm September 10, 2024 1:4 1pm Supervision of high-risk September 10, 2024 1:41pm Susceptible to varicella (non-immune), c urrently September 10, 2024 1:41pm Community acquired pneumonia September 10, 2024 1:41pm Cough September 10, 2024 1:4 1pm History of miscarriage, currently pregna nt September 10, 2024 1:41pm PMS (premenstrual syndrome) September 10, 2024 1:41pm Obesity affecting October 10, 025 11:03am October 10, 2024 11:0 3am Supervision of high-risk October 10, 2024 11:03am Susceptible to varicella (non-immune), c urrently October 10, 2024 11:03am History of miscarriage, currently pregna nt October 10, 2024 11:03am Obesity affecting November 06 1:22pm November 06, 2024 1:22pm Supervision of high-risk November 062024 1:22pm Susceptible to varicella (non-immune), c urrently November 06, 2024 1:22pm Chief Complaint Admit Date 14 wk ob August 07, 2024 9 :57am 19 wk ob September 10, 2024 1:4 1pm ANATOMY/CERVICAL LENGTH September 19, 2024 3:20pm 23 wk ob October 10, 2024 11:0 3am 27 wk ob/glucose November 06, 2024 1:22pm 29 wk ob November 21, 2024 11:31 am Reason for Visit Admit Date Obesity affecting August 9:57am August 07, 2024 9 :57am Supervision of high-risk Febru nini2024 9:57am Susceptible to varicella (non-immune), c urrently August 07, 2024 9:57am Community acquired pneumonia August 9:57am Cough August 07, 2024 9 :57am History of miscarriage, currently pregna nt August 07, 2024 9:57am PMS (premenstrual syndrome) August 9:57am Obesity affecting September 10, 2024 1:41pm September 10, 2024 1:4 1pm Supervision of high-risk September 10, 2024 1:41pm Susceptible to varicella (non-immune), c urrently September 10, 2024 1:41pm Community acquired pneumonia September 10, 2024 1:41pm Cough September 10, 2024 1:4 1pm History of miscarriage, currently pregna nt September 10, 2024 1:41pm PMS (premenstrual syndrome) September 10, 2024 1:41pm Obesity affecting October 10, 2 025 11:03am October 10, 2024 11:0 3am Supervision of high-risk October 10, 2024 11:03am Susceptible to varicella (non-immune), c urrently October 10, 2024 11:03am History of miscarriage, currently pregna nt October 10, 2024 11:03am Obesity affecting November 06 1:22pm November 06, 2024 1:22pm Supervision of high-risk November [id number] 1:22pm Susceptible to varicella (non-immune), c urrently November 06, 2024 1:22pm Obesity affecting November 21 11:31am November 21, 2024 11:31 am Supervision of high-risk November 022024 11:31am Susceptible to varicella (non-immune), c urrently November 21, 2024 11:31am Chief Complaint Admit Date 14 wk ob August 07, 2024 9 :57am 19 wk ob September 10, 2024 1:4 1pm ANATOMY/CERVICAL LENGTH September 19, 2024 3:20pm 23 wk ob October 10, 2024 11:0 3am 27 wk ob/glucose November 06, 2024 1:22pm 29 wk ob November 21, 2024 11:31 am 31 wk ob December 05, 2024 12:40 pm Reason for Visit Admit Date Obesity affecting August 9:57am August 07, 2024 9 :57am Supervision of high-risk Febru [id number] 9:57am Susceptible to varicella (non-immune), c urrently August 07, 2024 9:57am Community acquired pneumonia August 9:57am Cough August 07, 2024 9 :57am History of miscarriage, currently pregna nt August 07, 2024 9:57am PMS (premenstrual syndrome) August 9:57am Obesity affecting September 10, 2024 1:41pm September 10, 2024 1:4 1pm Supervision of high-risk September 10, 2024 1:41pm Susceptible to varicella (non-immune), c urrently September 10, 2024 1:41pm Community acquired pneumonia September 10, 2024 1:41pm Cough September 10, 2024 1:4 1pm History of miscarriage, currently pregna nt September 10, 2024 1:41pm PMS (premenstrual syndrome) September 10, 2024 1:41pm Obesity affecting October 10 11:03am October 10, 2024 11:0 3am Supervision of high-risk October 10, 2024 11:03am Susceptible to varicella (non-immune), c urrently October 10, 2024 11:03am History of miscarriage, currently pregna nt October 10, 2024 11:03am Obesity affecting November 06 1:22pm November 06, 2024 1:22pm Supervision of high-risk November [id number] 1:22pm Susceptible to varicella (non-immune), c urrently November 06, 2024 1:22pm Obesity affecting November 21 11:31am November 21, 2024 11:31 am Supervision of high-risk November [id number] 11:31am Susceptible to varicella (non-immune), c urrently November 21, 2024 11:31am Obesity affecting December 05 12:40pm December 05, 2024 12:40 pm Supervision of high-risk December 05, 2024 12:40pm Susceptible to varicella (non-immune), c urrently December 05, 2024 12:40pm Chief Complaint Admit Date 19 wk ob September 10, 2024 1:4 1pm ANATOMY/CERVICAL LENGTH September 19, 2024 3:20pm 23 wk ob October 10, 2024 11:0 3am 27 wk ob/glucose November 06, 2024 1:22pm 29 wk ob November 21, 2024 11:31 am 31 wk ob December 05, 2024 12:40 pm 33 wk ob December 19, 2024 10:5 4am Reason for Visit Admit Date Obesity affecting September 10, 2024 1:41pm September 10, 2024 1:4 1pm Supervision of high-risk September 10, 2024 1:41pm Susceptible to varicella (non-immune), c urrently September 10, 2024 1:41pm Community acquired pneumonia September 10, 2024 1:41pm Cough September 10, 2024 1:4 1pm History of miscarriage, currently pregna nt September 10, 2024 1:41pm PMS (premenstrual syndrome) September 10, 2024 1:41pm Obesity affecting October 10 025 11:03am October 10, 2024 11:0 3am Supervision of high-risk October 10, 2024 11:03am Susceptible to varicella (non-immune), c urrently October 10, 2024 11:03am History of miscarriage, currently pregna nt October 10, 2024 11:03am Obesity affecting November 06 1:22pm November 06, 2024 1:22pm Supervision of high-risk November 062024 1:22pm Susceptible to varicella (non-immune), c urrently November 06, 2024 1:22pm Obesity affecting November 21 11:31am November 21, 2024 11:31 am Supervision of high-risk November 022024 11:31am Susceptible to varicella (non-immune), c urrently November 21, 2024 11:31am Obesity affecting December 05 12:40pm December 05, 2024 12:40 pm Supervision of high-risk December 05, 2024 12:40pm Susceptible to varicella (non-immune), c urrently December 05, 2024 12:40pm Obesity affecting December 19 025 10:54am December 19, 2024 10:5 4am Supervision of high-risk December 19, 2024 10:54am Susceptible to varicella (non-immune), c urrently December 19, 2024 10:54am Chief Complaint Admit Date 19 wk ob September 10, 2024 1:4 1pm ANATOMY/CERVICAL LENGTH September 19, 2024 3:20pm 23 wk ob October 10, 2024 11:0 3am 27 wk ob/glucose November 06, 2024 1:22pm 29 wk ob November 21, 2024 11:31 am 31 wk ob December 05, 2024 12:40 pm 33 wk ob December 19, 2024 10:5 4am 35 wk ob January 02, 2025 11:17 am Reason for Visit Admit Date Obesity affecting September 10, 2024 1:41pm September 10, 2024 1:4 1pm Supervision of high-risk September 10, 2024 1:41pm Susceptible to varicella (non-immune), c urrently September 10, 2024 1:41pm Community acquired pneumonia September 10, 2024 1:41pm Cough September 10, 2024 1:4 1pm History of miscarriage, currently pregna nt September 10, 2024 1:41pm PMS (premenstrual syndrome) September 10, 2024 1:41pm Obesity affecting October 10 11:03am October 10, 2024 11:0 3am Supervision of high-risk October 10, 2024 11:03am Susceptible to varicella (non-immune), c urrently October 10, 2024 11:03am History of miscarriage, currently pregna nt October 10, 2024 11:03am Obesity affecting November 06 1:22pm November 06, 2024 1:22pm Supervision of high-risk November [id number] 1:22pm Susceptible to varicella (non-immune), c urrently November 06, 2024 1:22pm Obesity affecting November 21 11:31am November 21, 2024 11:31 am Supervision of high-risk November 022024 11:31am Susceptible to varicella (non-immune), c urrently November 21, 2024 11:31am Obesity affecting December 05 12:40pm December 05, 2024 12:40 pm Supervision of high-risk December 05, 2024 12:40pm Susceptible to varicella (non-immune), c urrently December 05, 2024 12:40pm Obesity affecting December 19 10:54am December 19, 2024 10:5 4am Supervision of high-risk December 19, 2024 10:54am Susceptible to varicella (non-immune), c urrently December 19, 2024 10:54am Obesity affecting January 02 11:17am January 02, 2025 11:17 am Supervision of high-risk January 02, 2025 11:17am Susceptible to varicella (non-immune), c urrently January 02, 2025 11:17am Chief Complaint Admit Date ANATOMY/CERVICAL LENGTH September 19, 2024 3:20pm 23 wk ob October 10, 2024 11:0 3am 27 wk ob/glucose November 06, 2024 1:22pm 29 wk ob November 21, 2024 11:31 am 31 wk ob December 05, 2024 12:40 pm 33 wk ob December 19, 2024 10:5 4am 35 wk ob January 02, 2025 11:17 am 36 wk wk ob January 10, 2025 1:51 pm Reason for Visit Admit Date Obesity affecting October 10 11:03am October 10, 2024 11:0 3am Supervision of high-risk October 10, 2024 11:03am Susceptible to varicella (non-immune), c urrently October 10, 2024 11:03am History of miscarriage, currently pregna nt October 10, 2024 11:03am Obesity affecting November 06 1:22pm November 06, 2024 1:22pm Supervision of high-risk November 062024 1:22pm Susceptible to varicella (non-immune), c urrently November 06, 2024 1:22pm Obesity affecting November 21 11:31am November 21, 2024 11:31 am Supervision of high-risk November 022024 11:31am Susceptible to varicella (non-immune), c urrently November 21, 2024 11:31am Obesity affecting December 05 12:40pm December 05, 2024 12:40 pm Supervision of high-risk December 05, 2024 12:40pm Susceptible to varicella (non-immune), c urrently December 05, 2024 12:40pm Obesity affecting December 19, 10:54am December 19, 2024 10:5 4am Supervision of high-risk December 19, 2024 10:54am Susceptible to varicella (non-immune), c urrently December 19, 2024 10:54am Obesity affecting January 02 11:17am January 02, 2025 11:17 am Supervision of high-risk January 02, 2025 11:17am Susceptible to varicella (non-immune), c urrently January 02, 2025 11:17am Obesity affecting January 10 025 1:51pm January 10, 2025 1:51 pm Supervision of high-risk January 10, 2025 1:51pm Susceptible to varicella (non-immune), c urrently January 10, 2025 1:51pm Chief Complaint Admit Date ANATOMY/CERVICAL LENGTH September 19, 2024 3:20pm 23 wk ob October 10, 2024 11:0 3am 27 wk ob/glucose November 06, 2024 1:22pm 29 wk ob November 21, 2024 11:31 am 31 wk ob December 05, 2024 12:40 pm 33 wk ob December 19, 2024 10:5 4am 35 wk ob January 02, 2025 11:17 am 36 wk wk ob January 10, 2025 1:51 pm 37 wk ob January 17, 2025 1:27 pm Reason for Visit Admit Date Obesity affecting October 10 11:03am October 10, 2024 11:0 3am Supervision of high-risk October 10, 2024 11:03am Susceptible to varicella (non-immune), c urrently October 10, 2024 11:03am History of miscarriage, currently pregna nt October 10, 2024 11:03am Obesity affecting November 06 1:22pm November 06, 2024 1:22pm Supervision of high-risk November 062024 1:22pm Susceptible to varicella (non-immune), c urrently November 06, 2024 1:22pm Obesity affecting November 21 11:31am November 21, 2024 11:31 am Supervision of high-risk November 022024 11:31am Susceptible to varicella (non-immune), c urrently November 21, 2024 11:31am Obesity affecting December 05 12:40pm December 05, 2024 12:40 pm Supervision of high-risk December 05, 2024 12:40pm Susceptible to varicella (non-immune), c urrently December 05, 2024 12:40pm Obesity affecting December 19 025 10:54am December 19, 2024 10:5 4am Supervision of high-risk December 19, 2024 10:54am Susceptible to varicella (non-immune), c urrently December 19, 2024 10:54am Obesity affecting January 02 11:17am January 02, 2025 11:17 am Supervision of high-risk January 02, 2025 11:17am Susceptible to varicella (non-immune), c urrently January 02, 2025 11:17am Obesity affecting January 10 1:51pm January 10, 2025 1:51 pm Supervision of high-risk January 10, 2025 1:51pm Susceptible to varicella (non-immune), c urrently January 10, 2025 1:51pm Obesity affecting January 17 025 1:27pm January 17, 2025 1:27 pm Supervision of high-risk January 17, 2025 1:27pm Susceptible to varicella (non-immune), c urrently January 17, 2025 1:27pm Chief Complaint Admit Date 23 wk ob October 10, 2024 11:0 3am 27 wk ob/glucose November 06, 2024 1:22pm 29 wk ob November 21, 2024 11:31 am 31 wk ob December 05, 2024 12:40 pm 33 wk ob December 19, 2024 10:5 4am 35 wk ob January 02, 2025 11:17 am 36 wk wk ob January 10, 2025 1:51 pm 37 wk ob January 17, 2025 1:27 pm 38 wk ob January 24, 2025 9:50 am Reason for Visit Admit Date Obesity affecting October 10, 025 11:03am October 10, 2024 11:0 3am Supervision of high-risk October 10, 2024 11:03am Susceptible to varicella (non-immune), c urrently October 10, 2024 11:03am History of miscarriage, currently pregna nt October 10, 2024 11:03am Obesity affecting November 06 1:22pm November 06, 2024 1:22pm Supervision of high-risk November 062024 1:22pm Susceptible to varicella (non-immune), c urrently November 06, 2024 1:22pm Obesity affecting November 21 11:31am November 21, 2024 11:31 am Supervision of high-risk November 022024 11:31am Susceptible to varicella (non-immune), c urrently November 21, 2024 11:31am Obesity affecting December 05 12:40pm December 05, 2024 12:40 pm Supervision of high-risk December 05, 2024 12:40pm Susceptible to varicella (non-immune), c urrently December 05, 2024 12:40pm Obesity affecting December 19 10:54am December 19, 2024 10:5 4am Supervision of high-risk December 19, 2024 10:54am Susceptible to varicella (non-immune), c urrently December 19, 2024 10:54am Obesity affecting January 02 11:17am January 02, 2025 11:17 am Supervision of high-risk January 02, 2025 11:17am Susceptible to varicella (non-immune), c urrently January 02, 2025 11:17am Obesity affecting January 10 025 1:51pm January 10, 2025 1:51 pm Supervision of high-risk January 10, 2025 1:51pm Susceptible to varicella (non-immune), c urrently January 10, 2025 1:51pm Obesity affecting January 17, 2 025 1:27pm January 17, 2025 1:27 pm Supervision of high-risk January 17, 2025 1:27pm Susceptible to varicella (non-immune), c urrently January 17, 2025 1:27pm Obesity affecting January 24, 2 025 9:50am January 24, 2025 9:50 am Supervision of high-risk January 24, 2025 9:50am Susceptible to varicella (non-immune), c urrently January 24, 2025 9:50am Chief Complaint Admit Date 23 wk ob October 10, 2024 11:0 3am 27 wk ob/glucose November 06, 2024 1:22pm 29 wk ob November 21, 2024 11:31 am 31 wk ob December 05, 2024 12:40 pm 33 wk ob December 19, 2024 10:5 4am 35 wk ob January 02, 2025 11:17 am 36 wk wk ob January 10, 2025 1:51 pm 37 wk ob January 17, 2025 1:27 pm 38 wk ob January 24, 2025 9:50 am 39 wk ob January 30, 2025 10:1 5am Reason for Visit Admit Date Obesity affecting October 10 11:03am October 10, 2024 11:0 3am Supervision of high-risk October 10, 2024 11:03am Susceptible to varicella (non-immune), c urrently October 10, 2024 11:03am History of miscarriage, currently pregna nt October 10, 2024 11:03am Obesity affecting November 06 1:22pm November 06, 2024 1:22pm Supervision of high-risk November 062024 1:22pm Susceptible to varicella (non-immune), c urrently November 06, 2024 1:22pm Obesity affecting November 21 11:31am November 21, 2024 11:31 am Supervision of high-risk November 022024 11:31am Susceptible to varicella (non-immune), c urrently November 21, 2024 11:31am Obesity affecting December 05 12:40pm December 05, 2024 12:40 pm Supervision of high-risk December 05, 2024 12:40pm Susceptible to varicella (non-immune), c urrently December 05, 2024 12:40pm Obesity affecting December 19 10:54am December 19, 2024 10:5 4am Supervision of high-risk December 19, 2024 10:54am Susceptible to varicella (non-immune), c urrently December 19, 2024 10:54am Obesity affecting January 02 11:17am January 02, 2025 11:17 am Supervision of high-risk January 02, 2025 11:17am Susceptible to varicella (non-immune), c urrently January 02, 2025 11:17am Obesity affecting January 10 1:51pm January 10, 2025 1:51 pm Supervision of high-risk January 10, 2025 1:51pm Susceptible to varicella (non-immune), c urrently January 10, 2025 1:51pm Obesity affecting January 17 1:27pm January 17, 2025 1:27 pm Supervision of high-risk January 17, 2025 1:27pm Susceptible to varicella (non-immune), c urrently January 17, 2025 1:27pm Obesity affecting January 24 9:50am January 24, 2025 9:50 am Supervision of high-risk January 24, 2025 9:50am Susceptible to varicella (non-immune), c urrently January 24, 2025 9:50am Obesity affecting January 30 10:15am January 30, 2025 10:1 5am Supervision of high-risk January 30, 2025 10:15am Susceptible to varicella (non-immune), c urrently January 30, 2025 10:15am Chief Complaint Admit Date 23 wk ob October 10, 2024 11:0 3am 27 wk ob/glucose November 06, 2024 1:22pm 29 wk ob November 21, 2024 11:31 am 31 wk ob December 05, 2024 12:40 pm 33 wk ob December 19, 2024 10:5 4am 35 wk ob January 02, 2025 11:17 am 36 wk wk ob January 10, 2025 1:51 pm 37 wk ob January 17, 2025 1:27 pm 38 wk ob January 24, 2025 9:50 am 39 wk ob January 30, 2025 10:1 5am 40 wk ob *happy due date* February 06 9:56am Reason for Visit Admit Date Obesity affecting October 10 11:03am October 10, 2024 11:0 3am Supervision of high-risk October 10, 2024 11:03am Susceptible to varicella (non-immune), c urrently October 10, 2024 11:03am History of miscarriage, currently pregna nt October 10, 2024 11:03am Obesity affecting November 06 1:22pm November 06, 2024 1:22pm Supervision of high-risk November 062024 1:22pm Susceptible to varicella (non-immune), c urrently November 06, 2024 1:22pm Obesity affecting November 21 11:31am November 21, 2024 11:31 am Supervision of high-risk November 022024 11:31am Susceptible to varicella (non-immune), c urrently November 21, 2024 11:31am Obesity affecting December 05 12:40pm December 05, 2024 12:40 pm Supervision of high-risk December 05, 2024 12:40pm Susceptible to varicella (non-immune), c urrently December 05, 2024 12:40pm Obesity affecting December 19 025 10:54am December 19, 2024 10:5 4am Supervision of high-risk December 19, 2024 10:54am Susceptible to varicella (non-immune), c urrently December 19, 2024 10:54am Obesity affecting January 02 11:17am January 02, 2025 11:17 am Supervision of high-risk January 02, 2025 11:17am Susceptible to varicella (non-immune), c urrently January 02, 2025 11:17am Obesity affecting January 10 025 1:51pm January 10, 2025 1:51 pm Supervision of high-risk January 10, 2025 1:51pm Susceptible to varicella (non-immune), c urrently January 10, 2025 1:51pm Obesity affecting January 17 025 1:27pm January 17, 2025 1:27 pm Supervision of high-risk January 17, 2025 1:27pm Susceptible to varicella (non-immune), c urrently January 17, 2025 1:27pm Obesity affecting January 24, 025 9:50am January 24, 2025 9:50 am Supervision of high-risk January 24, 2025 9:50am Susceptible to varicella (non-immune), c urrently January 24, 2025 9:50am Obesity affecting January 30, 025 10:15am January 30, 2025 10:1 5am Supervision of high-risk January 30, 2025 10:15am Susceptible to varicella (non-immune), c urrently January 30, 2025 10:15am Obesity affecting February 06, 2025 9:56am February 06, 2025 9:5 6am Supervision of high-risk Augus t 2024 9:56am Susceptible to varicella (non-immune), c urrently February 06, 2025 9:56am Chief Complaint Admit Date 27 wk ob/glucose November 06, 2024 1:22pm 29 wk ob November 21, 2024 11:31 am 31 wk ob December 05, 2024 12:40 pm 33 wk ob December 19, 2024 10:5 4am 35 wk ob January 02, 2025 11:17 am 36 wk wk ob January 10, 2025 1:51 pm 37 wk ob January 17, 2025 1:27 pm 38 wk ob January 24, 2025 9:50 am 39 wk ob January 30, 2025 10:1 5am 40 wk ob *happy due date* February 06 9:56am 41 WK OB *Due Date 02/06February 12, 2025 3:09pm Reason for Visit Admit Date Obesity affecting November 06 1:22pm November 06, 2024 1:22pm Supervision of high-risk November 062024 1:22pm Susceptible to varicella (non-immune), c urrently November 06, 2024 1:22pm Obesity affecting November 21 11:31am November 21, 2024 11:31 am Supervision of high-risk November 022024 11:31am Susceptible to varicella (non-immune), c urrently November 21, 2024 11:31am Obesity affecting December 05 12:40pm December 05, 2024 12:40 pm Supervision of high-risk December 05, 2024 12:40pm Susceptible to varicella (non-immune), c urrently December 05, 2024 12:40pm Obesity affecting December 19 025 10:54am December 19, 2024 10:5 4am Supervision of high-risk December 19, 2024 10:54am Susceptible to varicella (non-immune), c urrently December 19, 2024 10:54am Obesity affecting January 02 11:17am January 02, 2025 11:17 am Supervision of high-risk January 02, 2025 11:17am Susceptible to varicella (non-immune), c urrently January 02, 2025 11:17am Obesity affecting January 10 1:51pm January 10, 2025 1:51 pm Supervision of high-risk January 10, 2025 1:51pm Susceptible to varicella (non-immune), c urrently January 10, 2025 1:51pm Obesity affecting January 17 025 1:27pm January 17, 2025 1:27 pm Supervision of high-risk January 17, 2025 1:27pm Susceptible to varicella (non-immune), c urrently January 17, 2025 1:27pm Obesity affecting January 24 025 9:50am January 24, 2025 9:50 am Supervision of high-risk January 24, 2025 9:50am Susceptible to varicella (non-immune), c urrently January 24, 2025 9:50am Obesity affecting January 30 025 10:15am January 30, 2025 10:1 5am Supervision of high-risk January 30, 2025 10:15am Susceptible to varicella (non-immune), c urrently January 30, 2025 10:15am Obesity affecting February 06, 2025 9:56am February 06, 2025 9:5 6am Supervision of high-risk Augus t 2024 9:56am Susceptible to varicella (non-immune), c urrently February 06, 2025 9:56am Obesity affecting February 12, 2025 3:09pm February 12, 2025 3: 09pm Supervision of high-risk Augus t 2024 3:09pm Susceptible to varicella (non-immune), c urrently February 12, 2025 3:09pm Additional Source Comments INFORMATION SOURCE (unrecogn ized section and content) DATE CREATED AUTHOR 12/26/2017 [facility] ([place]) DATE CREATED AUTHOR AUTHOR'S ORGANIZ ATION 02/11/2025 [facility] Care Teams (unrecognized sec tion and content) Team Status: Active Member Role Status Dates Padmini Castellon EMBROIDERY FINISHER, EMBROIDERY FINISHER-C Primary Care Provider Active Team Status: Inactive Member Role Status Dates Padmini Castellon NP, EMBROIDERY FINISHER-C Primary Care Provider Active Start: June 18, 2024 End: June 18, 2024 Padmini Castellon NP, EMBROIDERY FINISHER-C Referring Provider Active Start: June 18, 2024 End: June 18, 2024 Hayes ROSS PA Attending Provider Active Sta rt: June 18, 2024 End: June 18, 2024 Team Status: Inactive Member Role Status Dates Padmini Castellon NP, EMBROIDERY FINISHER-C Primary Care Provider Active Start: June 18, 2024 End: June 18, 2024 Padmini Castellon NP, EMBROIDERY FINISHER-C Referring Provider Active Start: June 18, 2024 End: June 18, 2024 Dr. Rafael Marcus MD Attending Provider Active S tart: June 18, 2024 End: June 18, 2024 Team Status: Active Member Role Status Dates Padmini Castellon NP, EMBROIDERY FINISHER-C Primary Care Provider Active Start: July 03, 2024 Pita Lizama RN Attending Provider Active St art: July 03, 2024 Team Status: Inactive Member Role Status Dates Padmini Castellon NP, EMBROIDERY FINISHER-C Primary Care Provider Active Start: July 09, 2024 End: July 09, 2024 Padmini Castellon NP, EMBROIDERY FINISHER-C Referring Provider Active Start: July 09, 2024 End: July 09, 2024 Dr. Joanna Bhat DO Attending Provider Activ e Start: July 09, 2024 End: July 09, 2024 Team Status: Inactive Member Role Status Dates Padmini Castellon NP, EMBROIDERY FINISHER-C Primary Care Provider Active Start: July 09, 2024 End: July 09, 2024 Dr. Joanna Bhat DO Attending Provider Activ e Start: July 09, 2024 End: July 09, 2024 Dr. Joanna Bhat DO Referring Provider Activ e Start: July 09, 2024 End: July 09, 2024 Team Status: Inactive Member Role Status Dates Padmini Castellon EMBROIDERY FINISHER, EMBROIDERY FINISHER-C Primary Care Provider Active Start: August 07, 2024 End: August 07, 2024 Padmini Castellon EMBROIDERY FINISHER, EMBROIDERY FINISHER-C Referring Provider Active Start: August 07, 2024 End: August 07, 2024 Dr. Joanna Bhat DO Attending Provider Activ e Start: August 07, 2024 End: August 07, 2024 Team Status: Inactive Member Role Status Dates Padmini Castellon EMBROIDERY FINISHER, EMBROIDERY FINISHER-C Primary Care Provider Active Start: August 07, 2024 End: August 07, 2024 Dr. Joanna Bhat DO Attending Provider Activ e Start: August 07, 2024 End: August 07, 2024 Dr. Joanna Bhat DO Referring Provider Activ e Start: August 07, 2024 End: August 07, 2024 Team Status: Inactive Member Role Status Dates Padmini Castellon EMBROIDERY FINISHER, EMBROIDERY FINISHER-C Primary Care Provider Active Start: September 10, 2024 End: September 10, 2024 Padmini Castellon EMBROIDERY FINISHER, EMBROIDERY FINISHER-C Referring Provider Active Start: September 10, 2024 End: September 10, 2024 Kelly Ruffin CNM Attending Provider Active S tart: September 10, 2024 End: September 10, 2024 Team Status: Inactive Member Role Status Dates Padmini Castellon EMBROIDERY FINISHER, EMBROIDERY FINISHER-C Primary Care Provider Active Start: September 19, 2024 End: September 19, 2024 Dr. Joanna Bhat DO Attending Provider Activ e Start: September 19, 2024 End: September 19, 2024 Dr. Joanna Bhat DO Referring Provider Activ e Start: September 19, 2024 End: September 19, 2024 Team Status: Inactive Member Role Status Dates Padmini Castellon EMBROIDERY FINISHER, EMBROIDERY FINISHER-C Primary Care Provider Active Start: October 10, 2024 End: October 10, 2024 Padmini Castellon EMBROIDERY FINISHER, EMBROIDERY FINISHER-C Referring Provider Active Start: October 10, 2024 End: October 10, 2024 Dr. Tita Sinclair MD Attending Provider Active Start: October 10, 2024 End: October 10, 2024 Team Status: Inactive Member Role Status Dates Padmini Castellon EMBROIDERY FINISHER, EMBROIDERY FINISHER-C Primary Care Provider Active Start: November 06, 2024 End: November 06, 2024 Padmini Castellon EMBROIDERY FINISHER, EMBROIDERY FINISHER-C Referring Provider Active Start: November 06, 2024 End: November 06, 2024 Lizbeth Rojas EMBROIDERY FINISHER, EMBROIDERY FINISHER-C Attending Provider Active Start: November 06, 2024 End: November 06, 2024 Team Status: Inactive Member Role Status Dates Padmini Castellon EMBROIDERY FINISHER, EMBROIDERY FINISHER-C Primary Care Provider Active Start: November 06, 2024 End: November 06, 2024 Lizbeth Rojas EMBROIDERY FINISHER, EMBROIDERY FINISHER-C Attending Provider Active Start: November 06, 2024 End: November 06, 2024 Lizbeth Rojas EMBROIDERY FINISHER, EMBROIDERY FINISHER-C Referring Provider Active Start: November 06, 2024 End: November 06, 2024 Team Status: Inactive Member Role Status Dates Padmini Castellon EMBROIDERY FINISHER, EMBROIDERY FINISHER-C Primary Care Provider Active Start: November 21, 2024 End: November 21, 2024 Padmini Castellon EMBROIDERY FINISHER, EMBROIDERY FINISHER-C Referring Provider Active Start: November 21, 2024 End: November 21, 2024 Dr. Joanna Bhat DO Attending Provider Activ e Start: November 21, 2024 End: November 21, 2024 Team Status: Inactive Member Role Status Dates Padmini Castellon EMBROIDERY FINISHER, EMBROIDERY FINISHER-C Primary Care Provider Active Start: December 05, 2024 End: December 05, 2024 Padmini Castellon EMBROIDERY FINISHER, EMBROIDERY FINISHER-C Referring Provider Active Start: December 05, 2024 End: December 05, 2024 Lizbeth Rojas EMBROIDERY FINISHER, EMBROIDERY FINISHER-C Attending Provider Active Start: December 05, 2024 End: December 05, 2024 Team Status: Inactive Member Role Status Dates Padmini Castellon EMBROIDERY FINISHER, EMBROIDERY FINISHER-C Primary Care Provider Active Start: December 19, 2024 End: December 19, 2024 Padmini Castellon EMBROIDERY FINISHER, EMBROIDERY FINISHER-C Referring Provider Active Start: December 19, 2024 End: December 19, 2024 Dr. Tita Sinclair MD Attending Provider Active Start: December 19, 2024 End: December 19, 2024 Team Status: Active Member Role/Relationship Status Dates Padmini Castellon EMBROIDERY FINISHER, EMBROIDERY FINISHER-C Primary Care Provider Active Team Status: Inactive Member Role/Relationship Status Dates Padmini Castellon EMBROIDERY FINISHER, EMBROIDERY FINISHER-C Primary Care Provider Active Start: September 10, 2024 End: September 10, 2024 Padmini Castellon NP, EMBROIDERY FINISHER-C Referring Provider Active Start: September 10, 2024 End: September 10, 2024 Kelly Ruffin CNM Attending Provider Active S tart: September 10, 2024 End: September 10, 2024 Team Status: Inactive Member Role/Relationship Status Dates Padmini Castellon EMBROIDERY FINISHER, EMBROIDERY FINISHER-C Primary Care Provider Active Start: September 19, 2024 End: September 19, 2024 Dr. Joanna Bhat DO Attending Provider Activ e Start: September 19, 2024 End: September 19, 2024 Dr. Joanna Bhat , Referring Provider Activ e Start: September 19, 2024 End: September 19, 2024 Team Status: Inactive Member Role/Relationship Status Dates Padmini Castellon EMBROIDERY FINISHER, EMBROIDERY FINISHER-C Primary Care Provider Active Start: October 10, 2024 End: October 10, 2024 Padmini Castellon EMBROIDERY FINISHER, EMBROIDERY FINISHER-C Referring Provider Active Start: October 10, 2024 End: October 10, 2024 Dr. Tita Sinclair MD Attending Provider Active Start: October 10, 2024 End: October 10, 2024 Team Status: Inactive Member Role/Relationship Status Dates Padmini Castellon EMBROIDERY FINISHER, EMBROIDERY FINISHER-C Primary Care Provider Active Start: November 06, 2024 End: November 06, 2024 Padmini Castellon EMBROIDERY FINISHER, EMBROIDERY FINISHER-C Referring Provider Active Start: November 06, 2024 End: November 06, 2024 Lizbeth Rojas EMBROIDERY FINISHER, EMBROIDERY FINISHER-C Attending Provider Active Start: November 06, 2024 End: November 06, 2024 Team Status: Inactive Member Role/Relationship Status Dates Padmini Castellon NP, EMBROIDERY FINISHER-C Primary Care Provider Active Start: November 06, 2024 End: November 06, 2024 Lizbeth Rojas EMBROIDERY FINISHER, EMBROIDERY FINISHER-C Attending Provider Active Start: November 06, 2024 End: November 06, 2024 Lizbeth Rojas EMBROIDERY FINISHER, EMBROIDERY FINISHER-C Referring Provider Active Start: November 06, 2024 End: November 06, 2024 Team Status: Inactive Member Role/Relationship Status Dates Padmini Castellon EMBROIDERY FINISHER, EMBROIDERY FINISHER-C Primary Care Provider Active Start: November 21, 2024 End: November 21, 2024 Padmini Castellon EMBROIDERY FINISHER, EMBROIDERY FINISHER-C Referring Provider Active Start: November 21, 2024 End: November 21, 2024 Dr. Joanna Bhat DO Attending Provider Activ e Start: November 21, 2024 End: November 21, 2024 Team Status: Inactive Member Role/Relationship Status Dates Padmini Castellon EMBROIDERY FINISHER, EMBROIDERY FINISHER-C Primary Care Provider Active Start: December 05, 2024 End: December 05, 2024 Padmini Castellon EMBROIDERY FINISHER, EMBROIDERY FINISHER-C Referring Provider Active Start: December 05, 2024 End: December 05, 2024 Lizbeth Rojas EMBROIDERY FINISHER, EMBROIDERY FINISHER-C Attending Provider Active Start: December 05, 2024 End: December 05, 2024 Team Status: Inactive Member Role/Relationship Status Dates Padmini Castellon EMBROIDERY FINISHER, EMBROIDERY FINISHER-C Primary Care Provider Active Start: December 19, 2024 End: December 19, 2024 Padmini Castellon EMBROIDERY FINISHER, EMBROIDERY FINISHER-C Referring Provider Active Start: December 19, 2024 End: December 19, 2024 Dr. Tita Sinclair MD Attending Provider Active Start: December 19, 2024 End: December 19, 2024 Team Status: Inactive Member Role/Relationship Status Dates Padmini Castellon EMBROIDERY FINISHER, EMBROIDERY FINISHER-C Primary Care Provider Active Start: January 02, 2025 End: January 02, 2025 Padmini Castellon EMBROIDERY FINISHER, EMBROIDERY FINISHER-C Referring Provider Active Start: January 02, 2025 End: January 02, 2025 Dr. Joanna Bhat DO Attending Provider Activ e Start: January 02, 2025 End: January 02, 2025 Team Status: Inactive Member Role/Relationship Status Dates Padmini Castellon EMBROIDERY FINISHER, EMBROIDERY FINISHER-C Primary Care Provider Active Start: September 19, 2024 End: September 19, 2024 Dr. Joanna Bhat DO Attending Provider Activ e Start: September 19, 2024 End: September 19, 2024 Dr. Joanna Bhat DO Referring Provider Activ e Start: September 19, 2024 End: September 19, 2024 Team Status: Inactive Member Role/Relationship Status Dates Padmini Castellon EMBROIDERY FINISHER, EMBROIDERY FINISHER-C Primary Care Provider Active Start: October 10, 2024 End: October 10, 2024 Padmini Castellon EMBROIDERY FINISHER, EMBROIDERY FINISHER-C Referring Provider Active Start: October 10, 2024 End: October 10, 2024 Dr. Tita Sinclair MD Attending Provider Active Start: October 10, 2024 End: October 10, 2024 Team Status: Inactive Member Role/Relationship Status Dates Padmini Castellon EMBROIDERY FINISHER, EMBROIDERY FINISHER-C Primary Care Provider Active Start: November 06, 2024 End: November 06, 2024 Padmini Castellon EMBROIDERY FINISHER, EMBROIDERY FINISHER-C Referring Provider Active Start: November 06, 2024 End: November 06, 2024 Lizbeth Rojas EMBROIDERY FINISHER, EMBROIDERY FINISHER-C Attending Provider Active Start: November 06, 2024 End: November 06, 2024 Team Status: Inactive Member Role/Relationship Status Dates Padmini Castellon EMBROIDERY FINISHER, EMBROIDERY FINISHER-C Primary Care Provider Active Start: November 06, 2024 End: November 06, 2024 Lizbeth Rojas EMBROIDERY FINISHER, EMBROIDERY FINISHER-C Attending Provider Active Start: November 06, 2024 End: November 06, 2024 Lizbeth Rojas EMBROIDERY FINISHER, EMBROIDERY FINISHER-C Referring Provider Active Start: November 06, 2024 End: November 06, 2024 Team Status: Inactive Member Role/Relationship Status Dates Padmini Castellon EMBROIDERY FINISHER, EMBROIDERY FINISHER-C Primary Care Provider Active Start: November 21, 2024 End: November 21, 2024 Padmini Castellon EMBROIDERY FINISHER, EMBROIDERY FINISHER-C Referring Provider Active Start: November 21, 2024 End: November 21, 2024 Dr. Joanna Bhat DO Attending Provider Activ e Start: November 21, 2024 End: November 21, 2024 Team Status: Inactive Member Role/Relationship Status Dates Padmini Castellon EMBROIDERY FINISHER, EMBROIDERY FINISHER-C Primary Care Provider Active Start: December 05, 2024 End: December 05, 2024 Padmini Castellon EMBROIDERY FINISHER, EMBROIDERY FINISHER-C Referring Provider Active Start: December 05, 2024 End: December 05, 2024 Lizbeth Rojas EMBROIDERY FINISHER, EMBROIDERY FINISHER-C Attending Provider Active Start: December 05, 2024 End: December 05, 2024 Team Status: Inactive Member Role/Relationship Status Dates Padmini Castellon EMBROIDERY FINISHER, EMBROIDERY FINISHER-C Primary Care Provider Active Start: December 19, 2024 End: December 19, 2024 Padmini Castellon EMBROIDERY FINISHER, EMBROIDERY FINISHER-C Referring Provider Active Start: December 19, 2024 End: December 19, 2024 Dr. Tita Sinclair MD Attending Provider Active Start: December 19, 2024 End: December 19, 2024 Team Status: Inactive Member Role/Relationship Status Dates Padmini Castellon EMBROIDERY FINISHER, EMBROIDERY FINISHER-C Primary Care Provider Active Start: January 02, 2025 End: January 02, 2025 Padmini Castellon EMBROIDERY FINISHER, EMBROIDERY FINISHER-C Referring Provider Active Start: January 02, 2025 End: January 02, 2025 Dr. Joanna Bhat DO Attending Provider Activ e Start: January 02, 2025 End: January 02, 2025 Team Status: Inactive Member Role/Relationship Status Dates Padmini Castellon EMBROIDERY FINISHER, EMBROIDERY FINISHER-C Primary Care Provider Active Start: January 10, 2025 End: January 10, 2025 Padmini Castellon EMBROIDERY FINISHER, EMBROIDERY FINISHER-C Referring Provider Active Start: January 10, 2025 End: January 10, 2025 Kelly Ruffin CNM Attending Provider Active S tart: January 10, 2025 End: January 10, 2025 Team Status: Inactive Member Role/Relationship Status Dates Padmini Castellon NP, EMBROIDERY FINISHER-C Primary Care Provider Active Start: January 10, 2025 End: January 10, 2025 Kelly Ruffin CNM Attending Provider Active S tart: January 10, 2025 End: January 10, 2025 Team Status: Inactive Member Role/Relationship Status Dates Padmini Castellon NP, EMBROIDERY FINISHER-C Primary Care Provider Active Start: January 17, 2025 End: January 17, 2025 Padmini Castellon NP, EMBROIDERY FINISHER-C Referring Provider Active Start: January 17, 2025 End: January 17, 2025 Dr. Joanna Bhat DO Attending Provider Activ e Start: January 17, 2025 End: January 17, 2025 Team Status: Inactive Member Role/Relationship Status Dates Padmini Castellon EMBROIDERY FINISHER, EMBROIDERY FINISHER-C Primary Care Provider Active Start: October 10, 2024 End: October 10, 2024 Padmini Castellon EMBROIDERY FINISHER, EMBROIDERY FINISHER-C Referring Provider Active Start: October 10, 2024 End: October 10, 2024 Dr. Tita Sinclair MD Attending Provider Active Start: October 10, 2024 End: October 10, 2024 Team Status: Inactive Member Role/Relationship Status Dates Padmini Castellon EMBROIDERY FINISHER, EMBROIDERY FINISHER-C Primary Care Provider Active Start: November 06, 2024 End: November 06, 2024 Padmini Castellon NP, EMBROIDERY FINISHER-C Referring Provider Active Start: November 06, 2024 End: November 06, 2024 Lizbeth Rojas NP, EMBROIDERY FINISHER-C Attending Provider Active Start: November 06, 2024 End: November 06, 2024 Team Status: Inactive Member Role/Relationship Status Dates Padmini Castellon NP, EMBROIDERY FINISHER-C Primary Care Provider Active Start: November 06, 2024 End: November 06, 2024 Lizbeth Rojas EMBROIDERY FINISHER, EMBROIDERY FINISHER-C Attending Provider Active Start: November 06, 2024 End: November 06, 2024 Lizbeth Rojas EMBROIDERY FINISHER, EMBROIDERY FINISHER-C Referring Provider Active Start: November 06, 2024 End: November 06, 2024 Team Status: Inactive Member Role/Relationship Status Dates Padmini Castellon EMBROIDERY FINISHER, EMBROIDERY FINISHER-C Primary Care Provider Active Start: November 21, 2024 End: November 21, 2024 Padmini Castellon EMBROIDERY FINISHER, EMBROIDERY FINISHER-C Referring Provider Active Start: November 21, 2024 End: November 21, 2024 Dr. Joanna Bhat , DO Attending Provider Activ e Start: November 21, 2024 End: November 21, 2024 Team Status: Inactive Member Role/Relationship Status Dates Padmini Castellon EMBROIDERY FINISHER, EMBROIDERY FINISHER-C Primary Care Provider Active Start: December 05, 2024 End: December 05, 2024 Padmini Castellon EMBROIDERY FINISHER, EMBROIDERY FINISHER-C Referring Provider Active Start: December 05, 2024 End: December 05, 2024 Lizbeth Rojas EMBROIDERY FINISHER, EMBROIDERY FINISHER-C Attending Provider Active Start: December 05, 2024 End: December 05, 2024 Team Status: Inactive Member Role/Relationship Status Dates Padmini Castellon EMBROIDERY FINISHER, EMBROIDERY FINISHER-C Primary Care Provider Active Start: December 19, 2024 End: December 19, 2024 Padmini Castellon EMBROIDERY FINISHER, EMBROIDERY FINISHER-C Referring Provider Active Start: December 19, 2024 End: December 19, 2024 Dr. Tita Sinclair MD Attending Provider Active Start: December 19, 2024 End: December 19, 2024 Team Status: Inactive Member Role/Relationship Status Dates Padmini Castellon EMBROIDERY FINISHER, EMBROIDERY FINISHER-C Primary Care Provider Active Start: January 02, 2025 End: January 02, 2025 Padmini Castellon EMBROIDERY FINISHER, EMBROIDERY FINISHER-C Referring Provider Active Start: January 02, 2025 End: January 02, 2025 Dr. Joanna Bhat , Attending Provider Activ e Start: January 02, 2025 End: January 02, 2025 Team Status: Inactive Member Role/Relationship Status Dates Padmini Castellon EMBROIDERY FINISHER, EMBROIDERY FINISHER-C Primary Care Provider Active Start: January 10, 2025 End: January 10, 2025 Padmini Castellon EMBROIDERY FINISHER, EMBROIDERY FINISHER-C Referring Provider Active Start: January 10, 2025 End: January 10, 2025 Kelly Ruffin CNM Attending Provider Active S tart: January 10, 2025 End: January 10, 2025 Team Status: Inactive Member Role/Relationship Status Dates Padmini Castellon NP, EMBROIDERY FINISHER-C Primary Care Provider Active Start: January 10, 2025 End: January 10, 2025 Kelly Ruffin CNM Attending Provider Active S tart: January 10, 2025 End: January 10, 2025 Team Status: Inactive Member Role/Relationship Status Dates Padmini Castellon EMBROIDERY FINISHER, EMBROIDERY FINISHER-C Primary Care Provider Active Start: January 17, 2025 End: January 17, 2025 Padmini Castellon EMBROIDERY FINISHER, EMBROIDERY FINISHER-C Referring Provider Active Start: January 17, 2025 End: January 17, 2025 Dr. Joanna Bhat DO Attending Provider Activ e Start: January 17, 2025 End: January 17, 2025 Team Status: Inactive Member Role/Relationship Status Dates Padmini Castellon EMBROIDERY FINISHER, EMBROIDERY FINISHER-C Primary Care Provider Active Start: January 24, 2025 End: January 24, 2025 Padmini Castellon EMBROIDERY FINISHER, EMBROIDERY FINISHER-C Referring Provider Active Start: January 24, 2025 End: January 24, 2025 Dr. Tita Sinclair MD Attending Provider Active Start: January 24, 2025 End: January 24, 2025 Team Status: Inactive Member Role/Relationship Status Dates Padmini Castellon EMBROIDERY FINISHER, EMBROIDERY FINISHER-C Primary Care Provider Active Start: January 30, 2025 End: January 30, 2025 Padmini Castellon NP, EMBROIDERY FINISHER-C Referring Provider Active Start: January 30, 2025 End: January 30, 2025 Dr. Joanna Bhat DO Attending Provider Activ e Start: January 30, 2025 End: January 30, 2025 Team Status: Inactive Member Role/Relationship Status Dates Padmini Castellon EMBROIDERY FINISHER, EMBROIDERY FINISHER-C Primary Care Provider Active Start: February 06, 2025 End: February 06, 2025 Padmini Castellon NP, EMBROIDERY FINISHER-C Referring Provider Active Start: February 06, 2025 End: February 06, 2025 Kelly Ruffin CNM Attending Provider Active S tart: February 06, 2025 End: February 06, 2025 Team Status: Inactive Member Role/Relationship Status Dates Padmini Castellon NP, EMBROIDERY FINISHER-C Primary Care Provider Active Start: November 06, 2024 End: November 06, 2024 Padmini Lorson EMBROIDERY FINISHER, EMBROIDERY FINISHER-C Referring Provider Active Start: November 06, 2024 End: November 06, 2024 Lizbeth Rojas EMBROIDERY FINISHER, EMBROIDERY FINISHER-C Attending Provider Active Start: November 06, 2024 End: November 06, 2024 Team Status: Inactive Member Role/Relationship Status Dates Padmini Castellon EMBROIDERY FINISHER, EMBROIDERY FINISHER-C Primary Care Provider Active Start: November 06, 2024 End: November 06, 2024 Lizbeth Rojas EMBROIDERY FINISHER, EMBROIDERY FINISHER-C Attending Provider Active Start: November 06, 2024 End: November 06, 2024 Lizbeth Rojas EMBROIDERY FINISHER, EMBROIDERY FINISHER-C Referring Provider Active Start: November 06, 2024 End: November 06, 2024 Team Status: Inactive Member Role/Relationship Status Dates Padmini Castellon EMBROIDERY FINISHER, EMBROIDERY FINISHER-C Primary Care Provider Active Start: November 21, 2024 End: November 21, 2024 Padmini Castellon EMBROIDERY FINISHER, EMBROIDERY FINISHER-C Referring Provider Active Start: November 21, 2024 End: November 21, 2024 Dr. Joanna Bhat , Attending Provider Activ e Start: November 21, 2024 End: November 21, 2024 Team Status: Inactive Member Role/Relationship Status Dates Padmini Castellon EMBROIDERY FINISHER, EMBROIDERY FINISHER-C Primary Care Provider Active Start: December 05, 2024 End: December 05, 2024 Padmini Castellon EMBROIDERY FINISHER, EMBROIDERY FINISHER-C Referring Provider Active Start: December 05, 2024 End: December 05, 2024 Lizbeth Rojas EMBROIDERY FINISHER, EMBROIDERY FINISHER-C Attending Provider Active Start: December 05, 2024 End: December 05, 2024 Team Status: Inactive Member Role/Relationship Status Dates Padmini Castellon EMBROIDERY FINISHER, EMBROIDERY FINISHER-C Primary Care Provider Active Start: December 19, 2024 End: December 19, 2024 Padmini Castellon EMBROIDERY FINISHER, EMBROIDERY FINISHER-C Referring Provider Active Start: December 19, 2024 End: December 19, 2024 Dr. Tita Sinclair MD Attending Provider Active Start: December 19, 2024 End: December 19, 2024 Team Status: Inactive Member Role/Relationship Status Dates Padmini Castellon EMBROIDERY FINISHER, EMBROIDERY FINISHER-C Primary Care Provider Active Start: January 02, 2025 End: January 02, 2025 Padmini Castellon EMBROIDERY FINISHER, EMBROIDERY FINISHER-C Referring Provider Active Start: January 02, 2025 End: January 02, 2025 Dr. Joanna Bhat , DO Attending Provider Activ e Start: January 02, 2025 End: January 02, 2025 Team Status: Inactive Member Role/Relationship Status Dates Padmini Castellon EMBROIDERY FINISHER, EMBROIDERY FINISHER-C Primary Care Provider Active Start: January 10, 2025 End: January 10, 2025 Padmini Castellon EMBROIDERY FINISHER, EMBROIDERY FINISHER-C Referring Provider Active Start: January 10, 2025 End: January 10, 2025 Kelly Ruffin CNM Attending Provider Active S tart: January 10, 2025 End: January 10, 2025 Team Status: Inactive Member Role/Relationship Status Dates Padmini Castellon NP, EMBROIDERY FINISHER-C Primary Care Provider Active Start: January 10, 2025 End: January 10, 2025 Kelly Ruffin CNM Attending Provider Active S tart: January 10, 2025 End: January 10, 2025 Team Status: Inactive Member Role/Relationship Status Dates Padmini Castellon EMBROIDERY FINISHER, EMBROIDERY FINISHER-C Primary Care Provider Active Start: January 17, 2025 End: January 17, 2025 Padmini Castellon EMBROIDERY FINISHER, EMBROIDERY FINISHER-C Referring Provider Active Start: January 17, 2025 End: January 17, 2025 Dr. Joanna Bhat DO Attending Provider Activ e Start: January 17, 2025 End: January 17, 2025 Team Status: Inactive Member Role/Relationship Status Dates Padmini Castellon EMBROIDERY FINISHER, EMBROIDERY FINISHER-C Primary Care Provider Active Start: January 24, 2025 End: January 24, 2025 Padmini Castellon EMBROIDERY FINISHER, EMBROIDERY FINISHER-C Referring Provider Active Start: January 24, 2025 End: January 24, 2025 Dr. Tita Sinclair MD Attending Provider Active Start: January 24, 2025 End: January 24, 2025 Team Status: Inactive Member Role/Relationship Status Dates Padmini Castellon EMBROIDERY FINISHER, EMBROIDERY FINISHER-C Primary Care Provider Active Start: January 30, 2025 End: January 30, 2025 Padmini Castellon EMBROIDERY FINISHER, EMBROIDERY FINISHER-C Referring Provider Active Start: January 30, 2025 End: January 30, 2025 Dr. Joanna Bhat DO Attending Provider Activ e Start: January 30, 2025 End: January 30, 2025 Team Status: Inactive Member Role/Relationship Status Dates Padmini Castellon EMBROIDERY FINISHER, EMBROIDERY FINISHER-C Primary Care Provider Active Start: February 06, 2025 End: February 06, 2025 Padmini Castellon EMBROIDERY FINISHER, EMBROIDERY FINISHER-C Referring Provider Active Start: February 06, 2025 End: February 06, 2025 Kelly Ruffin CNM Attending Provider Active S tart: February 06, 2025 End: February 06, 2025 Team Status: Inactive Member Role/Relationship Status Dates Padmini Castellon EMBROIDERY FINISHER, EMBROIDERY FINISHER-C Primary Care Provider Active Start: February 12, 2025 End: February 12, 2025 Padmini Castellon NP, EMBROIDERY FINISHER-C Referring Provider Active Start: February 12, 2025 End: February 12, 2025 Dr. Tita Sinclair MD Attending Provider Active Start: February 12, 2025 End: February 12, 2025 Goals (unrecognized section and content) Goals may be documented in a n alternate sectionGoals may be documented in an alternate sectionGoals may be documented in an alternate sectionGoals may be documented in an alternate sectionGoals may be documented in an alternate sectionGoals may be documented in an alternate sectionGoals may be documented in an alternate sectionGoals may be documented in an alternate sectionGoals may be documented in an alternate sectionGoals may be documented in an alternate sectionGoals may be documented in an alternate sectionGoals may be documented in an alternate sectionGoals may be documented in an alternate section FOR RECORDS PERTAINING TO PATIENTS WHO ARE OR HAVE BEEN ENROLLED IN A CHEMICAL DEPENDENCY/SUBSTANCEABUSE PROGRAM, SOME INFORMATION MAY BE OMITTED. This clinical summary was aggregated from multiple sources. Caution should be exercised in using it in the provision of clinical care. This summary normalizes information from multiple sources, and as a consequence, information in this document may materially change the coding, format and clinical context of patient data. In addition, data may be omitted in some cases. CLINICAL DECISIONS SHOULD BE BASED ON THE PRIMARY CLINICAL RECORDS. [facility] provides no warranty or guarantee of the accuracy or completeness of information in this document.
--- OUTSIDE RECORDS SUMMARY | 2025-02-12 21:21 | XMS RPT_ITS | CCD ---
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 Hall Attending Provider [phone] Pita Lizama RN Attending Provider [facility] Dr. Joanna Bhat DO Attending Provider Dr. Joanna Bhat DO Referring Provider Kelly Ruffin CNM Attending Provider [phone] Santiago CLIENT SERVICES REPRESENTATIVE-CPadmini Primary Care Provider [phone] Padmini Serrano Referring Provider [phone] Dr. Joanna Bhat DO Attending Provider Dr. Joanna Bhat DO Referring Provider Yahir WALTER, Dr. Rivers Attending Provider [phone] Crystal CLIENT SERVICES REPRESENTATIVE-CLizbeth Attending Provider [phone] Crystal CLIENT SERVICES REPRESENTATIVE-CLizbeth Referring Provider [phone] Santiago CLIENT SERVICES REPRESENTATIVE-CPadmini Primary Care Provider [phone] Santiago VERGARA-CPadmini Referring Provider [phone] Dr. Joanna Bhat DO Attending Provider Dr. Joanna Bhat DO Referring Provider Santiago CLIENT SERVICES REPRESENTATIVE-CPadmini Primary Care Provider [phone] Lorson CLIENT SERVICES REPRESENTATIVE-C, Padmini Referring Provider [phone] Kelly Ruffin CNM Attending Provider Lorchelsi VERGARA-C, [place] Primary Care Provider [phone] Dr. Joanna Bhat DO Attending Provider Joanna Bhat Attending Unavailabl e Lorson, [place] Primary Care Unavailable Lorson, [place] Referring Unavailable Joanna Bhat Attending Unavailabl e Lorson, [place] Primary Care Unavailable Lorson, [place] [facility] Kelly Ruffin Attending Unavailable Kelly Ruffin Referring Unavailable Pita Lizama Attending [facility]available Hayes Baer Attending [facility] Unavailable Lorson, [place] Referring Unavailable Lorson, [place] Primary Care Unavailable Lorson, [place] Referring Unavailable Rafael Marcus Attending Unavailable Joanna Bhat Attending Unavailabl e Lorson, [place] Referring [facility] Un[facility] Joanna Bhat Referring Unavailabl e Vande VelJoanna lópez Attending Unavailabl e Lorson, [place] Primary Care Unavailable Joanna Bhat Attending Unavailabl e Lorson, [place] Primary Care Unavailable Lorson, [place] Referring Unavailable Joanna Bhat Attending Unavailabl e Vande VeldeJoanna Referring Unavailabl e Lorson, [place] Primary Care Unavailable Joanna Bhat Attending Unavailabl e Vande VeldeJoanna Referring Unavailabl e Lorson, [place] Primary [facility] Unavailable Crystal CLIENT SERVICES REPRESENTATIVELizbeth Referring Unavailable Crystal CLIENT SERVICES REPRESENTATIVELizbeth Attending Unavailable Lorson, [place] Primary Care Unavailable Kelly Ruffin Attending Unavailable Lorson, [place] Primary Care Unavailable Lorson, Padmini Referring Unavailable Kelly Ruffin Attending Unavailable Lorson, [place] Primary Care Unavailable Lorson, Padmini Referring Unavailable Tita Sinclair Attending Unavailable Joanna Bhat Attending Unavailabl e Lorson, [place] Referring Unavailable Lorson, [place] Primary Care Unavailable Lorson, [place] Primary Care Unavailable Lorson, Padmini Referring Unavailable Tita Sinclair Attending Unavailable Crystal CLIENT SERVICES REPRESENTATIVELizbeth Attending [facility] Unavailable Lorson, Padmini Referring Unavailable Padmini Castellon Referring Unavailable Kelly Ruffin Attending Unavailable Santiago Padmini Primary Care Unavailable Joanna Bhat Attending Unavailabl e Santiago Padmiin Referring Unavailable L[place]on Padmiin Primary Care Unavailable Lorson, Padmini Referring Unavailable Tita Sinclair Attending Unavailable Padmini Castellon Primary Care Unavailable LorsonXochitlPadmini Referring Unavailable [place] Padmini Primary Care Unavailable Lizbeth Rojas NP Attending Unavailable [place] Padmini Referring Unavailable [place] Padmini Primary Care Unavailable Kelly Ruffin Attending Unavailable Santiago CLIENT SERVICES REPRESENTATIVE-C, Padmini Primary Care Provider [phone] Santiago CLIENT SERVICES REPRESENTATIVE-CPadmini Referring Provider [phone] Yahir WALTER, Dr. Rivers Attending Provider Medications Current Medications Medication Drug Class(es) Dates Sig (Normalized) Sig (Original) Prenat.Vits,Justino,Min- Iron-Folic tablet (13 sources) Start: 12-22-2020 Prenat.Vits,Justino,Min -Iron-Folic tablet Active 1 {tbl} PO DAILY December 22, 2020 12:00am Start: 12-22-2020 Prenat.Vits,Ca l,Uxr-Walp-Acrme tablet Active 1 {tbl} PO DAILY December [...] Ruffin on 02-06-2025 Glucose Ql (U) Negative [facility] Laboratory - UrinalysisOrder ed By: Kelly Ruffin on 02-06-2025 Protein Ql (U) Negative [facility] Audio Installer Office Visit Reporton 02-06-2025 Audio Installer Office Visit Report [facility] [address], [address] [place] [address] OFFICE VISIT Date of Service: 02/06/25 MR#: [id number] Acct: [id number] Name: SWATI SERRATO Rep #: [id number] : 1990 Provider: TERESE Gomez ams Age/Sex: 34/F Location: [facility] [place] Status: Signed Intake Vital Signs 12/05/24 12:56 01/30/25 10:23 02/06/25 10:00 Height 5 ft 10 in 5 ft 10 in 5 ft 10 in Weight: 256 lb 7 oz BMI 36.8 BP 113/75 Intake Visit Reasons: 40 wk ob *happy due date* [employer] General Supervisor Required: No Is patient in pain?: No [...] 1 current occupational status: employed 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 (more content not included)... Normal [facility] Laboratory - Chemistry and C hemistry - challengeOrdered By: Joanna Antonio on 01-30-2025 Glucose Ql (U) Negative [facility] Laboratory - UrinalysisOrder ed By: Joanna Antonio on 01-30-2025 Protein Ql (U) Negative [facility] Audio Installer Office Visit Reporton 01-30-2025 Audio Installer Office Visit Report [facility] [address], [address] [place] [address] OFFICE VISIT Date of Service: 01/30/25 MR#: [id number] Acct: [id number] Name: SWATI SERRATO Rep #: [id number] : 1990 Provider: Dr. 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 Normal [facility] Laboratory - Chemistry and C hemistry - challengeOrdered By: Tita Sinclair on 01-24-2025 Glucose Ql (U) Negative [facility] Laboratory - UrinalysisOrder ed By: Tita Sinclair on 01-24-2025 Protein Ql (U) Negative [facility] Audio Installer Office Visit Reporton 01-24-2025 Audio Installer Office Visit Report [facility] Care [address], [address] [place] [address] OFFICE VISIT Date of Service: 01/24/25 MR#: [id number] Acct: [id number] Name: SWATI SERRATO Rep #: [id number] : 1990 Provider: Dr. 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 09/10/24 (more content not included)... Normal [facility] Laboratory - Chemistry and C hemistry - challengeOrdered By: Joanna Antonio on 01-17-2025 Glucose Ql (U) Negative [facility] Laboratory - UrinalysisOrder ed By: Joanna Antonio on 01-17-2025 Protein Ql (U) Negative [facility] Audio Installer Office Visit Reporton 01-17-2025 Audio Installer Office Visit Report [facility] [address], [address] [place] [address] OFFICE VISIT Date of Service: 01/17/25 MR#: [id number] Acct: [id number] Name: SWATI SERRATO Rep #: [id number] : 1990 Provider: Dr. 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 (more content not included)... Normal [facility] Rule out Beta Strep (Grp. B) on 01-14-2025 SHELDON Group B Beta Streptococcus is not isolated. Normal [facility] Comment on above: Performed By: #### M 100.3400 ####[facility] [id number] [place], [address] Laboratory - Chemistry and C hemistry - challengeOrdered By: Kelly Ruffin on 01-10-2025 Glucose Ql (U) Negative [facility] Laboratory - UrinalysisOrder ed By: Kelly Ruffin on 01-10-2025 Protein Ql (U) Negative [facility] Audio Installer Office Visit Reporton 01-10-2025 Audio Installer Office Visit Report [facility] [address], [address] [place] [address] OFFICE VISIT Date of Service: 01/10/25 MR#: [id number] Acct: [id number] Name: SWATI SERRATO Rep #: [id number] : 1990 Provider: TERESE Gomez ams Age/Sex: 34/F Location: [facility] [place] Status: Signed Intake Vital Signs 12/05/24 12:56 01/02/25 11:31 01/10/25 14:05 Height 5 ft 10 in 5 ft 10 in 5 ft 10 in Weight: 259 lb 8 oz BMI 37.2 BP 112/75 Intake Visit Reasons: 36 wk wk ob Chief Complaint: 36wk OB [employer]iner[employer] General Supervisor Required: No Is patient in pain?: No [...] 1 current occupational status: employed 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 (more content not included)... Normal [facility] Screening beta-hemolytic Str eptococcus cultureOrdered By: Kelly Ruffin on 01-10-2025 Beta-hemolytic Streptococcus culture Group B Beta Streptococcus is not isolated. [facility] Laboratory - Chemistry and C hemistry - challengeOrdered By: Joanna Antonio on 01-02-2025 Glucose Ql (U) Negative [facility] Laboratory - UrinalysisOrder ed By: Joanna Antonio on 01-02-2025 Protein Ql (U) Negative [facility] Audio Installer Office Visit Reporton 01-02-2025 Audio Installer Office Visit Report [facility] [address], [address] [place] [address] OFFICE VISIT Date of Service: 01/02/25 MR#: [id number] Acct: [id number] Name: SERRATOSWATI D Rep #: [id number] : 1990 Provider: Dr. 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 Normal [facility] Laboratory - Chemistry and C hemistry - challengeOrdered By: Tita Sinclair on 12-19-2024 Glucose Ql (U) Negative [facility] Laboratory - UrinalysisOrder ed By: Tita Sinclair on 12-19-2024 Protein Ql (U) Negative [facility] Audio Installer Office Visit Reporton 12-19-2024 Audio Installer Office Visit Report [facility] [address], [address] [place] [address] OFFICE VISIT Date of Service: 12/19/24 MR#: [id number] Acct: [id number] Name: SWATI SERRATO Rep #: [id number] : 1990 Provider: Dr. 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 Normal [facility] Laboratory - Chemistry and C hemistry - challengeOrdered By: Lizbeth Rojas on 12-05-2024 Glucose Ql (U) Negative [facility] Laboratory - UrinalysisOrder ed By: Lizbeth Rojas on 12-05-2024 Protein Ql (U) Negative [facility] Audio Installer Office Visit Reporton 12-05-2024 Audio Installer Office Visit Report [facility] Care [address] [place] [address], [address] [place] [address] OFFICE VISIT Date of Service: 12/05/24 MR#: [id number] Acct: [id number] Name: SWATI SERRATO Rep #: [id number] : 1990 Provider: KAY lambert Age/Sex: 33/F Location: [facility] [place] Status: Signed Intake Vital Signs 07/09/24 10:17 10/10/24 11:12 11/21/24 11:33 12/05/24 12:56 Height 5 ft 10 in 5 ft 10 in 5 ft 10 in 5 ft 10 in Weight: 252 lb 2 oz BMI 36.1 BP 106/72 Intake Visit Reasons: 31 wk ob Chief Complaint: 31 Week OB 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 Normal [facility] Laboratory - Chemistry and C hemistry - challengeOrdered By: Joanna Antonio on 11-21-2024 Glucose Ql (U) Negative [facility] Laboratory - UrinalysisOrder ed By: Joanna Antonio on 11-21-2024 Protein Ql (U) Trace [facility] Audio Installer Office Visit Reporton 11-21-2024 Audio Installer Office Visit Report [facility] Care [address] [place] [address], [address] [place] [address] OFFICE VISIT Date of Service: 11/21/24 MR#: [id number] Acct: [id number] Name: SWATI SERRATO Rep #: [id number] : 1990 Provider: Dr. 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 Normal [facility] Absolute lymphocyte countOrd ered By: Tita Sinclair on 11-06-2024 Lymphocytes Auto (Unsp spec) [#/Vol] 1.25 10*3/uL 0.83-4.51 [facility] Absolute neutrophil countOrd ered By: Tita Sinclair on 11-06-2024 Neutrophils (Bld) [#/Vol] 5.7 10*3/uL 2.0-7.7 [facility] Automated lymphocyte count a s percentage of total leukocytesOrdered By: Tita Sniclair on 11-06-2024 Lymphocytes/100 WBC Auto (Unsp spec) 16.8 % Low 19-41 [facility] Basophil percentageOrdered B y: Tita Sinclair on 11-06-2024 Basophils/100 WBC (Bld) 0.4 % 0-1 [facility] CBC W/Diff, Automatedon Absolute Lymph 1.25 X10 3/uL Normal 0.83-4.51 [facility] Comment on above: Performed By: #### L 501.0250, L3890.6006, L509.8002, L100.0100 ####[facility] [address] [place], [address] Absolute Neut 5.7 X10 3/uL Normal 2.0-7.7 [facility] Comment on above: Performed By: #### L 501.0250, L3890.6006, L509.8002, L100.0100 ####[facility] [address] [place], [address] Basophils/100 WBC (Bld) 0.4 % Normal 0-1 [facility] Comment on above: Performed By: #### L 501.0250, L3890.6006, L509.8002, L100.0100 ####[facility] [address] [place], [address] Eosinophils/100 WBC (Bld) 0.8 % Normal 0-5 [facility] Comment on above: Performed By: #### L 501.0250, L3890.6006, L509.8002, L100.0100 ####[facility] [address] [place], [address] Erythrocyte distribution width (RBC) [Ratio] 13.4 % Normal 11.6-14.6 [facility] Comment on above: Performed By: #### L 501.0250, L3890.6006, L509.8002, L100.0100 ####[facility] [address] [place], [address] Hematocrit (Bld) [Volume fraction] 33.1 % Low 37-47 [facility] Comment on above: Performed By: #### L 501.0250, L3890.6006, L509.8002, L100.0100 ####[facility] [address] [place], [address] Hemoglobin (Bld) [Mass/Vol] 11.0 g/dL Low 12.0-15.0 [facility] Comment on above: Performed By: #### L 501.0250, L3890.6006, L509.8002, L100.0100 ####[facility] [address] [place], [address] IG% 0.300 Normal 0.0-0.9 [facility] Comment on above: Result Comment: IG% - Immature Granulocytes (promyelocytes, myelocytes and metamyelocytes) > 1% indicates that a LEFT SHIFT is Present. Performed By: #### L 501.0250, L3890.6006, L509.8002, L100.0100 ####[facility] [address] [place], [address] Lymphocytes/100 WBC (Bld) 16.8 % Low 19-41 [facility] Comment on above: Performed By: #### L 501.0250, L3890.6006, L509.8002, L100.0100 ####[facility] [address] [place], [address] MCH (RBC) [Entitic mass] 30.3 pg Normal 27.0-32.0 [facility] Comment on above: Performed By: #### L 501.0250, L3890.6006, L509.8002, L100.0100 ####[facility] [address] [place], [address] MCHC (RBC) [Mass/Vol] 33.2 g/dL Normal 32-36 [facility] Comment on above: Performed By: #### L 501.0250, L3890.6006, L509.8002, L100.0100 ####[facility] [address] [place], [address] MCV (RBC) [Entitic vol] 91.2 fL Normal 81-99 [facility] Comment on above: Performed By: #### L 501.0250, L3890.6006, L509.8002, L100.0100 ####[facility] [address] [place], [address] Monocytes/100 WBC (Bld) 5.1 % Normal 0-10 [facility] Comment on above: Performed By: #### L 501.0250, L3890.6006, L509.8002, L100.0100 ####[facility] [address] [place], [address] Neutrophils/100 WBC (Bld) 76.6 % High 47-70 [facility] Comment on above: Performed By: #### L 501.0250, L3890.6006, L509.8002, L100.0100 ####[facility] [address] [place], [address] Nucleated RBC (Bld) [#/Vol] 0 10*3/uL Normal 0-5 [facility] Comment on above: Performed By: #### L 501.0250, L3890.6006, L509.8002, L100.0100 ####[facility] [address] [place], [address] Platelet mean volume (Bld) [Entitic vol] 11.4 fL Normal 6.2-12.0 [facility] Comment on above: Performed By: #### L 501.0250, L3890.6006, L509.8002, L100.0100 ####[facility] [facility] [address] [place], [address] Platelets (Bld) [#/Vol] 157 10*3/uL Normal 150-450 [facility] Comment on above: Performed By: #### L 501.0250, L3890.6006, L509.8002, L100.0100 ####[facility] [address] [place], [address] RBC (Bld) [#/Vol] 3.63 10*6/uL Low 4.2-5.4 [facility] Comment on above: Performed By: #### L 501.0250, L3890.6006, L509.8002, L100.0100 ####[facility] [address] [place], [address] RDW SD 44.6 fl High 35.1-43.9 [facility] Comment on above: Performed By: #### L 501.0250, L3890.6006, L509.8002, L100.0100 ####[facility] [address] [place], [address] WBC (Bld) [#/Vol] 7.4 10*3/uL Normal 4.4-11.0 [facility] Comment on above: Performed By: #### L 501.0250, L3890.6006, L509.8002, L100.0100 ####[facility] [address] [place], [place], [id number] Eosinophil percentageOrdered By: Tita Sinclair on 11-06-2024 Eosinophils/100 WBC (Bld) 0.8 % 0-5 [facility] Erythrocyte distribution wid th ratioOrdered By: Tita Sinclair on 11-06-2024 Erythrocyte distribution width (RBC) [Ratio] 13.4 % 11.6-14.6 [facility] Erythrocyte distribution wid th standard deviationOrdered By: Tita Sinclair on 11-06-2024 Erythrocyte distribution width (RBC) [Ratio] 44.6 fl High 35.1-43.9 [facility] Glucose Challenge Gest 1H 50 joseph 11-06-2024 GLU GEST 50g 1H 101 mg/dL Normal 70-140 [facility] Comment on above: Performed By: #### L 501.0250, L3890.6006, L509.8002, L100.0100 ####[facility] [address] [place], [place], [id number] Glucose measurement at 2 sultana rs post-dose gestational glucose tolerance testOrdered By: Tita Sinclair on 11-06-2024 Glucose [Mass/Vol] 101 mg/dL 70-140 [facility] HIVon 11-06-2024 HIV Non-Reactive Normal Nonreactive [facility] Comment on above: Result Comment: Non- Reactive Reactive Repeatedly reactive samples must be confirmed according to CDC recommended confirmatory algorithms. The subresults for either HIVAG or AHIV can be used as an aid in the selection of the confirmation algorithm for reactive samples. Send out specimens with Reactive results to [facility] for confirmation. Order the HIV antibody detection and differentiation: lc#[id number] Performed By: #### L 501.0250, L3890.6006, L509.8002, L100.0100 ####[facility] [address] [place], [address] Hematocrit Auto (Bld) [Volum e fraction]Ordered By: Tita Sinclair on 11-06-2024 Hematocrit (Bld) [Volume fraction] 33.1 % Low 37-47 [facility] Hemoglobin measurementOrdere d By: Tita Sinclair on 11-06-2024 Hemoglobin (Bld) [Mass/Vol] 11.0 g/dL Low 12.0-15.0 [facility] Immature granulocytes/100 WB C Auto (Bld)Ordered By: Tita Sinclair on 11-06-2024 Immature granulocytes/100 WBC (Bld) 0.300 % 0.0-0.9 [facility] Comment on above: IG% - Immature Granu locytes (promyelocytes, myelocytes and metamyelocytes) > 1% indicates that a LEFT SHIFT is Present. Laboratory - Chemistry and C hemistry - challengeOrdered By: Lizbeth Rojas on 11-06-2024 Glucose Ql (U) Negative [facility] Laboratory - UrinalysisOrder ed By: Lizbeth Rojas on 11-06-2024 Protein Ql (U) Negative [facility] MCV (mean corpuscular volume ) determinationOrdered By: Tita Sinclair on 11-06-2024 MCV (RBC) [Entitic vol] 91.2 fL 81-99 [facility] Mean corpuscular hemoglobin (MCH) determinationOrdered By: Tita Sinclair on 11-06-2024 MCH (RBC) [Entitic mass] 30.3 pg 27.0-32.0 [facility] Mean corpuscular hemoglobin concentration (MCHC) determinationOrdered By: Tita Sinclair on 11-06-2024 MCHC (RBC) [Mass/Vol] 33.2 g/dL 32-36 [facility] Mean platelet volume determi nationOrdered By: Tita Sinclair on 11-06-2024 Platelet mean volume (Bld) [Entitic vol] 11.4 fL 6.2-12.0 [facility] Monocyte percentageOrdered B y: Tita Sinclair on 11-06-2024 Monocytes/100 WBC (Bld) 5.1 % 0-10 [facility] Neutrophil percentageOrdered By: Tita Sinclair on 11-06-2024 Neutrophils/100 WBC (Bld) 76.6 % High 47-70 [facility] No Panel InformationOrdered By: Tita Sinclair on 11-06-2024 HIV (1&2) Antibody Non-Reactive Nonreactive [facility] Comment on above: Non-ReactiveReactive Repeatedly reactive samples must be confirmed according to CDC recommended confirmatory algorithms. The subresults for either HIVAG or AHIV can be used as an aid in the selection of the confirmation algorithm for reactive samples.Send out specimens with Reactive results to [facility] for confirmation.Order the HIV antibody detection and differentiation: #[id number] Nucleated red blood cell per centageOrdered By: Tita Sinclair on 11-06-2024 Nucleated RBC/100 WBC (Bld) [Ratio] 0 % 0-5 [facility] Audio Installer Office Visit Reporton 11-06-2024 Audio Installer Office Visit Report [facility] [address], [address] [place] [address] OFFICE VISIT Date of Service: 11/06/24 MR#: [id number] Acct: [id number] Name: SWATI SERRATO Agustín Rep #: [id number] : 1990 Provider: KAY lambert Age/Sex: 33/F Location: [facility] [place] Status: Signed Intake Vital Signs 07/09/24 10:17 08/07/24 10:15 09/10/24 13:44 10/10/24 11:12 11/06/24 13:27 Height 5 ft 10 in 5 ft 10 in 5 ft 10 in 5 ft 10 in 5 ft 10 in Weight: 246 lb BMI 35.3 BP 104/60 Intake Visit Reasons: 27 wk ob/glucose Chief Complaint: 27 Week OB [employer] General Supervisor Required: No Is patient in pain?: No [...] 1 current occupational status: employed 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 Normal [facility] Platelet countOrdered By: Stephany Sinclair on 11-06-2024 Platelets (Bld) [#/Vol] 157 10*3/uL 150-450 [facility] RBC Auto (Bld) [#/Vol]Ordere d By: Tita Sinclair on 11-06-2024 RBC (Bld) [#/Vol] 3.63 10*6/uL Low 4.2-5.4 [facility] Syphilis Antibodieson 2024 Syphilis Abs Non-Reactive Normal Nonreactive [facility] Comment on above: Performed By: #### L 501.0250, L3890.6006, L509.8002, L100.0100 ####[facility] [address] [place], [address] White blood cell (WBC) count Ordered By: Tita Sinclair on 11-06-2024 WBC (Bld) [#/Vol] 7.4 10*3/uL 4.4-11.0 [facility] Laboratory - Chemistry and C hemistry - challengeOrdered By: Tita Sinclair on 10-10-2024 Glucose Ql (U) Negative [facility] Laboratory - UrinalysisOrder ed By: Tita Sinclair on 10-10-2024 Protein Ql (U) Negative [facility] Audio Installer Office Visit Reporton 10-10-2024 Audio Installer Office Visit Report [address], [address] [place] [address] OFFICE VISIT Date of Service: 10/10/24 MR#: [id number] Acct: [id number] Name: SWATI SERRATO Rep #: [id number] : 1990 Provider: Dr. 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 (more content not included)... Normal [facility] OB Anatomy w/ Transvaginalon 09-19-2024 OB Anatomy w/ Transvaginal [facility] Imaging Services [address] [place] [address] OB Anatomy w/ Transvaginal MR#: [id number] Acct: [id number] Name: SWATI SERRATO Rep #: [id number] : 1990 F 33 From: Darnell Frank i, DO PCP: KAY Raman Status: REG CLI Study: OB Anatomy w/ Transvaginal Date of Exam: 09/19 Exam# [id number] Ordering Dr: Joanna Bhat DO PROCEDURE: ultrasound [...] CC: KAY Castellon; Dr. Joanna Bhat DO Resource Development Director: Signed Normal [facility] Laboratory - Chemistry and C hemistry - challengeOrdered By: Kelly Ruffin on 09-10-2024 Glucose Ql (U) Negative [facility] Laboratory - UrinalysisOrder ed By: Kelly Ruffin on 09-10-2024 Protein Ql (U) Negative [facility] Audio Installer Office Visit Reporton 09-10-2024 Audio Installer Office Visit Report [facility] [address], [address] [place] [address] OFFICE VISIT Date of Service: 09/10/24 MR#: [id number] Acct: [id number] Name: SWATI SERRATO Rep #: [id number] : 1990 Provider: TERESE Gomez ams Age/Sex: 33/F Location: [facility] [place] Status: Signed Intake [...] 1 current occupational status: employed 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 (more content not included)... Normal [facility] Absolute lymphocyte countOrd ered By: Joanna Marisela on 08-07-2024 Lymphocytes Auto (Unsp spec) [#/Vol] 1.15 10*3/uL 0.83-4.51 [facility] Absolute neutrophil countOrd ered By: Joanna Antonio on 08-07-2024 Neutrophils (Bld) [#/Vol] 3.5 10*3/uL 2.0-7.7 [facility] Automated lymphocyte count a s percentage of total leukocytesOrdered By: Joanna Antonio on 08-07-2024 Lymphocytes/100 WBC Auto (Unsp spec) 23.2 % 19-41 [facility] Basophil percentageOrdered B y: Joanna Marisela on 08-07-2024 Basophils/100 WBC (Bld) 0.2 % 0-1 [facility] CBC W/Diff, Automatedon 02- Absolute Lymph 1.15 X10 3/uL Normal 0.83-4.51 [facility] Comment on above: Performed By: #### L 501.9985, L100.0100, L3890.6005, L509.8000, L509.4005, L3890.6300, BTS, L3890.6100 ####[facility] [address] [place], [place], [id number] Absolute Neut 3.5 X10 3/uL Normal 2.0-7.7 [facility] Comment on above: Performed By: #### L 501.9985, L100.0100, L3890.6005, L509.8000, L509.4005, L3890.6300, BTS, L3890.6100 ####[facility] [address] [place], [address] Basophils/100 WBC (Bld) 0.2 % Normal 0-1 [facility] Comment on above: Performed By: #### L 501.9985, L100.0100, L3890.6005, L509.8000, L509.4005, L3890.6300, BTS, L3890.6100 ####[facility] [address] [place], [address] Eosinophils/100 WBC (Bld) 0.8 % Normal 0-5 [facility] Comment on above: Performed By: #### L 501.9985, L100.0100, L3890.6005, L509.8000, L509.4005, L3890.6300, BTS, L3890.6100 ####[facility] [address] [place], [address] Erythrocyte distribution width (RBC) [Ratio] 12.9 % Normal 11.6-14.6 [facility] Comment on above: Performed By: #### L 501.9985, L100.0100, L3890.6005, L509.8000, L509.4005, L3890.6300, BTS, L3890.6100 ####[facility] [address] [place], [address] Hematocrit (Bld) [Volume fraction] 36.8 % Low 37-47 [facility] Comment on above: Performed By: #### L 501.9985, L100.0100, L3890.6005, L509.8000, L509.4005, L3890.6300, BTS, L3890.6100 ####[facility] [address] [place], [address] Hemoglobin (Bld) [Mass/Vol] 12.1 g/dL Normal 12.0-15.0 [facility] Comment on above: Performed By: #### L 501.9985, L100.0100, L3890.6005, L509.8000, L509.4005, L3890.6300, BTS, L3890.6100 ####[facility] [address] [place], [address] IG% 0.400 Normal 0.0-0.9 [facility] Comment on above: Result Comment: IG% - Immature Granulocytes (promyelocytes, myelocytes and metamyelocytes) > 1% indicates that a LEFT SHIFT is Present. Performed By: #### L 501.9985, L100.0100, L3890.6005, L509.8000, L509.4005, L3890.6300, BTS, L3890.6100 ####[facility] [address] [place], [address] Lymphocytes/100 WBC (Bld) 23.2 % Normal 19-41 [facility] Comment on above: Performed By: #### L 501.9985, L100.0100, L3890.6005, L509.8000, L509.4005, L3890.6300, BTS, L3890.6100 ####[facility] [address] [place], [address] MCH (RBC) [Entitic mass] 29.2 pg Normal 27.0-32.0 [facility] Comment on above: Performed By: #### L 501.9985, L100.0100, L3890.6005, L509.8000, L509.4005, L3890.6300, BTS, L3890.6100 ####[facility] [address] [place], [address] MCHC (RBC) [Mass/Vol] 32.9 g/dL Normal 32-36 [facility] Comment on above: Performed By: #### L 501.9985, L100.0100, L3890.6005, L509.8000, L509.4005, L3890.6300, BTS, L3890.6100 ####[facility] [address] [place], [address] MCV (RBC) [Entitic vol] 88.7 fL Normal 81-99 [facility] Comment on above: Performed By: #### L 501.9985, L100.0100, L3890.6005, L509.8000, L509.4005, L3890.6300, BTS, L3890.6100 ####[facility] [address] [place], [address] Monocytes/100 WBC (Bld) 5.3 % Normal 0-10 [facility] Comment on above: Performed By: #### L 501.9985, L100.0100, L3890.6005, L509.8000, L509.4005, L3890.6300, BTS, L3890.6100 ####[facility] [address] [place], [address] Neutrophils/100 WBC (Bld) 70.1 % High 47-70 [facility] Comment on above: Performed By: #### L 501.9985, L100.0100, L3890.6005, L509.8000, L509.4005, L3890.6300, BTS, L3890.6100 ####[facility] [address] [place], [address] Nucleated RBC (Bld) [#/Vol] 0 10*3/uL Normal 0-5 [facility] Comment on above: Performed By: #### L 501.9985, L100.0100, L3890.6005, L509.8000, L509.4005, L3890.6300, BTS, L3890.6100 ####[facility] [address] [place], [address] Platelet mean volume (Bld) [Entitic vol] 11.9 fL Normal 6.2-12.0 [facility] Comment on above: Performed By: #### L 501.9985, L100.0100, L3890.6005, L509.8000, L509.4005, L3890.6300, BTS, L3890.6100 ####[facility] [address] [place], [address] Platelets (Bld) [#/Vol] 140 10*3/uL Low 150-450 [facility] Comment on above: Performed By: #### L 501.9985, L100.0100, L3890.6005, L509.8000, L509.4005, L3890.6300, BTS, L3890.6100 ####[facility] [address] [place], [address] RBC (Bld) [#/Vol] 4.15 10*6/uL Low 4.2-5.4 [facility] Comment on above: Performed By: #### L 501.9985, L100.0100, L3890.6005, L509.8000, L509.4005, L3890.6300, BTS, L3890.6100 ####[facility] [address] [place], [address] RDW SD 42.1 fl Normal 35.1-43.9 [facility] Comment on above: Performed By: #### L 501.9985, L100.0100, L3890.6005, L509.8000, L509.4005, L3890.6300, BTS, L3890.6100 ####[facility] [address] [place], [address] WBC (Bld) [#/Vol] 5.0 10*3/uL Normal 4.4-11.0 [facility] Comment on above: Performed By: #### L 501.9985, L100.0100, L3890.6005, L509.8000, L509.4005, L3890.6300, BTS, L3890.6100 ####[facility] [address] [place], [place], [address] Eosinophil percentageOrdered By: Joanna Antonio on 08-07-2024 Eosinophils/100 WBC (Bld) 0.8 % 0-5 [facility] Erythrocyte distribution wid th ratioOrdered By: Joanna Antonio on 08-07-2024 Erythrocyte distribution width (RBC) [Ratio] 12.9 % 11.6-14.6 [facility] Erythrocyte distribution wid th standard deviationOrdered By: Joanna Antonio on 08-07-2024 Erythrocyte distribution width (RBC) [Entitic vol] 42.1 fL 35.1-43.9 [facility] Erythrocyte distribution width (RBC) [Ratio] 42.1 fl 35.1-43.9 [facility] HIV - WCHon 08-07-2024 HIV Non-Reactive Normal Nonreactive [facility] Comment on above: Order Comment: Reaso n for Exam: Performed By: #### L 501.9985, L100.0100, L3890.6005, L509.8000, L509.4005, L3890.6300, BTS, L3890.6100 ####[facility] [address] [place], [place], [address] HIV 1 and HIV-2 antibody ass ay with HIV-1 p24 antigen detectionOrdered By: Joanna Antonio on 08-07-2024 HIV 1+2 Ab+HIV1 p24 Ag IA Ql Non-Reactive Nonreactive [facility] HIV 1+2 Ab+HIV1 p24 Ag IA Ql Ordered By: Joanna Antonio on 08-07-2024 HIV (1&2) Antibody Non-Reactive Nonreactive [facility] Hematocrit Auto (Bld) [Volum e fraction]Ordered By: Joanna Antonio on 08-07-2024 Hematocrit (Bld) [Volume fraction] 36.8 % Low 37-47 [facility] Hemoglobin A1con 08-07-2024 HbA1c (Bld) [Mass fraction] 4.7 % Normal 3.8-5.6 [facility] Comment on above: Result Comment: Norm al < 5.7 % Prediabetic 5.7 - 6.4 % Diabetic >or= 6.5 % Please note range changes. Performed By: #### L 501.9985, L100.0100, L3890.6005, L509.8000, L509.4005, L3890.6300, BTS, L3890.6100 ####[facility] [address] [place], [place], [address] Hemoglobin A1c percentageOrd ered By: Joanna Antonio on 08-07-2024 HbA1c (Bld) [Mass fraction] 4.7 % 3.8-5.6 [facility] Comment on above: Normal < 5.7 % Predi abetic 5.7 - 6.4 % Diabetic >or= 6.5 % Please note range changes. Hemoglobin measurementOrdere d By: Joanna Antonio on 08-07-2024 Hemoglobin (Bld) [Mass/Vol] 12.1 g/dL 12.0-15.0 [facility] Hepatitis B Surface Antigeno n 08-07-2024 HEP B Surf Ag Non-Reactive Normal Nonreactive [facility] Comment on above: Order Comment: Reaso n for Exam: Performed By: #### L 501.9985, L100.0100, L3890.6005, L509.8000, L509.4005, L3890.6300, BTS, L3890.6100 ####[facility] [address] [place], [place], [id number] Hepatitis B surface antigen detectionOrdered By: Joanna Antonio on 08-07-2024 Hepatitis B Surface Antigen Non-Reactive Nonreactive [facility] Hepatitis C Antibodyon 08-07 Hepatitis C AB Non-Reactive Normal Nonreactive [facility] Comment on above: Order Comment: Reaso n for Exam: Result Comment: Non Reactive: < 0.8 Equivocal: >/= 0.8 to < 1.0 Reactive: >/= 1.0 The CDC requires that a reactive/equivocal HCV antibody result be sent out for confirmation. HCV Quant by PCR testing. Performed By: #### L 501.9985, L100.0100, L3890.6005, L509.8000, L509.4005, L3890.6300, BTS, L3890.6100 ####[facility] [address] [place], [place], [address] Hepatitis C virus antibody a ssayOrdered By: Joanna Antonio on 08-07-2024 Hepatitis C Antibody Non-Reactive Nonreactive [facility] Comment on above: Non Reactive: < 0.8 Equivocal: >/= 0.8 to < 1.0 Reactive: >/= 1.0The CDC requires that a reactive/equivocal HCV antibody result be sent out for confirmation. HCV Quant by PCR testing. Immature granulocytes/100 WB C Auto (Bld)Ordered By: Joanna Antonio on 08-07-2024 Immature granulocytes/100 WBC (Bld) 0.400 % 0.0-0.9 [facility] Comment on above: IG% - Immature Granu locytes (promyelocytes, myelocytes and metamyelocytes) > 1% indicates that a LEFT SHIFT is Present. L509.8000on 08-07-2024 Syphilis Abs Non-Reactive Normal [facility] Comment on above: Order Comment: Reaso n for Exam: Performed By: #### L 501.9985, L100.0100, L3890.6005, L509.8000, L509.4005, L3890.6300, BTS, L3890.6100 ####[facility] [address] [place], [place], [id number] Laboratory - Chemistry and C hemistry - challengeOrdered By: Joanna Antonio on 08-07-2024 Glucose Ql (U) Negative [facility] Laboratory - UrinalysisOrder ed By: Joanna Antonio on 08-07-2024 Protein Ql (U) Negative [facility] Lymphocytes Auto (Unsp spec) [#/Vol]Ordered By: Joanna Antonio on 08-07-2024 Lymphocytes (Bld) [#/Vol] 1.15 10*3/uL 0.83-4.51 [facility] Lymphocytes/100 WBC Auto (Un sp spec)Ordered By: Joanna Antonio on 08-07-2024 Lymphocytes/100 WBC (Bld) 23.2 % 19-41 [facility] MCV (mean corpuscular volume ) determinationOrdered By: Joanna Antonio on 08-07-2024 MCV (RBC) [Entitic vol] 88.7 fL 81-99 [facility] Mean corpuscular hemoglobin (MCH) determinationOrdered By: Joanna Antonio on 08-07-2024 MCH (RBC) [Entitic mass] 29.2 pg 27.0-32.0 [facility] Mean corpuscular hemoglobin concentration (MCHC) determinationOrdered By: Joanna Antonio on 08-07-2024 MCHC (RBC) [Mass/Vol] 32.9 g/dL 32-36 [facility] Mean platelet volume determi nationOrdered By: Joanna Antonio on 08-07-2024 Platelet mean volume (Bld) [Entitic vol] 11.9 fL 6.2-12.0 [facility] Monocyte percentageOrdered B y: Joanna Antonio on 08-07-2024 Monocytes/100 WBC (Bld) 5.3 % 0-10 [facility] Neutrophil percentageOrdered By: Joanna Antonio on 08-07-2024 Neutrophils/100 WBC (Bld) 70.1 % High 47-70 [facility] Nucleated red blood cell per centageOrdered By: Joanna Antonio on 08-07-2024 Nucleated RBC/100 WBC (Bld) [Ratio] 0 % 0-5 [facility] Audio Installer Office Visit Reporton 08-07-2024 Audio Installer Office Visit Report [facility] [address], [address] [place] [address] OFFICE VISIT Date of Service: 08/07/24 MR#: [id number] Acct: [id number] Name: SERRATOBILL IRENEBETTY Randolph Rep #: [id number] : 1990 Provider: Dr. 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 Normal [facility] Platelet countOrdered By: Sabino Antonio on 08-07-2024 Platelets (Bld) [#/Vol] 140 10*3/uL Low 150-450 [facility] RBC Auto (Bld) [#/Vol]Ordere d By: Joanna Antonio on 08-07-2024 RBC (Bld) [#/Vol] 4.15 10*6/uL Low 4.2-5.4 [facility] Rubella IgGon 08-07-2024 Rubella IgG Reactive Normal Nonreactive [facility] Comment on above: Order Comment: Reaso n for Exam: Result Comment: Anti body Results Interpretation of Immune Status Non Reactive Presumed Non-Immune Equivocal Equivocal Reactive Presumed Immune Performed By: #### L 501.9985, L100.0100, L3890.6005, L509.8000, L509.4005, L3890.6300, BTS, L3890.6100 ####[facility] [address] [place], [place], [id number] Rubella immune status IgGOrd ered By: Joanna Antonio on 08-07-2024 Rubella IgG Antibody Reactive Nonreactive [facility] Comment on above: Antibody Results Int erpretation of Immune Status Non Reactive Presumed Non-Immune Equivocal Equivocal Reactive Presumed Immune Serum Treponema species anti body detectionOrdered By: Joanna Antonio on 08-07-2024 Treponema sp Ab Ql (S) Non-Reactive [facility] Treponema sp Ab Ql (S)Ordere d By: Joanna Antonio on 08-07-2024 Syphilis Total Antibody Non-Reactive [facility] Type AND Screenon 08-07-2024 ABO and Rh group Nom (Bld) Blood group A Rh(D) positive Normal [facility] Comment on above: Order Comment: PN Performed By: #### L 501.9985, L100.0100, L3890.6005, L509.8000, L509.4005, L3890.6300, BTS, L3890.6100 ####[facility] [address] [place], [place], [id number] White blood cell (WBC) count Ordered By: Joanna Antonio on 08-07-2024 WBC (Bld) [#/Vol] 5.0 10*3/uL 4.4-11.0 [facility] Chlamydia/GC ANGEL aptimaon CHLAMY,NUC ACID Negative Normal Negative [facility] Comment on above: Performed By: #### L 7400.0280, M100.2200, L7000.1800 #### [facility] [address] [place], [place], [address] GC BY NUC ACID Negative Normal Negative [facility] Comment on above: Result Comment: Perf ormed at: =G - [facility] [address] [place] [id number] Director Digital Sales: Indiana Porras MD, Phone: [phone] Performed By: #### L 7400.0280, M100.2200, L7000.1800 #### [facility] [address] [place], [address] PAP IG HPV APTIMA 16/18,45on 07-11-2024 ADEQ Comment Normal . [facility] Comment on above: Order Comment: Speci men Comment: [id number] Comment: Source.............CervixSpecimen Comment: LMP / Prev Treat...[id number] Comment: Other..............Specimen Comment: No. of containers..01 ThinPrep Vial Result Comment: Sati sfactory for evaluation. No endocervical component is identified. Performed By: #### L 7400.0280, M100.2200, L7000.1800 ####[facility] [address] [place], [address] COMM . Normal . [facility] Comment on above: Order Comment: Speci men Comment: [id number] Comment: Source.............CervixSpecimen Comment: LMP / Prev Treat...[id number] Comment: Other..............Specimen Comment: No. of containers..01 ThinPrep Vial Performed By: #### L 7400.0280, M100.2200, L7000.1800 ####[facility] [address] [place], [address] COMMENT Comment Normal . [facility] Comment on above: Order Comment: Speci men Comment: [id number] Comment: Source.............CervixSpecimen Comment: LMP / Prev Treat...[id number] Comment: Other..............Specimen Comment: No. of containers..01 ThinPrep Vial Result Comment: This liquid based ThinPrep(R) pap test was screened with the use of an image guided system. Performed By: #### L 7400.0280, M100.2200, L7000.1800 ####[facility] [address] [place], [place], [address] DIAG Comment Normal . [facility] Comment on above: Order Comment: Speci men Comment: [id number] Comment: Source.............CervixSpecimen Comment: LMP / Prev Treat...[id number]=[id number] Comment: Other..............Specimen Comment: No. of containers..01 ThinPrep Vial Result Comment: NEGA TIVE FOR INTRAEPITHELIAL LESION OR MALIGNANCY. Performed By: #### L 7400.0280, M100.2200, L7000.1800 ####[facility] [address] [place], [place], [phone] HPV APTIMA, HR Negative Normal Negative [facility] Comment on above: Order Comment: Speci men Comment: [id number] Comment: Source.............CervixSpecimen Comment: LMP / Prev Treat...[id number] Comment: Other..............Specimen Comment: No. of containers..01 ThinPrep Vial Result Comment: This nucleic acid amplification test detects fourteen high- risk HPV types (16,18,31,33,35,39,45,51,52,56,58,59,66,68) without differentiation. Performed By: #### L 7400.0280, M100.2200, L7000.1800 ####[facility] [address] [place], [place], [address] HPV Angelica Rfx Comment Normal . [facility] Comment on above: Order Comment: Speci men Comment: [id number] Comment: Source.............CervixSpecimen Comment: LMP / Prev Treat...[id number] Comment: Other..............Specimen Comment: No. of containers..01 ThinPrep Vial Result Comment: Crit eria not met, HPV Genotype not performed. Performed at: [facility] [address] [address] [place], [place] [id number] Director Digital Sales: Jose L Camargo MD, Phone: [phone] Performed at: - [address] [id number] Director Digital Sales: Indiana Porras MD, Phone: [phone] Performed at: = - [address] [id number] Director Digital Sales: Indiana Porras MD, Phone: [phone] Performed By: #### L 7400.0280, M100.2200, L7000.1800 ####[facility] [address] [place], [place], [phone] PAPSMR Comment Normal . [facility] Comment on above: Order Comment: Speci men Comment: [id number] Comment: Source.............CervixSpecimen Comment: LMP / Prev Treat...[id number] Comment: Other..............Specimen Comment: No. of containers..01 ThinPrep [...] Performed By: #### L 7400.0280, M100.2200, L7000.1800 ####[facility] [address] [place], [address] PERFORM Comment Normal . [facility] Comment on above: Order Comment: Speci men Comment: [id number] Comment: Source.............CervixSpecimen Comment: LMP / Prev Treat...[id number] Comment: Other..............Specimen Comment: No. of containers..01 ThinPrep Vial Result Comment: Fausto Ruffin Construction Accountant (ASCP) Performed By: #### L 7400.0280, M100.2200, L7000.1800 ####[facility] [address] [place], [address] Urine Cultureon 07-10-2024 URC Culture exhibits no growth. Normal [facility] Comment on above: Performed By: #### L 7400.0280, M100.2200, L7000.1800 #### [facility] [address] [place], [address] C. trachomatis rRNA ANGEL+prob e Ql (Unsp spec)Ordered By: Joanna Antonio on 07-09-2024 Chlamydia DNA (ANGEL) Negative Negative [facility] Editor Continuity And Script Cyto stain Nom (C vx/Vag) [ID]Ordered By: Joanna Antonio on 07-09-2024 Pap Smear Performed By Comment . [facility] Comment on above: Masood Olson totechnologist (ASCP) Cytology report Cyto stain D oc (Cvx/Vag)Ordered By: Joanna Antonio on 07-09-2024 Thin Prep Pap Smear Comment . [facility] Comment on above: The Pap smear is a s creening test designed to aid in thedetection of premalignant and malignant conditions of theuterine cervix. It is not a diagnostic procedure andshould not be used as the sole means of detecting cervicalcancer. Both false-positive and false-negative reports dooccur. Cytology report Cyto stain.t hin prep Doc (Cvx/Vag)Ordered By: Joanna Antoino on 07-09-2024 HPV Genotype Special Info Comment . [facility] Comment on above: Criteria not met, HP V Genotype not performed.Performed at: [facility] [address] [place], [place] [id number] Director: Jose L Camargo MD, Phone: [phone] at: [address] [id number] Director: Indiana Porras MD, Phone: [phone] at: [facility] [address] [id number] Director: Indiana Porras MD, Phone: [phone] HPV 16+18+31+33+35+39+45+51+ 52+56+58+59+66+68 DNA Probe+sig amp Ql (Cvx)Ordered By: Joanna Antonio on 07-09-2024 Human Papillomavirus High Risk Negative Negative [facility] Comment on above: This nucleic acid am plification test detects fourteen high- risk HPV types (16,18,31,33,35,39,45,51,52,56,58,59,66,68)without differentiation. Image-guided ThinPrep PapOrd ered By: Joanna Antonio on 07-09-2024 Pap Smear Note Comment . [facility] Comment on above: This liquid based Th inPrep(R) pap test was screened withthe use of an image guided system. Image-guided liquid-based Pa pOrdered By: Joanna Antonio on 07-09-2024 Pap Smear Diagnosis Comment . [facility] Comment on above: NEGATIVE FOR INTRAEP ITHELIAL LESION OR MALIGNANCY. Neisseria gonorrhoeae nuclei c acid detection by amplified probe techniqueOrdered By: Joanna Antonio on 07-09-2024 N. gonorrhoeae DNA ANGEL+probe Ql (Unsp spec) Negative Negative [facility] Comment on above: Performed at: =[facility] - [address] [place] [id number] Director: Indiana Porras MD, Phone: [phone] Audio Installer Office Visit Reporton 07-09-2024 Audio Installer Office Visit Report [facility] [address] [place] [address], [address] [place] [address] OFFICE VISIT Date of Service: 07/09/24 MR#: [id number] Acct: [id number] Name: SWATI SERRATO Rep #: [id number] : 1990 Provider: Dr. 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 OB Visit NLEIA Calculator Estimated Delivery Date Method Current WG [...] Genetic Screening (more content not included)... Normal [facility] Service comment (Unsp spec) [Interp]Ordered By: Joanna Antonio on 07-09-2024 Pap Smear Comment (3) . . [facility] Urine cultureOrdered By: Jennifer Antonio on 01-06-2025 Bacteria identified Cx Nom (U) Culture exhibits no growth. [facility] Chest 1 Viewon 06-18-2024 Chest 1 View [facility] [address] [place] [address] Chest 1 View MR#: [id number] Acct: [id number] Name: SWATI SERRATO Rep #: [id number] : 1990 F 33 From: Anirudh joshi MD PCP: KAY Raman Status: REG AMB Study: Chest 1 View Date of Exam: 06/18/24 Exam# [id number] Ordering Dr: Hayes Salazar [id number] STUDY: X-RAY CHEST REASON FOR EXAM: Female, 33 years old. cough. LLL rales TECHNIQUE: Single AP portable view of the chest. COMPARISON: None. FINDINGS: Left upper lobe infiltrate. There is no demonstrated pleural abnormality. Normal size heart. Normal mediastinum and tory. Normal visualized pulmonary arteries. Normal visualized aortic arch and descending thoracic aorta. Normal visualized thoracic spine. Normal visualized ribs, clavicles, and shoulders. There is no demonstrated abnormality of the visualized soft tissue structures of the upper abdomen. RAD/Chest 1 View IMPRESSION: Left upper lobe infiltrate. Electronically Signed: Anirudh Amin MD at 12:32 EST , CC: KAY Castellon; CODY Luevano Resource Development Director: Signed Normal [facility] Laboratory - Microbiology an d Antimicrobial susceptibilityon 06-18-2024 SARS-CoV-2 (COVID-19) RNA ANGEL+probe Ql (Unsp spec) Not detected [facility] No Panel Informationon 06-18 Influenza Types A,B Rapid (Clinic) Negative [facility] Office Visit Reporton 2023 Office Visit Report [facility] [address] [place] [address] OFFICE VISIT Date of Service: 06/18/24 MR#: [id number] Acct: [id number] Patient: SWATI SERRATO Rep #: [id number] : 1990 Provider: CODY Luevano Age/Sex: 33/F Location: [facility] Status: Signed Intake Vital Signs 02/28/23 09:43 [...] Cosigner Signature: Date (if applicable) CC: Normal [facility] Director Clinical Information Services Cytology Reporton 2017 Director Clinical Information Services Cytology Report . Pathology ReportsAccession: Collected Date/Time: Received Date/Time: Pathologist:[id number] 07/19/2017 11:56 EST 07/20/2017 18:00 EST Director Clinical Information Services Cytology ReportSPECIMEN:Specimen Description: Liquid Prep Reflex ASCUSSpecimen: CervicalScreening or Diagnostic: ScreeningRELEVANT HISTORY:LMP: Not [id number] ADEQUACY:SATISFACTORY FOR EVALUATIONENDOCERVICAL/TR ANSFORMATIONAL ZONE COMPONENT PRESENTINTERPRETATION/RES ULTS:NEGATIVE FOR INTRAEPITHELIAL LESION OR MALIGNANCYElectronically Signed byPathology report verified by [facility] Centercreened by: EVEElectronically signed by Yvonne GAY ([facility])Sign-Out Date: 07/27/2017 12:54Performing Lab: [address]DisclaimerThe Pap test is a screening test for cervical cancer. As evidenced by published data, it is subject to both inherent false negative and false positive results. Your patient's results should be interpreted in context with pertinent clinical history including gynecological examination. Normal [facility] ([place]) Comment on above: Performed By: #### G YCR ####[place] [address] Vital Signs Date Time Vital Sign Value Performing Clinician Gordon glass 02-12-2025 14:42-0400 Body height 177.8 cm Padmini VILLANUEVA Work Phone: [facility] 02-12-2025 14:42-0400 Body mass index (BMI) [Ratio] 36.9 kg/m2 Padmini Castellon CLIENT SERVICES REPRESENTATIVE-C Work Phone: [facility] 02-12-2025 14:42-0400 Body weight 116.71 kg Padmiin Castellon CLIENT SERVICES REPRESENTATIVE-C Work Phone: [facility] 02-12-2025 14:42-0400 Diastolic blood pressure 78 mm[Hg] Padmini Castellon CLIENT SERVICES REPRESENTATIVE-C Work Phone: [facility] 02-12-2025 14:42-0400 Systolic blood pressure 120 mm[Hg] Padmini Castellon CLIENT SERVICES REPRESENTATIVE-C Work Phone: [facility] 02-06-2025 10:00-0400 Body height 177.8 cm Padmini Castellon CLIENT SERVICES REPRESENTATIVE-C Work Phone: [facility] 02-06-2025 10:00-0400 Body mass index (BMI) [Ratio] 36.8 kg/m2 Padmini Castellon CLIENT SERVICES REPRESENTATIVE-C Work Phone: [facility] 02-06-2025 10:00-0400 Body weight 116.31 kg Padmini Castellon CLIENT SERVICES REPRESENTATIVE-C Work Phone: [facility] 02-06-2025 10:00-0400 Diastolic blood pressure 75 mm[Hg] Padmini Castellon CLIENT SERVICES REPRESENTATIVE-C Work Phone: [facility] 02-06-2025 10:00-0400 Systolic blood pressure 113 mm[Hg] Padmini Castellon CLIENT SERVICES REPRESENTATIVE-C Work Phone: [facility] 01-30-2025 10:23-0400 Body height 177.8 cm Padmini Castellon CLIENT SERVICES REPRESENTATIVE-C Work Phone: [facility] 01-30-2025 10:22-0400 Body mass index (BMI) [Ratio] 36.6 kg/m2 Padmini Castellon CLIENT SERVICES REPRESENTATIVE-C Work Phone: [facility] 01-30-2025 10:22-0400 Body weight 115.89 kg Padmini Castellno CLIENT SERVICES REPRESENTATIVE-C Work Phone: [facility] 01-30-2025 10:22-0400 Diastolic blood pressure 81 mm[Hg] Padmini Castellon CLIENT SERVICES REPRESENTATIVE-C Work Phone: [facility] 01-30-2025 10:22-0400 Systolic blood pressure 113 mm[Hg] Padmini Castellon CLIENT SERVICES REPRESENTATIVE-C Work Phone: [facility] 01-24-2025 09:53-0400 Body height 177.8 cm Padmini Castellon CLIENT SERVICES REPRESENTATIVE-C Work Phone: [facility] 01-24-2025 09:53-0400 Body mass index (BMI) [Ratio] 37 kg/m2 Padmini Castellon CLIENT SERVICES REPRESENTATIVE-C Work Phone: [facility] 01-24-2025 09:53-0400 Body weight 117.02 kg Padmini Castellon CLIENT SERVICES REPRESENTATIVE-C Work Phone: [facility] 01-24-2025 09:53-0400 Diastolic blood pressure 69 mm[Hg] Padmini Castellon CLIENT SERVICES REPRESENTATIVE-C Work Phone: [facility] 01-24-2025 09:53-0400 Systolic blood pressure 101 mm[Hg] Padmini Castellon CLIENT SERVICES REPRESENTATIVE-C Work Phone: [facility] 01-17-2025 13:30-0400 Body height 177.8 cm Padmini Castellon CLIENT SERVICES REPRESENTATIVE-C Work Phone: [facility] 01-17-2025 13:30-0400 Body mass index (BMI) [Ratio] 36.6 kg/m2 Padmini Castellon CLIENT SERVICES REPRESENTATIVE-C Work Phone: [facility] 01-17-2025 13:30-0400 Body weight 115.77 kg Padmiin Castellon CLIENT SERVICES REPRESENTATIVE-C Work Phone: [facility] 01-17-2025 13:30-0400 Diastolic blood pressure 79 mm[Hg] Padmini Castellon CLIENT SERVICES REPRESENTATIVE-C Work Phone: [facility] 01-17-2025 13:30-0400 Systolic blood pressure 113 mm[Hg] Padmini Castellon CLIENT SERVICES REPRESENTATIVE-C Work Phone: [facility] 01-10-2025 14:05-0400 Body height 177.8 cm Padmini Castellon CLIENT SERVICES REPRESENTATIVE-C Work Phone: [facility] 01-10-2025 14:05-0400 Body mass index (BMI) [Ratio] 37.2 kg/m2 Padmini Castellon CLIENT SERVICES REPRESENTATIVE-C Work Phone: [facility] 01-10-2025 14:05-0400 Body weight 117.7 kg Padmini Casteloln CLIENT SERVICES REPRESENTATIVE-C Work Phone: [facility] 01-10-2025 14:05-0400 Diastolic blood pressure 75 mm[Hg] Padmini Castellon CLIENT SERVICES REPRESENTATIVE-C Work Phone: [facility] 01-10-2025 14:05-0400 Systolic blood pressure 112 mm[Hg] Padmini Alfordson CLIENT SERVICES REPRESENTATIVE-C Work Phone: [facility] 01-02-2025 11:31-0400 Body height 177.8 cm Padminimary Castellon CLIENT SERVICES REPRESENTATIVE-C Work Phone: [facility] 01-02-2025 11:31-0400 Body mass index (BMI) [Ratio] 36.4 kg/m2 Padmini Castellon CLIENT SERVICES REPRESENTATIVE-C Work Phone: [facility] 01-02-2025 11:31-0400 Body weight 115.21 kg Padmini Castellon CLIENT SERVICES REPRESENTATIVE-C Work Phone: [facility] 01-02-2025 11:31-0400 Diastolic blood pressure 77 mm[Hg] Padmini Lorchelsi CLIENT SERVICES REPRESENTATIVE-C Work Phone: [facility] 01-02-2025 11:31-0400 Systolic blood pressure 115 mm[Hg] Padmini Lorson CLIENT SERVICES REPRESENTATIVE-C Work Phone: [facility] 12-19-2024 10:56-0400 Body height 177.8 cm Padminimary Castellon CLIENT SERVICES REPRESENTATIVE-C Work Phone: [facility] 12-19-2024 10:56-0400 Body mass index (BMI) [Ratio] 35.6 kg/m2 Padmini Castellon CLIENT SERVICES REPRESENTATIVE-C Work Phone: [facility] 12-19-2024 10:56-0400 Body weight 112.6 kg Padmini Castellon CLIENT SERVICES REPRESENTATIVE-C Work Phone: [facility] 12-19-2024 10:56-0400 Diastolic blood pressure 66 mm[Hg] Padmini Castellon CLIENT SERVICES REPRESENTATIVE-C Work Phone: [facility] 12-19-2024 10:56-0400 Systolic blood pressure 98 mm[Hg] Padmini Castellon CLIENT SERVICES REPRESENTATIVE-C Work Phone: [facility] 12-05-2024 12:56-0400 Body height 177.8 cm Padmini Castellon CLIENT SERVICES REPRESENTATIVE-C Work Phone: [facility] 12-05-2024 12:56-0400 Body mass index (BMI) [Ratio] 36.1 kg/m2 Padmini Castellon CLIENT SERVICES REPRESENTATIVE-C Work Phone: [facility] 12-05-2024 12:56-0400 Body weight 114.36 kg Padmini Castellon CLIENT SERVICES REPRESENTATIVE-C Work Phone: [facility] 12-05-2024 12:56-0400 Diastolic blood pressure 72 mm[Hg] Padmini Castellon CLIENT SERVICES REPRESENTATIVE-C Work Phone: [facility] 12-05-2024 12:56-0400 Systolic blood pressure 106 mm[Hg] Padmini Castellon CLIENT SERVICES REPRESENTATIVE-C Work Phone: [facility] 11-21-2024 11:33-0400 Body height 177.8 cm Padmini Castellon CLIENT SERVICES REPRESENTATIVE-C Work Phone: [facility] 11-21-2024 11:33-0400 Body mass index (BMI) [Ratio] 35.4 kg/m2 Padmini Castellon CLIENT SERVICES REPRESENTATIVE-C Work Phone: [facility] 11-21-2024 11:33-0400 Body weight 112.09 kg Padmini Castellon CLIENT SERVICES REPRESENTATIVE-C Work Phone: [facility] 11-06-2024 13:27-0400 Body height 177.8 cm Padminimary Castellon CLIENT SERVICES REPRESENTATIVE-C Work Phone: [facility] 11-06-2024 13:27-0400 Body mass index (BMI) [Ratio] 35.3 kg/m2 Padminimary Castellon CLIENT SERVICES REPRESENTATIVE-C Work Phone: [facility] 11-06-2024 13:27-0400 Body weight 111.58 kg Padminimary Castellon CLIENT SERVICES REPRESENTATIVE-C Work Phone: [facility] 11-06-2024 13:27-0400 Diastolic blood pressure 60 mm[Hg] Padmini Lorson CLIENT SERVICES REPRESENTATIVE-C Work Phone: [facility] 11-06-2024 13:27-0400 Systolic blood pressure 104 mm[Hg] Padmini Lorson CLIENT SERVICES REPRESENTATIVE-C Work Phone: [facility] 10-10-2024 11:12-0400 Body mass index (BMI) [Ratio] 34.4 kg/m2 Padminimary Castellon CLIENT SERVICES REPRESENTATIVE-C Work Phone: [facility] 10-10-2024 11:12-0400 Body weight 109.08 kg Padminimary Castellon CLIENT SERVICES REPRESENTATIVE-C Work Phone: [facility] 10-10-2024 11:12-0400 Diastolic blood pressure 61 mm[Hg] Padminimary Castellon CLIENT SERVICES REPRESENTATIVE-C Work Phone: [facility] 10-10-2024 11:12-0400 Systolic blood pressure 104 mm[Hg] Padmini Castellon CLIENT SERVICES REPRESENTATIVE-C Work Phone: [facility] 09-10-2024 13:44-0400 Body height 177.8 cm Padmini Castellon CLIENT SERVICES REPRESENTATIVE-C Work Phone: [facility] 09-10-2024 13:44-0400 Body mass index (BMI) [Ratio] 34.3 kg/m2 Padmini Castellon CLIENT SERVICES REPRESENTATIVE-C Work Phone: [facility] 09-10-2024 13:44-0400 Body weight 108.63 kg Padmini Castellon CLIENT SERVICES REPRESENTATIVE-C Work Phone: [facility] 09-10-2024 13:44-0400 Diastolic blood pressure 66 mm[Hg] Padmini aCstellon CLIENT SERVICES REPRESENTATIVE-C Work Phone: [facility] 09-10-2024 13:44-0400 Systolic blood pressure 103 mm[Hg] Padminimary Castellon CLIENT SERVICES REPRESENTATIVE-C Work Phone: [facility] 08-07-2024 10:13-0500 Body mass index (BMI) [Ratio] 33.2 kg/m2 Padmini Castellon CLIENT SERVICES REPRESENTATIVE-C Work Phone: [facility] 08-07-2024 10:13-0500 Body weight 104.94 kg Padmini Castellon CLIENT SERVICES REPRESENTATIVE-C Work Phone: [facility] 08-07-2024 10:13-0500 Diastolic blood pressure 49 mm[Hg] Padmini Castellon CLIENT SERVICES REPRESENTATIVE-C Work Phone: [facility] 08-07-2024 10:13-0500 Systolic blood pressure 103 mm[Hg] Padmini Castellon CLIENT SERVICES REPRESENTATIVE-C Work Phone: [facility] 07-09-2024 10:17-0500 Body mass index (BMI) [Ratio] 33.7 kg/m2 Padmini Castellon CLIENT SERVICES REPRESENTATIVE-C Work Phone: [facility] 07-09-2024 10:17-0500 Body weight 106.76 kg Padmini Castellon CLIENT SERVICES REPRESENTATIVE-C Work Phone: [facility] 07-09-2024 10:17-0500 Diastolic blood pressure 68 mm[Hg] Padmini Castellon CLIENT SERVICES REPRESENTATIVE-C Work Phone: [facility] 07-09-2024 10:17-0500 Systolic blood pressure 108 mm[Hg] Padmini Castellon CLIENT SERVICES REPRESENTATIVE-C Work Phone: [facility] 06-18-2024 12:21-0500 Body mass index (BMI) [Ratio] 33.8 kg/m2 Padmini Castellon CLIENT SERVICES REPRESENTATIVE-C Work Phone: [facility] 06-18-2024 12:21-0500 Body temperature 98.5 [degF] Padmini Santiago CLIENT SERVICES REPRESENTATIVE-C Work Phone: [facility] 06-18-2024 12:21-0500 Body weight 107.04 kg Padmini Castellon CLIENT SERVICES REPRESENTATIVE-C Work Phone: [facility] 06-18-2024 12:21-0500 Diastolic blood pressure 78 mm[Hg] Padmini Castellon CLIENT SERVICES REPRESENTATIVE-C Work Phone: [facility] 06-18-2024 12:21-0500 Heart rate 95 /min Padmini Santiago CLIENT SERVICES REPRESENTATIVE-C Work Phone: [facility] 06-18-2024 12:21-0500 SaO2% (BldA) [Mass fraction] 96 % Padmini Santiago CLIENT SERVICES REPRESENTATIVE-C Work Phone: [facility] 06-18-2024 12:21-0500 Systolic blood pressure 113 mm[Hg] Padmini Santiago CLIENT SERVICES REPRESENTATIVE-C Work Phone: [facility] Encounters Encounter Date Encounter Type Care Provider Facility Start: 02-12-2025 ambulatory Padmini Castellon Facility :[facility] Start: 02-12-2025 End: 02-12-2025 ambulatory Padmini Castellon CLIENT SERVICES REPRESENTATIVE-C Work Phone: -[facility] Start: 02-12-2025 End: 02-12-[address] Tita Sinclair MD -[facility] Work Phone: Start: 02-06-2025 End: 02-06-2025 Patient encounter procedure Kelly Ruffin CNM -[facility] Work Phone: Start: 02-06-2025 End: 02-06-2025 ambulatory Padmini Castellon CLIENT SERVICES REPRESENTATIVE-C Work Phone: -[facility] Start: 01-30-2025 End: 01-30-[address] Joanna Baht DO -[facility] Work Phone: Start: 01-30-2025 End: 01-30-2025 ambulatory Padmini Castellon CLIENT SERVICES REPRESENTATIVE-C Work Phone: -[facility] Start: 01-24-2025 End: 01-24-[address] Tita Sinclair MD -[facility] Work Phone: Start: 01-24-2025 End: 01-24-2025 ambulatory Padmini Castellon CLIENT SERVICES REPRESENTATIVE-C Work Phone: -[facility] Start: 01-17-2025 End: 01-17-[address] Joanna Bhat DO -[facility] Work Phone: Start: 01-17-2025 End: 01-17-2025 ambulatory Padmini Castellon CLIENT SERVICES REPRESENTATIVE-C Work Phone: [facility] Start: 01-10-2025 End: 01-10-2025 ambulatory Padmini Castellon CLIENT SERVICES REPRESENTATIVE-C Work Phone: -[facility] Start: 01-10-2025 End: 01-10-2025 Patient encounter procedure Kelly POSADA -[facility] Work Phone: Start: 01-10-2025 End: 01-10-2025 Patient encounter procedure Kelly POSADA -[facility] Work Phone: Start: 01-10-2025 End: 01-10-2025 ambulatory Padmini Castellon CLIENT SERVICES REPRESENTATIVE-C Work Phone: -[facility] Start: 01-10-2025 End: 01-10-2025 ambulatory Padmini Castellon Facility:[facility] Start: 01-02-2025 End: 01-02-[address] Joanna Bhat DO -[facility] Work Phone: Start: 01-02-2025 End: 01-02-2025 ambulatory Padmini Castellon CLIENT SERVICES REPRESENTATIVE-C Work Phone: -[facility] Start: 12-19-2024 End: 12-19-[address] Tita Sinclair MD -[facility] Work Phone: Start: 12-19-2024 End: 12-19-2024 ambulatory Padmini Castellon CLIENT SERVICES REPRESENTATIVE-C Work Phone: [facility] Work Phone: Start: 12-05-2024 End: 12-05-2024 Patient encounter procedure Lizbeth Crystal CLIENT SERVICES REPRESENTATIVE-C -[facility] Work Phone: Start: 12-05-2024 End: 12-05-2024 ambulatory Padmini Castellon CLIENT SERVICES REPRESENTATIVE-C Work Phone: [facility] Work Phone: Start: 11-21-2024 End: 11-21-[address] Joanna Bhat DO -[facility] Work Phone: Start: 11-21-2024 End: 11-21-2024 ambulatory Padmini Castellon CLIENT SERVICES REPRESENTATIVE-C Work Phone: [facility] Work Phone: Start: 11-06-2024 End: 11-06-2024 Patient encounter procedure Lizbeth Crystal CLIENT SERVICES REPRESENTATIVE-C -[facility] Work Phone: Start: 11-06-2024 End: 11-06-2024 ambulatory Padmini Castellon CLIENT SERVICES REPRESENTATIVE-C Work Phone: [facility] Work Phone: Start: 11-06-2024 End: 11-06-2024 ambulatory Padmini Castellon Facility:[facility] Start: 10-10-2024 End: 10-10-[address] Tita Sinclair MD -[facility] Work Phone: Start: 10-10-2024 End: 10-10-2024 ambulatory Padmini Castellon [place] Start: 09-19-2024 End: 09-19-2024 ambulatory Padmini Castellon CLIENT SERVICES REPRESENTATIVE-C Work Phone: [facility] Work Phone: Start: 09-19-2024 End: 09-19-[address] Joanna Bhat DO -[facility] Work Phone: Start: 09-19-2024 End: 09-19-2024 ambulatory Joanna Bhat Facility:[facility] Start: 09-10-2024 End: 09-10-2024 Patient encounter procedure Kelly Ruffin CNM -[facility] Work Phone: Start: 09-10-2024 End: 09-10-2024 ambulatory Padmini Castellon Facility:[facility] Start: 08-07-2024 End: 08-07-[address] Joanna Bhat DO -[facility] Work Phone: Start: 08-07-2024 End: 08-07-2024 ambulatory Joanna Bhat Facility:[facility] Start: 08-07-2024 End: 08-07-2024 ambulatory Joanna Bhat Facility:[facility] Start: 07-09-2024 End: 07-09-[address] Joanna Bhat DO -Laboratory, Specimen Work Phone: Start: 07-09-2024 End: 07-09-[address] Joanna Bhat DO -[facility] Work Phone: Start: 07-09-2024 End: 07-09-2024 ambulatory Joanna Bhat Facility:[facility] Start: 07-09-2024 End: 07-09-2024 ambulatory Joanna Bhat Facility:[facility] Start: 07-03-2024 Non-patient / Non-visit Pita Lizama RN -[facility] Work Phone: Start: 07-03-2024 ambulatory Pita Lizama Facility :[facility] Start: 06-18-2024 End: 06-18-[address] Rafael Marcus MD -[facility] Work Phone: Start: 06-18-2024 End: 06-18-2024 ambulatory Padmini Castellon Facility:[facility] Start: 07-19-2017 End: 07-24-2017 Ambulatory PADMINI CASTELLON Facility:[facility] Procedures Date Procedure Procedure Detail Performing Clinician Start: 01-10-2025 Beta-hemolytic Strep tococcus culture Padmini Castellon CLIENT SERVICES REPRESENTATIVE-C Work Phone: Start: 11-06-2024 Serologic test for syphilis Padmini Castellon CLIENT SERVICES REPRESENTATIVE-C Work Phone: Start: 09-19-2024 Ultrasonography in f irst trimester Padmini Castellon CLIENT SERVICES REPRESENTATIVE-C Work Phone: Start: 08-07-2024 Hepatitis B surface antigen measurement Padmini Castellon CLIENT SERVICES REPRESENTATIVE-C Work Phone: Start: 08-07-2024 Hepatitis C antibody measurement Padmini Castellon CLIENT SERVICES REPRESENTATIVE-C Work Phone: Comment on above: Non Reactive: < 0.8 Equivocal: >/= 0.8 to < 1.0 Reactive: >/= 1.0The CDC requires that a reactive/equivocal HCV antibody result be sent out for confirmation. HCV Quant by PCR testing. Start: 08-07-2024 Rubella IgG measurement Padmini Castellon CLIENT SERVICES REPRESENTATIVE-C Work Phone: Comment on above: Antibody Results Int erpretation of Immune Status Non Reactive Presumed Non-Immune Equivocal Equivocal Reactive Presumed Immune Start: 07-09-2024 Urine culture Padmini Nathaniel reddy CLIENT SERVICES REPRESENTATIVE-C Work Phone: Start: 06-18-2024 Plain chest X-ray Lisette Castellon CLIENT SERVICES REPRESENTATIVE-C Work Phone: Plan of Treatment Date Care Activity Detail Author Streptococcus agalac tiae [Presence] in Unspecified specimen by Organism specific culture [facility] Ultrasound scan for growth [facility] Payers Date Payer Category Payer Self-pay [id number] [id number] Self-pay 2017 Unknown [id number] Unknown [id number] Unknown [id number] 2.16.8 [id number] Unknown [id number] 2.16.8 40.1.333161.3.579.2.462 Unknown [id number] 2.16.8 40.1.706138.3.579.2.462 Unknown [id number] 2.16.8 40.1.887186.3.579.2.462 Unknown [id number] 2.16.8 40.1.645283.3.579.2.462 Unknown [id number] 2.16.8 40.1.957812.3.579.2.462 Unknown [id number] 2.16.8 40.1.157118.3.579.2.462 Unknown [id number] 2.16.8 40.1.373225.3.579.2.462 Unknown [id number] 2.16.8 40.1.024371.3.579.2.462 Unknown [id number] 2.16.8 40.1.708052.3.579.2.462 Unknown [id number] 2.16.8 40.1.040914.3.579.2.462 Unknown [id number] 2.16.8 40.1.416110.3.579.2.462 Unknown [id number] 2.16.8 40.1.872516.3.579.2.462 Unknown [id number] 2.16.8 40.1.303152.3.579.2.462 Unknown [id number] 2.16.8 40.1.474650.3.579.2.462 Unknown [id number] 2.16.8 40.1.150394.3.579.2.462 Unknown [id number] 2.16.8 40.1.040046.3.579.2.462 Unknown [id number] 2.16.8 40.1.675631.3.579.2.462 Unknown [id number] 2.16.8 40.1.768038.3.579.2.462 Unknown [id number] 2.16.8 40.1.553342.3.579.2.462 Unknown [id number] 2.16.8 40.1.108753.3.579.2.462 Unknown [id number] 2.16.8 40.1.511690.3.579.2.462 Unknown [id number] 2.16.8 40.1.208105.3.579.2.462 Social History Date Type Detail Facility Start: 07-03-[address] [facility] Ex-smoker (finding) [facility] Start: 09-28-2024 Sex Female (finding) [facility] Start: 1990 Sex Assigned At Female [facility] Clinical Notes 06-18-2024 to 02-06-2025 Note Date & Type Note Facility 02-06-2025 Progress note [facility] 01-30-2025 Progress note [facility] 01-24-2025 Progress note [facility] 01-17-2025 Progress note [facility] 01-10-2025 Progress note [facility] 01-10-2025 Progress note Note Date/Time January 10, 2025 2:22pm [facility] [address], [address] [place] [address] OFFICE VISIT Date of Service: 01/10/25 MR#: [id number] Acct: [id number] Name: SWATI SERRATO Rep #: [id number] : 1990 Provider: TERESE Ruffin Age/Sex: 34/F Location: [facility] [place] Status: Signed Intake Vital Signs 12/05/24 12:56 01/02/25 11:31 01/10/25 14:05 Height 5 ft 10 in 5 ft 10 in 5 ft 10 in Weight: 259 lb 8 oz BMI 37.2 BP 112/75 Intake Visit Reasons: 36 wk wk ob Chief Complaint: 36wk OB [employer] General Supervisor Required: No Is patient in pain?: No Allergies No Known Allergies Allergy (Verified 01/10/25 14:04) Medications ?Medication ?Instructions ?Recorded ?Confirmed ?Type prenat.vits,justino,[id number] 1 tab PO DAILY pregnanc y 12/22/20 [...] 1 current occupational status: employed 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: No pets and animals: Yes pets and animals: dog(s) history of recent travel: Yes ([place] - Mar 2024) out of state: Yes [...] times per week duration: < 15 minutes/day vipin/temple: Latter-Day seatbelt use: always do you feel safe [...] full term 6lbs 10oz Female 16 epidural [facility] Yahir Cadena Delivery Date: 08/16/21 [...] Symptoms of Preeclampsia, Infant Feeding No , [place] Education and Family Medical Leave or Disability [...] Cosigner Signature: Date (if applicable) CC: ~ [facility] Work Phone: 1(490) 706-236107-02-2025 [facility] [address] [place] [address], [address] [place] [address] OFFICE VISIT Date of Service: 01/02/25 MR#: [id number] Acct: [id number] Name: SWATI SERRATO Rep #: [id number] : 1990 Provider: Dr. 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 [employer] General Supervisor Required: No Is patient in pain?: No Allergies No Known Allergies Allergy (Verified 01/02/25 11:36) Medications ?Medication ?Instructions ?Recorded ?Confirmed ?Type prenat.vits,justino,[id number] 1 tab PO DAILY pregnanc y 12/22/20 [...] 1 current occupational status: employed 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 28 wk labs pending. [facility] 11/21/24 -?-?-?-?-?-?-?-?-?-?-?-?- 29w 0d 247 lb 2 [...] and Symptoms of Preeclampsia, Feeding No , [place] Education and Family Medical Leave or Disability [...] Marisela DO> Date _ Joanna Bhat DO [facility] Signature: Date (if applicable) CC: ~ [facility]06-18-2025 [facility] [address] [place] [address], [address] [place] [address] OFFICE VISIT Date of Service: 12/19/24 MR#: [id number] Acct: [id number] Name: SERRATOSWATI IRENE Agustín Rep #: [id number] : 1990 Provider: Dr. 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 [employer] General Supervisor Required: No Is patient in pain?: No Allergies No Known Allergies Allergy (Verified 12/19/24 10:56) Medications ?Medication ?Instructions ?Recorded ?Confirmed ?Type prenat.vits,justino,aew-tqhv-sfuke 1 tab PO DAILY pregnanc y 12/22/20 [...] 1 current occupational status: employed 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 -?-?-?-?-?-?-?-?-?-?-?-?- 29w 0d 247 lb [...] william WALTER> Date _ [facility] Signature: Date (if applicable) CC: ~ [facility]05-21-2025 [facility] [address] [place] [address], [address] [place] [address] OFFICE VISIT Date of Service: 11/21/24 MR#: [id number] Acct: [id number] Name: SWATI SERRATO Rep #: [id number] : 1990 Provider: Dr. 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: No Is patient in pain?: No Allergies No Known Allergies Allergy (Verified 11/21/24 11:33) Medications ?Medication ?Instructions ?Recorded ?Confirmed ?Type prenat.vits,justino,kfq-ohvx-ojbkm 1 tab PO DAILY pregnanc y 12/22/20 [...] 1 current occupational status: employed 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: No pets and animals: Yes pets and animals: dog(s) history of recent travel: Yes ([place] - Mar 2024) out of state: Yes [...] times per week duration: < 15 minutes/day vipin/temple: Latter-Day seatbelt use: always do you feel safe [...] full term 6lbs 10oz Female 16 epidural [facility] Yahir Cadena Delivery Date: 08/16/21 [...] and Symptoms of Preeclampsia, Feeding No , [place] Education and Family Medical Leave or Disability [...] Velde DO> Date _ Joanna Bhat DO [facility] Signature: Date (if applicable) CC: ~ [facility]05-06-2025 Evaluation note* Diagnosis Onset Date [...] varicella (non-immune), currently acute February 12 3:09pm [facility] Work Phone: 1(365) 506-890504-09-2025 Evaluation note* Diagnosis Onset Date Resolution Status [...] (non-immune), currently acute January 10, 2025 1:51pm [facility] Work Phone: 1(990) 998-279904-09-2025 Evaluation note* Diagnosis Onset Date Resolution Status [...] (non-immune), currently acute January 17, 2025 1:27pm [facility] Work Phone: [phone]) 110-885304-09-2025 Evaluation note* Diagnosis Onset Date Resolution Status [...] (non-immune), currently acute January 24, 2025 9:50am [facility] Work Phone: [phone]) 810-923204-09-2025 Evaluation note* Diagnosis Onset Date Resolution Status [...] (non-immune), currently acute January 30, 2025 10:15am [facility] Work Phone: [phone]) [phone] Evaluation note* Diagnosis Onset Date Resolution Status [...] (non-immune), currently acute February 06, 2025 9:56am [facility] Work Phone: 1(186) 236-626903-20-2025 Radiology Diagnostic study note [facility] Imaging Services [address] [place], [place] [address] OB Anatomy w/ Transvaginal MR#: [id number] Acct: [id number] Name: SWATI SERRATO Rep #: [id number] : 1990 F 33 From: Tsering Bray DO PCP: KAY Raman Status: REG C PUMA Study:OB Anatomy w/ Transvaginal Date of Exam : 09/19/24 Exam# [id number] Ordering Dr: Joanna Marcos DO PROCEDURE: ultrasound transabdominal and transvaginal. 09/19/2024 [...] KAY Castellon; Dr. Joanna Bhat, DO ~ Resource Development Director: Signed [facility]03-10-2025 Evaluation note* Diagnosis Onset Date Resolution Status [...] (non-immune), currently acute December 19, 2024 10:54am [facility] Work Phone: [phone]) 894-354303-10-2025 Evaluation note* Diagnosis Onset Date Resolution Status [...] currently acute January 02, 2025 1 1:17am [facility] Work Phone: [phone]) 195-501602-04-2025 Evaluation note* Diagnosis Onset Date Resolution Status [...] currently acute November 06, 2024 1: 22pm [facility] Work Phone: 1(211) 483-456702-04-2025 Evaluation note* Diagnosis Onset Date Resolution Status [...] currently acute November 21, 2024 1 1:31am [facility] Work Phone: [phone] Evaluation note* Diagnosis Onset Date Resolution Status [...] currently acute December 05, 2024 1 2:40pm [facility] Work Phone: [phone] NotePap Smear Specimen AdequacyJan2024 12:59amComment.Satisfactory for evaluation. No endocervical component is identified.[facility] INTERFACED A#[id number] County Medical CenterComment on above:Satisfactory for evaluation. No endocervical component [...] (non-immune), currently acute September 10, 2024 1:41pm [facility] Work Phone: Progress note Author Joanna Antonio [facility] Note Date/Time November 21, 2024 11:49 am [facility] [address] [place] [address], [address] [place] [address] OFFICE VISIT Date of Service: 11/21/24 MR#: [id number] Acct: [id number] Name: SWATI SERRATO Rep #: [id number] : 1990 Provider: Dr. 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: No Is patient in pain?: No Allergies No Known Allergies Allergy (Verified 11/21/24 11:33) Medications ?Medication ?Instructions ?Recorded ?Confirmed ?Type prenat.vits,justino,yrm-[id number]-[id number] 1 tab PO DAILY pregnanc y 12/22/20 [...] 1 current occupational status: employed 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: No pets and animals: Yes pets and animals: dog(s) history of recent travel: Yes ([place] - Mar 2024) out of state: Yes [...] times per week duration: < 15 minutes/day vipin/temple: Latter-Day seatbelt use: always do you feel safe [...] full term 6lbs 10oz Female 16 epidural [facility] Delivery Date: 08/16/21 Last Updated by: [...] Symptoms of Preeclampsia, Infant Feeding No , [place] Education and Family Medical Leave or Disability [...] Cosigner Signature: Date (if applicable) CC: ~ [facility] Work Phone: Progress note Author Tita Sinclair [facility] Note Date/Time December 19, 2024 11:0 5am [facility] [address], [address] [place] [address] OFFICE VISIT Date of Service: 12/19/24 MR#: [id number] Acct: [id number] Name: SWATI SERRATO Rep #: [id number] : 1990 Provider: Dr. 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 [employer] General Supervisor Required: No Is patient in pain?: No Allergies No Known Allergies Allergy (Verified 12/19/24 10:56) Medications ?Medication ?Instructions ?Recorded ?Confirmed ?Type prenat.vits,justino,uvr-[id number]-whfnu 1 tab PO DAILY pregnanc y 12/22/20 [...] 1 current occupational status: employed 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: No pets and animals: Yes pets and animals: dog(s) history of recent travel: Yes ([place] - Mar 2024) out of state: Yes [...] times per week duration: < 15 minutes/day vipin/temple: Latter-Day seatbelt use: always do you feel safe [...] full term 6lbs 10oz Female 16 epidural [facility] Yahir Surinder Delivery Date: 08/16/21 [...] Symptoms of Preeclampsia, Infant Feeding No , [place] Education and Family Medical Leave or Disability [...] Cosigner Signature: Date (if applicable) CC: ~ [facility] Work Phone: Progress note Author Joanna Antonio [facility] Note Date/Time January 02, 2025 12:05 pm [facility] [address], [address] [place] [address] OFFICE VISIT Date of Service: 01/02/25 MR#: [id number] Acct: [id number] Name: SWATI SERRATO Rep #: [id number] : 1990 Provider: Dr. 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 [employer] General Supervisor Required: No Is patient in pain?: No Allergies No Known Allergies Allergy (Verified 01/02/25 11:36) Medications ?Medication ?Instructions ?Recorded ?Confirmed ?Type prenat.vits,justino,[id number] 1 tab PO DAILY pregnanc y 12/22/20 [...] 1 current occupational status: employed 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 28 wk labs pending. [facility] 11/21/24 -?-?-?-?-?-?-?-?-?-?-?-?- 29w 0d 247 lb 2 [...] , unspecified, third trimester Comment: PRR, , ENLIA 02/06/25, boy PC: Carey, : Surinder (3) [...] Cosigner Signature: Date (if applicable) CC: ~ [facility] Work Phone: Progress note Author Joanna Antonio [facility] Note Date/Time January 17, 2025 1:46 pm [facility] [address], [address] [place] [address] OFFICE VISIT Date of Service: 01/17/25 MR#: [id number] Acct: [id number] Name: SWATI SERRATO Rep #: [id number] : 1990 Provider: Dr. 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 [employer] General Supervisor Required: No Is patient in pain?: No Allergies No Known Allergies Allergy (Verified 01/17/25 13:28) Medications ?Medication ?Instructions ?Recorded ?Confirmed ?Type prenat.vits,justino,czd-[id number] 1 tab PO DAILY pregnanc y 12/22/20 [...] 1 current occupational status: employed 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 pets and animals: Yes pets and animals: dog(s) history of recent travel: Yes ([place] - Mar 2024) out of state: Yes [...] times per week duration: < 15 minutes/day vipin/temple: Latter-Day seatbelt use: always do you feel safe [...] full term 6lbs 10oz Female 16 epidural [facility] Yahir Cadena Delivery Date: 08/16/21 [...] Mainignedna Signature: Date (if applicable) CC: ~ [facility] Work Phone: Progress note Author Tita Sinclair [facility] Note Date/Time January 24, 2025 10:2 8am [facility] [address], [address] [place] [address] OFFICE VISIT Date of Service: 01/24/25 MR#: [id number] Acct: [id number] Name: SWATI SERRATO Rep #: [id number] : 1990 Provider: Dr. 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: No pets and animals: Yes pets and animals: dog(s) history of recent travel: Yes ([place] - Mar 2024) out of state: Yes [...] times per week duration: < 15 minutes/day vipin/temple: Latter-Day seatbelt use: always do you feel safe [...] SROM HPI 38 wk ob Details: SWATI SERARTO is a 34 year old who presents [...] Cosigner Signature: Date (if applicable) CC: ~ [facility] Work Phone: Progress note Author Joanna Antonio [facility] Note Date/Time January 30, 2025 10:5 1am [facility] [address], [address] [place] [address] OFFICE VISIT Date of Service: 01/30/25 MR#: [id number] Acct: [id number] Name: SWATI SERRATO Rep #: [id number] : 1990 Provider: Dr. 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 [employer] General Supervisor Required: No Is patient in pain?: No Allergies No Known Allergies Allergy (Verified 01/30/25 10:22) Medications ?Medication ?Instructions ?Recorded ?Confirmed ?Type prenat.vits,justino,atq-feil-jtjbl 1 tab PO DAILY pregnanc y 12/22/20 [...] 1 current occupational status: employed 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 28 wk labs pending. [facility] 11/21/24 -?-?-?-?-?-?--?-?-?-?-?-?- 29w 0d 247 lb 2 [...] Cosigner Signature: Date (if applicable) CC: ~ [facility] Work Phone: Progress note Author Kelly Ruffin [facility] Note Date/Time February 06, 2025 10: 18am [facility] [address], [address] [place] [address] OFFICE VISIT Date of Service: 02/06/25 MR#: [id number] Acct: [id number] Name: SWATI SERRATO Rep #: [id number] : 1990 Provider: TERESE Ruffin Age/Sex: 34/F Location: [facility] [place] Status: Signed Intake Vital Signs 12/05/24 12:56 01/30/25 10:23 02/06/25 10:00 Height 5 ft 10 in 5 ft 10 in 5 ft 10 in Weight: 256 lb 7 oz BMI 36.8 BP 113/75 Intake Visit Reasons: 40 wk ob *happy due date* [employer]iner[employer] General Supervisor Required: No Is patient in pain?: No Allergies No Known Allergies Allergy (Verified 02/06/25 10:04) Medications ?Medication ?Instructions ?Recorded ?Confirmed ?Type prenat.vits,justino,hno-rxae-ejmgm 1 tab PO DAILY pregnanc y 12/22/20 [...] 1 current occupational status: employed 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 pets and animals: Yes pets and animals: dog(s) history of recent travel: Yes ([place] - Mar 2024) out of state: Yes [...] times per week duration: < 15 minutes/day vipin/temple: Latter-Day seatbelt use: always do you feel safe [...] full term 6lbs 10oz Female 16 epidural [facility] Yahir Cadena Delivery Date: 08/16/21 [...] Symptoms of Preeclampsia, Infant Feeding No , [place] Education and Family Medical Leave or Disability [...] Cosigner Signature: Date (if applicable) CC: ~ [facility] Work Phone: Reason for referral (narrative)No reason for referral information available[facility]St[facility] Work Phone: Summary Purpose Family History [...] section and content) DATE CREATED AUTHOR 12/26/2017 [facility] ([place]) DATE CREATED AUTHOR AUTHOR'S ORGANIZ ATION 02/11/2025 [facility] Care Teams (unrecognized sec tion and content) Team Status: Active Member Role Status Dates Padmini Castellon CLIENT SERVICES REPRESENTATIVE, CLIENT SERVICES REPRESENTATIVE-C Primary Care Provider Active Team Status: Inactive Member Role Status Dates Padmini Castellon NP, CLIENT SERVICES REPRESENTATIVE-C Primary Care Provider Active Start: June 18, 2024 End: June 18, 2024 Padmini Castellon NP, CLIENT SERVICES REPRESENTATIVE-C Referring Provider Active Start: June 18, 2024 End: June 18, 2024 Hayes ROSS PA Attending Provider Active Sta rt: June 18, 2024 End: June 18, 2024 Team Status: Inactive Member Role Status Dates Padmini Castellon NP, CLIENT SERVICES REPRESENTATIVE-C Primary Care Provider Active Start: June 18, 2024 End: June 18, 2024 Padmini Castellon NP, CLIENT SERVICES REPRESENTATIVE-C Referring Provider Active Start: June 18, 2024 End: June 18, 2024 Dr. Rafael Marcus MD Attending Provider Active S tart: June 18, 2024 End: June 18, 2024 Team Status: Active Member Role Status Dates Padmini Castellon NP, CLIENT SERVICES REPRESENTATIVE-C Primary Care Provider Active Start: July 03, 2024 Pita Lizama RN Attending Provider Active St art: July 03, 2024 Team Status: Inactive Member Role Status Dates Padmini Castellon NP, CLIENT SERVICES REPRESENTATIVE-C Primary Care Provider Active Start: July 09, 2024 End: July 09, 2024 Padmini Castellon NP, CLIENT SERVICES REPRESENTATIVE-C Referring Provider Active Start: July 09, 2024 End: July 09, 2024 Dr. Joanna Bhat DO Attending Provider Activ e Start: July 09, 2024 End: July 09, 2024 Team Status: Inactive Member Role Status Dates Padmini Castellon NP, CLIENT SERVICES REPRESENTATIVE-C Primary Care Provider Active Start: July 09, 2024 End: July 09, 2024 Dr. Joanna Bhat DO Attending Provider Activ e Start: July 09, 2024 End: July 09, 2024 Dr. Joanna Bhat DO Referring Provider Activ e Start: July 09, 2024 End: July 09, 2024 Team Status: Inactive Member Role Status Dates Padmini Castellon CLIENT SERVICES REPRESENTATIVE, CLIENT SERVICES REPRESENTATIVE-C Primary Care Provider Active Start: August 07, 2024 End: August 07, 2024 Padmini Castellon CLIENT SERVICES REPRESENTATIVE, CLIENT SERVICES REPRESENTATIVE-C Referring Provider Active Start: August 07, 2024 End: August 07, 2024 Dr. Joanna Bhat DO Attending Provider Activ e Start: August 07, 2024 End: August 07, 2024 Team Status: Inactive Member Role Status Dates Padmini Castellon CLIENT SERVICES REPRESENTATIVE, CLIENT SERVICES REPRESENTATIVE-C Primary Care Provider Active Start: August 07, 2024 End: August 07, 2024 Dr. Joanna Bhat DO Attending Provider Activ e Start: August 07, 2024 End: August 07, 2024 Dr. Joanna Bhat DO Referring Provider Activ e Start: August 07, 2024 End: August 07, 2024 Team Status: Inactive Member Role Status Dates Padmini Castellon CLIENT SERVICES REPRESENTATIVE, CLIENT SERVICES REPRESENTATIVE-C Primary Care Provider Active Start: September 10, 2024 End: September 10, 2024 Padmini Castellon CLIENT SERVICES REPRESENTATIVE, CLIENT SERVICES REPRESENTATIVE-C Referring Provider Active Start: September 10, 2024 End: September 10, 2024 Kelly Ruffin CNM Attending Provider Active S tart: September 10, 2024 End: September 10, 2024 Team Status: Inactive Member Role Status Dates Padmini Castellon CLIENT SERVICES REPRESENTATIVE, CLIENT SERVICES REPRESENTATIVE-C Primary Care Provider Active Start: September 19, 2024 End: September 19, 2024 Dr. Joanna Bhat DO Attending Provider Activ e Start: September 19, 2024 End: September 19, 2024 Dr. Joanna Bhat DO Referring Provider Activ e Start: September 19, 2024 End: September 19, 2024 Team Status: Inactive Member Role Status Dates Padmini Castellon CLIENT SERVICES REPRESENTATIVE, CLIENT SERVICES REPRESENTATIVE-C Primary Care Provider Active Start: October 10, 2024 End: October 10, 2024 Padmini Castellon CLIENT SERVICES REPRESENTATIVE, CLIENT SERVICES REPRESENTATIVE-C Referring Provider Active Start: October 10, 2024 End: October 10, 2024 Dr. Tita Sinclair MD Attending Provider Active Start: October 10, 2024 End: October 10, 2024 Team Status: Inactive Member Role Status Dates Padmini Castellon CLIENT SERVICES REPRESENTATIVE, CLIENT SERVICES REPRESENTATIVE-C Primary Care Provider Active Start: November 06, 2024 End: November 06, 2024 Padmini Castellon CLIENT SERVICES REPRESENTATIVE, CLIENT SERVICES REPRESENTATIVE-C Referring Provider Active Start: November 06, 2024 End: November 06, 2024 Lizbeth Rojas CLIENT SERVICES REPRESENTATIVE, CLIENT SERVICES REPRESENTATIVE-C Attending Provider Active Start: November 06, 2024 End: November 06, 2024 Team Status: Inactive Member Role Status Dates Padmini Castellon CLIENT SERVICES REPRESENTATIVE, CLIENT SERVICES REPRESENTATIVE-C Primary Care Provider Active Start: November 06, 2024 End: November 06, 2024 Lizbeth Rojas CLIENT SERVICES REPRESENTATIVE, CLIENT SERVICES REPRESENTATIVE-C Attending Provider Active Start: November 06, 2024 End: November 06, 2024 Lizbeth Rojas CLIENT SERVICES REPRESENTATIVE, CLIENT SERVICES REPRESENTATIVE-C Referring Provider Active Start: November 06, 2024 End: November 06, 2024 Team Status: Inactive Member Role Status Dates Padmini Castellon CLIENT SERVICES REPRESENTATIVE, CLIENT SERVICES REPRESENTATIVE-C Primary Care Provider Active Start: November 21, 2024 End: November 21, 2024 Padmini Castellon CLIENT SERVICES REPRESENTATIVE, CLIENT SERVICES REPRESENTATIVE-C Referring Provider Active Start: November 21, 2024 End: November 21, 2024 Dr. Joanna Bhat DO Attending Provider Activ e Start: November 21, 2024 End: November 21, 2024 Team Status: Inactive Member Role Status Dates Padmini Castellon CLIENT SERVICES REPRESENTATIVE, CLIENT SERVICES REPRESENTATIVE-C Primary Care Provider Active Start: December 05, 2024 End: December 05, 2024 Padmini Castellon CLIENT SERVICES REPRESENTATIVE, CLIENT SERVICES REPRESENTATIVE-C Referring Provider Active Start: December 05, 2024 End: December 05, 2024 Lizbeth Rojas CLIENT SERVICES REPRESENTATIVE, CLIENT SERVICES REPRESENTATIVE-C Attending Provider Active Start: December 05, 2024 End: December 05, 2024 Team Status: Inactive Member Role Status Dates Padmini Castellon CLIENT SERVICES REPRESENTATIVE, CLIENT SERVICES REPRESENTATIVE-C Primary Care Provider Active Start: December 19, 2024 End: December 19, 2024 Padmini Castellon CLIENT SERVICES REPRESENTATIVE, CLIENT SERVICES REPRESENTATIVE-C Referring Provider Active Start: December 19, 2024 End: December 19, 2024 Dr. Tita Sinclair MD Attending Provider Active Start: December 19, 2024 End: December 19, 2024 Team Status: Active Member Role/Relationship Status Dates Padmini Castellon CLIENT SERVICES REPRESENTATIVE, CLIENT SERVICES REPRESENTATIVE-C Primary Care Provider Active Team Status: Inactive Member Role/Relationship Status Dates Padmini Castellon CLIENT SERVICES REPRESENTATIVE, CLIENT SERVICES REPRESENTATIVE-C Primary Care Provider Active Start: September 10, 2024 End: September 10, 2024 Padmini Castellon NP, CLIENT SERVICES REPRESENTATIVE-C Referring Provider Active Start: September 10, 2024 End: September 10, 2024 Kelly Ruffin CNM Attending Provider Active S tart: September 10, 2024 End: September 10, 2024 Team Status: Inactive Member Role/Relationship Status Dates Padmini Castellon CLIENT SERVICES REPRESENTATIVE, CLIENT SERVICES REPRESENTATIVE-C Primary Care Provider Active Start: September 19, 2024 End: September 19, 2024 Dr. Joanna Bhat DO Attending Provider Activ e Start: September 19, 2024 End: September 19, 2024 Dr. Joanna Bhat , Referring Provider Activ e Start: September 19, 2024 End: September 19, 2024 Team Status: Inactive Member Role/Relationship Status Dates Padmini Castellon CLIENT SERVICES REPRESENTATIVE, CLIENT SERVICES REPRESENTATIVE-C Primary Care Provider Active Start: October 10, 2024 End: October 10, 2024 Padmini Castellon CLIENT SERVICES REPRESENTATIVE, CLIENT SERVICES REPRESENTATIVE-C Referring Provider Active Start: October 10, 2024 End: October 10, 2024 Dr. Tita Sinclair MD Attending Provider Active Start: October 10, 2024 End: October 10, 2024 Team Status: Inactive Member Role/Relationship Status Dates Padmini Castellon CLIENT SERVICES REPRESENTATIVE, CLIENT SERVICES REPRESENTATIVE-C Primary Care Provider Active Start: November 06, 2024 End: November 06, 2024 Padmini Castellon CLIENT SERVICES REPRESENTATIVE, CLIENT SERVICES REPRESENTATIVE-C Referring Provider Active Start: November 06, 2024 End: November 06, 2024 Lizbeth Rjoas CLIENT SERVICES REPRESENTATIVE, CLIENT SERVICES REPRESENTATIVE-C Attending Provider Active Start: November 06, 2024 End: November 06, 2024 Team Status: Inactive Member Role/Relationship Status Dates Padmini Castellon NP, CLIENT SERVICES REPRESENTATIVE-C Primary Care Provider Active Start: November 06, 2024 End: November 06, 2024 Lizbeth Rojas CLIENT SERVICES REPRESENTATIVE, CLIENT SERVICES REPRESENTATIVE-C Attending Provider Active Start: November 06, 2024 End: November 06, 2024 Lizbeth Rojas CLIENT SERVICES REPRESENTATIVE, CLIENT SERVICES REPRESENTATIVE-C Referring Provider Active Start: November 06, 2024 End: November 06, 2024 Team Status: Inactive Member Role/Relationship Status Dates Padmini Castellon CLIENT SERVICES REPRESENTATIVE, CLIENT SERVICES REPRESENTATIVE-C Primary Care Provider Active Start: November 21, 2024 End: November 21, 2024 Padmini Castellon CLIENT SERVICES REPRESENTATIVE, CLIENT SERVICES REPRESENTATIVE-C Referring Provider Active Start: November 21, 2024 End: November 21, 2024 Dr. Joanna Bhat DO Attending Provider Activ e Start: November 21, 2024 End: November 21, 2024 Team Status: Inactive Member Role/Relationship Status Dates Padmini Castellon CLIENT SERVICES REPRESENTATIVE, CLIENT SERVICES REPRESENTATIVE-C Primary Care Provider Active Start: December 05, 2024 End: December 05, 2024 Padmini Castellon CLIENT SERVICES REPRESENTATIVE, CLIENT SERVICES REPRESENTATIVE-C Referring Provider Active Start: December 05, 2024 End: December 05, 2024 Lizbeth Rojas CLIENT SERVICES REPRESENTATIVE, CLIENT SERVICES REPRESENTATIVE-C Attending Provider Active Start: December 05, 2024 End: December 05, 2024 Team Status: Inactive Member Role/Relationship Status Dates Padmini Castellon CLIENT SERVICES REPRESENTATIVE, CLIENT SERVICES REPRESENTATIVE-C Primary Care Provider Active Start: December 19, 2024 End: December 19, 2024 Padmini Castellon CLIENT SERVICES REPRESENTATIVE, CLIENT SERVICES REPRESENTATIVE-C Referring Provider Active Start: December 19, 2024 End: December 19, 2024 Dr. Tita Sinclair MD Attending Provider Active Start: December 19, 2024 End: December 19, 2024 Team Status: Inactive Member Role/Relationship Status Dates Padmini Castellon CLIENT SERVICES REPRESENTATIVE, CLIENT SERVICES REPRESENTATIVE-C Primary Care Provider Active Start: January 02, 2025 End: January 02, 2025 Padmini Castellon CLIENT SERVICES REPRESENTATIVE, CLIENT SERVICES REPRESENTATIVE-C Referring Provider Active Start: January 02, 2025 End: January 02, 2025 Dr. Joanna Bhat DO Attending Provider Activ e Start: January 02, 2025 End: January 02, 2025 Team Status: Inactive Member Role/Relationship Status Dates Padmini Castellon CLIENT SERVICES REPRESENTATIVE, CLIENT SERVICES REPRESENTATIVE-C Primary Care Provider Active Start: September 19, 2024 End: September 19, 2024 Dr. Joanna Bhat DO Attending Provider Activ e Start: September 19, 2024 End: September 19, 2024 Dr. Joanna Bhat DO Referring Provider Activ e Start: September 19, 2024 End: September 19, 2024 Team Status: Inactive Member Role/Relationship Status Dates Padmini Castellon CLIENT SERVICES REPRESENTATIVE, CLIENT SERVICES REPRESENTATIVE-C Primary Care Provider Active Start: October 10, 2024 End: October 10, 2024 Padmini Castellon CLIENT SERVICES REPRESENTATIVE, CLIENT SERVICES REPRESENTATIVE-C Referring Provider Active Start: October 10, 2024 End: October 10, 2024 Dr. Tita Sinclair MD Attending Provider Active Start: October 10, 2024 End: October 10, 2024 Team Status: Inactive Member Role/Relationship Status Dates Padmini Castellon CLIENT SERVICES REPRESENTATIVE, CLIENT SERVICES REPRESENTATIVE-C Primary Care Provider Active Start: November 06, 2024 End: November 06, 2024 Padmini Castellon CLIENT SERVICES REPRESENTATIVE, CLIENT SERVICES REPRESENTATIVE-C Referring Provider Active Start: November 06, 2024 End: November 06, 2024 Lizbeth Rojas CLIENT SERVICES REPRESENTATIVE, CLIENT SERVICES REPRESENTATIVE-C Attending Provider Active Start: November 06, 2024 End: November 06, 2024 Team Status: Inactive Member Role/Relationship Status Dates Padmini Castellon CLIENT SERVICES REPRESENTATIVE, CLIENT SERVICES REPRESENTATIVE-C Primary Care Provider Active Start: November 06, 2024 End: November 06, 2024 Lizbeth Rojas CLIENT SERVICES REPRESENTATIVE, CLIENT SERVICES REPRESENTATIVE-C Attending Provider Active Start: November 06, 2024 End: November 06, 2024 Lizbeth Rojas CLIENT SERVICES REPRESENTATIVE, CLIENT SERVICES REPRESENTATIVE-C Referring Provider Active Start: November 06, 2024 End: November 06, 2024 Team Status: Inactive Member Role/Relationship Status Dates Padmini Castellon CLIENT SERVICES REPRESENTATIVE, CLIENT SERVICES REPRESENTATIVE-C Primary Care Provider Active Start: November 21, 2024 End: November 21, 2024 Padmini Castellon CLIENT SERVICES REPRESENTATIVE, CLIENT SERVICES REPRESENTATIVE-C Referring Provider Active Start: November 21, 2024 End: November 21, 2024 Dr. Joanna Bhat DO Attending Provider Activ e Start: November 21, 2024 End: November 21, 2024 Team Status: Inactive Member Role/Relationship Status Dates Padmini Castellon CLIENT SERVICES REPRESENTATIVE, CLIENT SERVICES REPRESENTATIVE-C Primary Care Provider Active Start: December 05, 2024 End: December 05, 2024 Padmini Castellon CLIENT SERVICES REPRESENTATIVE, CLIENT SERVICES REPRESENTATIVE-C Referring Provider Active Start: December 05, 2024 End: December 05, 2024 Lizbeth Rojas CLIENT SERVICES REPRESENTATIVE, CLIENT SERVICES REPRESENTATIVE-C Attending Provider Active Start: December 05, 2024 End: December 05, 2024 Team Status: Inactive Member Role/Relationship Status Dates Padmini Castellon CLIENT SERVICES REPRESENTATIVE, CLIENT SERVICES REPRESENTATIVE-C Primary Care Provider Active Start: December 19, 2024 End: December 19, 2024 Padmini Castellon CLIENT SERVICES REPRESENTATIVE, CLIENT SERVICES REPRESENTATIVE-C Referring Provider Active Start: December 19, 2024 End: December 19, 2024 Dr. Tita Sinclair MD Attending Provider Active Start: December 19, 2024 End: December 19, 2024 Team Status: Inactive Member Role/Relationship Status Dates Padmini Castellon CLIENT SERVICES REPRESENTATIVE, CLIENT SERVICES REPRESENTATIVE-C Primary Care Provider Active Start: January 02, 2025 End: January 02, 2025 Padmini Castellon CLIENT SERVICES REPRESENTATIVE, CLIENT SERVICES REPRESENTATIVE-C Referring Provider Active Start: January 02, 2025 End: January 02, 2025 Dr. Joanna Bhat DO Attending Provider Activ e Start: January 02, 2025 End: January 02, 2025 Team Status: Inactive Member Role/Relationship Status Dates Padmini Castellon CLIENT SERVICES REPRESENTATIVE, CLIENT SERVICES REPRESENTATIVE-C Primary Care Provider Active Start: January 10, 2025 End: January 10, 2025 Padmini Castellon CLIENT SERVICES REPRESENTATIVE, CLIENT SERVICES REPRESENTATIVE-C Referring Provider Active Start: January 10, 2025 End: January 10, 2025 Kelly Ruffin CNM Attending Provider Active S tart: January 10, 2025 End: January 10, 2025 Team Status: Inactive Member Role/Relationship Status Dates Padmini Castellon NP, CLIENT SERVICES REPRESENTATIVE-C Primary Care Provider Active Start: January 10, 2025 End: January 10, 2025 Kelly Ruffin CNM Attending Provider Active S tart: January 10, 2025 End: January 10, 2025 Team Status: Inactive Member Role/Relationship Status Dates Padmini Castellon NP, CLIENT SERVICES REPRESENTATIVE-C Primary Care Provider Active Start: January 17, 2025 End: January 17, 2025 Padmini Castellon NP, CLIENT SERVICES REPRESENTATIVE-C Referring Provider Active Start: January 17, 2025 End: January 17, 2025 Dr. Joanna Bhat DO Attending Provider Activ e Start: January 17, 2025 End: January 17, 2025 Team Status: Inactive Member Role/Relationship Status Dates Padmini Castellon CLIENT SERVICES REPRESENTATIVE, CLIENT SERVICES REPRESENTATIVE-C Primary Care Provider Active Start: October 10, 2024 End: October 10, 2024 Padmini Castellon CLIENT SERVICES REPRESENTATIVE, CLIENT SERVICES REPRESENTATIVE-C Referring Provider Active Start: October 10, 2024 End: October 10, 2024 Dr. Tita Sinclair MD Attending Provider Active Start: October 10, 2024 End: October 10, 2024 Team Status: Inactive Member Role/Relationship Status Dates Padmini Castellon CLIENT SERVICES REPRESENTATIVE, CLIENT SERVICES REPRESENTATIVE-C Primary Care Provider Active Start: November 06, 2024 End: November 06, 2024 Padmini Castellon NP, CLIENT SERVICES REPRESENTATIVE-C Referring Provider Active Start: November 06, 2024 End: November 06, 2024 Lizbeth Rojas NP, CLIENT SERVICES REPRESENTATIVE-C Attending Provider Active Start: November 06, 2024 End: November 06, 2024 Team Status: Inactive Member Role/Relationship Status Dates Padmini Castellon NP, CLIENT SERVICES REPRESENTATIVE-C Primary Care Provider Active Start: November 06, 2024 End: November 06, 2024 Lizbeth Rojas CLIENT SERVICES REPRESENTATIVE, CLIENT SERVICES REPRESENTATIVE-C Attending Provider Active Start: November 06, 2024 End: November 06, 2024 Lizbeth Rojas CLIENT SERVICES REPRESENTATIVE, CLIENT SERVICES REPRESENTATIVE-C Referring Provider Active Start: November 06, 2024 End: November 06, 2024 Team Status: Inactive Member Role/Relationship Status Dates Padmini Castellon CLIENT SERVICES REPRESENTATIVE, CLIENT SERVICES REPRESENTATIVE-C Primary Care Provider Active Start: November 21, 2024 End: November 21, 2024 Padmini Castellon CLIENT SERVICES REPRESENTATIVE, CLIENT SERVICES REPRESENTATIVE-C Referring Provider Active Start: November 21, 2024 End: November 21, 2024 Dr. Joanna Bhat , DO Attending Provider Activ e Start: November 21, 2024 End: November 21, 2024 Team Status: Inactive Member Role/Relationship Status Dates Padmini Castellon CLIENT SERVICES REPRESENTATIVE, CLIENT SERVICES REPRESENTATIVE-C Primary Care Provider Active Start: December 05, 2024 End: December 05, 2024 Padmini Castellon CLIENT SERVICES REPRESENTATIVE, CLIENT SERVICES REPRESENTATIVE-C Referring Provider Active Start: December 05, 2024 End: December 05, 2024 Lizbeth Rojas CLIENT SERVICES REPRESENTATIVE, CLIENT SERVICES REPRESENTATIVE-C Attending Provider Active Start: December 05, 2024 End: December 05, 2024 Team Status: Inactive Member Role/Relationship Status Dates Padmini Castellon CLIENT SERVICES REPRESENTATIVE, CLIENT SERVICES REPRESENTATIVE-C Primary Care Provider Active Start: December 19, 2024 End: December 19, 2024 Padmini Castellon CLIENT SERVICES REPRESENTATIVE, CLIENT SERVICES REPRESENTATIVE-C Referring Provider Active Start: December 19, 2024 End: December 19, 2024 Dr. Tita Sinclair MD Attending Provider Active Start: December 19, 2024 End: December 19, 2024 Team Status: Inactive Member Role/Relationship Status Dates Padmini Castellon CLIENT SERVICES REPRESENTATIVE, CLIENT SERVICES REPRESENTATIVE-C Primary Care Provider Active Start: January 02, 2025 End: January 02, 2025 Padmini Castellon CLIENT SERVICES REPRESENTATIVE, CLIENT SERVICES REPRESENTATIVE-C Referring Provider Active Start: January 02, 2025 End: January 02, 2025 Dr. Joanna Bhat , Attending Provider Activ e Start: January 02, 2025 End: January 02, 2025 Team Status: Inactive Member Role/Relationship Status Dates Padmini Castellon CLIENT SERVICES REPRESENTATIVE, CLIENT SERVICES REPRESENTATIVE-C Primary Care Provider Active Start: January 10, 2025 End: January 10, 2025 Padmini Castellon CLIENT SERVICES REPRESENTATIVE, CLIENT SERVICES REPRESENTATIVE-C Referring Provider Active Start: January 10, 2025 End: January 10, 2025 Kelly Ruffin CNM Attending Provider Active S tart: January 10, 2025 End: January 10, 2025 Team Status: Inactive Member Role/Relationship Status Dates Padmini Castellon NP, CLIENT SERVICES REPRESENTATIVE-C Primary Care Provider Active Start: January 10, 2025 End: January 10, 2025 Kelly Ruffin CNM Attending Provider Active S tart: January 10, 2025 End: January 10, 2025 Team Status: Inactive Member Role/Relationship Status Dates Padmini Castellon CLIENT SERVICES REPRESENTATIVE, CLIENT SERVICES REPRESENTATIVE-C Primary Care Provider Active Start: January 17, 2025 End: January 17, 2025 Padmini Castellon CLIENT SERVICES REPRESENTATIVE, CLIENT SERVICES REPRESENTATIVE-C Referring Provider Active Start: January 17, 2025 End: January 17, 2025 Dr. Joanna Bhat DO Attending Provider Activ e Start: January 17, 2025 End: January 17, 2025 Team Status: Inactive Member Role/Relationship Status Dates Padmini Castellon CLIENT SERVICES REPRESENTATIVE, CLIENT SERVICES REPRESENTATIVE-C Primary Care Provider Active Start: January 24, 2025 End: January 24, 2025 Padmini Castellon CLIENT SERVICES REPRESENTATIVE, CLIENT SERVICES REPRESENTATIVE-C Referring Provider Active Start: January 24, 2025 End: January 24, 2025 Dr. Tita Sinclair MD Attending Provider Active Start: January 24, 2025 End: January 24, 2025 Team Status: Inactive Member Role/Relationship Status Dates Padmini Castellon CLIENT SERVICES REPRESENTATIVE, CLIENT SERVICES REPRESENTATIVE-C Primary Care Provider Active Start: January 30, 2025 End: January 30, 2025 Padmini Castellon NP, CLIENT SERVICES REPRESENTATIVE-C Referring Provider Active Start: January 30, 2025 End: January 30, 2025 Dr. Joanna Bhat DO Attending Provider Activ e Start: January 30, 2025 End: January 30, 2025 Team Status: Inactive Member Role/Relationship Status Dates Padmini Castellon CLIENT SERVICES REPRESENTATIVE, CLIENT SERVICES REPRESENTATIVE-C Primary Care Provider Active Start: February 06, 2025 End: February 06, 2025 Padmini Castellon NP, CLIENT SERVICES REPRESENTATIVE-C Referring Provider Active Start: February 06, 2025 End: February 06, 2025 Kelly Ruffin CNM Attending Provider Active S tart: February 06, 2025 End: February 06, 2025 Team Status: Inactive Member Role/Relationship Status Dates Padmini Castellon NP, CLIENT SERVICES REPRESENTATIVE-C Primary Care Provider Active Start: November 06, 2024 End: November 06, 2024 Padmini Lorson CLIENT SERVICES REPRESENTATIVE, CLIENT SERVICES REPRESENTATIVE-C Referring Provider Active Start: November 06, 2024 End: November 06, 2024 Lizbeth Rojas CLIENT SERVICES REPRESENTATIVE, CLIENT SERVICES REPRESENTATIVE-C Attending Provider Active Start: November 06, 2024 End: November 06, 2024 Team Status: Inactive Member Role/Relationship Status Dates Padmini Castellon CLIENT SERVICES REPRESENTATIVE, CLIENT SERVICES REPRESENTATIVE-C Primary Care Provider Active Start: November 06, 2024 End: November 06, 2024 Lizbeth Rojas CLIENT SERVICES REPRESENTATIVE, CLIENT SERVICES REPRESENTATIVE-C Attending Provider Active Start: November 06, 2024 End: November 06, 2024 Lizbeth Rojas CLIENT SERVICES REPRESENTATIVE, CLIENT SERVICES REPRESENTATIVE-C Referring Provider Active Start: November 06, 2024 End: November 06, 2024 Team Status: Inactive Member Role/Relationship Status Dates Padmini Castellon CLIENT SERVICES REPRESENTATIVE, CLIENT SERVICES REPRESENTATIVE-C Primary Care Provider Active Start: November 21, 2024 End: November 21, 2024 Padmini Castellon CLIENT SERVICES REPRESENTATIVE, CLIENT SERVICES REPRESENTATIVE-C Referring Provider Active Start: November 21, 2024 End: November 21, 2024 Dr. Joanna Bhat , Attending Provider Activ e Start: November 21, 2024 End: November 21, 2024 Team Status: Inactive Member Role/Relationship Status Dates Padmini Castellon CLIENT SERVICES REPRESENTATIVE, CLIENT SERVICES REPRESENTATIVE-C Primary Care Provider Active Start: December 05, 2024 End: December 05, 2024 Padmini Castellon CLIENT SERVICES REPRESENTATIVE, CLIENT SERVICES REPRESENTATIVE-C Referring Provider Active Start: December 05, 2024 End: December 05, 2024 Lizbeth Rojas CLIENT SERVICES REPRESENTATIVE, CLIENT SERVICES REPRESENTATIVE-C Attending Provider Active Start: December 05, 2024 End: December 05, 2024 Team Status: Inactive Member Role/Relationship Status Dates Padmini Castellon CLIENT SERVICES REPRESENTATIVE, CLIENT SERVICES REPRESENTATIVE-C Primary Care Provider Active Start: December 19, 2024 End: December 19, 2024 Padmini Castellon CLIENT SERVICES REPRESENTATIVE, CLIENT SERVICES REPRESENTATIVE-C Referring Provider Active Start: December 19, 2024 End: December 19, 2024 Dr. Tita Sinclair MD Attending Provider Active Start: December 19, 2024 End: December 19, 2024 Team Status: Inactive Member Role/Relationship Status Dates Padmini Castellon CLIENT SERVICES REPRESENTATIVE, CLIENT SERVICES REPRESENTATIVE-C Primary Care Provider Active Start: January 02, 2025 End: January 02, 2025 Padmini Castellon CLIENT SERVICES REPRESENTATIVE, CLIENT SERVICES REPRESENTATIVE-C Referring Provider Active Start: January 02, 2025 End: January 02, 2025 Dr. Joanna Bhat , DO Attending Provider Activ e Start: January 02, 2025 End: January 02, 2025 Team Status: Inactive Member Role/Relationship Status Dates Padmini Castellon CLIENT SERVICES REPRESENTATIVE, CLIENT SERVICES REPRESENTATIVE-C Primary Care Provider Active Start: January 10, 2025 End: January 10, 2025 Padmini Castellon CLIENT SERVICES REPRESENTATIVE, CLIENT SERVICES REPRESENTATIVE-C Referring Provider Active Start: January 10, 2025 End: January 10, 2025 Kelly Ruffin CNM Attending Provider Active S tart: January 10, 2025 End: January 10, 2025 Team Status: Inactive Member Role/Relationship Status Dates Padmini Castellon NP, CLIENT SERVICES REPRESENTATIVE-C Primary Care Provider Active Start: January 10, 2025 End: January 10, 2025 Kelly Ruffin CNM Attending Provider Active S tart: January 10, 2025 End: January 10, 2025 Team Status: Inactive Member Role/Relationship Status Dates Padmini Castellon CLIENT SERVICES REPRESENTATIVE, CLIENT SERVICES REPRESENTATIVE-C Primary Care Provider Active Start: January 17, 2025 End: January 17, 2025 Padmini Castellon CLIENT SERVICES REPRESENTATIVE, CLIENT SERVICES REPRESENTATIVE-C Referring Provider Active Start: January 17, 2025 End: January 17, 2025 Dr. Joanna Bhat DO Attending Provider Activ e Start: January 17, 2025 End: January 17, 2025 Team Status: Inactive Member Role/Relationship Status Dates Padmini Castellon CLIENT SERVICES REPRESENTATIVE, CLIENT SERVICES REPRESENTATIVE-C Primary Care Provider Active Start: January 24, 2025 End: January 24, 2025 Padmini Castellon CLIENT SERVICES REPRESENTATIVE, CLIENT SERVICES REPRESENTATIVE-C Referring Provider Active Start: January 24, 2025 End: January 24, 2025 Dr. Tita Sinclair MD Attending Provider Active Start: January 24, 2025 End: January 24, 2025 Team Status: Inactive Member Role/Relationship Status Dates Padmini Castellon CLIENT SERVICES REPRESENTATIVE, CLIENT SERVICES REPRESENTATIVE-C Primary Care Provider Active Start: January 30, 2025 End: January 30, 2025 Padmini Castellon CLIENT SERVICES REPRESENTATIVE, CLIENT SERVICES REPRESENTATIVE-C Referring Provider Active Start: January 30, 2025 End: January 30, 2025 Dr. Joanna Bhat DO Attending Provider Activ e Start: January 30, 2025 End: January 30, 2025 Team Status: Inactive Member Role/Relationship Status Dates Padmini Castellon CLIENT SERVICES REPRESENTATIVE, CLIENT SERVICES REPRESENTATIVE-C Primary Care Provider Active Start: February 06, 2025 End: February 06, 2025 Padmini Castellon CLIENT SERVICES REPRESENTATIVE, CLIENT SERVICES REPRESENTATIVE-C Referring Provider Active Start: February 06, 2025 End: February 06, 2025 Kelly Ruffin CNM Attending Provider Active S tart: February 06, 2025 End: February 06, 2025 Team Status: Inactive Member Role/Relationship Status Dates Padmini Castellon CLIENT SERVICES REPRESENTATIVE, CLIENT SERVICES REPRESENTATIVE-C Primary Care Provider Active Start: February 12, 2025 End: February 12, 2025 Padmini Castellon NP, CLIENT SERVICES REPRESENTATIVE-C Referring Provider Active Start: February 12, 2025 [...] BE BASED ON THE PRIMARY CLINICAL RECORDS. [employer] provides no warranty or guarantee of the accuracy or completeness of information in this document.
--- NOTE | 2025-02-12 21:50 | PN_ITS ---
Progress Note Coping well with contractions current tracing: FHT: 135 Moderate variability reactive no decelerations category I tracing Bethania: 2-4 minute Contractions Membranes:ruptured for clear fluid SVE:4/80/-2 A/P: Continue with position changes Titrate pitocin per protocol Epidural per anesthesia GBS neg Anticipate Dr Sawyer aware of above assessment and agrees with plan of care Assessment & Plan Assessment/Plan (1) Encounter for induction of labor: (2) Oligohydramnios: (3) Obesity affecting : QUALIFIERS: Trimester: second trimester Obesity type affecting : unspecified obesity Qualified Code(s): O99.212 - Obesity complicating , second trimester (4) Supervision of high-risk : QUALIFIERS: Trimester: third trimester Qualified Code(s): O09.93 - Supervision of high risk , unspecified, third trimester (5) : QUALIFIERS: Weeks of gestation: 40 weeks Qualified Code(s): Z3A.40 - 40 weeks gestation of (6) Susceptible to varicella (non-immune), currently : Multi Select Codes Urinary/Genital Urinary/Genital CPT Codes: No Charge
[2025-02-12] MEDS: Lactated Ringers 1,000 ML 999 ML IV (22:44)
[2025-02-12] MEDS: fentaNYL-bupivacaine (epidural) 100 ML BAG EPIDURAL (23:15)
[2025-02-13] VITALS (17 sets, daily range): BP systolic 91–127; BP diastolic 53–75; PULSE 60–94; RESP 15–18; TEMP 36.1–36.8; O2SAT 98–99
[2025-02-13] MEDS: Lactated Ringers 1,000 ML 999 ML IV (00:06)
--- NOTE | 2025-02-13 01:13 | PN.OBGYN_ITS ---
Subjective Subjective Called by nurse business solution analyst to see patient regarding deep decelerations with pushing for possible Kiwi vacuum. Patient had received an epidural and started pushing about 30 minutes before my arrival with deep decelerations to the 60s noted. Good [id number] variability between contractions otherwise. Over the next 20 minutes the variable decelerations became less pronounced and the patient pushed for another half hour before some deep decelerations were noted to recur. The head was now at the introitus and Kiwi vacuum was used x 2 contractions (single pop-off) which brought the head nearly completely out. Nurse business solution analyst proceeded to deliver the baby with the next contraction without complication. The was noted to cry and move all extremities vigorously. Cord was noted to be around the neck x 1 tight. See nurse business solution analyst delivery note for additional details. Objective Data Objective Data Vital Signs: Vital Signs Temp Pulse Resp BP Pulse Ox 97.2 F L 83 15 102/62 99 02/12/25 22:21 02/12/25 23:47 02/12/25 23:27 02/12/25 23:47 02/12/25 23:44 Weight: 257 lb 15.053 oz Body Mass Index (BMI) 37.0 Intake & Output: Intake and Output for Last 24 Hours 02/11/25 02/12/25 02/13/25 23:59 23:59 23:59 Intake Total 1735.62 / 1735.62 Balance 1735.62 / 1735.62 Lab / Micro Data 02/12/25 18:00 Labs: Laboratory Results - last 24 hr 02/12/25 18:00: WBC 7.8, RBC 3.79 L, Hgb 11.5 L, Hct 34.0 L, MCV 89.7, MCH 30.3, MCHC 33.8, RDW Std Deviation 43.5, RDW Coeff of Martin 13.3, Plt Count 142 L, MPV 12.2 H, Immature Gran % (Auto) 0.400, Neut % (Auto) 75.2 H, Lymph % (Auto) 18.4 L, Surry % (Auto) 5.3, Eos % (Auto) 0.4, Baso % (Auto) 0.3, Absolute Neuts (auto) 5.8, Absolute Lymphs (auto) 1.43, Nucleated RBC % 0, Syphilis Total Ab Nonreactive, Blood Type A POSITIVE, Antibody Screen NEGATIVE
[2025-02-13] MEDS: Oxytocin 15 Units/NS 250ml 15 UNITS/250 ML IV.SOLN 334 UNITS IV (01:14)
--- NOTE | 2025-02-13 01:27 | OB.VAGDELI_ITS ---
Assessment & Plan (1) Vaginal delivery: COMMENT: KW 41 IOL boy Emeterio (2) Encounter for induction of labor: (3) Oligohydramnios: COMMENT: kasey 5.5 at 40.6. IOL-pitocin (4) Obesity affecting : QUALIFIERS: Trimester: second trimester Obesity type affecting : unspecified obesity Qualified Code(s): O99.212 - Obesity complicating , second trimester COMMENT: BMI 33.4 - HgBA1C ordered (5) Supervision of high-risk : QUALIFIERS: Trimester: third trimester Qualified Code(s): O09.93 - Supervision of high risk , unspecified, third trimester COMMENT: PRR, , MICHAELA 02/06/25, boy PC: Carey, : Surinder (6) : QUALIFIERS: Weeks of gestation: 40 weeks Qualified Code(s): Z3A.40 - 40 weeks gestation of COMMENT: Neg GBS. Discussed genetic/carrier testing - undecided (did not do either with last ), nl anatomy (7) Susceptible to varicella (non-immune), currently : COMMENT: enc vaccination (8) Vacuum-assisted vaginal delivery: Maternal Data Information MICHAELA Calculator Estimated Delivery Date Method Current WG Current Estimate 02/06/25 LMP (Certain) 41w 0d Final MICHAELA: 02/06/25 Final MICHAELA Source: [place] >20 weeks Gestational age: 41.0 Vaginal Delivery Maternal Presentation Maternal Presentation: Medically Indicated Induction Maternal Presentation: Presented to unit for induction of labor for oligohydramnios at 40.6 weeks. Type of Induction: Pitocin and Amniotomy Medical Reason for Induction: Compromise: list: Vaginal Delivery Information Procedure Performed: Spontaneous Vaginal Delivery Surgeon/Practitioner: Kelly Ruffin Date of Procedure: 02/13/25 Pre-Procedure Diagnosis: see problem list Post-Procedure Diagnosis: same Type of anesthesia: Epidural Estimated Blood Loss: 200 Time of Delivery: 01:07 Findings Description of procedure: Progressed quickly to 10cm after epidural placement. Deep variables noted and not resolving with position change and recessive measures. Dr Sawyer called in to evaluate for vacuum delivery. Continued to push with both Dr Sawyer and myself in the room and made steady progress with effective maternal pushing. With repetitive decelerations Dr Sawyer decided for Kiwi assistance (see his note). Progressed well to and Dr Weeman allowed for me to take over on delivery. Delivered the head in CLAY presentation. The head was delivered atraumatically and a loose nuchal cord was identified and was easily reduced over the 's head. The anterior and posterior shoulders delivered without complication followed by the rest of the infant and the infant was placed on the maternal abdomen. Delayed cord clamping was employed for approximately 3 minutes. Cord was clamped and cut and gentle traction was applied to the cord and the placenta delivered spontaneously. Immediately following, it was noted to be intact with a 3 vessel cord. Uterine bleeding stable. The perineum and vagina were inspected and noted to have a second degree laceration which was repaired with 3-0 Vicryl in the usual fashion. EBL was 200. Patient and tolerated delivery well. Apgars 9/9. Dr Sawyer notified of vaginal delivery and orders reviewed. Physician agrees with current plan of care. 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
--- NOTE | 2025-02-13 01:35 | DCINST_ITS ---
Discharge Instructions DC O2, CPAP, BIPAP needs Home O2 Discharge instructions: No Dressing / Incision Discharge Activity: Return to Normal Activity May resume sexual activity in: 6-8 weeks Dressing / Incision Call your doctor if you observe: Fever of 101 or Higher, Coldness, Increased Pain, Numbness or Tingling, Change in Color, Inability to urinate, Inability to have a bowel movement, Using more than 1 pad per hour, Shortness of breath, Dizziness, Fainting spells, Swelling in the ankles, Chest pain, Increased palpitations (irregular heartbeat), Calf discomfort and Uncontrolled pain Follow Up Care Please Follow Up With: Kelly Ruffin CNM When: Please call the office to schedule your follow up appointment in 6 weeks. If you had high blood pressure please call to schedule an appointment in 2 weeks. Test Results: Test results from this visit will be discussed in further detail at your follow- up appointment, if applicable. Discharge Plan Admission Admit Date/Time: 02/12/25 16:48 Attending Provider: Kelly Ruffin Primary Care Provider: Padmini Henderson NP Discharge Orders/Prescriptions Prescriptions: No Action prenat.vits,justino,[id number] Tablet 1 tab PO DAILY evening primrose oil 500 mg capsule 500 mg PO DAILY Rx Instructions: give with meal/snack Referrals / Follow Up: Padmini Henderson NP, TAPE FASTENER MACHINE OPERATOR-C [Primary Care Provider] -
[2025-02-13] MEDS: Oxytocin 15 Units/NS 250ml 15 UNITS/250 ML IV.SOLN 83 UNITS IV (01:44)
[2025-02-14 02:59] VITALS: BP 88/52; PULSE 67
[2025-02-14 03:00] VITALS: BP 88/52; PULSE 75; RESP 16; TEMP 36.6; O2SAT 99
[2025-02-14 08:39] VITALS: BP 131/86; PULSE 80
[2025-02-14 08:40] VITALS: BP 131/86; PULSE 80; RESP 16
--- NOTE | 2025-02-14 11:27 | PCM.PN.OB ---
Subjective Subjective Patient doing well without complaints. Tolerating PO. Ambulating and voiding without difficulty. feeding well. Denies chest pain, shortness of breath, calf pain/swelling, fevers, chills, lightheadedness. Objective Data Objective Data Vital Signs: Vital Signs Temp Pulse Resp BP Pulse Ox O2 Del Method 97.9 F 80 16 131/86 H 99 Room Air 02/14/25 03:00 02/14/25 08:40 02/14/25 08:40 02/14/25 08:40 02/14/25 03:00 02/14/25 03:00 Oxygen Delivery Method Room Air Weight: 257 lb 15.053 oz Body Mass Index (BMI) 37.0 Intake & Output: Intake and Output for Last 24 Hours 02/12/25 02/13/25 02/14/25 23:59 23:59 23:59 Intake Total 1735.62 / 1752.29 1277.34 / 1277.34 Output Total 600 / 600 Balance 1735.62 / 1752.29 677.34 / 677.34 Lab / Micro Data 02/12/25 18:00 ROS Constitutional Constitutional: Reports systems reviewed and no addt'l complaints, except as documented Cardiovascular Cardiovascular: Reports systems reviewed and no addt'l complaints, except as documented Respiratory/Chest Respiratory/Chest: Reports systems reviewed and no addt'l complaints, except as documented Gastrointestinal Gastrointestinal: Reports systems reviewed and no addt'l complaints, except as documented Physical Exam Const alert, oriented x3 and no apparent distress HEENT Head and Scalp: atraumatic Resp normal respiratory effort GI soft to palpation and non-tender Bimanual Exam - Vag & Uterus: uterus non-tender Uterus Palpation: uterus fundus firm (below Umbilicus) Assessment & Plan (1) Vacuum-assisted vaginal delivery: (2) Vaginal delivery: COMMENT: KW 41 IOL boy Emeterio PLAN: Plan s/p PPD # 1 1. routine post delivery care 2. breast feeding- support given 3. rh positive 4. rubella immune
[2025-02-14 14:34] VITALS: BP 111/67; PULSE 70
[2025-02-14 14:35] VITALS: BP 111/67; PULSE 70; RESP 16
== END 2025-02-14 15:50 | disposition home or self-care (01) | DRG 806 ==
LOC: WP 17:04
PROVIDERS: Admitting Provider Advanced Practice Midwife; PCP Nurse Practitioner Family; Visit Provider Advanced Practice Midwife
DX: O76 Abnormality in fetal heart rate and rhythm complicating labor and delivery (principal); Z37.0 Single live birth; O41.03X0 Oligohydramnios, third trimester, not applicable or unspecified; O99.214 Obesity complicating childbirth; O48.0 Post-term pregnancy; Z87.891 Personal history of nicotine dependence; Z3A.41 41 weeks gestation of pregnancy; O70.1 Second degree perineal laceration during delivery; O69.81X0 Labor and delivery complicated by cord around neck, without compression, not applicable or unspecified; N96 Recurrent pregnancy loss; O99.893 Other specified diseases and conditions complicating puerperium
CPT/HCPCS: 59025; 59050; 76816; 85025; 86780; 86850; 86900; 86901; 99221; G0378